=== PATIENT | female | born 1975 | race Caucasian/White ===

== ENCOUNTER 2024-02-25 11:54 | Observation (INO) ==
--- NOTE | 2024-02-25 12:19 | Emergency Department Note ---
Impression & Plan Dysfunctional uterine bleeding, Symptomatic anemia, Dizziness ED Provider Note NAME: ASHOK LINK AGE: 48 SEX: F : 1975 ARRIVES VIA: Ambulance INFORMANT: Patient, ED PROVIDER(S): Antony Fields MD CHIEF COMPLAINT: Vaginal bleeding MEDICAL DECISION MAKING: Patient presents due to concern for vaginal bleeding and shortness of breath. IV was established and blood work was obtained. 2 large-bore IVs ordered along with type and screen and [id number] as the patient did appear very pale. IV fluids ordered. Patient is initial blood work showed a white count of 14. The patient states that it has been elevated in the past. Patient's initial hemoglobin is 12 which is not significantly changed from 2022. Platelet count of 46. The patient has had thrombocytosis in the past. Kidney function is unremarkable BSG 195. Troponin negative. Patient upon reassessment did seem to be improved. Patient's pelvic ultrasound is limited but does show heterogeneous uterus possible fibroid and adenomyosis. The patient was reassessed several times. Patient did have a pelvic exam completed with calender inspector fall on. The patient did have a clot associated pooling within the vaginal vault. Repeat H&H was ordered in addition with IV fluids. I was called by nursing was concerned about additional blood clot expulsion as well as larger volume of blood. I did evaluate the patient and given this concern I did speak with the on-call fringing machine operator Dr. Muhammad who did evaluate the patient. After further discussion he does recommend 1 unit of uncrossed 1 on hold to be ordered. Patient was consented for blood and this was ordered. Patient was subsequently admitted to Dr. Muhammad. Critical Care: I have personally spent 45 minutes of critical care time in direct management of this patient. This includes bedside care, interpretation of diagnostic studies, and testing, discussion with consultants, patient, and family members, and other require inpatient management activities. This 45 minutes is in excess of all separately billable procedures. Discussion w/ other healthcare providers: Dr. Muhammad [employer] Prior /Outside records reviewed: None Differential diagnosis: Etiologies such as dysfunctional uterine bleeding, uterine fibroid, threatened , miscarriage, ectopic , endometrial polyps, coagulopathy, trauma, infection, as well as others were entertained. Diagnostics, as interpreted by me: ECG: Normal sinus rhythm, rate of 100, normal intervals, normal axis no ST elevations. Cardiac monitoring: An order was placed for continuous cardiac monitoring. The monitor shows a rate of 98 with sinus rhythm. Patient was placed on pulse oximetry Medical decision rules: None Imaging studies: I informally interpreted the patient's chest x-ray does not show obvious pneumonia or pneumothorax with formal report to follow. HPI: Patient presents due to concern for dizziness lightheadedness and feeling short of breath in the setting of vaginal bleeding. The patient LMP was 3 months prior but began having vaginal bleeding about a week ago. The patient states it was not very heavy until this morning. The patient did think it seem to be ending last night but worse around 10:30 AM this morning. Patient denies any recent trauma or sexual intercourse. Patient denies any chest pains. The patient does feel little short of breath and lightheaded. No falls or trauma. The patient does not take any blood thinning medications or aspirin or Plavix. Patient denies any significant abdominal pain other than her typical period cramping. The patient did put a pad on but this immediate became saturated so she removed it. PAST MEDICAL HISTORY: See Below PAST SURGICAL HISTORY: See Below SOCIAL HISTORY: See Below HOME MEDICATIONS: See Below ALLERGIES: See Below VITALS: See Below PHYSICAL EXAMINATION: GENERAL: Mildly ill in appearance, pale. EYE EXAM: Normal conjunctiva. PERRL, no anisocoria and EOM's grossly intact w/o pain. OROPHARYNX: Moist mucus membranes, grossly normal dentition. NECK: Trachea midline, no stridor. Supple, no nuchal rigidity, no adenopathy, non-tender. No signs of meningismus. FROM of the neck with good chin to chest and neck extension. LUNGS: Clear to auscultation. Normal chest wall mechanics. HEART: NSR, no MRG. ABDOMEN: Abdomen soft, non-tender, no masses, no rebound or guarding. BACK: No CVA TTP. SKIN: No rashes and no bruising. UPPER EXTREMITIES: Upper extremities are grossly normal. LOWER EXTREMITIES: Grossly normal, no edema. NEURO EXAM: A&O x3, cranial nerves II-XII grossly intact, normal speech, moves all 4 extremities. Past Med/Surg History Medical History Obesity Hypertension Diabetes Hypercholesterolemia Surgical History No pertinent past surgical history Social History Smoking Status: Unknown if ever smoked Tobacco Type: Cigarettes Preferred Language: Korean marital status: Single Feels Safe at Home: Yes Allergies Allergies Allergy/AdvReac Type Severity Reaction Status Date / Time metformin AdvReac Severe INTERFERRED Verified 02/25/24 18:55 WITH KIDNEY FUNCTION levothyroxine sodium AdvReac Unknown BRAND Verified 02/25/24 18:55 [From Synthroid] NAME--INEFFECTIVE, ITCHINESS Home Meds Home Medications Medication Instructions Recorded Confirmed atorvastatin 20 mg tablet 20 mg PO HS 08/11/21 02/25/24 levothyroxine 200 mcg tablet 200 mcg PO DAILYBB 08/11/21 02/25/24 pantoprazole 40 mg tablet,delayed 40 mg PO QAM 08/11/21 02/25/24 release cholecalciferol (vitamin D3) 50 2,000 unit PO DAILY 01/09/23 02/25/24 mcg (2,000 unit) capsule (Vitamin D3) fluticasone furoate 27.5 1 spray intranasal BID PRN 01/09/23 02/25/24 mcg/actuation nasal Congestion spray,suspension (Flonase Sensimist) losartan 100 mg tablet 100 mg PO QAM 01/09/23 01/09/23 topiramate 25 mg tablet 25 mg PO BID 01/09/23 01/09/23 ferrous sulfate 325 mg (65 mg 325 mg PO BID 02/25/24 02/25/24 iron) tablet (FeroSul) Results & Data (ED) Vital Signs Vital Signs - 24 hr 02/25/24 12:04 02/25/24 12:14 02/25/24 12:19 Temperature 36.6 C Temperature Source Oral Pulse Rate 97 H 96 H 98 H Pulse Rate from SpO2 Sensor Respiratory Rate 24 21 Respiratory Effort / Characteristics Non-Labored Spontaneous Respiratory Depth Normal Blood Pressure 131/71 89/58 L Blood Pressure Mean 91 68 Blood Pressure Position Lying Pulse Oximetry 100 99 Oxygen Delivery Method Room Air Sepsis Recent Fever Within 48 Hours No Sepsis New/Unexplained Change in Mental Status No Sepsis Action Taken by Nursing No Action Required 02/25/24 12:23 02/25/24 12:32 02/25/24 13:15 Temperature Temperature Source Pulse Rate 89 94 H 95 H Pulse Rate from SpO2 Sensor Respiratory Rate 20 19 16 Respiratory Effort / Characteristics Respiratory Depth Blood Pressure 122/78 104/67 Blood Pressure Mean 92 79 Blood Pressure Position Pulse Oximetry 97 97 100 Oxygen Delivery Method Room Air Sepsis Recent Fever Within 48 Hours Sepsis New/Unexplained Change in Mental Status Sepsis Action Taken by Nursing 02/25/24 13:30 02/25/24 14:46 02/25/24 15:01 Temperature Temperature Source Pulse Rate 103 H 107 H 104 H Pulse Rate from SpO2 Sensor Respiratory Rate 24 18 26 H Respiratory Effort / Characteristics Respiratory Depth Blood Pressure 133/72 110/84 111/71 Blood Pressure Mean 92 92 84 Blood Pressure Position Pulse Oximetry 99 98 97 Oxygen Delivery Method Sepsis Recent Fever Within 48 Hours Sepsis New/Unexplained Change in Mental Status Sepsis Action Taken by Nursing 02/25/24 15:36 02/25/24 15:40 02/25/24 16:00 Temperature Temperature Source Pulse Rate 106 H 109 H 102 H Pulse Rate from SpO2 Sensor Respiratory Rate 13 15 16 Respiratory Effort / Characteristics Respiratory Depth Blood Pressure 157/84 H 101/71 119/87 Blood Pressure Mean 108 81 97 Blood Pressure Position Pulse Oximetry 98 98 96 Oxygen Delivery Method Sepsis Recent Fever Within 48 Hours Sepsis New/Unexplained Change in Mental Status Sepsis Action Taken by Nursing 02/25/24 16:21 02/25/24 16:31 02/25/24 17:01 Temperature Temperature Source Pulse Rate 119 H 99 H 100 H Pulse Rate from SpO2 Sensor Respiratory Rate 15 16 Respiratory Effort / Characteristics Respiratory Depth Blood Pressure 105/61 99/59 L Blood Pressure Mean 75 72 Blood Pressure Position Pulse Oximetry 97 98 Oxygen Delivery Method Sepsis Recent Fever Within 48 Hours Sepsis New/Unexplained Change in Mental Status Sepsis Action Taken by Nursing 02/25/24 17:22 02/25/24 17:31 02/25/24 17:38 Temperature Temperature Source Pulse Rate 113 H Pulse Rate from SpO2 Sensor 127 H 126 H Respiratory Rate 16 Respiratory Effort / Characteristics Respiratory Depth Blood Pressure 113/52 L 92/76 L 80/56 L Blood Pressure Mean 72 81 64 Blood Pressure Position Pulse Oximetry 98 98 98 Oxygen Delivery Method Sepsis Recent Fever Within 48 Hours Sepsis New/Unexplained Change in Mental Status Sepsis Action Taken by Nursing 02/25/24 17:42 02/25/24 17:50 02/25/24 18:00 Temperature Temperature Source Pulse Rate 119 H 118 H 109 H Pulse Rate from SpO2 Sensor Respiratory Rate 21 21 13 Respiratory Effort / Characteristics Respiratory Depth Blood Pressure 102/66 98/57 L 109/79 Blood Pressure Mean 78 70 89 Blood Pressure Position Pulse Oximetry 98 100 99 Oxygen Delivery Method Sepsis Recent Fever Within 48 Hours Sepsis New/Unexplained Change in Mental Status Sepsis Action Taken by Nursing 02/25/24 18:51 Temperature 36.9 C Temperature Source Oral Pulse Rate 111 H Pulse Rate from SpO2 Sensor Respiratory Rate 20 Respiratory Effort / Characteristics Respiratory Depth Blood Pressure 106/52 L Blood Pressure Mean 70 Blood Pressure Position Pulse Oximetry 98 Oxygen Delivery Method Sepsis Recent Fever Within 48 Hours Sepsis New/Unexplained Change in Mental Status Sepsis Action Taken by Alf Medications Current Medication List: was personally reviewed by me Laboratory Data Attestation: I reviewed the patient's lab results. 02/25/24 16:58 02/25/24 12:10 Lab Results 02/25/24 02/25/24 02/25/24 Range/Units 12:10 12:15 12:20 WBC 14.04 H (4.8-10.8) K/ul RBC 4.67 (4.20-5.40) M/uL Hgb 12.1 (12.0-16.0) g/dl Hct 40.1 (37.0-47.0) % MCV 85.9 (80.0-100.0) fL MCH 25.9 (25.0-34.0) pg MCHC 30.2 L (32.0-36.0) g/dL RDW Std Deviation 72.7 H (36.4-46.3) fL RDW Coeff of Jay 23.3 H (11.5-14.5) % Plt Count 486 H (130-400) K/uL MPV 10.1 (9.4-12.4) fL Immature Gran % (Auto) 0.5 % Neut % (Auto) 76.6 % Lymph % (Auto) 14.2 % [place] % (Auto) 4.8 % Eos % (Auto) 3.2 % Baso % (Auto) 0.7 % Neut # (Auto) 10.74 H (1.40-6.50) K/uL Lymph # (Auto) 2.00 (1.20-3.40) K/uL [place] # (Auto) 0.68 H (0.11-0.59) K/uL Eos # (Auto) 0.45 (0.00-0.50) K/uL Baso # (Auto) 0.10 (0.00-0.20) K/uL Immature Gran # (Auto) 0.07 (0.01-0.20) K/uL Anisocytosis Present PT 10.9 (9.0-12.0) Seconds INR 1.0 (0.9-1.1) APTT 27 (21-31) Seconds PTT Ratio 1.0 Sodium 140 (136-145) mmol/L Potassium 4.0 (3.5-5.1) mmol/L Chloride 107 (98-107) mmol/L Carbon Dioxide 25 (21-32) mmol/L Anion Gap 8 (3-11) BUN 17 (6-23) mg/dl Creatinine 1.01 (0.6-1.2) mg/dl Est Cr Clr Drug Dosing Not Reportable Est GFR ( Amer) 77.3 ml/min Est GFR (Non-Af Amer) 66.7 ml/min BUN/Creatinine Ratio 16.8 (10-20) Glucose 195 H (70-99(Fasting)) mg/dl Calcium 8.6 (8.6-10.3) mg/dl Total Bilirubin 0.3 (0.2-1.0) mg/dl AST 13 (13-39) U/L ALT 12 (7-52) U/L Alkaline Phosphatase 63 (34-104) U/L Troponin I High Sens (0-14) pg/ml Total Protein 6.6 (6.0-8.3) gm/dl Albumin 3.6 (3.4-5.0) gm/dl Globulin 3.0 (2.5-4.0) gm/dl Albumin/Globulin Ratio 1.2 (0.9-2) HCG, Qual Negative (Negative) Blood Type B Positive Blood Type Recheck B Positive Antibody Screen NEGATIVE Crossmatch See Detail 02/25/24 02/25/24 Range/Units 13:37 16:58 WBC (4.8-10.8) K/ul RBC (4.20-5.40) M/uL Hgb 10.3 L (12.0-16.0) g/dl Hct 32.9 L (37.0-47.0) % MCV (80.0-100.0) fL MCH (25.0-34.0) pg MCHC (32.0-36.0) g/dL RDW Std Deviation (36.4-46.3) fL RDW Coeff of Jay (11.5-14.5) % Plt Count (130-400) K/uL MPV (9.4-12.4) fL Immature Gran % (Auto) % Neut % (Auto) % Lymph % (Auto) % [place] % (Auto) % Eos % (Auto) % Baso % (Auto) % Neut # (Auto) (1.40-6.50) K/uL Lymph # (Auto) (1.20-3.40) K/uL [place] # (Auto) (0.11-0.59) K/uL Eos # (Auto) (0.00-0.50) K/uL Baso # (Auto) (0.00-0.20) K/uL Immature Gran # (Auto) (0.01-0.20) K/uL Anisocytosis PT (9.0-12.0) Seconds INR (0.9-1.1) APTT (21-31) Seconds PTT Ratio Sodium (136-145) mmol/L Potassium (3.5-5.1) mmol/L Chloride (98-107) mmol/L Carbon Dioxide (21-32) mmol/L Anion Gap (3-11) BUN (6-23) mg/dl Creatinine (0.6-1.2) mg/dl Est Cr Clr Drug Dosing Est GFR ( Amer) ml/min Est GFR (Non-Af Amer) ml/min BUN/Creatinine Ratio (10-20) Glucose (70-99(Fasting)) mg/dl Calcium (8.6-10.3) mg/dl Total Bilirubin (0.2-1.0) mg/dl AST (13-39) U/L ALT (7-52) U/L Alkaline Phosphatase (34-104) U/L Troponin I High Sens 12.9 (0-14) pg/ml Total Protein (6.0-8.3) gm/dl Albumin (3.4-5.0) gm/dl Globulin (2.5-4.0) gm/dl Albumin/Globulin Ratio (0.9-2) HCG, Qual (Negative) Blood Type Blood Type Recheck Antibody Screen Crossmatch Administered Medications Discontinued Medications Sodium Chloride (Nss) 1,000 mls @ 999 mls/hr IV .Q1H1M JOCE Stop: 02/25/24 13:30 Last Infusion: 02/25/24 14:04 Dose: Infused Documented By: Admin: 02/25/24 12:39 Dose: 999 mls/hr Documented By: CPB Sodium Chloride (Nss) 500 mls @ 999 mls/hr IV .Q31M ONE Stop: 02/25/24 16:07 Last Infusion: 02/25/24 16:57 Dose: Infused Documented By: Admin: 02/25/24 15:56 Dose: 999 mls/hr Documented By: CPB Sodium Chloride (Nss) 500 mls @ 999 mls/hr IV .Q31M ONE Stop: 02/25/24 17:52 Last Infusion: 02/25/24 18:09 Dose: Infused Documented By: Admin: 02/25/24 17:28 Dose: 999 mls/hr Documented By: CPB Ketorolac Tromethamine (Ketorolac Tromethamine 15 Mg/Ml Vial) 10 mg IV NOW ONE Stop: 02/25/24 15:38 Last Admin: 02/25/24 15:56 Dose: 10 mg Documented By: CPB Norethindrone (Norethindrone 5 Mg Tab) 5 mg PO ONE STA Stop: 02/25/24 17:23 Last Admin: 02/25/24 17:34 Dose: 5 mg Documented By: CPB Imaging Data Radiologist's Impression: Transvaginal US 02/25/24 13:05 US pelvic complete, US transvaginal HISTORY: 48 years-old Female increased bleeding acute vaginal bleeding COMPARISON: CT 04/02/2011 TECHNIQUE: Multiple real-time sonographic images of the deep pelvic structures were obtained transabdominally and transvaginally assessing grayscale appearance, color and spectral flow FINDINGS: TRANSABDOMINAL: Limited exam secondary to patient body habitus. Suboptimal position of the uterus which measures 12.5 x 8.9 x 9.1 cm. There is an additional hypoechoic focus along the right fundal aspect of the uterus measuring 3.8 x 3.6 x 3.3 cm. Endometrium measures approximately 1.5 cm in thickness. Ovaries are obscured by bowel gas. TRANSVAGINAL: Nabothian cysts of the cervix. Heterogeneous appearance of the uterus. Ovaries are not visualized. No adnexal mass lesions. IMPRESSION: 1. Limited exam secondary to patient body habitus. 2. Heterogeneous uterus with questioned adenomyosis and possible pedunculated fundal fibroid. 3. Nonvisualization of the ovaries. ACT 112: Negative or not required by law. The above report was generated using voice recognition software. It may contain grammatical, syntax or spelling errors. Electronically signed by: Jerry Singer M.D. 02/25/2024 2:49 PM Pelvis Ultrasound 02/25/24 13:06 US pelvic complete, US transvaginal HISTORY: 48 years-old Female increased bleeding acute vaginal bleeding COMPARISON: CT 04/02/2011 TECHNIQUE: Multiple real-time sonographic images of the deep pelvic structures were obtained transabdominally and transvaginally assessing grayscale appearance, color and spectral flow FINDINGS: TRANSABDOMINAL: Limited exam secondary to patient body habitus. Suboptimal position of the uterus which measures 12.5 x 8.9 x 9.1 cm. There is an additional hypoechoic focus along the right fundal aspect of the uterus measuring 3.8 x 3.6 x 3.3 cm. Endometrium measures approximately 1.5 cm in thickness. Ovaries are obscured by bowel gas. TRANSVAGINAL: Nabothian cysts of the cervix. Heterogeneous appearance of the uterus. Ovaries are not visualized. No adnexal mass lesions. IMPRESSION: 1. Limited exam secondary to patient body habitus. 2. Heterogeneous uterus with questioned adenomyosis and possible pedunculated fundal fibroid. 3. Nonvisualization of the ovaries. ACT 112: Negative or not required by law. The above report was generated using voice recognition software. It may contain grammatical, syntax or spelling errors. Electronically signed by: Jerry Singer M.D. 02/25/2024 2:49 PM Chest X-Ray 02/25/24 13:18 XR chest 1V portable CLINICAL HISTORY: sob TECHNIQUE: Single frontal radiograph of the chest was obtained. Comparison: Comparison is made to chest radiograph 01/22/2023 FINDINGS: No lines and tubes are seen. The cardiomediastinal silhouette is normal. The lungs are clear. No evidence of pleural effusion or pneumothorax. IMPRESSION: No acute chest disease. ACT 112: Negative or not required by law. Electronically signed by: Nelson Haynes M.D. 02/25/2024 1:43 PM Discharge Plan Visit Data Chief Complaint: Vaginal Bleeding Stated Complaint: Vaginal Bleeding ED Provider: Antony Fields Discharge Problem: Dysfunctional uterine bleeding, Symptomatic anemia, Dizziness Forms Stand Alone Forms: [facility] [employer] Prescriptions Prescriptions: No Action atorvastatin 20 mg tablet 20 mg PO HS pantoprazole 40 mg tablet,delayed release (DR/EC) 40 mg PO QAM levothyroxine 200 mcg tablet 200 mcg PO DAILYBB topiramate 25 mg tablet 25 mg PO BID losartan 100 mg tablet 100 mg PO QAM cholecalciferol (vitamin D3) [Vitamin D3] 50 mcg (2,000 unit) capsule 2,000 unit PO DAILY Flonase Sensimist 27.5 mcg/actuation spray,suspension 1 spray intranasal BID PRN (Reason: Congestion) Rx Instructions: into each nostril ferrous sulfate [FeroSul] 325 mg (65 mg iron) tablet 325 mg PO BID Referrals Referrals: Lucía Horner PA-C [Primary Care Provider] -
[2024-02-25] MEDS: SODIUM CHLORIDE 0.9% 1,000 ML IV SCH (12:39)
[2024-02-25 12:42] LABS: Basophils % (auto) 0.7 %; Eosinophils # (auto) 0.45 K/uL (0.00-0.50); Eosinophils % (auto) 3.2 %; Hematocrit (blood only) 40.1 % (37.0-47.0); Hemoglobin 12.1 g/dl (12.0-16.0); Immature Granulocytes # (auto) 0.07 K/uL (0.01-0.20); Immature Granulocytes % (auto) 0.5 %; Lymphocytes % (auto) 14.2 %; Mean Corpuscular Hemoglobin 25.9 pg (25.0-34.0); Mean Corpuscular Hgb Conc 30.2 g/dL (32.0-36.0); Mean Corpuscular Volume 85.9 fL (80.0-100.0); Mean Platelet Volume 10.1 fL (9.4-12.4); Monocytes # (auto) 0.68 K/uL (0.11-0.59); Monocytes % (auto) 4.8 %; Neutrophils # (auto) 10.74 K/uL (1.40-6.50); Neutrophils % (auto) 76.6 %; Platelet Count 486 K/uL (130-400); RDW Coefficient of Variation 23.3 % (11.5-14.5); RDW Standard Deviation 72.7 fL (36.4-46.3); Red Blood Count 4.67 M/uL (4.20-5.40); White Blood Count 14.04 K/ul (4.8-10.8)
[2024-02-25 13:00] LABS: Alanine Aminotransferase 12 U/L (7-52); Albumin Globulin Ratio 1.2 (0.9-2); Albumin Level 3.6 gm/dl (3.4-5.0); Alkaline Phosphatase 63 U/L (34-104); Anion Gap 8 (3-11); Aspartate Aminotransferase 13 U/L (13-39); BUN Creatinine Ratio 16.8 (10-20); Bilirubin,Total 0.3 mg/dl (0.2-1.0); Blood Urea Nitrogen 17 mg/dl (6-23); Calcium 8.6 mg/dl (8.6-10.3); Carbon Dioxide 25 mmol/L (21-32); Chloride 107 mmol/L (98-107); Est GFR (African American) 77.3 ml/min; Est GFR (Non-African American) 66.7 ml/min; Glucose 195 mg/dl (70-99(Fasting)); Sodium 140 mmol/L (136-145); Total Protein 6.6 gm/dl (6.0-8.3)
[2024-02-25 13:10] LABS: Pregnancy Test, Serum Negative (Negative)
[2024-02-25 13:11] LABS: Partial Thromboplastin Time 27 Seconds (21-31); Prothrombin Time 10.9 Seconds (9.0-12.0)
[2024-02-25 13:12] LABS: Anisocytosis Present
--- NOTE | 2024-02-25 13:45 | XRay Report ---
XR chest 1V portable CLINICAL HISTORY: sob TECHNIQUE: Single frontal radiograph of the chest was obtained. Comparison: Comparison is made to chest radiograph 01/22/2023 FINDINGS: No lines and tubes are seen. The cardiomediastinal silhouette is normal. The lungs are clear. No evid ence of pleural effusion or pneumothorax. IMPRESSION: No acute chest disease. ACT 112: Negative or not required by law. Electronically signed by: Nelson Haynes M.D. 02/25/2024 1:43 PM
--- NOTE | 2024-02-25 14:50 | Ultrasound Report ---
US pelvic complete, US transvaginal HISTORY: 48 years-old Female increased bleeding acute vaginal bleeding COMPARISON: CT 04/02/2011 TECHNIQUE: Multiple real-time sonographic images of the deep pelvic structures were obtained transabd ominally and transvaginally assessing grayscale appearance, color and spectral flow FINDINGS: TRANSABDOMINAL: Limited exam secondary to patient body habitus. Suboptimal position of the uterus which measures 12. 5 x 8.9 x 9.1 cm. There is an additional hypoechoic focus along the right fundal aspect of the uterus measuring 3.8 x 3.6 x 3.3 cm. Endometrium measures approximately 1.5 cm in thickness. Ovaries are ob scured by bowel gas. TRANSVAGINAL: Nabothian cysts of the cervix. Heterogeneous appearance of the uterus. Ovaries are not visualized. No adnexal mass lesions. IMPRESSION: 1. Limited exam secondary to patient body habitus. 2. Heterogeneous uterus with questioned adenomyosis and possible pedunculated fundal fibroid. 3. Nonvisualization of the ovaries. ACT 112: Negative or not required by law. The above report was generated using voice recognition software. It may contain grammatical, syntax o r spelling errors. Electronically signed by: Jerry Singer M.D. 02/25/2024 2:49 PM
[2024-02-25] MEDS: KETOROLAC TROMETHAMINE 15 MG/ML VIAL IV ONE (15:56)
[2024-02-25] MEDS: SODIUM CHLORIDE 0.9% 500 ML IV ONE ×2 (15:56→17:28)
[2024-02-25 17:16] LABS: Hematocrit (blood only) 32.9 % (37.0-47.0); Hemoglobin 10.3 g/dl (12.0-16.0)
[2024-02-25] MEDS: NORETHINDRONE 5 MG TAB PO STA (17:34)
[2024-02-25] MEDS ORDERED: SODIUM CHLORIDE 0.9% 250 ML IV PRN (18:35)
[2024-02-25] MEDS ORDERED: Patient's HEIGHT &/or WEIGHT Needed SCH (19:15)
--- NOTE | 2024-02-25 19:23 | History & Physical Report ---
Date of Service February 25, 2024 Assessment & Plan (1) Symptomatic anemia: Plan: Blood transfusion (2) Dysfunctional uterine bleeding: Plan: Aygestin to stop bleeding (3) Dizziness: Plan: IV Fluids History of Present Illness Chief Complaint: vaginal bleeding Primary Care Provider: Lucía Horner PA-C 48 F P0000 LMP Sunday of last week with continuing bleeding through today and got heavier as the day progressed and came to the ER. She has always had irregular menses with heavy bleeding and clots and this period was unusual that it was heavier and did not stop. She was short of breath earlier and did feel dizzy earlier int e day but not light headed. she was pale on admission to ER. She is sexually active and never been on control. She does smoke 1.5- 2.0 PPD. Denies any drug use. She has never had a Pap smear or been to a medical manager. Allergies Allergy/AdvReac Type Severity Reaction Status Date / Time metformin AdvReac Severe INTERFERRED Verified 02/25/24 18:55 WITH KIDNEY FUNCTION levothyroxine sodium AdvReac Unknown BRAND Verified 02/25/24 18:55 [From Synthroid] NAME--INEFFECTIVE, ITCHINESS Home Medications Medication Instructions Recorded Confirmed Type atorvastatin 20 mg tablet 20 mg PO HS 08/11/21 02/25/24 History levothyroxine 200 mcg tablet 200 mcg PO DAILYBB 08/11/21 02/25/24 History pantoprazole 40 mg tablet,delayed 40 mg PO QAM 08/11/21 02/25/24 History release cholecalciferol (vitamin D3) 50 2,000 unit PO DAILY 01/09/23 02/25/24 History mcg (2,000 unit) capsule (Vitamin D3) fluticasone furoate 27.5 1 spray intranasal BID PRN 01/09/23 02/25/24 History mcg/actuation nasal Congestion spray,suspension (Flonase Sensimist) ferrous sulfate 325 mg (65 mg 325 mg PO BID 02/25/24 02/25/24 History iron) tablet (FeroSul) Past Med/Surg History Medical History Obesity Hypertension Diabetes Hypercholesterolemia Surgical History No pertinent past surgical history Social History Smoking Status: Unknown if ever smoked Tobacco Type: Cigarettes Preferred Language: Sammarinese marital status: Single Feels Safe at Home: Yes Review of Systems Review of Systems: All systems reviewed & are unremarkable except as noted in HPI & below Physical Exam Constitutional: WD/WN, vitals as above Eyes: PERRL, conjunctivae normal, anicteric sclerae Respiratory: normal respiratory effort, lungs clear to auscultation Cardiovascular: RRR, no murmur, no edema Gastrointestinal (Abdomen): Inspection/Auscultation: abdomen normal to inspection Percussion/Palpation: abdomen soft morbidly obese. no abdominal pain or guarding on exam. No palpable mass. Musculoskeletal: Extremities: extremities normal to inspection no edema of lower extremities Skin: no rashes, warm and dry Neurologic: patellar DTR's 2+ bilat, sensation intact Psychiatric: A+Ox3, euthymic affect Genitourinary: no vaginal lesions, no adnexal mass Speculum/Bimanual Exam: normal appearance of the cervix large clot evacuated from vagina. Cervix without lesions. No CMT. unable to palpate uterus or adnexa due to body habitus. Results & Data Results & Data Vital Signs (Past 12 Hours) Vital Signs Temp Pulse Resp BP Pulse Ox O2 Del Method 02/25/24 19:00 36.8 C 111 H 20 103/56 L 98 02/25/24 18:51 36.9 C 111 H 20 106/52 L 98 02/25/24 18:00 109 H 13 109/79 99 02/25/24 17:50 118 H 21 98/57 L 100 02/25/24 17:42 119 H 21 102/66 98 02/25/24 17:38 80/56 L 98 02/25/24 17:31 92/76 L 98 02/25/24 17:22 113 H 16 113/52 L 98 02/25/24 17:01 100 H 16 99/59 L 98 02/25/24 16:31 99 H 15 105/61 97 02/25/24 16:21 119 H 02/25/24 16:00 102 H 16 119/87 96 02/25/24 15:40 109 H 15 101/71 98 02/25/24 15:36 106 H 13 157/84 H 98 02/25/24 15:01 104 H 26 H 111/71 97 02/25/24 14:46 107 H 18 110/84 98 02/25/24 13:30 103 H 24 133/72 99 02/25/24 13:15 95 H 16 104/67 100 02/25/24 12:32 94 H 19 122/78 97 02/25/24 12:23 89 20 97 Room Air 02/25/24 12:19 98 H 02/25/24 12:14 96 H 21 89/58 L 99 02/25/24 12:04 36.6 C 97 H 24 131/71 100 Room Air Laboratory Results 02/25/24 02/25/24 02/25/24 12:10 12:15 12:20 WBC 14.04 H RBC 4.67 Hgb 12.1 Hct 40.1 MCV 85.9 MCH 25.9 MCHC 30.2 L RDW Std Deviation 72.7 H RDW Coeff of Jay 23.3 H Plt Count 486 H MPV 10.1 Immature Gran % (Auto) 0.5 Neut % (Auto) 76.6 Lymph % (Auto) 14.2 Woodward % (Auto) 4.8 Eos % (Auto) 3.2 Baso % (Auto) 0.7 Neut # (Auto) 10.74 H Lymph # (Auto) 2.00 Woodward # (Auto) 0.68 H Eos # (Auto) 0.45 Baso # (Auto) 0.10 Immature Gran # (Auto) 0.07 Anisocytosis Present PT 10.9 INR 1.0 APTT 27 PTT Ratio 1.0 Sodium 140 Potassium 4.0 Chloride 107 Carbon Dioxide 25 Anion Gap 8 BUN 17 Creatinine 1.01 Est Cr Clr Drug Dosing Not Reportable Est GFR ( Amer) 77.3 Est GFR (Non-Af Amer) 66.7 BUN/Creatinine Ratio 16.8 Glucose 195 H Calcium 8.6 Total Bilirubin 0.3 AST 13 ALT 12 Alkaline Phosphatase 63 Troponin I High Sens Total Protein 6.6 Albumin 3.6 Globulin 3.0 Albumin/Globulin Ratio 1.2 HCG, Qual Negative Blood Type B Positive Blood Type Recheck B Positive Antibody Screen NEGATIVE Crossmatch See Detail 02/25/24 02/25/24 13:37 16:58 WBC RBC Hgb 10.3 L Hct 32.9 L MCV MCH MCHC RDW Std Deviation RDW Coeff of Jay Plt Count MPV Immature Gran % (Auto) Neut % (Auto) Lymph % (Auto) Woodward % (Auto) Eos % (Auto) Baso % (Auto) Neut # (Auto) Lymph # (Auto) Woodward # (Auto) Eos # (Auto) Baso # (Auto) Immature Gran # (Auto) Anisocytosis PT INR APTT PTT Ratio Sodium Potassium Chloride Carbon Dioxide Anion Gap BUN Creatinine Est Cr Clr Drug Dosing Est GFR ( Amer) Est GFR (Non-Af Amer) BUN/Creatinine Ratio Glucose Calcium Total Bilirubin AST ALT Alkaline Phosphatase Troponin I High Sens 12.9 Total Protein Albumin Globulin Albumin/Globulin Ratio HCG, Qual Blood Type Blood Type Recheck Antibody Screen Crossmatch Diagnostic Findings CXR negative pelvic ultrasound limited due to body habitus Uterus 12.5 x 8.9 x 9.1 cm with possible pedunculated fibroid 3.8 x 3.6 x 3.3 cm. EML 1.5 cm. Non-visualized ovaries. possible adenomyosis/ Code Status & VTE Plan VTE Prophylaxis Plan VTE Prophylaxis will be ordered: No
[2024-02-25] MEDS ORDERED: IBUPROFEN 600 MG TAB PO PRN (19:33)
--- OUTSIDE RECORDS SUMMARY | 2024-02-25 19:55 | External Medical Summary | Summary of Care ---
Author Name Unknown Organization [facility] Address [address] [place] [address] Phone [phone] Care Team Providers Care Computer Applications Developer Name Role Phone Lucía Horner PA-C Primary Care Provider [phone] Reason for Referral * Medication Prior Authorization - Closed Specialty Diagnoses / Procedures Referred By Grupo mohan Referred To Contact Diagnoses Dizziness Romel Fenton, [facility] [address] [facility] [address] Referral ID Status Reason Start Date Expiration Date Visits Re quested Visits Authorized [id number] Closed 999 534 Reason for Visit * Reason Comments eRx-Medication Refill Encounter Details Date Type Department Care Team (Late st Contact Info) Description 02/21/2024 Refill [facility] [address] [place] [id number] Lucía Horner PA-C [address] [place] [address] Dizziness Allergies Active Allergy Reactions Criticality Noted Date Comments Metformin 01/11/2021 Raised creat documented as of this encounter (statuses as of 02/22/2024) Medications Medication Sig Dispensed Refills Start Date End Date Status NEBULIZER COMPRESSOR MISCIndications:Bro nchitis Use as directed 1 Each 1 5 Active Blood Glucose Monitoring Suppl (ONE TOUCH ULTRA SYSTEM KIT) W/DEVICE KITIndications:DM type 2, goal A1c below 7 Once daily or as needed 1 Kit 0 5 Active metronidazole (METROGEL) 0.75 % gelIndications:Impe tigo Apply topically to affected area 2 times a day. Apply to affected area 45 g 1 8 Active Meclizine HCl 25 MG Oral Tablet (Antivert)Indicatio ns:Dizziness Take 1 Tablet by mouth 3 times a day as needed for Dizziness. 30 Tablet 1 3 Active Magnesium Oxide 400 (240 Mg) MG Oral Tablet (Mag-Ox)Indications :Tension-type headache, not intractable, unspecified chronicity pattern TAKE ONE TABLET BY MOUTH NIGHTLY AT BEDTIME 100 Tablet 1 3 Active Mounjaro 2.5 MG/0.5ML Subcutaneous Solution Pen-injector (Tirzepatide)Indica tions:Type 2 diabetes mellitus with hemoglobin A1c goal of less than 7.0% (HCC),Morbid obesity, BMI not known (HCC) Inject 2.5 mg under the skin once a week. 2 mL 11 3 08/02/20 24 Active Atorvastatin Calcium 20 MG Oral Tablet (Lipitor)Indication s:HTN, goal below 140/90,Dyslipidemia , goal LDL below 70 TAKE 1 TABLET BY MOUTH AT BEDTIME 90 Tablet 1 3 Active OneTouch Ultra In Vitro Strip (Glucose Blood) USE TO TEST ONCE A DAY OR NEEDED 100 Strip 3 3 Active OneTouch UltraSoft 2 Lancets USE TO TEST ONCE DAILY OR DIRECTED 100 Each 3 3 Active LORazepam 0.5 MG Oral Tablet (Ativan)Indications :NDPH (new daily persistent headache) One tab 1 hour prior, repeat 15 min prior and start of mri 3 Tablet 0 3 Active Ipratropium Barney 0.02 % Inhalation Solution (Atrovent)Indicatio ns:Tobacco use disorder Inhale 2.5 mL via nebulizer in the morning and 2.5 mL at noon and 2.5 mL in the evening and 2.5 mL before bedtime. 75 mL 12 4 Active busPIRone HCl 15 MG Oral Tablet (Buspar)Indications :ELIZABETH (generalized anxiety disorder),Panic attack TAKE ONE TABLET BY MOUTH IN THE MORNING, ONE TABLET AT NOON, ONE TABLET IN THE EVENING AND ONE TABLET BEFORE BEDTIME 120 Tablet 2 4 Active traZODone HCl 50 MG Oral Tablet (Desyrel)Indication s:NDPH (new daily persistent headache),Insomnia, unspecified type,Current mild episode of major depressive disorder, unspecified whether recurrent (HCC) take 1/2 to 1 tablet by mouth at bedtime 30 Tablet 2 4 Active Azithromycin 250 MG Oral Tablet (Zithromax Z-Landon)Indications:S inobronchitis Take two tablets by mouth on first day, then 1 tablet daily until gone 6 Tablet 0 4 Active predniSONE 10 MG Oral Tablet (Deltasone)Indicati ons:Sinobronchitis Take 5 tabs for 2 days, 4 tabs for 2 days, 3 tabs for 2 days, 2 tabs for 2 days 1 tab for 2 days 30 Tablet 0 4 Active Albuterol Sulfate HFA 108 (90 Base) MCG/ACT Inhalation Aerosol SolutionIndications :Pneumonia of right lower lobe due to infectious organism INHALE TWO PUFFS BY MOUTH FOUR TIMES DAILY 18 g 2 4 Active Emgality 120 MG/ML Subcutaneous Solution Auto-injector (Galcanezumab-gnlm) Inject 1 mL under the skin every month. 1 mL 5 4 Active Albuterol Sulfate (2.5 MG/3ML) 0.083% Inhalation Nebulization Solution (Proventil)Indicati ons:Bronchitis, complicated INHALE 1 VIAL VIA NEBULIZER EVERY FOUR HOURS NEEDED FOR WHEEZING 150 mL 2 4 Active Levothyroxine Sodium 200 MCG Oral Tablet (Levoxyl)Indication s:Acquired hypothyroidism TAKE 1 TABLET BY MOUTH ONCE DAILY sunday through sunday and take 1/2 tablet on sunday and sunday - take at least 30 minutes before breakfast and any other medications 84 Tablet 1 4 Active Ferrous Sulfate 325 (65 Fe) MG Oral Tablet (Feosol)Indications :Abnormal CBC measurement Take 1 Tablet by mouth in the morning and 1 Tablet before bedtime. 60 Tablet 11 4 Active Vitamin C 500 MG Oral Tablet ChewableIndications :Abnormal CBC measurement Take 1 Tablet by mouth in the morning and 1 Tablet before bedtime. Take with iron supplement and drink 4 ounces of water. 60 Tablet 5 4 Active Pantoprazole Sodium 40 MG Oral Tablet Delayed Release (Protonix)Indicatio ns:GERD (gastroesophageal reflux disease),Encounter for long-term (current) use of medications TAKE 1 TABLET BY MOUTH ONCE DAILY 90 Tablet 1 4 Active D3 Super Strength 50 MCG (2000 UT) Oral Capsule (Cholecalciferol)In dications:Low vitamin D level TAKE 1 CAPSULE BY MOUTH EVERY MORNING 90 Capsule 1 4 Active Fluticasone Propionate 50 MCG/ACT Nasal Suspension (Flonase)Indication s:Dizziness administer 1 spray into nostil(s) in the morning 16 g 1 4 Active Fluticasone Propionate 50 MCG/ACT Nasal Suspension (Flonase)Indication s:Dizziness Administer 1 Gamaliel into nostril in the morning. 15.8 mL 3 3 02/22/20 24 Discontinued documented as of this encounter (statuses as of 02/22/2024) Active Problems Problem Noted Date Diagnosed Date Major depressive disorder, single episode, mild 11/27/2023 Type 2 diabetes mellitus wit h diabetic nephropathy, without long-term current use of insulin 11/27/2023 Elevated carcinoembryonic antigen (CEA) 02/15/20 [address] nodules on CT 02/07/2023 Restless legs 09/18/2022 Morbid obesity, BMI not known 06/13/2018 Dyslipidemia, goal LDL below 70 12/04/2017 Encounter for long-term (current) use of medicat ions 12/04/2017 Type 2 diabetes mellitus wit h hemoglobin A1c goal of less than 7.0% 04/01/2015 Overview: ICD-10 update of inactive term GERD (gastroesophageal reflux disease) 5 HTN, goal below 140/90 03/29/2015 Tobacco use disorder 03/29/2015 Hypothyroidism 10/01/2012 Migraine 08/20/2012 documented as of this encounter (statuses as of 02/22/2024) Resolved Problems Problem Noted Date Diagnosed Date Resolved Date Abdominal pain 03/29/2015 08/24/2017 Abnormal LFTs 03/29/2015 08/24/2017 Cough 01/11/2010 03/29/2015 Overweight (BMI 25.0-29.9) 08/13/2009 0 03/29/2015 Esophageal reflux 08/13/2009 03/29/2015 Chest pain 08/13/2009 03/29/2015 Tobacco use disorder 08/13/2009 015 Elevated blood pressure, situational 08/13/2009 03/29/2015 HYPERGLYCEMIA 08/13/2009 03/29/2015 Prediabetes 06/22/2016 Dyslipidemia, goal LDL below 130 12/04/2017 documented as of this encounter (statuses as of 02/22/2024) Immunizations Name Administration Dates Next Due COVID-19 mRNA, LNP-s, No Pre serve, 2-Dose Series ([employer]) 09/13/2021,12/30/2020,12/09/2020 PPD 03/22/2016 Pneumococcal Polysaccharide PPV23 (Pneumovax) 02/19/2014 TDAP (age 10 and older)(Boostrix) 02/19/2014 documented as of this encounter Social History Tobacco Use Types Packs/Day Years Used Date Smoking Tobacco: Every Day Cigarettes 2 31.3 Started: 1992 Smokeless Tobacco: Never Alcohol Use Standard Drinks/Week Comments No 0 (1 standard drink = 0.6 oz pur e alcohol) PHQ-2 Answer Date Recorded PHQ-2 Score 0 09/22/2018 Sex and Gender Information Value Date Recorded Sex Assigned at Female 01/13/2020 2:01 PM EST Gender Identity Female 01/13/2020 2:01 PM EST Sexual Orientation Straight 01/13/2020 2: 01 PM EST Job Start Date Occupation Industry Not on file Not on file Not on file documented as of this encounter Miscellaneous Notes * Telephone Encounter - Romel Fenton, [facility] - 02/22/2024 1:27 PM EDT Signed Prescriptions: Disp Refills Fluticasone Propionate 50 MCG/ACT Nasal Araujo*16 g 1 Sig: administer 1 spray into nostil(s) in the morningAuthorizing Provider: LUCÍA HORNER AOrirving User: ROMEL FENTON documented in this encounter Plan of Treatment Upcoming Encounters Date Type Department Care Team (Late st Contact Info) Description 03/04/2024 9:20 AM EDT Office Visit Neurology Jaime Hickman [place] [address] [place] [address] Karina Hoffman PA-C [address] [place] [address] Scheduled Procedures Name Priority Associated Diagnoses Date/Ti me COLONOSCOPY FLEXIBLE PROXIMA L DIAGNOSTIC Elevated carcinoembryonic antigen (CEA) Health Maintenance Due Date Last Done Comments DISCUSS TOBACCO CESSATION (REFER TO SMARTSET #3606) 1977 Hepatitis C Screening 1995 Hepatitis B (1 of 3 - 19+ 3-dose series) 1996 HPV/Co-Test 2007 Pneumococcal Vaccine: Pediatrics (0 to 5 Years) and At-Risk Patients (6 to 64 Years) (2 of 2 - PCV) 02/19/2015 02/19/2014 Cervical Cancer Screening 05/29/2015 Pap Smear 05/29/2015 05/29/2012 (Done elsewhere) Mammogram 2017 Depression Screening 08/29/2019 08/29/2018 Cologuard 2022 Fecal Occult Blood Test 2022 Sigmoidoscopy 2022 Diabetic Foot Exam 08/12/2022 08/12/2021, 0 06/12/2019, 03/22/2016 COVID-19 Vaccine ( season) 2023 09/13/2021, 12/30/2020, 12/09/2020 B-12 12/15/2023 12/15/2022, 10/0 03/2022, 07/19/2022, Additional history exists DTaP,Tdap,and Td Vaccines (2 - Td or Tdap) 02/20/2024 02/19/2014 HbA1c 07/16/2024 01/16/2024, 06/20, 01/26/2023, Additional history exists Influenza Vaccine (FLU shot) (Season Ended) 2024 Albumin/Creatinine Ratio 01/16/2025 024, 12/15/2022, 07/19/2022, Additional history exists GFR 01/16/2025 01/16/2024, 06/20, 01/18/2023, Additional history exists TSH 01/16/2025 01/16/2024, 06/20, 01/26/2023, Additional history exists Diabetic Eye Exam 01/27/2025 01/28/2024, 01/15/2023 Lipid Panel 01/16/2029 01/16/2024, 06/21, 08/02/2021, Additional history exists Colonoscopy 03/01/2033 03/01/2023, 03/01/2023 Colorectal Cancer Screening 03/01/2033 GARDASIL-HPV IMMUNIZATION SERIES Aged Out No longer eligible based on patient's age to complete this topic MENINGOCOCCAL (MENACTRA/MENVEO) Aged Out No longer eligible based on patient's age to complete this topic documented as of this encounter Medical Devices Implanted Type Area Installation Manager Device Identifier Shelf Expiration Date Model / Serial / Lot Clip Quick 2.8mm 230cm - [id number] Implanted:Qty: 1 on 03/01/2023 by Rasheed Niño MD at [place] [facility] [place] [employer] [id number] 05/18/2025 [id number] / [id number] documented as of this encounter Visit Diagnoses Diagnosis Dizziness Dizziness and giddiness documented in this encounter Care Teams Computer Applications Developer Relationship Specialty Start Date End Date Lucía Horner PA-C [address], [place] [phone] PCP - General Physician High School English Teacher 07/19/22 documented as of this encounter
--- OUTSIDE RECORDS SUMMARY | 2024-02-25 19:55 | External Medical Summary | Summary of Care ---
Author Name Unknown Organization [facility] Address [address] [place] [address] Phone [phone] Care Team Providers Care Manager Registration Name Role Phone Lucía Horner PA-C Primary Care Provider [phone] Reason for Visit * Reason Comments eRx-Medication Refill Encounter Details Date Type Department Care Team (Late st Contact Info) Description 02/20/2024 Refill [facility] [address] [place] [address] Lucía Horner PA-C [address] [place] [address] GERD (gastroesophageal reflux disease); Encounter for long-term (current) use of medications; Low vitamin D level Allergies Active Allergy Reactions Criticality Noted Date Comments Metformin 01/11/2021 Raised creat documented as of this encounter (statuses as of 02/21/2024) Medications Medication Sig Dispensed Refills Start Date [...] for Dizziness. 30 Tablet 1 3 Active Fluticasone Propionate 50 MCG/ACT Nasal Suspension (Flonase)Indication s:Dizziness Administer 1 Bynum into nostril in the morning. 15.8 mL 3 3 Active Magnesium Oxide 400 (240 Mg) [...] mri 3 Tablet 0 3 Active Ipratropium [place] 0.02 % Inhalation Solution (Atrovent)Indicatio ns:Tobacco use [...] Active Emgality 120 MG/ML Subcutaneous Solution Auto-injector (Galcanezumab-[facility]) Inject 1 mL under the skin every [...] EVERY MORNING 90 Capsule 1 4 Active Pantoprazole Sodium 40 MG Oral Tablet Delayed Release (Protonix)Indicatio ns:GERD (gastroesophageal reflux disease),Encounter for long-term (current) use of medications TAKE 1 TABLET BY MOUTH ONCE DAILY 90 Tablet 1 3 02/21/20 24 Discontinued D3 Super Strength 50 MCG (2000 UT) Oral Capsule (Cholecalciferol)In dications:Low vitamin D level TAKE 1 CAPSULE BY MOUTH EVERY MORNING 90 Capsule 1 3 02/21/20 24 Discontinued documented as of this encounter (statuses as of 02/21/2024) Active Problems Problem Noted Date Diagnosed Date [...] as of this encounter (statuses as of 02/21/2024) Resolved Problems Problem Noted Date Diagnosed Date [...] as of this encounter (statuses as of 02/21/2024) Immunizations Name Administration Dates Next Due COVID-19 mRNA, LNP-s, No Pre serve, 2-Dose Series (Pfizer) 09/13/2021,12/30/2020,12/09/2020 PPD 03/22/2016 Pneumococcal Polysaccharide PPV23 (Pneumovax) [...] encounter Miscellaneous Notes * Telephone Encounter - Lucía Horner PA-C - 02/21/2024 12:28 PM EDTSigned Prescriptions: Disp Refills Pantoprazole Sodium 40 MG Oral Tablet Sheila*90 Tab*1 Sig: TAKE 1 TABLET BY MOUTH ONCE DAILY Authorizing Provider: LUCÍA HORNER Ordering User: TABITHA RUBIO D3 Super Strength 50 MCG (2000 UT) Oral Ca*90 Cap*1 Sig: TAKE 1 CAPSULE BY MOUTH EVERY MORNING Authorizing Provider: LUCÍA HORNER Refused Prescriptions: Disp Refills hydroCHLOROthiazide 12.5 MG Oral Tablet 90 Tab*0 Sig: TAKE 1 TABLET BY MOUTH ONCE DAILY Refused By: TABITHA RUBIO Reason for Refusal: Course of treatment complete * Telephone Encounter - Tabitha Rubio RP - 02/21/2024 6:49 AM EDT Pending Prescriptions: Disp Refills D3 Super Strength 50 MCG (1999) Oral Ca*90 Cap*1 Sig: TAKE 1 CAPSULE BY MOUTH EVERY MORNING Signed Prescriptions: Disp Refills Pantoprazole Sodium 40 MG Oral Tablet Sheila*90 Tab*1 Sig: TAKE 1 TABLET BY MOUTH ONCE DAILY Authorizing Provider: LUCÍA HORNER Ordering User: TABITHA RUBIO Refused P rescriptions: Disp Refills hydroCHLOROthiazide 12.5 MG Oral Tablet 90 Tab*0 Sig: TAKE 1 TABLET BY MOUTH ONCE DAILY Refused By: TABITHA RUBIO Reason for Refusal: Course of treatment complete * Telephone Encounter - Tabitha Rubio RPh - 02/21/2024 6:49 AM EDT Refill pharmacists currently not authorized to approve refills for this class of medication per refill protocol. Please approve if appropriate. Thank you, Tabitha Rubio, PharmD. Clinical Pharmacist Pharmacy Refill Call Center 02/21/2024, 6:49 AM documented in this encounter Plan of Treatment Upcoming Encounters Date Type Department Care Team (Late st Contact Info) Description 03/04/2024 9:20 AM EDT Office Visit Neurology [place] [facility] [address] [facility] [place] [address] Karina Hoffman PA-C [address] [facility] [place] [phone] Scheduled Procedures Name Priority Associated Diagnoses Date/Ti me COLONOSCOPY FLEXIBLE PROXIMA L DIAGNOSTIC Elevated carcinoembryonic antigen (CEA) Health Maintenance Due Date Last Done Comments DISCUSS TOBACCO CESSATION (REFER TO SMARTSET #7284) 1977 Hepatitis C Screening 1995 Hepatitis B [...] 07/19/2022, Additional history exists GFR 01/16/2025 01/16/2024, 0811/2022, 01/18/2023, Additional history exists TSH 01/16/2025 01/16/2024, 0811/2022, 01/26/2023, Additional history exists Diabetic Eye Exam 01/27/2025 01/28/2024, 01/15/2023 Lipid Panel 01/16/2029 01/16/2024, 08/3 11/2021, 08/02/2021, Additional history exists Colonoscopy 03/01/2033 03/01/2023, 03/01/2023 Colorectal Cancer Screening 03/01/2033 GARDASIL-HPV IMMUNIZATION SERIES Aged Out No longer eligible based on patient's age to complete this topic MENINGOCOCCAL (MENACTRA/MENVEO) Aged Out No longer eligible based on patient's age to complete this topic documented as of this encounter Medical Devices Implanted Type Area Discharge Coordinator Device Identifier Shelf Expiration Date Model / Serial / Lot Clip Quick 2.8mm 230cm - [id number] Implanted:Qty: 1 on 03/01/2023 by Rasheed Niño MD at [place]COPY [facility] [place] [employer] [id number] 05/18/2025 [id number] / / [id number] documented as of this encounter Visit Diagnoses Diagnosis GERD (gastroesophageal reflux disease) Esophageal reflux Encounter for long-term (current) use of medications Encounter for long-term (current) use of other medications Low vitamin D level documented in this encounter Care Teams Manager Registration Relationship Specialty Start Date End Date Lucía [facility] [address] [facility] [address] PCP - General Physician Friction Paint Machine Tender 07/19/22 documented as of this encounter
--- OUTSIDE RECORDS SUMMARY | 2024-02-25 19:55 | External Medical Summary | Summary of Care ---
Author Name Unknown Organization [facility] Address [address] [place] [address] Phone [phone] Care Team Providers Care Netbackup Engineer Name Role Phone Lucía Horner PA-C Primary Care Provider [phone] Reason for Referral * Medication Prior Authorization - Closed Specialty Diagnoses / Procedures Referred By Grupo mohan Referred To Contact Diagnoses Dizziness Romel Fenton, [facility] [address] [place] [address] Referral ID Status Reason Start Date Expiration Date Visits Re quested Visits Authorized [id number] Closed [phone] Reason for Visit * Reason Comments eRx-Medication Refill Encounter Details Date Type Department Care Team (Late st Contact Info) Description 02/21/2024 Refill [facility] [address] [place] [phone] Lucía Horner PA-C [address] [place] [address] Dizziness Allergies Active Allergy Reactions [...] mri 3 Tablet 0 3 Active Ipratropium Truchas 0.02 % Inhalation Solution (Atrovent)Indicatio ns:Tobacco use [...] MCG/ACT Nasal Suspension (Flonase)Indication s:Dizziness Administer 1 [place] into nostril in the morning. 15.8 mL [...] mRNA, LNP-s, No Pre serve, 2-Dose Series (Portal Profes) 09/13/2021,12/30/2020,12/09/2020 PPD 03/22/2016 Pneumococcal Polysaccharide PPV23 (Pneumovax) [...] Notes * Telephone Encounter - Romel Fenton, [facility] - 02/22/2024 1:27 PM EDT Signed Prescriptions: Disp Refills Fluticasone Propionate 50 MCG/ACT Nasal Araujo*16 g 1 Sig: administer 1 spray into nostil(s) in the morningAuthorizing Provider: LUCÍA HORNER AOrirving User: ROMEL FENTON documented in this encounter Plan of Treatment Upcoming Encounters Date Type Department Care Team (Late st Contact Info) Description 03/04/2024 9:20 AM EDT Office Visit Neurology Jaime Hickman [place] [address] [place] [address] Karina Hoffman PA-C [address] [place] [address] Scheduled Procedures Name Priority Associated Diagnoses Date/Ti me COLONOSCOPY FLEXIBLE PROXIMA L DIAGNOSTIC Elevated carcinoembryonic antigen (CEA) Health Maintenance Due Date Last Done Comments DISCUSS TOBACCO CESSATION (REFER TO SMARTSET #5188) 1975 Hepatitis C Screening 1995 Hepatitis B [...] this encounter Medical Devices Implanted Type Area Legal Advisor Device Identifier Shelf Expiration Date Model / Serial / Lot Clip Quick 2.8mm 230cm - [id number] Implanted:Qty: 1 on 03/01/2023 by Rasheed Niño MD at ENDOSCOPY [facility] [employer] [id number] 05/18/2025 [id number] / / [id number] documented as of this encounter Visit Diagnoses Diagnosis Dizziness Dizziness and giddiness documented in this encounter Care Teams Netbackup Engineer Relationship Specialty Start Date End Date Lucía Horner PA-C [address] [place], [place] [phone] PCP - General Physician Bioprocess Engineer 07/19/22 documented as of this encounter
--- OUTSIDE RECORDS SUMMARY | 2024-02-25 19:56 | External Medical Summary ---
Author Name Unknown Address Unknown Organization K01:LABORATORY [facility] [place] - [address] [facility] [address] Laboratory Report Ordering Provider Test Date Status MISHA BUSTILLOS 01/16/2024 12:53:58 Final Observation Date Value Abnormality Reference (Units ) Status BUN 01/16/2024 12:53:58 17 6-20 (mg/dL) Final Creatinine 01/16/2024 12:53:58 1.1 Above high normal 0.5-1.0 (mg/dL) Final Glomerular filtration rate/1.73 sq M.predicted [Volume Rate/Area] in Serum, Plasma or Blood by Creatinine-based formula (CKD-EPI) 01/16/2024 12:53:58 60 >=60 (mL/min) Final eGFR is calculated based on the CKD-EPI 2020 equation SODIUM 01/16/2024 12:53:58 140 135-146 (m mol/L) Final Potassium 01/16/2024 12:53:58 4.8 3.5-5.1 (m mol/L) Final Cl 01/16/2024 12:53:58 105 98-107 (mm ol/L) Final CO2 01/16/2024 12:53:58 24 22-32 (mmo l/L) Final Anion gap 01/16/2024 12:53:58 11 7-15 (mmol /L) Final Glucose 01/16/2024 12:53:58 118 70-120 (mg /dL) Final Albumin 01/16/2024 12:53:58 3.6 Below low normal 3.8 -5.0 (g/dL) Final AST (Aspartate aminotransferase) 01/16/2024 12:53:58 17 10-35 (U/L) Fin al Alk Phos 01/16/2024 12:53:58 79 35-130 (U/ L) Final Bilirubin, Total 01/16/2024 12:53:58 0.2 <=1 .2 (mg/dL) Final Calcium 01/16/2024 12:53:58 9.0 8.4-10.2 ( mg/dL) Final Protein 01/16/2024 12:53:58 6.1 6.0-8.3 (g /dL) Final ALT (Alanine aminotransferase) 01/16/2024 12:53:58 14 10-35 (U/L) Aly tavera Performing Location [facility]ATORY [facility] [place] - [facility] [address] [facility] [address]
--- OUTSIDE RECORDS SUMMARY | 2024-02-25 19:56 | External Medical Summary | Summary of Care ---
Author Name Unknown Organization [facility] Address [address] [place] [address] Phone [phone] Care Team Providers Care Advertising Designer Name Role Phone Lucía Horner PA-C Primary Care Provider [phone] Encounter Details Date Type Department Care Team ([facility] st Contact Info) Description 01/01/2024 3:00 PM EST Telemedicine Otolaryngology [facility] [address] [place], [place] [phone] Kory Lopez MD [address] [place] [address] No-show for appointment* Allergies Active Allergy Reactions Criticality Noted Date Comments Metformin 01/11/2021 Raised creat documented as of this encounter (statuses as of 01/01/2024) Medications Medication Sig Dispensed Refills Start Date End Date Status NEBULIZER COMPRESSOR MISCIndications:Bron chitis Use as directed 1 Each 1 01/16/2015 Active Blood Glucose Monitoring Suppl (ONE TOUCH ULTRA SYSTEM KIT) W/DEVICE KITIndications:DM type 2, goal A1c below 7 Once daily or as needed 1 Kit 0 04/01/2015 Active metronidazole (METROGEL) 0.75 % gelIndications:Impet igo Apply topically to affected area 2 times a day. Apply to affected area 45 g 1 02/22/2018 Active Meclizine HCl 25 MG Oral Tablet (Antivert)Indication s:Dizziness Take 1 Tablet by mouth 3 times a day as needed for Dizziness. 30 Tablet 1 12/12/2022 Active Fluticasone Propionate 50 MCG/ACT Nasal Suspension (Flonase)Indications :Dizziness Administer 1 [place] into nostril in the morning. 15.8 mL 3 12/12/2022 Active Magnesium Oxide 400 (240 Mg) MG Oral Tablet (Mag-Ox)Indications: Tension-type headache, not intractable, unspecified chronicity pattern TAKE ONE TABLET BY MOUTH NIGHTLY AT BEDTIME 100 Tablet 1 02/13/2023 Active Mounjaro 2.5 MG/0.5ML Subcutaneous Solution Pen-injector (Tirzepatide)Indicat ions:Type 2 diabetes mellitus with hemoglobin A1c goal of less than 7.0% ([facility]),Morbid obesity, BMI not known ([facility]) Inject 2.5 mg under the skin once a week. 2 mL 11 08/03/2023 4 Active Pantoprazole Sodium 40 MG Oral Tablet Delayed Release (Protonix)Indication s:GERD (gastroesophageal reflux disease),Encounter for long-term (current) use of medications TAKE 1 TABLET BY MOUTH ONCE DAILY 90 Tablet 1 08/30/2023 Active D3 Super Strength 50 MCG (2000 UT) Oral Capsule (Cholecalciferol)Ind ications:Low vitamin D level TAKE 1 CAPSULE BY MOUTH EVERY MORNING 90 Capsule 1 08/31/2023 Active Atorvastatin Calcium 20 MG Oral Tablet (Lipitor)Indications :HTN, goal below 140/90,Dyslipidemia, goal LDL below 70 TAKE 1 TABLET BY MOUTH AT BEDTIME 90 Tablet 1 08/30/2023 Active OneTouch Ultra In Vitro Strip (Glucose Blood) USE TO TEST ONCE A DAY OR NEEDED 100 Strip 3 10/05/2023 Active OneTouch UltraSoft 2 Lancets USE TO TEST ONCE DAILY OR DIRECTED 100 Each 3 10/29/2023 Active LORazepam 0.5 MG Oral Tablet (Ativan)Indications: NDPH (new daily persistent headache) One tab 1 hour prior, repeat 15 min prior and start of mri 3 Tablet 0 11/02/2023 Active Ipratropium Kayenta 0.02 % Inhalation Solution (Atrovent)Indication s:Tobacco use disorder Inhale 2.5 mL via nebulizer in the morning and 2.5 mL at noon and 2.5 mL in the evening and 2.5 mL before bedtime. 75 mL 12 11/21/2023 Active busPIRone HCl 15 MG Oral Tablet (Buspar)Indications: ELIZABETH (generalized anxiety disorder),Panic attack TAKE ONE TABLET BY MOUTH IN THE MORNING, ONE TABLET AT NOON, ONE TABLET IN THE EVENING AND ONE TABLET BEFORE BEDTIME 120 Tablet 2 11/28/2023 Active traZODone HCl 50 MG Oral Tablet (Desyrel)Indications :NDPH (new daily persistent headache),Insomnia, unspecified type,Current mild episode of major depressive disorder, unspecified whether recurrent (HCC) take 1/2 to 1 tablet by mouth at bedtime 30 Tablet 2 11/28/2023 Active Azithromycin 250 MG Oral Tablet (Zithromax Z-Landon)Indications:Si nobronchitis Take two tablets by mouth on first day, then 1 tablet daily until gone 6 Tablet 0 11/27/2023 Active predniSONE 10 MG Oral Tablet (Deltasone)Indicatio ns:Sinobronchitis Take 5 tabs for 2 days, 4 tabs for 2 days, 3 tabs for 2 days, 2 tabs for 2 days 1 tab for 2 days 30 Tablet 0 11/27/2023 Active Albuterol Sulfate HFA 108 (90 Base) MCG/ACT Inhalation Aerosol SolutionIndications: Pneumonia of right lower lobe due to infectious organism INHALE TWO PUFFS BY MOUTH FOUR TIMES DAILY 18 g 2 11/27/2023 Active Emgality 120 MG/ML Subcutaneous Solution Auto-injector (Galcanezumab-gn) Inject 1 mL under the skin every month. 1 mL 5 11/29/2023 Active Albuterol Sulfate (2.5 MG/3ML) 0.083% Inhalation Nebulization Solution (Proventil)Indicatio ns:Bronchitis, complicated INHALE 1 VIAL VIA NEBULIZER EVERY FOUR HOURS NEEDED FOR WHEEZING 150 mL 2 12/03/2023 Active Levothyroxine Sodium 200 MCG Oral Tablet (Levoxyl)Indications :Acquired hypothyroidism TAKE 1 TABLET BY MOUTH ONCE DAILY sunday through sunday and take 1/2 tablet on sunday and sunday - take at least 30 minutes before breakfast and any other medications 84 Tablet 1 12/14/2023 Active documented as of this encounter (statuses as of 01/01/2024) Active Problems Problem Noted Date Diagnosed Date [...] as of this encounter (statuses as of 01/01/2024) Resolved Problems Problem Noted Date Diagnosed Date [...] as of this encounter (statuses as of 01/01/2024) Immunizations Name Administration Dates Next Due COVID-19 mRNA, LNP-s, No Pre serve, 2-Dose Series (Pfizer) 09/13/2021,12/30/2020,12/09/2020 PPD 03/22/2016 Pneumococcal Polysaccharide PPV23 (Pneumovax) 02/19/2014 TDAP (age 10 and older)(Boostrix) 02/19/2014 documented as of this encounter Social History Tobacco Use Types Packs/Day Years Used Date Smoking Tobacco: Every Day Cigarettes 2 30 Started: 1992 Smokeless Tobacco: Never Alcohol Use [...] on file documented as of this encounter Progress Notes * Kory Lopez MD - 01/01/2024 3:17 PM EST Encounter created in error. documented in this encounter Plan of Treatment Upcoming Encounters Date Type Department Care Team (Late st Contact Info) Description 02/01/2024 2:40 PM EDT Office Visit [place] [address] [place] [phone] Lucía Horner PA-C [address] [place] [address] 03/04/2024 9:20 AM EDT Office Visit Neurology Jaime Hickman [place] [address] [facility] [place] [address] Karina Hoffman PA-C [address] [facility] [place] [address] Scheduled Procedures Name Priority Associated Diagnoses Date/Ti me COLONOSCOPY FLEXIBLE PROXIMA L DIAGNOSTIC Elevated carcinoembryonic antigen (CEA) Health Maintenance Due Date Last Done Comments DISCUSS TOBACCO CESSATION (REFER TO SMARTSET #2332) 1975 Hepatitis B (1 of 3 - 3-dose series) 1977 Hepatitis C Screening 1995 HPV/Co-Test 2007 Pneumococcal Vaccine: Pediatrics (0 to 5 Years) and At-Risk Patients (6 to 64 Years) (2 - PCV) 02/19/2015 02/19/2014 Cervical Cancer Screening 05/29/2015 Pap Smear 05/29/2015 05/29/2012 (Done elsewhere) Mammogram 2017 Depression Screening 08/29/2019 08/29/2018 Cologuard 2022 Fecal Occult Blood Test 2022 Sigmoidoscopy 2022 Diabetic Foot Exam 08/12/2022 08/12/2021, 0 06/12/2019, 03/22/2016 COVID-19 Vaccine ( season) 2023 09/13/2021, 12/30/2020, 12/09/2020 Influenza Vaccine (FLU shot) (#1) 2023 Albumin/Creatinine Ratio 12/15/2023 023, 07/19/2022, 08/02/2021, Additional history exists B-12 12/15/2023 12/15/2022, 10/0 03/2022, 07/19/2022, Additional history exists HbA1c 01/09/2024 07/09/2023, 01/17, 12/15/2022, Additional history exists Diabetic Eye Exam 01/15/2024 01/15/2023 DTaP,Tdap,and Td Vaccines (2 - Td or Tdap) 02/20/2024 02/19/2014 GFR 07/09/2024 07/09/2023, 03/0 12/2022, 12/15/2022, Additional history exists TSH 07/09/2024 07/09/2023, 01/17, 12/15/2022, Additional history exists Lipid Panel 07/19/2027 07/19/2022, 07/20, 12/31/2020, Additional history exists Colonoscopy 03/01/2033 03/01/2023, 03/01/2023 Colorectal Cancer Screening 03/01/2033 GARDASIL-HPV IMMUNIZATION SERIES Aged Out No longer eligible based on patient's age to complete this topic MENINGOCOCCAL (MENACTRA/MENVEO) Aged Out No longer eligible based on patient's age to complete this topic documented as of this encounter Medical Devices Implanted Type Area Equity Analyst Device Identifier Shelf Expiration Date Model / Serial / Lot Clip Quick 2.8mm 230cm - [id number] Implanted:Qty: 1 on 03/01/2023 by Rasheed Niño MD at ENDOSCOPY [facility] [employer] [facility] [id number] 05/18/2025 [id number]-[id number] / / [id number] documented as of this encounter Visit Diagnoses Diagnosis No-show for appointment- Primary documented in this encounter Care Teams Advertising Designer Relationship Specialty Start Date End Date Lucía Horner PA-C [address] [facility] [place] [phone] PCP - General Physician Facility Designer 07/19/22 documented as of this encounter
--- OUTSIDE RECORDS SUMMARY | 2024-02-25 19:56 | External Medical Summary ---
Author Name Unknown Address Unknown Organization K01:LABORATORY [facility] [place] - [address] [place] [address] Laboratory Report Ordering Provider Test Date Status CHARANJIT BUSTILLOSRAHEEL 01/16/2024 12:53:58 Final Observation Date Value Abnormality Reference (Units ) Status Iron 01/16/2024 12:53:58 23 Below low normal 33-151 (ug/dL) Final Iron-binding capacity 01/16/2024 12:53:58 331 250-425 (ug/dL) Final Transferrin Sat % 01/16/2024 12:53:58 7 Below low normal 15-55 (%) Final Performing Location LABORATORY [facility] - [address] [place] [address]
--- OUTSIDE RECORDS SUMMARY | 2024-02-25 19:56 | External Medical Summary | Summary of Care ---
Author Name Unknown Organization [facility] Address [address] [place] [address] Phone [phone] Care Team Providers Care Paraoptometric Name Role Phone Lucía Horner PA-C Primary Care Provider [phone] Reason for Visit * Reason Onset Date Comments Appointment 11/30/2023 Encounter Details Date Type Department Care Team ([facility] st Contact Info) Description 11/30/2023 Telephone Neurology, [place] [address] [place], [place] [phone] Specified, Zz No Resource [address] [place], [place] [phone] Appointment Allergies Active Allergy Reactions Criticality Noted Date Comments Metformin 01/11/2021 Raised creat documented as of this encounter (statuses as of 01/02/2024) Medications Medication Sig Dispensed Refills Start Date [...] MCG/ACT Nasal Suspension (Flonase)Indication s:Dizziness Administer 1 [place] into nostril in the morning. 15.8 mL 3 3 Active Magnesium Oxide 400 (240 Mg) MG Oral Tablet (Mag-Ox)Indications :Tension-type headache, not intractable, unspecified chronicity pattern TAKE ONE TABLET BY MOUTH NIGHTLY AT BEDTIME 100 Tablet 1 3 Active Mounjaro 2.5 MG/0.5ML Subcutaneous Solution Pen-injector (Tirzepatide)Indica tions:Type 2 diabetes mellitus with hemoglobin A1c goal of less than 7.0% ([facility]),Morbid obesity, BMI not known ([facility]) Inject 2.5 mg under the skin once a week. 2 mL 11 3 08/02/20 24 Active Pantoprazole Sodium 40 MG Oral Tablet Delayed Release (Protonix)Indicatio ns:GERD (gastroesophageal reflux disease),Encounter for long-term (current) use of medications TAKE 1 TABLET BY MOUTH ONCE DAILY 90 Tablet 1 3 Active D3 Super Strength 50 MCG (2000 UT) Oral Capsule (Cholecalciferol)In dications:Low vitamin D level TAKE 1 CAPSULE BY MOUTH EVERY MORNING 90 Capsule 1 3 Active Atorvastatin Calcium 20 MG Oral Tablet [...] mri 3 Tablet 0 3 Active Ipratropium [place] 0.02 % Inhalation Solution (Atrovent)Indicatio ns:Tobacco use [...] Active Emgality 120 MG/ML Subcutaneous Solution Auto-injector (Galcanezumab[facility]) Inject 1 mL under the skin every month. 1 mL 5 4 Active Albuterol Sulfate (2.5 MG/3ML) 0.083% Inhalation Nebulization Solution (Proventil)Indicati ons:Bronchitis, complicated Inhale via nebulizer 1 Vial every 4 hours as needed for Wheezing. 120 mL 1 2 12/03/19 24 Discontinued Levothyroxine Sodium 200 MCG Oral Tablet (Levoxyl)Indication s:Acquired hypothyroidism take 1 tablet by mouth once daily sunday through sunday and take 1/2 tablet on sunday and sunday - take at least 30 minutes before breakfast and other medications 84 Tablet 1 3 12/14/19 24 Discontinued documented as of this encounter (statuses as of 01/02/2024) Active Problems Problem Noted Date Diagnosed Date [...] as of this encounter (statuses as of 01/02/2024) Resolved Problems Problem Noted Date Diagnosed Date [...] as of this encounter (statuses as of 01/02/2024) Immunizations Name Administration Dates Next Due COVID-19 [...] encounter Miscellaneous Notes * Telephone Encounter - Jailyn Coleman OSA - 01/02/2024 8:49 AM EST Lmom to schedule a return appt with Dr Linton, can offer today at 1:00 if time slot still available, if not next available and put on wants sooner. Sending letter to schedule as this is the 3rd attempt. * Telephone Encounter - Jailyn Coleman OSA - 12/27/2023 8:46 AM EST Lmom to offer an appt with Dr Linton for 03/27 and add to wants sooner list, please reach out to Jailyn for time * Telephone Encounter - Jailyn Coleman OSA - 11/30/2023 1:34 PM EST Lmom to schedule an appt with Dr Linton, please reach out to Jailyn for date and time documented in this encounter Plan of Treatment Upcoming Encounters Date Type Department Care Team (Late st Contact Info) Description 02/01/2024 2:40 PM EDT Office Visit [facility] [address] [facility] [place] [phone] Lucía Hor[facility] PA-C [address] [facility] [address] 03/04/2024 9:20 AM EDT Office Visit Neurology [place] [address] [facility] [place] [address] Karina Hoffman PA-C [address] [facility] [place] [address] Scheduled Procedures Name Priority Associated Diagnoses Date/Ti me COLONOSCOPY FLEXIBLE PROXIMA L DIAGNOSTIC Elevated carcinoembryonic antigen (CEA) Health Maintenance Due Date Last Done Comments DISCUSS TOBACCO CESSATION (REFER TO SMARTSET #6289) 1975 Hepatitis B (1 of 3 - [...] Vaccine (FLU shot) (#1) 2023 Albumin/Creatinine Ratio 12/15/202312/15/2 023, 07/19/2022, 08/02/2021, Additional history exists B-12 12/15/2023 12/15/2022, 10/0 03/2022, 07/19/2022, Additional history exists HbA1c 01/09/2024 07/09/2023, 01/17, 12/15/2022, Additional history exists Diabetic Eye Exam 01/15/2024 01/15/2023 DTaP,Tdap,and Td Vaccines (2 - Td or Tdap) 02/20/2024 02/19/2014 GFR 07/09/2024 07/09/2023, 03/12/2022, 12/15/2022, Additional history exists TSH 07/09/2024 07/09/2023, [...] this encounter Medical Devices Implanted Type Area Avionics Systems Repairer Device Identifier Shelf Expiration Date Model / Serial / Lot Clip Quick 2.8mm 230cm - [id number] Implanted:Qty: 1 on 03/01/2023 by Rasheed Niño MD [place] [facility] [email or web address] [id number] 05/18/2025 [id number]-[id number] / / [id number] documented as of this encounter Care Teams Paraoptometric Relationship Specialty Start Date End Date Lucía Horner PA-C [address] [facility] [place] [address] PCP - General Physician Referral Agent 07/19/22 documented as of this encounter
--- OUTSIDE RECORDS SUMMARY | 2024-02-25 19:56 | External Medical Summary ---
Author Name Unknown Address Unknown Organization K01:LABORATORY [facility] [place] - [address] [place] [address] Laboratory Report Ordering Provider Test Date Status APOLLOCIERARODOLFO 01/16/2024 12:53:58 Final Observation Date Value Abnormality Reference (Units ) Status Erythrocyte sedimentation rate by Photometric method 01/16/2024 12:53:58 40 Above high normal <20 (mm/hour) Final Performing Location LABORATORY [facility] - [address] [place] [address]
--- OUTSIDE RECORDS SUMMARY | 2024-02-25 19:56 | External Medical Summary ---
Author Name Unknown Address Unknown Organization K01:LABORATORY [facility] - [address] [place] [address] Laboratory Report Ordering Provider Test Date Status MISHA BUSTILLOS 01/16/2024 12:53:58 Final Observation Date Value Abnormality Reference (Units ) Status TSH 01/16/2024 12:53:58 0.33 0.27-4.20 (uIU/mL) Final Performing Location LABORATORY [facility] - [address] [place] [address]
--- OUTSIDE RECORDS SUMMARY | 2024-02-25 19:56 | External Medical Summary ---
Author Name Unknown Address Unknown Organization K01:LABORATORY [facility] [place] - [address] [place] [address] Laboratory Report Ordering Provider Test Date Status MISHA BUSTILLOS 01/16/2024 12:53:58 Final Observation Date Value Abnormality Reference (Units ) Status CRP, low-sensitivity 01/16/2024 12:53:58 13 Above high normal <=5 (mg/L) Final Performing Location LABORATORY [facility] - [address] [place] [address]
--- OUTSIDE RECORDS SUMMARY | 2024-02-25 19:56 | External Medical Summary ---
Author Name Unknown Address Unknown Organization K01:LABORATORY [facility] - [address] [place] [address] Laboratory Report Ordering Provider Test Date Status APOLLOCIERARODOLFO 01/16/2024 12:53:58 Final Observation Date Value Abnormality Reference (Units ) Status T4, Free 01/16/2024 12:53:58 1.3 0.9-1.7 (n g/dL) Final Performing Location LABORATORY [facility] - [address] [place] [address]
--- OUTSIDE RECORDS SUMMARY | 2024-02-25 19:56 | External Medical Summary | Summary of Care ---
Author Name Unknown Organization [facility] Address [address] [place] [address] Phone [phone] Care Team Providers Care Liaison Planner Name Role Phone Lucía Horner PA-C Primary Care Provider [phone] Reason for Visit * Reason Comments Outpatient Testing Encounter Details Date Type Department Care Team (Latest Contact Info) Description 01/16/2024 1:00 PM EST Laboratory Laboratory, [place] [address] [place] [address] [place] [address] [place] [address] Acquired hypothyroidism; Type 2 diabetes mellitus with hemoglobin A1c goal of less than 7.0% (HCC); HTN, goal below 140/90; NDPH (new daily persistent headache); Thinning hair; Pica; Dyslipidemia, goal LDL below 70; Low vitamin D level; Elevated carcinoembryonic antigen (CEA); Elevated sed rate Allergies Active Allergy Reactions Criticality Noted Date Comments Metformin 01/11/2021 Raised creat documented as of this encounter (statuses as of 01/16/2024) Medications Medication Sig Dispensed Refills Start Date [...] MCG/ACT Nasal Suspension (Flonase)Indications :Dizziness Administer 1 [place] into nostril in the morning. 15.8 mL 3 12/12/2022 Active Magnesium Oxide 400 (240 Mg) MG Oral Tablet (Mag-Ox)Indications: Tension-type headache, not intractable, unspecified chronicity pattern TAKE ONE TABLET BY MOUTH NIGHTLY AT BEDTIME 100 Tablet 1 02/13/2023 Active Mounjaro 2.5 MG/0.5ML Subcutaneous Solution Pen-injector (Tirzepatide)Indicat ions:Type 2 diabetes mellitus with hemoglobin A1c goal of less than 7.0% ([facility]),Morbid obesity, BMI not known (HCC) Inject 2.5 [...] mri 3 Tablet 0 11/02/2023 Active Ipratropium [place] 0.02 % Inhalation Solution (Atrovent)Indication s:Tobacco use [...] Active Emgality 120 MG/ML Subcutaneous Solution Auto-injector (Galcanezumab-[facility]) Inject 1 mL under the skin every [...] as of this encounter (statuses as of 01/16/2024) Active Problems Problem Noted Date Diagnosed Date [...] as of this encounter (statuses as of 01/16/2024) Resolved Problems Problem Noted Date Diagnosed Date [...] as of this encounter (statuses as of 01/16/2024) Immunizations Name Administration Dates Next Due COVID-19 mRNA, LNP-s, No Pre serve, 2-Dose Series (Pfizer) 09/13/2021,12/30/2020,12/09/2020 PPD 03/22/2016 Pneumococcal Polysaccharide PPV23 (Pneumovax) 02/19/2014 TDAP (age 10 and older)(Boostrix) 02/19/2014 documented as of this encounter Social History Tobacco Use Types Packs/Day Years Used Date Smoking Tobacco: Every Day Cigarettes 2 31.2 Started: 1992 Smokeless Tobacco: Never Alcohol Use [...] on file documented as of this encounter Plan of Treatment Upcoming Encounters Date Type Department Care Team (Late st Contact Info) Description 02/01/2024 2:40 PM EDT Office Visit [facility] [address] [place] [id number] Lucía Horner PA-C [address] [place] [address] 03/04/2024 9:20 AM EDT Office Visit Neurology [facility] [address] [facility] [address] [place] [address] Karina Hoffman PA-C [address] [place] [address] Pending Results Name Type Priority Associated Diagnoses Date /Time TSH Lab Routine Acquired hypothyroidism 01/16/2024 12:53 PM EST T4, FREE Lab Routine Acquired hypothyroidism 01/16/2024 12:53 PM EST COMPREHENSIVE METABOLIC PANEL Lab Routine Type 2 diabetes mellitus with hemoglobin A1c goal of less than 7.0% ([facility]) HTN, goal below 140/90 NDPH (new daily persistent headache) 01/16/2024 12:53 PM EST ALBUMIN / CREATININE RATIO, URINE Lab Routine HTN, goal below 140/90 01/16/2024 12:53 PM EST FOLIC ACID Lab Routine Thinning hair 01/16/2024 12:53 PM EST HEMOGLOBIN A1C Lab Routine Type 2 diabetes mellitus with hemoglobin A1c goal of less than 7.0% ([facility]) 01/16/2024 12:53 PM EST CBC WITH WBC DIFFERENTIAL Lab Routine Pica 01/16/2024 12:53 PM EST IRON SCREEN, INCLUDING TIBC Lab Routine Pica 01/16/2024 12:53 PM EST FERRITIN Lab Routine Pica 01/16/2024 12:53 PM EST LIPID PANEL WITH DIRECT LDL IF TG IS HIGH Lab Routine Type 2 diabetes mellitus with hemoglobin A1c goal of less than 7.0% (HCC) HTN, goal below 140/90 Dyslipidemia, goal LDL below 70 01/16/2024 12:53 PM EST 25-HYDROXY VITAMIN D Lab Routine Low vitamin D level 01/16/2024 12:53 PM EST CEA Lab Routine Elevated carcinoembryonic antigen (CEA) 01/16/2024 12:53 PM EST ERYTHROCYTE SEDIMENTATION RATE (ESR) Lab Routine Elevated sed rate 01/16/2024 12:53 PM EST CRP (INFLAMMATORY MARKER) Lab Routine Elevated sed rate 01/16/2024 12:53 PM EST CBC Lab Routine Pica 01/16/2024 12:53 PM EST DIFFERENTIAL, AUTOMATED Lab Routine Pica 01/16/2024 12:53 PM EST Scheduled Procedures Name Priority Associated Diagnoses Date/Ti me COLONOSCOPY FLEXIBLE PROXIMA L DIAGNOSTIC Elevated carcinoembryonic antigen (CEA) Health Maintenance Due Date Last Done Comments DISCUSS TOBACCO CESSATION (REFER TO SMARTSET #[id number]) 1975 Hepatitis C Screening 1995 Hepatitis B [...] or Tdap) 02/20/2024 02/19/2014 GFR 07/09/2024 07/09/2023, 030 12/2022, 12/15/2022, Additional history exists TSH 07/09/2024 [...] this encounter Medical Devices Implanted Type Area Operator Vacuum Device Identifier Shelf Expiration Date Model / Serial / Lot Clip Quick 2.8mm 230cm - [id number] Implanted:Qty: 1 on 03/01/2023 by Rasheed Niño [place] [place] [employer] [id number] 05/18/2025 [id number] / / [id number] documented as of this encounter Visit Diagnoses Diagnosis Acquired hypothyroidism Unspecified hypothyroidism Type 2 diabetes mellitus with hemoglobin A1c goal of less than 7.0% (HCC) HTN, goal below 140/90 Unspecified essential hypertension NDPH (new daily persistent headache) New daily persistent headache Thinning hair Alopecia, unspecified Pica Dyslipidemia, goal LDL below 70 Other and unspecified hyperlipidemia Low vitamin D level Elevated carcinoembryonic antigen (CEA) Elevated carcinoembryonic antigen [CEA] Elevated sed rate Elevated sedimentation rate documented in this encounter Care Teams Liaison Planner Relationship Specialty Start Date End Date Lucía Horner PA-C [address] [place] [address] PCP - General Physician Nut Grader 07/19/22 documented as of this encounter
--- OUTSIDE RECORDS SUMMARY | 2024-02-25 19:56 | External Medical Summary | Summary of Care ---
Author Name Unknown Organization [facility] Address [address] [place] [address] Phone [phone] Care Team Providers Care Conditioning Machine Operator Name Role Phone Lucía Horner PA-C Primary Care Provider [phone] Reason for Referral * Precert (Within 10 days (routine)) - Authorized Specialty Diagnoses / Procedures Referred By Contviet t Referred To Contact Radiology Diagnoses Rhinorrhea Severe frontal headaches Procedures CT SINUS IMAGE GUIDED WO CONTRAST Kory Lopez MD [address] [place] [address] Referral ID Status Reason Start Date Expiration Date V isits Requested Visits Authorized [id number] Authorized Precert 12/13/2023 02/10/2024 999 [id number] Reason for Visit * Reason Comments NEW PATIENT Consultation Encounter Details Date Type Department Care Team ([facility] st Contact Info) Description 12/13/2023 2:00 PM EST Office Visit Otolaryngology Allergy [facility] [address] [place] [address] Kory Lopez MD [address], [place] [id number] Rhinorrhea*; Severe frontal headaches Allergies Active Allergy Reactions Criticality Noted Date Comments Metformin 01/11/2021 Raised creat documented as of this encounter (statuses as of 12/18/2023) Medications Medication Sig Dispensed Refills Start Date End Date Status NEBULIZER COMPRESSOR MISCIndications:Bro nchitis Use as directed 1 Each 5 Active Blood Glucose Monitoring Suppl (ONE [...] day as needed for Dizziness. 30 Tablet 3 Active Fluticasone Propionate 50 MCG/ACT Nasal Suspension (Flonase)Indication s:Dizziness Administer 1 [place] into nostril in the morning. 15.8 mL [...] the skin once a week. 2 mL 3 08/02/20 24 Active Pantoprazole Sodium 40 MG Oral Tablet Delayed Release (Protonix)Indicatio ns:GERD (gastroesophageal reflux disease),Encounter for long-term (current) use of medications TAKE 1 TABLET BY MOUTH ONCE DAILY 90 Tablet 1 3 Active D3 Super Strength 50 MCG (1999 UT) Oral Capsule (Cholecalciferol)In dications:Low vitamin D level TAKE 1 CAPSULE BY MOUTH EVERY MORNING 90 Capsule 3 Active Atorvastatin Calcium 20 MG Oral [...] mri 3 Tablet 0 3 Active Ipratropium Lula 0.02 % Inhalation Solution (Atrovent)Indicatio ns:Tobacco use [...] Active Emgality 120 MG/ML Subcutaneous Solution Auto-injector (Galcanezumab-[facility]) Inject 1 mL under the skin [...] as of this encounter (statuses as of 12/18/2023) Active Problems Problem Noted Date Diagnosed Date [...] as of this encounter (statuses as of 12/18/2023) Resolved Problems Problem Noted Date Diagnosed Date [...] as of this encounter (statuses as of 12/18/2023) Immunizations Name Administration Dates Next Due COVID-19 mRNA, LNP-s, No Pre serve, 2-Dose Series (Pfizer) 09/13/2021,12/30/2020,12/09/2020 PPD 03/22/2016 Pneumococcal Polysaccharide PPV23 (Pneumovax) 02/19/2014 TDAP (age 10 and older)(Boostrix) 02/19/2014 documented as of this encounter Social History Tobacco Use Types Packs/Day Years Used Date Smoking Tobacco: Every Day Cigarettes 2 30 Started: 1992 Smokeless Tobacco: Never Tobacco Cessation:Ready to Q uit: Not Asked; Counseling Given: Not Answered Alcohol Use Standard Drinks/Week Comments No 0 [...] on file documented as of this encounter Patient Instructions * Patient Instructions* Kory Lopez MD - 12/13/2023 2:51 PM EST - history of bilateral right greater than left clear rhinorrhea and history IIH. - will send patient home with nasal fluid collection tubes. She is recommended to collect nasal fluid and in between collections store the sample tubes in the refrigerator. Once she has 1 mL of fluid, she was asked to take the collection tube to her nearest [facility] laboratory for beta 2 transferrin testing. - will arrange for CT sinus imaging for further evaluation of the skull base. - telephone follow-up after completing sinus imaging. documented in this encounter Progress Notes * Kory Lopez MD - 12/13/2023 2:19 PM EST PATIENT: Ameena Hernández : 1975 DATE OF SERVICE: 12/13/2023 History of Present Illness The 48 year old female is seen at the request of Lucía Horner PA-C for evaluation of headaches/rhinorrhea/history of IIH. Patient noted onset of clear nasal drainage primarily on the right approximally 10 months ago. Since that time she is noting bilateral nasal drainage symptoms. No reportedcollection of fluid for testing. She reports headaches every day which she localizes to the bilateral forehead region and base of neck. She reports her sense of smell is "all right". 1 of her biggest symptoms is sensitivity to light and sound. She denies history of nasal allergies. She reports a previous history of recurrent sinus infections. She states these infections occur proximally twice a year in her typically treated with antibiotics. Patient reports her symptoms are severe enough that she is often bed ridden. She is currently off work for medical leave. 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 MRI of the brain from November 02, 2023 was personally reviewed and reports: FINDINGS Brain volume is age appropriate. A couple patchy foci of T2 prolongation in the subcortical and periventricular white matter are nonspecific and similar to prior examination.Partially empty sella is again noted, a nonspecific finding. No acute infarct, acute intracranial hemorrhage, mass effect, midline shift, hydrocephalus, or extra-axial fluid collection. Intraorbital contents are unremarkable. Mild mucosal thickening in the bilateral ethmoid air cells.Scattered foci of fluid in the bilateral mastoid air cells. IMPRESSION 1. No acute intracranial abnormality identified. 2. Redemonstrated partially empty sella, a nonspecific finding. No evidence of bilateral transversesinuses stenoses, intraocular protrusion of optic nerve head, or optic nerve sheath enlargement to suggest idiopathic intracranial hypertension, although it is not entirely excluded in this patient with EPIC reported history of papilledema . 3. No diffuse pachymeningeal enhancement to suggest intracranial hypotension/spinal CSF leak on MRIbrain. 4. A couple patchy foci of white matter changes. Similar findings can be seen as a result of chronic microvascular ischemia, remote infection, inflammation, demyelination, trauma, and chronic migraine headaches. Clinical correlation is recommended. Patient Active Problem List Diagnosis Code Migraine G43.909 Hypothyroidism E03.9 GERD (gastroesophageal reflux disease) K21.9 HTN, goal below 140/90 I10 Tobacco use disorder F17.200 Type 2 diabetes mellitus with hemoglobin A1c goal of less than 7.0% ([facility]) E11.9 Dyslipidemia, goal LDL below 70 E78.5 Encounter for long-term (current) use of medications Z79.899 Morbid obesity, BMI not known ([facility]) E66.01 Restless legs G25.[address] on [address] R91.8 Elevated carcinoembryonic antigen (CEA) R97.0 Major depressive disorder, single episode, mild ([facility]) F32.0 Type 2 diabetes mellitus with diabetic nephropathy, without long-term current use of insulin ([facility]) E11.21 Past Medical History: Diagnosis Date DM type 2 (diabetes mellitus, type 2) ([facility]) 2014 Dyslipidemia, goal LDL below 130 Dyslipidemia, goal LDL below 70 12/04/2017 Esophageal reflux Gastroesophageal Reflux (GERD) Headache(784.0) Headache, NOS HTN, goal below 140/90 03/29/2015 Hypothyroidism Hypothyroidism Morbid obesity, BMI not known ([facility]) 06/13/2018 Multiple lung nodules on CT 02/07/2023 Tobacco use disorder 03/29/2015 Type 2 diabetes mellitus with hemoglobin A1c goal of less than 7.0% ([facility]) 04/01/2015 ICD-10 update of inactive term Past Surgical History: Procedure Laterality Date COLONOSCOPY, DIAGNOSTIC (RECTUM) 03/01/2023 COLONOSCOPY FLEXIBLE PROXIMAL DIAGNOSTIC performed by Rasheed Niño MD at ENDOSCOPY [facility] LAPAROSCOPY; CHOLECYSTECTOMY 05/05/2011 05/05/2011 -- [facility] -- laparoscopic cholecystectomy - [facility] Current Outpatient Medications Medication Sig Dispense Refill NEBULIZER COMPRESSOR [facility] Use as directed 1 Each 1 Blood Glucose Monitoring Suppl (ONE TOUCH ULTRA SYSTEM KIT) W/DEVICE KIT Once daily or as needed 1 Kit 0 metronidazole (METROGEL) 0.75 % gel Apply topically to affected area 2 times a day. Apply to affected area 45 g 1 Meclizine HCl 25 MG Oral Tablet (Antivert) Take 1 Tablet by mouth 3 times a day as needed for Dizziness. 30 Tablet 1 Fluticasone Propionate 50 MCG/ACT Nasal Suspension (Flonase) Administer 1 [place] into nostril in themorning. 15.8 mL 3 Magnesium Oxide 400 (240 Mg) MG Oral Tablet (Mag-Ox) TAKE ONE TABLET BY MOUTH NIGHTLY AT BEDTIME 100 Tablet 1 Mounjaro 2.5 MG/0.5ML Subcutaneous Solution Pen-injector (Tirzepatide) Inject 2.5 mg under the skinonce a week. 2 mL 11 Pantoprazole Sodium 40 MG Oral Tablet Delayed Release (Protonix) TAKE 1 TABLET BY MOUTH ONCE DAILY 90 Tablet 1 D3 Super Strength 50 MCG (2000 UT) Oral Capsule (Cholecalciferol) TAKE 1 CAPSULE BY MOUTH EVERY MORNING 90 Capsule 1 Atorvastatin Calcium 20 MG Oral Tablet (Lipitor) TAKE 1 TABLET BY MOUTH AT BEDTIME 90 Tablet 1 OneTouch Ultra In Vitro Strip (Glucose Blood) USE TO TEST ONCE A DAY OR NEEDED 100 Strip 3 OneTouch UltraSoft 2 Lancets USE TO TEST ONCE DAILY OR DIRECTED 100 Each 3 LORazepam 0.5 MG Oral Tablet (Ativan) One tab 1 hour prior, repeat 15 min prior and start of mri 3 Tablet 0 Ipratropium Lula 0.02 % Inhalation Solution (Atrovent) Inhale 2.5 mL via nebulizer in the morning and 2.5 mL at noon and 2.5 mL in the evening and 2.5 mL before bedtime. 75 mL 12 busPIRone HCl 15 MG Oral Tablet (Buspar) TAKE ONE TABLET BY MOUTH IN THE MORNING, ONE TABLET AT NOON, ONE TABLET IN THE EVENING AND ONE TABLET BEFORE BEDTIME 120 Tablet 2 traZODone HCl 50 MG Oral Tablet (Desyrel) take 1/2 to 1 tablet by mouth at bedtime 30 Tablet 2 Azithromycin 250 MG Oral Tablet (Zithromax Z-Landon) Take two tablets by mouth on first day, then 1 tablet daily until gone 6 Tablet 0 predniSONE 10 MG Oral Tablet (Deltasone) Take 5 tabs for 2 days, 4 tabs for 2 days, 3 tabs for 2 days, 2 tabs for 2 days 1 tab for 2 days 30 Tablet 0 Albuterol Sulfate HFA 108 (90 Base) MCG/ACT Inhalation Aerosol Solution INHALE TWO PUFFS BY MOUTH FOUR TIMES DAILY 18 g 2 Emgality 120 MG/ML Subcutaneous Solution Auto-injector (Galcanezumab-gn) Inject 1 mL under the skin every month. 1 mL 5 Albuterol Sulfate (2.5 MG/3ML) 0.083% Inhalation Nebulization Solution (Proventil) INHALE 1 VIAL VIA NEBULIZER EVERY FOUR HOURS NEEDED FOR WHEEZING 150 mL 2 Levothyroxine Sodium 200 MCG Oral Tablet (Levoxyl) TAKE 1 TABLET BY MOUTH ONCE DAILY sunday throughsunday and take 1/2 tablet on sunday and sunday - take at least 30 minutes before breakfast and any other medications 84 Tablet 1 No current facility-administered medications for this visit. No family history on file. Social History Tobacco Use Smoking status: Every Day Packs/day: 2.00 Years: 30.00 Additional pack years: 0.00 Total pack years: 60.00 Types: Cigarettes Start date: 1992 Smokeless tobacco: Never Substance Use Topics Alcohol use: No Vaping/E-Cigarette Use Vaping/E-Cigarette Use Never User Vaping/E-Cigarette Substances Vaping/E-Cigarette Devices Review of Systems Negative for constitutional, eyes, cardiac, pulmonary, hepatic, renal, digestive, hematologic, epileptic, syncopal, musculo-skeletal, mental health, integumentary, hypertensive, lipid, arthritic, diabetic, thyroid or neurologic disorders (except as listed in the PMH and Problem List). Physical Examination: Vital Signs: There were no vitals filed for this visit. General: This is a healthy appearing female who appears her stated age. The patient is alert and oriented x 3 and is appropriately verbally conversant without hoarseness. Head/Face: The face was inspected and no cutaneous masses or lesions were visualized. There was no erythema or edema noted. Facial movement was symmetric without weakness. No skin lesions were detected. The parotid and submandibular glands were normal to palpation. Eyes: Extra-ocular muscle function was intact. No nystagmus was observed. Pupils were equal. Ears: Examination of the ears revealed that the auricles were normally formed without lesions. The external auditory canals were free of obstructing cerumen. The tympanic membranes were intact and freely mobile to pneumatoscopy. There were no significant retraction pockets. There was no inflammation visualized. No effusions were seen. Cranial Nerves: Cranial nerves II, III, IV, and were noted to be intact via extra-ocular muscle movement testing. Cranial nerve VII was noted to be intact and symmetric by facial movement. Cranialnerves IX and X were noted to be intact by gag reflex and palatal movement. Cranial nerve XII was noted to be intact by active and symmetric tongue movement. Nose: Examination of the nose revealed septum is non-obstructing. The turbinates are normal in appearance. No lesions or masses are appreciated. No mucopurulence or polyps appreciated. Patient unableto produce fluid with head tilt forward. Procedure: In order to better assess the nasal chambers and paranasal sinuses, endoscopy was performed. The nose was decongested with topical oxymetazoline 0.05% spray and anesthetized with topical Lidocaine 4%spray. A rigid 30 degree scope was used to examine each side of the nose. See nasal exam for findings noted. Patient tolerated procedure well. Oral Cavity: Examination of the oral cavity revealed no mass lesions or infection. The palate was noted to be intact without evidence of clefting. The tongue exhibited normal mobility. Mucosa was moist without lesion. The lips were free of lesion. The gingiva was free of inflammation. Dentition: Unremarkable Oropharynx: Mucous membranes moist. No lesions or masses appreciated. Uvula midline. Tonsils unremarkable. Neck: Visualization and palpation of the neck revealed no mass lesions, no thyromegaly or thyroid masses. No skin lesions or inflammatory processes were detected. The cervical musculature was normal to palpation. Lymphatics (cervical): There were no palpable lymph nodes in the posterior triangle, submandibular triangle, jugulodigastric region, or central neck. Impression and Plan: ICD-10-CM 1. Rhinorrhea J34.89 2. Severe frontal headaches R51.9 Patient Instructions - history of bilateral right greater than left clear rhinorrhea and history IIH. - will send patient home with nasal fluid collection tubes. She is recommended to collect nasal fluid and in between collections store the sample tubes in the refrigerator. Once she has 1 mL of fluid, she was asked to take the collection tube to her nearest [facility] laboratory for beta 2 transferrin testing. - will arrange for CT sinus imaging for further evaluation of the skull base. - telephone follow-up after completing sinus imaging. Kory Lopez MD Otolaryngology Allergy [place] [id number] documented in this encounter Nursing Notes * Summer Alva MED ASSIST - 12/18/2023 8:58 AM EST Patient was scoped by provider with scope model number [id number] . documented in this encounter Plan of Treatment Upcoming Encounters Date Type Department Care Team (Late st Contact Info) Description 12/26/2023 11:00 AM EST Imaging Radiology [facility] [address] [facility] [address] [facility] [place] [address] 01/01/2024 4:15 PM EST Telemedicine Otolaryngology Allergy [facility] [address] [place] [address] Kory Lopez MD [address] [place] [address] 02/01/2024 2:40 PM EDT Office Visit [facility] [address] [place] [id number] Lucía Horner PA-C [address] [place] [address] 03/04/2024 9:20 AM EDT Office Visit Neurology [facility] [address] [facility] [place] [address] Karina Hoffman PA-C [address] [facility] [place] [address] Scheduled Orders Name Type Priority Associated Diagnoses Orde r Schedule BETA-2 TRANSFERRIN Lab Routine Rhinorrhea Severe frontal headaches Expected: 12/27/2023, Expires: 12/13/2024 CT SINUS IMAGE GUIDED WO CONTRAST Medical Imaging Routine Rhinorrhea Severe frontal headaches Expected: 12/20/2023, Expires: 01/13/2025 Scheduled Procedures Name Priority Associated Diagnoses Date/Ti me COLONOSCOPY FLEXIBLE PROXIMA L DIAGNOSTIC Elevated carcinoembryonic antigen (CEA) Health Maintenance Due Date Last Done Comments DISCUSS TOBACCO CESSATION (REFER TO SMARTSET #[id number]) 1975 Hepatitis B (1 of 3 - [...] 07/19/2022, Additional history exists HbA1c 01/09/2024 07/09/2023, 031 , 12/15/2022, Additional history exists Diabetic Eye Exam 01/15/2024 01/15/2023 DTaP,Tdap,and Td Vaccines (2 - Td or Tdap) 02/20/2024 02/19/2014 GFR 07/09/2024 07/09/2023, 03/0 12/2022, 12/15/2022, Additional history exists TSH 07/09/2024 07/09/2023, 1 , 12/15/2022, Additional history exists Lipid Panel 07/19/2027 07/19/2022, 07/20, 12/31/2020, Additional history exists Colonoscopy 03/01/2033 03/01/2023, 03/01/2023 Colorectal Cancer Screening 03/01/2033 GARDASIL-HPV IMMUNIZATION SERIES Aged Out No longer eligible based on patient's age to complete this topic MENINGOCOCCAL (MENACTRA/MENVEO) Aged Out No longer eligible based on patient's age to complete this topic documented as of this encounter Medical Devices Implanted Type Area House Painting Instructor Device Identifier Shelf Expiration Date Model / Serial / Lot Clip Quick 2.8mm 230cm - [id number] Implanted:Qty: 1 on 03/01/2023 by Rasheed Niño MD at ENDOSCOPY [facility] [employer] [facility] [id number] 05/18/2025 [id number] / [id number] documented as of this encounter Visit Diagnoses Diagnosis Rhinorrhea- Primary Other diseases of nasal cavity and sinuses Severe frontal headaches Headache documented in this encounter Care Teams Conditioning Machine Operator Relationship Specialty Start Date End Date Lucía Horner PA-C [address] [place] [address] PCP - General Physician Cyber Security Administrator 07/19/22 documented as of this encounter
--- OUTSIDE RECORDS SUMMARY | 2024-02-25 19:56 | External Medical Summary ---
Author Name Unknown Address Unknown Organization [id number]:LABORATORY [facility] - [address] [facility] [place] [address] Laboratory Report Ordering Provider Test Date Status APOLLOCIERARODOLFO 01/16/2024 12:53:58 Final Observation Date Value Abnormality Reference (Units ) Status Ferritin 01/16/2024 12:53:58 12 Below low normal 13- 150 (ng/mL) Final Postmenopausal women have hi gher ferritin levels than pre-menopausal women. The above reference interval is based on pre-menopausal women. Performing Location [facility] [address] [facility] [address]
--- OUTSIDE RECORDS SUMMARY | 2024-02-25 19:56 | External Medical Summary | Summary of Care ---
Author Name Unknown Organization [facility] Address [address] [place] [address] Phone [phone] Care Team Providers Care Manager Training And Development Name Role Phone Lucía Horner PA-C Primary Care Provider [phone] Reason for Visit * Reason Onset Date Comments Advice 01/21/2024 Iron Encounter Details Date Type Department Care Team ([facility] st Contact Info) Description 01/21/[address] [facility] [address] [place] [address] Lucía Horner PA-C [address] [place] [address] Advice (Iron) Allergies Active Allergy Reactions Criticality Noted Date Comments Metformin 01/11/2021 Raised creat documented as of this encounter (statuses as of 01/28/2024) Medications Medication Sig Dispensed Refills Start Date [...] MCG/ACT Nasal Suspension (Flonase)Indications :Dizziness Administer 1 [place] into nostril in the morning. 15.8 mL [...] mri 3 Tablet 0 11/02/2023 Active Ipratropium [place] 0.02 % Inhalation Solution (Atrovent)Indication s:Tobacco use [...] other medications 84 Tablet 1 12/14/2023 Active Ferrous Sulfate 325 (65 Fe) MG Oral Tablet (Feosol)Indications: Abnormal CBC measurement Take 1 Tablet by mouth in the morning and 1 Tablet before bedtime. 60 Tablet 11 01/25/2024 Active Vitamin C 500 MG Oral Tablet ChewableIndications: Abnormal CBC measurement Take 1 Tablet by mouth in the morning and 1 Tablet before bedtime. Take with iron supplement and drink 4 ounces of water. 60 Tablet 5 01/25/2024 Active documented as of this encounter (statuses as of 01/28/2024) Active Problems Problem Noted Date Diagnosed Date [...] as of this encounter (statuses as of 01/28/2024) Resolved Problems Problem Noted Date Diagnosed Date [...] as of this encounter (statuses as of 01/28/2024) Immunizations Name Administration Dates Next Due COVID-19 mRNA, LNP-s, No Pre serve, 2-Dose Series (StayTuned) 09/13/2021,12/30/2020,12/09/2020 PPD 03/22/2016 Pneumococcal Polysaccharide PPV23 (Pneumovax) [...] encounter Miscellaneous Notes * Telephone Encounter - Bruna Gooden LPN - 01/28/2024 1:39 PM EDT Patient aware and verbalized understanding * Telephone Encounter - Lucía Horner PA-C - 01/25/2024 4:53 PM EST I would try 4 weeks of a decent dose of iron taken with vitamin c and remeasure - then see hematology if not coming up Abnormal CBC measurement (Primary) - Ferrous Sulfate 325 (65 Fe) MG Oral Tablet (Feosol); Take 1 Tablet by mouth in the morning and 1 Tablet before bedtime. - Vitamin C 500 MG Oral Tablet Chewable; Take 1 Tablet by mouth in the morning and 1 Tablet before bedtime. Take with iron supplement and drink 4 ounces of water. - CBC WITH WBC DIFFERENTIAL AND ANEMIA REFLEX WORKUP; Future; Expected date: 02/22/2024 - FERRITIN; Future; Expected date: 02/22/2024 Lucía Horner PA-C 01/25/2024 4:54 PM * Telephone Encounter - Shruti Mtz OSA - 01/25/2024 1:21 PM EST Patient has been notified of the message. Patient states if PCP thinks that infusions would be bestshe is willing to do so. Patient states she is unsure if theres another tablet or medication that would be better with absorption than what she had, and if it'll be better than infusion. States family member gets infusions every 6 months to a year for her similar issues. If referral for hematology is needed, please send. Has the patient been seen for this problem? (Y/N)?: yes If No, an appt needs to be scheduled before a referral will be placed (exception: proceed with referral request if referral request is for a yearly routine appointment with speciality) Patient Name: Ameena Hernández Patient Primary care provider: Lucía Horner PA-C Does this need to be an insurance referral (Y/N)?: yes If Yes, does the insurance referral need to be placed into the [facility] system? Name of preferred specialist: n/a Type of specialist: hematology Location of specialist: n/a Specialist's Phone #: n/a Specialist's Fax #: n/a Reason for visit: iron infusion Date of visit: n/a Thank you ANTONIETA Zhang * Telephone Encounter - Lucía Horner PA-C - 01/23/2024 4:45 PM EST If we are looking at iron infusion, it would be time to see hematology I can start that referral now if she likes Lucía Horner PA-C * Telephone Encounter - Andreia Justin LPN - 01/23/2024 2:01 PM EST I called and spoke with the patient and she states for the iron she has not been taking any becausein the past when she has tried she was not absorbing it even when trying it with vitamin C. Patientwants to know if Lucía thinks it could be time to consider an iron infusion. Patient is currently taking Vitamin D every morning. 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 Patient states she has been out of work for now almost 4 months. Patient states she is frustrated because these issues have now been ongoing almost a year. Patient states when she stands up she gets off balance and dizzy. Patient has been taking BP and HRwhen this occurs and states BP is normal but her HR increases almost 30 beats every time. Patient states she is now lying most of the time. Reminded patient she has an appointment 02/01/2024 with Lucía and patient voiced understanding. * Telephone Encounter - Lucía Horner PA-C - 01/23/2024 1:40 PM EST Ldl is fine Vitamin d is low - is she still taking her d? Iron is low - she should be taking it. Does she have some at home or does she need us to fill? Hemoglobin AIC Results: Lab Results Component Value Date/Time HEMOGLOBIN A1C - [facility] 6.4 (H) 01/16/2024 12:53 PM HEMOGLOBIN A1C - [facility] 6.6 (H) 07/09/2023 03:52 PM HEMOGLOBIN A1C - [facility] 6.7 (H) 01/26/2023 03:56 PM HEMOGLOBIN A1C - [facility] 6.1 (H) 09/03/2019 08:39 AM HEMOGLOBIN A1C - [facility] 6.5 (H) 08/29/2018 03:44 PM HEMOGLOBIN A1C - [facility] 10.9 (H) 05/30/2018 07:42 AM Sugar is well controlled Folic acid normal Thyroid is fine Inflammatory mrkers were still p How were things left with boxing instructor? The last I see is a no show Lucía Horner PA-C * Telephone Encounter - Yves Tabares OSA - 01/21/2024 3:01 PM EST Patient states she had labs done and noticed some were low, she wants to know what she wants to do about it. She states she is currently not taking Iron and would like to know what to do about it. documented in this encounter Plan of Treatment Upcoming Encounters Date Type Department Care Team (Late st Contact Info) Description 02/01/2024 2:40 PM EDT Office [facility] [address] [facility] [phone] Lucía Horner PA-C [address], [place] [phone] 03/04/2024 9:20 AM EDT [facility] [address] [facility] [place] [address] Karina Hoffman PA-C [address] [facility] [place] [address] Scheduled Orders Name Type Priority Associated Diagnoses Orde r Schedule CBC WITH WBC DIFFERENTIAL AND ANEMIA REFLEX WORKUP Lab Routine Abnormal CBC measurement Expected: 02/22/2024 (Approximate), Expires: 01/24/2025 FERRITIN Lab Routine Abnormal CBC measurement Expected: 02/22/2024 (Approximate), Expires: 01/24/2025 Scheduled Procedures Name Priority Associated Diagnoses Date/Ti me COLONOSCOPY FLEXIBLE PROXIMA L DIAGNOSTIC Elevated carcinoembryonic antigen (CEA) Health Maintenance Due Date Last Done Comments DISCUSS TOBACCO CESSATION (REFER TO SMARTSET #8534) 1975 Hepatitis C Screening 1995 Hepatitis B [...] 12/09/2020 Influenza Vaccine (FLU shot) (#1) 2023 B-12 12/15/2023 12/15/2022, 10/0 03/2022, 07/19/2022, Additional history exists Diabetic Eye Exam 01/15/2024 01/15/2023 DTaP,Tdap,and Td Vaccines (2 - Td or Tdap) 02/20/2024 02/19/2014 HbA1c 07/16/2024 01/16/2024, 082 11/2022, 01/26/2023, Additional history exists Albumin/Creatinine Ratio 01/16/2025 024, 12/15/2022, 07/19/2022, Additional history exists GFR 01/16/2025 01/16/2024, 08/2 11/2022, 01/18/2023, Additional history exists TSH 01/16/2025 01/16/2024, 082 11/2022, 01/26/2023, Additional history exists Lipid Panel 01/16/2029 01/16/2024, 08/3 11/2021, 08/02/2021, Additional history exists Colonoscopy 03/01/2033 03/01/2023, 03/01/2023 Colorectal Cancer Screening 03/01/2033 GARDASIL-HPV IMMUNIZATION SERIES Aged Out No longer eligible based on patient's age to complete this topic MENINGOCOCCAL (MENACTRA/MENVEO) Aged Out No longer eligible based on patient's age to complete this topic documented as of this encounter Medical Devices Implanted Type Area Gas Station Cashier Device Identifier Shelf Expiration Date Model / Serial / Lot Clip Quick 2.8mm 230cm - [id number] Implanted:Qty: 1 on 03/01/2023 by Rasheed Niño MD at ENDOSCOPY [facility] [employer] [id number] 05/18/2025 [id number]-[id number] / / [id number] documented as of this encounter Visit Diagnoses Diagnosis Abnormal CBC measurement- Primary Other abnormal blood chemistry documented in this encounter Care Teams Manager Training And Development Relationship Specialty Start Date End Date Lucía Horner PA-C [address] [facility] [place] [address] PCP - General Physician Ventilator Specialist 07/19/22 documented as of this encounter
--- OUTSIDE RECORDS SUMMARY | 2024-02-25 19:56 | External Medical Summary ---
Author Name Unknown Address Unknown Organization K01:[facility] - [address] [place] [address] Laboratory Report Ordering Provider Test Date Status MISHA BUSTILLOS 01/16/2024 12:53:58 Final Normal: <30 mg/g creatinine< br/>High: 30-300 mg/g creatinine
Very High: >300 mg/g creatinine
Nephrotic: >2200 mg/g creatinine Observation Date Value Abnormality Reference (Units ) Status Albumin, Urine 01/16/2024 12:53:58 4.64 (mg/dL) Final Creatinine, Urine 01/16/2024 12:53:58 262 (mg/dL) Final Albumin/Creatinine [Mass Ratio] in Urine 01/16/2024 12:53:58 18 <30 (mg/g Creat) Final Performing Location [facility] [address] [place] [address]
--- OUTSIDE RECORDS SUMMARY | 2024-02-25 19:56 | External Medical Summary ---
Author Name Unknown Address Unknown Organization K01:[facility] - [address] [place] [address] Laboratory Report Ordering Provider Test Date Status MISHA BUSTILLOS 01/16/2024 12:53:58 Final Observation Date Value Abnormality Reference (Units ) Status CEA 01/16/2024 12:53:58 6.2 Above high normal <= 5.2 (ng/mL) Final Performing Location [facility] - [address] [place] [address]
--- OUTSIDE RECORDS SUMMARY | 2024-02-25 19:56 | External Medical Summary | Summary of Care ---
Author Name Unknown Organization [facility] Address [address] [place] [address] Phone [phone] Care Team Providers Care Pmo Consultant Name Role Phone Lucía Horner PA-C Primary Care Provider [phone] Reason for Visit * Reason Onset Date Comments Appointment 11/30/2023 Encounter Details Date Type Department Care Team ([facility] st Contact Info) Description 11/30/2023 Telephone Neurology, [place] [address] [place], [place] [phone] Specified, [facility] No Resource [address] [place], [place] [phone] Appointment Allergies Active Allergy Reactions Criticality Noted Date Comments Metformin 01/11/2021 Raised creat documented as of this encounter (statuses as of 12/27/2023) Medications Medication Sig Dispensed Refills Start Date [...] MCG/ACT Nasal Suspension (Flonase)Indication s:Dizziness Administer 1 [place] into nostril in the morning. 15.8 mL 3 3 Active Magnesium Oxide 400 (240 Mg) MG Oral Tablet (Mag-Ox)Indications :Tension-type headache, not intractable, unspecified chronicity pattern TAKE ONE TABLET BY MOUTH NIGHTLY AT BEDTIME 100 Tablet 1 3 Active Mounjaro 2.5 MG/0.5ML Subcutaneous Solution Pen-injector (Tirzepatide)Indica tions:Type 2 diabetes mellitus with hemoglobin A1c goal of less than 7.0% ([facility]),Morbid obesity, BMI not known ([facility]) Inject 2.5 mg under the skin once [...] mri 3 Tablet 0 3 Active Ipratropium [place] 0.02 % Inhalation Solution (Atrovent)Indicatio ns:Tobacco use [...] Active Emgality 120 MG/ML Subcutaneous Solution Auto-injector (Galcanezumab-[facility]) Inject 1 mL under the [...] as of this encounter (statuses as of 12/27/2023) Active Problems Problem Noted Date Diagnosed Date [...] as of this encounter (statuses as of 12/27/2023) Resolved Problems Problem Noted Date Diagnosed Date [...] as of this encounter (statuses as of 12/27/2023) Immunizations Name Administration Dates Next Due COVID-19 [...] Care Team (Late st Contact Info) Description 01/01/2024 4:15 PM EST Telemedicine Otolaryngology Allergy [address] [address] Kory Lopez MD [address] [place] [address] 02/01/2024 2:40 PM EDT Office Visit [facility] [address] [place] [phone] Lucía Horner PA-C [address] [place] [address] 03/04/2024 9:20 AM EDT Office Visit Neurology [facility] [place] [address] [facility] [place] [address] Karina Hoffman PA-C [address] [facility] [place] [address] Scheduled Procedures Name Priority Associated Diagnoses Date/Ti me COLONOSCOPY FLEXIBLE PROXIMA L DIAGNOSTIC Elevated carcinoembryonic antigen (CEA) Health Maintenance Due Date Last Done Comments DISCUSS TOBACCO CESSATION (REFER TO SMARTSET #5669) 1975 Hepatitis B (1 of 3 - [...] 07/19/2022, Additional history exists HbA1c 01/09/2024 07/09/2023, 03/1 , 12/15/2022, Additional history exists Diabetic Eye [...] this encounter Medical Devices Implanted Type Area Fixture Builder Device Identifier Shelf Expiration Date Model / Serial / Lot Clip Quick 2.8mm 230cm - [id number] Implanted:Qty: 1 on 03/01/2023 by Rasheed Niño MD at [place] [facility] [employer] [id number] 05/18/2025 [id number]-[id number] / / [id number] documented as of this encounter Care Teams Pmo Consultant Relationship Specialty Start Date End Date Lucía Hor[facility] [address] [facility] [place] [address] PCP - General Physician Copy Editor 07/19/22 documented as of this encounter
--- OUTSIDE RECORDS SUMMARY | 2024-02-25 19:56 | External Medical Summary | Summary of Care ---
Author Name Unknown Organization [facility] Address [address] [place] [address] Phone [phone] Care Team Providers Care Sustainability Officer Name Role Phone Lucía Horner PA-C Primary Care Provider [phone] Reason for Referral * Precert (Within 10 days (routine)) - Pending Review Specialty Diagnoses / Procedures Referred By Grupo mohan Referred To Contact Radiology Diagnoses Tobacco use disorder Multiple lung nodules on CT Procedures CT CHEST WO CONTRAST Kenna Graves CRNP [address] [place] [address] Referral ID Status Reason Start Date Expiration Date V isits Requested Visits Authorized [id number] Pending Review 02/06/2024 999 999 Reason for Visit * Reason Onset Date Comments STAIR 02/07/2023 Encounter Details Date Type Department Care Team ([facility] Contact Info) Description 02/07/2023 Telephone STAIR LUNG NODULE [address] [place] [address] Kenna Graves CRNP [address], [place] [id number] STAIR Allergies Active Allergy Reactions Criticality Noted Date Comments Metformin 01/11/2021 Raised creat documented as of this encounter (statuses as of 02/11/2024) Medications Medication Sig Dispensed Refills Start Date End Date Status NEBULIZER COMPRESSOR MISCIndications:Br onchitis Use as directed 1 Each 1 5 Active Blood Glucose Monitoring Suppl (ONE Cardeeo ULTRA SYSTEM KIT) W/DEVICE KITIndications:DM type 2, goal A1c below 7 Once daily or as needed 1 Kit 0 5 Active metronidazole (METROGEL) 0.75 % gelIndications:Imp etigo Apply topically to affected area 2 times a day. Apply to affected area 45 g 1 8 Active Meclizine HCl 25 MG Oral Tablet (Antivert)Indicati ons:Dizziness Take 1 Tablet by mouth 3 times a day as needed for Dizziness. 30 Tablet 1 3 Active Fluticasone Propionate 50 MCG/ACT Nasal Suspension (Flonase)Indicatio ns:Dizziness Administer 1 [place] into nostril in the morning. 15.8 mL 3 3 Active Continuous Blood Gluc Lagging Machine Operator (FairlaySTYLE TU READER) DEVIIndications:Ty pe 2 diabetes mellitus with hemoglobin A1c goal of less than 7.0% ([facility]) Use as directed to check blood sugar 1 Device 1 8 023 Discontinued Albuterol Sulfate (ALBUTEROL HFA) 108 (90 BASE) MCG/ACT inhalerIndications :Pneumonia of right lower lobe due to infectious organism Inhale 2 Puffs by mouth 4 times a day. 18 g 5 0 024 Discontinued Ipratropium [place] 0.02 % Inhalation Solution (Atrovent)Indicati ons:Tobacco use disorder Inhale via nebulizer 2.5 mL in the morning AND 2.5 mL at noon AND 2.5 mL in the evening AND 2.5 mL before bedtime. 75 mL 12 2 024 Discontinued(Re fill) guaiFENesin-Codein e 100-10 MG/5ML Oral SolutionIndication s:Bronchitis, complicated Take by mouth 5 mL as needed before bedtime for Cough or Congestion. 60 mL 0 2 023 Discontinued Losartan Potassium 100 MG Oral Tablet (Cozaar)Indication s:HTN, goal below 140/90 TAKE 1 TABLET BY MOUTH ONCE DAILY 90 Tablet 1 2 023 Discontinued buPROPion HCl ER (XL) 150 MG Oral Tablet Extended Release 24 Hour (Wellbutrin XL)Indications:Tob acco use disorder Take by mouth 1 Tablet in the morning. 90 Tablet 0 2 023 Discontinued OneTouch UltraSoft Lancets USE TO TEST ONCE DAILY OR DIRECTED 100 Each 3 2 023 Discontinued OneTouch Ultra In Vitro Strip (Glucose Blood) using once a day or as needed 100 Strip 3 2 023 Discontinued Nicotine 21 MG/24HR Transdermal Patch 24 Hour (Nicotine Step 1) Place topically on the skin 1 Patch daily . 28 Patch 0 2 023 Discontinued Albuterol Sulfate (2.5 MG/3ML) 0.083% Inhalation Nebulization Solution (Proventil)Indicat ions:Bronchitis, complicated Inhale via nebulizer 1 Vial every 4 hours as needed for Wheezing. 120 mL 1 2 024 Discontinued Magnesium 400 MG Oral TabletIndications: Tension-type headache, not intractable, unspecified chronicity pattern Take by mouth 1 Tablet at bedtime . 100 Tablet 1 2 023 Discontinued hydroCHLOROthiazid e 12.5 MG Oral Tablet (Hydrodiuril) TAKE 1 TABLET BY MOUTH ONCE DAILY 90 Tablet 1 2 023 Discontinued Pantoprazole Sodium 40 MG Oral Tablet Delayed Release (Protonix)Indicati ons:GERD (gastroesophageal reflux disease),Encounter for long-term (current) use of medications TAKE 1 TABLET BY MOUTH ONCE DAILY 90 Tablet 1 2 023 Discontinued Levothyroxine Sodium 200 MCG Oral Tablet (Levoxyl)Indicatio ns:Acquired hypothyroidism take one tablet by mouth daily Sun-Sun at least 30 minutes before breakfast and other medications - sunday and sunday take 1/2 tablet 84 Tablet 0 2 023 Discontinued Atorvastatin Calcium 20 MG Oral Tablet (Lipitor)Indicatio ns:HTN, goal below 140/90,Dyslipidemi a, goal LDL below 70 TAKE 1 TABLET BY MOUTH AT BEDTIME 90 Tablet 0 3 023 Discontinued Iron-Vitamin C 65-125 MG Oral Tablet (Vitron C)Indications:Low ferritin level,Restless legs syndrome Take 1 Tablet by mouth in the morning. 100 Tablet 1 3 023 Discontinued Vitamin D3 50 MCG (1999 UT) Oral CapsuleIndications :Low vitamin D level Take 1 Capsule by mouth in the morning. 90 Capsule 1 3 023 Discontinued SITagliptin Phosphate 100 MG Oral Tablet (Januvia)Indicatio ns:Type 2 diabetes mellitus with hemoglobin A1c goal of less than 7.0% ([facility]) Take 1 Tablet by mouth in the morning. 30 Tablet 5 3 023 Discontinued Topiramate 25 MG Oral Tablet (Topamax)Indicatio ns:NDPH (new daily persistent headache) increase to 2 tabs at bedtime and 1 tab am for a week then 2 tabs twice a day therafeter 360 Tablet 1 3 023 Discontinued predniSONE 10 MG Oral Tablet (Deltasone) 6 tabs x 3 days 4 tab x 3 days, 3 tab x 3days, 2 tab x 3 days, 1 tab x 3 days then stop 48 Tablet 2 3 023 Discontinued(Me dication List Clean Up) LORazepam 0.5 MG Oral Tablet (Ativan)Indication s:Claustrophobia One tab 1 hour before mri, repeat 15 min prior and at start for total of 3 tabs 3 Tablet 0 3 023 Discontinued(Me dication List Clean Up) acetaZOLAMIDE 250 MG Oral Tablet (Diamox) 1 tab twice daily x 7 days then increase to 1 tab three times daily 90 Tablet 2 3 023 Discontinued(Re fill) busPIRone HCl 15 MG Oral Tablet (Buspar)Indication s:ELIZABETH (generalized anxiety disorder),Panic attack TAKE 1 TABLET BY MOUTH FOUR TIMES DAILY every morning, at noon, every evening, and before bedtime 120 Tablet 0 3 023 Discontinued Galcanezumab-gnlm 120 MG/ML Subcutaneous Solution Auto-injector (Emgality) Inject 1 mL under the skin Every Month. 1 mL 3 3 023 Discontinued(Re fill) Galcanezumab-gnlm 120 MG/ML Subcutaneous Solution Auto-injector (Emgality) Inject 2 mL (2 pens) under the skin for first month, then 1 mL (1 pen) every month thereafter. 2 mL 0 3 023 Discontinued(Wy dication List Clean Up) documented as of this encounter (statuses as of 02/11/2024) Active Problems Problem Noted Date Diagnosed Date [...] as of this encounter (statuses as of 02/11/2024) Resolved Problems Problem Noted Date Diagnosed Date [...] as of this encounter (statuses as of 02/11/2024) Immunizations Name Administration Dates Next Due COVID-19 [...] encounter Miscellaneous Notes * Telephone Encounter - Charlene Higginbotham LPN - 02/11/2024 10:42 AM EDT Patient disenrolled from [facility] Program for Pulmonary Nodule - banner removed * Telephone Encounter - Charlene Higginbotham LPN - 02/08/2023 7:44 AM EDT [facility] Incidental Findings Summary for PCP to Review ROSANGELA Rodriguez is managing your patient's pulmonary nodule (setting and tracking the care plans). However, your patient also has an incidental finding on their recent scan that STAIR does NOT manage. Please review the CT - Chest dated 02/05/23 and follow through with evaluation of the other incidental finding(s) as listed on radiology report as clinically indicated. Charlene Higginbotham LPN STAIR (System to Track Abnormalities of Importance Reliably) [phone] CT CHEST WO CONTRAST 02/05/2023 Narrative PROCEDURE INFORMATION: Exam: CT Chest Without Contrast; Diagnostic Exam date and time: 02/05/2023 5:25 PM Age: 47 years old Clinical indication: Nicotine dependence, unspecified, uncomplicated; Other nonspecific abnormal finding of lung field; Additional info: Nodules in apices noted on outside head/neck CT TECHNIQUE: Imaging protocol: Diagnostic computed tomography of the chest without contrast. Radiation optimization: All CT scans at this facility use at least one of these dose optimization techniques: automated exposure control; mA and/or kV adjustment per patient size (includes targeted exams where dose is matched to clinical indication); or iterative reconstruction. REPORTING DATA: Count of CT and Cardiac NM exams in prior 12 months: This patient has received 3 known CTs and 0 known cardiac nuclear medicine studies in the 12 months prior to the current study. COMPARISON: US PELVIS TRANS-ABDOMINAL 01/18/2023 2:09 PM FINDINGS: Trachea: The central airway appears unremarkable. Lungs: Normal lung volumes. No regions of consolidation or interstitial lung disease. 0.2 cm biapical upper lobe nodules are seen (series 4, images 24 to 33)-at least 9. 0.2 cm more caudal right upper lobe posterior lung nodule (series 4, image 44). Follow-up may be performed per Fleischner society recommendations. No regions of ground-glass opacity.No interlobular septal thickening or honeycombing seen to suggest interstitial lung disease on CT. Pleural spaces: No pneumothorax. No pleural effusion. Heart: The heart size appears normal on non-contrast imaging. No pericardial effusion. No coronary arterial atherosclerotic vascular calcifications. Lymph nodes: No enlarged lymph nodes visualized on non-contrast imaging. Vasculature: No aortic aneurysm. Bones/joints: No acute osseous abnormalities seen. Small degenerative osteophytes are seen in the mid to lower thoracic spine. Medium-sized degenerative osteophytes are seen in the visualized upper lumbar region. Soft tissues: Unremarkable. Other findings: Status post prior cholecystectomy. No biliary ductal dilatation. Impression IMPRESSION: 0.2 cm multiple bilateral upper lobe nodule (greater than 10), as noted above. Recommend follow-up per Fleischner society recommendations. References: For patients at low risk (minimal or absent history of smoking and of other known risk factors), no routine follow-up is indicated. For patients at high risk (history of smoking or of other known risk factors), consider optional CT Chest at 12 months. (Reference: Pérez) THIS DOCUMENT HAS BEEN ELECTRONICALLY SIGNED BY LORENA ESCOBAR MD * Telephone Encounter - Charlene Higginbotham LPN - 02/08/2023 7:43 AM EDT Lucía Horner PA-C - for your review. An important pulmonary nodule finding was noted. The follow-up Care Plan is 12 month follow-up CT Chest scan. The [facility] Team will manage this lung nodule and take care of any ordering/scheduling. Lung Nodule Referral Triaging - Communication to Patient Patient letter sent through [facility] or mail. Time spent: 10 minutes Charlene Higginbotham LPN Coordinator STAIR (System to Track Abnormalities of Importance Reliably) [phone] * Telephone Encounter - Kenna Graves CRNP - 02/07/2023 6:17 PM EDT Lung Nodule Provider Review - Follow-up Clinical Summary: current smoker Reviewed below Imaging Interpretation: CT - Chest dated 02/05/23 Lung nodules: multiple Location: b/l Characteristics: Nodules are all 2 mm Co-morbidity : no findings of emphysema or ILD 1. Pulmonary Nodule Care Plan: Follow-up Imaging ordered - details below Details: This is follow chest scan to follow up on findings on neck CT. Per Fleischner Guidelines, since patient smokes, she can have CT in 12 months which I recommend. 2. Non-Pulmonary Nodule Incidental Finding: other incidental finding(s) as listed on radiology report 3. Patient contacted to review recommendations and next steps: CT in 12 months. LM on phone and sent [employer] message. 4. Message forwarded to STAIR Pool. Time spent: 30 minutes DAKOTAH Ge (System to Track Abnormalities of Importance Reliably) documented in this encounter Plan of Treatment Upcoming Encounters Date Type Department Care Team (Late st Contact Info) Description 03/04/2024 9:20 AM EDT Office Visit [facility] [address] [place] [address] Karina Hoffman PA-C [address] [place] [address] Scheduled Orders Name Type Priority Associated Diagnoses Orde r Schedule CT CHEST WO CONTRAST Medical Imaging Routine Tobacco use disorder Multiple lung nodules on CT Expected: 02/06/2024, Expires: 03/10/2024 Scheduled Procedures Name Priority Associated Diagnoses Date/Ti me COLONOSCOPY FLEXIBLE PROXIMA L DIAGNOSTIC Elevated carcinoembryonic antigen (CEA) Health Maintenance Due Date Last Done Comments DISCUSS TOBACCO CESSATION (REFER TO SMARTSET #3922) 1977 Hepatitis C Screening 1995 Hepatitis B [...] 07/16/2024 01/16/2024, 06/20, 01/26/2023, Additional history exists Albumin/Creatinine Ratio 01/16/2025 [...] this encounter Medical Devices Implanted Type Area Backup Administrator Device Identifier Shelf Expiration Date Model / Serial / Lot Clip Quick 2.8mm 230cm - [id number] Implanted:Qty: 1 on 03/01/2023 by Rasheed Niño MD at [facility] [place] [employer] [id number] 05/18/2025 [id number]-[id number] / / [id number] documented as of this encounter Visit Diagnoses Diagnosis Multiple lung nodules on CT- Primary Tobacco use disorder documented in this encounter Care Teams Sustainability Officer Relationship Specialty Start Date End Date Lucía Horner PA-C [address] [facility] [place] [phone] PCP - General Physician Auto Vinyl Top Installer 07/19/22 documented as of this encounter
--- OUTSIDE RECORDS SUMMARY | 2024-02-25 19:56 | External Medical Summary ---
Author Name Unknown Address Unknown Organization [id number][place] [facility] [place] [address] [place] [address] Laboratory Report Ordering Provider Test Date Status MISHA BUSTILLOS 01/16/2024 12:53:58 Final Observation Date Value Abnormality Reference (Units ) Status Triglyceride 01/16/2024 12:53:58 194 Above high normal <=174 (mg/dL) Final Triglyceride Reference Range s (mg/dL):
<150 Acceptable
150-174 Borderline high
175-499 High
>=500 Very high Cholesterol 01/16/2024 12:53:58 143 <200 (mg /dL) Final Total Cholesterol Reference Ranges (mg/dL):
<200 Desirable
200-239 Borderline high
>=240 High HDL 01/16/2024 12:53:58 42 Below low normal >49 (mg/dL) Final HDL Cholesterol Reference Ra nges (mg/dL):
>=60 High (Desirable)
<50 Low (Undesirable) For Females
<40 Low (Undesirable) For Males NON-HDL CHOLESTEROL 01/16/2024 12:53:58 101 <=159 (mg/dL) Final Non-HDL Cholesterol Referenc e Range (mg/dL):
<100 Target level for high risk ASCVD patient
<130 Optimal for general population
130-159 Near optimal for general population
160-189 Borderline High
190-219 High
>=220 Very High Performing Location [facility] - [address] [place] [address]
--- OUTSIDE RECORDS SUMMARY | 2024-02-25 19:56 | External Medical Summary ---
Author Name Unknown Address Unknown Organization [id number][place] [facility] [place] [address] [facility] [address] Laboratory Report Ordering Provider Test Date Status MISHA BUSTILLOS 01/16/2024 12:53:58 Final Observation Date Value Abnormality Reference (Units ) Status SYNC LEUKOCYTES IN BLOOD BY AUTOMATED COUNT 01/16/2024 12:53:58 12.06 Above high normal 4.00-10.80 (K/uL) Final Segs 01/16/2024 12:53:58 68.9 40.0-75.0 (%) Final Lymphs % 01/16/2024 12:53:58 19.7 18.0-42.0 (%) Final Monos 01/16/2024 12:53:58 5.8 1.0-11.0 (%) Final Eosinophils 01/16/2024 12:53:58 4.6 0.0-6.0 (%) Final Basos 01/16/2024 12:53:58 0.7 0.0-2.0 (%) Final Immature Granulocyte, Percent 01/16/2024 12:53:58 0.3 0.0-2.0 (%) Final Absolute Segs 01/16/2024 12:53:58 8.29 Above high normal 1.80-7.70 (K/uL) Final Lymphs, absolute 01/16/2024 12:53:58 2.38 1.00-4.80 (K/ul) Final Monos, Abs 01/16/2024 12:53:58 0.70 0.00-1.10 (K/uL) Final Eos, Abs 01/16/2024 12:53:58 0.56 0.00-0.70 (K/uL) Final Basos, Abs 01/16/2024 12:53:58 0.09 0.00-0.20 (K/uL) Final Immature Granulocytes, Number 01/16/2024 12:53:58 0.04 0.00-0.20 (K/uL) Final Performing Location [place] [facility] [place] [address] [facility] [address]
--- OUTSIDE RECORDS SUMMARY | 2024-02-25 19:56 | External Medical Summary ---
Author Name Unknown Address Unknown Organization [id number]:LABORATORY [facility] [place] - [address] [facility] [address] Laboratory Report Ordering Provider Test Date Status MISHA BUSTILLOS 01/16/2024 12:53:58 Final Observation Date Value Abnormality Reference (Units ) Status HbA1C 01/16/2024 12:53:58 6.4 Above high normal 4. 0-5.6 (%) Final The use of HbA1c to monitor glycemic status is based on normal hemoglobin and HbA composition. This test should not be used in patients with abnormal hemoglobin that affects the half life of the red blood cell or the in vivo glycation rates. Glucose, estimated average 01/16/2024 12:53:58 137 Above high normal <126 (mg/dL) Aly tavera Performing Location LABORATORY [facility] [place] [place] - [address] [facility] [address]
--- OUTSIDE RECORDS SUMMARY | 2024-02-25 19:56 | External Medical Summary | Summary of Care ---
Author Name Unknown Organization [facility] Address [address] [address] Phone [phone] Care Team Providers Care Maternity Floor Supervisor Name Role Phone Lucía Horner PA-C Primary Care Provider [phone] Encounter Details Date Type Department Care Team ([facility] st Contact Info) Description 01/28/2024 Orders Only PATIENT PORTAL DO NOT DELETE THIS DEPT USED BY [place] [id number] Allergies Active Allergy Reactions Criticality Noted Date [...] MCG/ACT Nasal Suspension (Flonase)Indications :Dizziness Administer 1 Hawkeye into nostril in the morning. 15.8 mL 3 12/12/2022 Active Magnesium Oxide 400 (240 Mg) MG Oral Tablet (Mag-Ox)Indications: Tension-type headache, not intractable, unspecified chronicity pattern TAKE ONE TABLET BY MOUTH NIGHTLY AT BEDTIME 100 Tablet 1 02/13/2023 Active Mounjaro 2.5 MG/0.5ML Subcutaneous Solution Pen-injector (Tirzepatide)Indicat ions:Type 2 diabetes mellitus with hemoglobin A1c goal of less than 7.0% ([facility]),Morbid obesity, BMI not known ([facility]) Inject 2.5 mg under the skin once [...] mri 3 Tablet 0 11/02/2023 Active Ipratropium [place] 0.02 % Inhalation Solution (Atrovent)Indication s:Tobacco use [...] Active Emgality 120 MG/ML Subcutaneous Solution Auto-injector (Galcanezumab-[facility]) Inject 1 mL under the skin [...] Description 02/01/2024 2:40 PM EDT Office Visit [facility] [address] [place] [facility] [place] [id number] Lucía Horner PA-C [address] [place] [address] 03/04/2024 9:20 AM EDT Office Visit Neurology [facility] [place] [address] [place] [address] Karina Hoffman PA-C [address] [place] [address] Scheduled Procedures Name Priority Associated Diagnoses Date/Ti me COLONOSCOPY FLEXIBLE PROXIMA L DIAGNOSTIC Elevated carcinoembryonic antigen (CEA) Health Maintenance Due Date Last Done Comments DISCUSS TOBACCO CESSATION (REFER TO SMARTSET #3866) 1975 Hepatitis C Screening 1995 Hepatitis B [...] or Tdap) 02/20/2024 02/19/2014 HbA1c 07/16/2024 01/16/2024, 0811/2022, 01/26/2023, Additional history exists Albumin/Creatinine Ratio 01/16/2025 024, 12/15/2022, 07/19/2022, Additional history exists GFR 01/16/2025 01/16/2024, 082 11/2022, 01/18/2023, Additional history exists TSH 01/16/2025 01/16/2024, 06/20, 01/26/2023, Additional history exists Lipid Panel 01/16/2029 01/16/2024, 08/3 11/2021, 08/02/2021, Additional history exists Colonoscopy 03/01/2033 03/01/2023, 03/01/2023 Colorectal Cancer Screening 03/01/2033 GARDASIL-HPV IMMUNIZATION SERIES Aged Out No longer eligible based on patient's age to complete this topic MENINGOCOCCAL (MENACTRA/MENVEO) Aged Out No longer eligible based on patient's age to complete this topic documented as of this encounter Medical Devices Implanted Type Area Appeals Nurse Device Identifier Shelf Expiration Date Model / Serial / Lot Clip Quick 2.8mm 230cm - [id number] Implanted:Qty: 1 on 03/01/2023 by Rasheed Niño MD [place] [facility] [place] [employer] [id number] 05/18/2025 [id number]-202UR.A / / [id number] documented as of this encounter Care Teams Maternity Floor Supervisor Relationship Specialty Start Date End Date Lucía Horner PA-C [address] [id number] PCP - General Physician Flame Hardening Machine Setter 07/19/22 documented as of this encounter
--- OUTSIDE RECORDS SUMMARY | 2024-02-25 19:56 | External Medical Summary ---
Author Name Unknown Address Unknown Organization K01:LABORATORY [facility] [place] [place] [address] [place] [address] Laboratory Report Ordering Provider Test Date Status APOLLOCIERARODOLFO 01/16/2024 12:53:58 Final Observation Date Value Abnormality Reference (Units ) Status LDL, (direct) 01/16/2024 12:53:58 78 <=129 (mg/dL) Final LDL Cholesterol Reference Ra nges (mg/dL):
<70 Target level for high risk ASCVD patient
<100 Optimal for general population
100-129 Near optimal for general population
130-159 Borderline high
160-189 High
>=190 Very high Performing Location [facility] - [address] [place] [address]
--- OUTSIDE RECORDS SUMMARY | 2024-02-25 19:56 | External Medical Summary ---
Author Name Unknown Address Unknown Organization K01:LABORATORY [facility] [place] - [address] [facility] [address] Laboratory Report Ordering Provider Test Date Status MISHA BUSTILLOS 01/16/2024 12:53:58 Final Observation Date Value Abnormality Reference (Units ) Status WBC, Total 01/16/2024 12:53:58 12.06 Above high normal 4.00-10.80 (K/uL) Final RBC 01/16/2024 12:53:58 4.97 3.85-5.15 (M/uL) Final Hemoglobin 01/16/2024 12:53:58 11.5 Below low normal 12.0-15.3 (g/dL) Final HCT 01/16/2024 12:53:58 39.3 36.0-45.2 (%) Final MCV 01/16/2024 12:53:58 79.1 81.5-97.5 (fL) Final MCH 01/16/2024 12:53:58 23.1 27.0-34.0 (pg) Final MCHC 01/16/2024 12:53:58 29.3 32.0-36.0 (g/dL) Final RDW 01/16/2024 12:53:58 21.1 11.5-15.5 (%) Final Platelets 01/16/2024 12:53:58 398 140-400 (K/uL) Final MPV 01/16/2024 12:53:58 11.0 6.6-11.1 (fL) Final Nucleated erythrocytes/100 leukocytes [Ratio] in Blood by Automated count 01/16/2024 12:53:58 0 <=0 (/100 WBCs) Final Performing Location LABORATORY C - [address] [place] [address]
--- OUTSIDE RECORDS SUMMARY | 2024-02-25 19:56 | External Medical Summary ---
Author Name Unknown Address Unknown Organization K01:LAB[facility]ATORY [facility] [place] [address] [place] [address] Laboratory Report Ordering Provider Test Date Status MISHA BUSTILLOS 01/16/2024 12:53:58 Final Deficient: <20 ng/mL
Ins ufficient: 20-29 ng/mL
Recommended/Optimum:30-50 ng/mL

Vitamin D intoxication is rare. If suspicious of Vitamin D toxicity, evaluation of serum Calcium and PTH is recommended. Observation Date Value Abnormality Reference (Units ) Status 25-OH Vitamin D total 01/16/2024 12:53:58 32 >19 (ng/mL) Final Performing Location LABORATORY C - [address] [place] [address]
--- OUTSIDE RECORDS SUMMARY | 2024-02-25 19:56 | External Medical Summary ---
Author Name Unknown Address Unknown Organization K01:LABORATORY [facility] - [address] [place] [address] Laboratory Report Ordering Provider Test Date Status MISHA BUSTILLOS 01/16/2024 12:53:58 Final Observation Date Value Abnormality Reference (Units ) Status Folic Acid 01/16/2024 12:53:58 5.2 >4.5 (ng/ mL) Final Performing Location [facility] - [address] [place] [address]
--- OUTSIDE RECORDS SUMMARY | 2024-02-25 19:56 | External Medical Summary | Summary of Care ---
Author Name Unknown Organization [facility] Address [address] [place] [address] Phone [phone] Care Team Providers Care Insurance Instructor Name Role Phone Lucía Horner PA-C Primary Care Provider [phone] [phone] Encounter Details Date Type Department Care Team ([facility] st Contact Info) Description 11/20/2023 Telephone [facility] [address] [place] [address] Lucía Horner PA-C [address] [place] [address] Allergies Active Allergy Reactions Criticality Noted Date Comments Metformin 01/11/2021 Raised creat documented as of this encounter (statuses as of 02/19/2024) Medications Medication Sig Dispensed Refills Start Date [...] MCG/ACT Nasal Suspension (Flonase)Indicatio ns:Dizziness Administer 1 [place] into nostril in the morning. 15.8 mL 3 3 Active Magnesium Oxide 400 (240 Mg) MG Oral Tablet (Mag-Ox)Indication s:Tension-type headache, not intractable, unspecified chronicity pattern TAKE ONE TABLET BY MOUTH NIGHTLY AT BEDTIME 100 Tablet 1 3 Active Mounjaro 2.5 MG/0.5ML Subcutaneous Solution Pen-injector (Tirzepatide)Indic ations:Type 2 diabetes mellitus with hemoglobin A1c goal of less than 7.0% ([facility]),Morbid obesity, BMI not known (HCC) Inject 2.5 mg under the skin once a week. 2 mL 11 3 024 Active Pantoprazole Sodium 40 MG Oral Tablet Delayed Release (Protonix)Indicati ons:GERD (gastroesophageal reflux disease),Encounter for long-term (current) use of medications TAKE 1 TABLET BY MOUTH ONCE DAILY 90 Tablet 1 3 Active D3 Super Strength 50 MCG (2000 UT) Oral Capsule (Cholecalciferol)I ndications:Low vitamin D level TAKE 1 CAPSULE BY MOUTH EVERY MORNING 90 Capsule 1 3 Active Atorvastatin Calcium 20 MG Oral Tablet (Lipitor)Indicatio [...] 3 Active LORazepam 0.5 MG Oral Tablet (Ativan)Indication s:NDPH (new daily persistent headache) One tab 1 hour prior, repeat 15 min prior and start of mri 3 Tablet 0 3 Active Albuterol Sulfate (ALBUTEROL HFA) 108 (90 BASE) MCG/ACT inhalerIndications :Pneumonia of right lower lobe due to infectious organism Inhale 2 Puffs by mouth 4 times a day. 18 g 5 0 024 Discontinued Albuterol Sulfate (2.5 MG/3ML) 0.083% Inhalation Nebulization Solution (Proventil)Indicat ions:Bronchitis, complicated Inhale via nebulizer 1 Vial every 4 hours as needed for Wheezing. 120 mL 1 2 024 Discontinued busPIRone HCl 15 MG Oral Tablet (Buspar)Indication s:ELIZABETH (generalized anxiety disorder),Panic attack TAKE ONE TABLET BY MOUTH IN THE MORNING, ONE AT NOON, ONE IN THE EVENING, AND ONE BEFORE BEDTIME 120 Tablet 3 3 024 Discontinued Levothyroxine Sodium 200 MCG Oral Tablet (Levoxyl)Indicatio ns:Acquired hypothyroidism take 1 tablet by mouth once daily sunday through sunday and take 1/2 tablet on sunday and sunday - take at least 30 minutes before breakfast and other medications 84 Tablet 1 3 024 Discontinued Emgality 120 MG/ML Subcutaneous Solution Auto-injector (Galcanezumab-gnlm ) Inject 1 mL under the skin Every Month. 1 mL 5 3 024 Discontinued(Re fill) traZODone HCl 50 MG Oral Tablet (Desyrel)Indicatio ns:NDPH (new daily persistent headache),Insomnia , unspecified type,Current mild episode of major depressive disorder, unspecified whether recurrent (HCC) One half to one whole tab by mouth at bedtime 30 Tablet 0 3 024 Discontinued documented as of this encounter (statuses as of 02/19/2024) Active Problems Problem Noted Date Diagnosed Date [...] as of this encounter (statuses as of 02/19/2024) Resolved Problems Problem Noted Date Diagnosed Date [...] as of this encounter (statuses as of 02/19/2024) Immunizations Name Administration Dates Next Due COVID-19 mRNA, LNP-s, No Pre serve, 2-Dose Series (Open[employer]) 09/13/2021,12/30/2020,12/09/2020 PPD 03/22/2016 Pneumococcal Polysaccharide PPV23 (Pneumovax) [...] Office Visit Neurology [facility] [address] [place] [address] Karina Hoffman PA-C [address] [place] [address] Scheduled Procedures Name Priority Associated Diagnoses Date/Ti me COLONOSCOPY FLEXIBLE PROXIMA L DIAGNOSTIC Elevated carcinoembryonic antigen (CEA) Health Maintenance Due Date Last Done Comments DISCUSS TOBACCO CESSATION (REFER TO SMARTSET #3683) 1975 Hepatitis C Screening 1995 Hepatitis B [...] 01/18/2023, Additional history exists TSH 01/16/2025 01/16/2024, 08/2 11/2022, 01/26/2023, Additional history exists Diabetic Eye Exam [...] this encounter Medical Devices Implanted Type Area Customer Service Analyst Device Identifier Shelf Expiration Date Model / Serial / Lot Clip Quick 2.8mm 230cm - [id number] Implanted:Qty: 1 on 03/01/2023 by Rasheed Niño MD at [facility]OSCOPY [facility] [employer] [id number] 05/18/2025 [id number] / / [id number] documented as of this encounter Care Teams Insurance Instructor Relationship Specialty Start Date End Date Lucía Horner PA-C [address] [facility] [place] [address] PCP - General Physician Toll Operator 07/19/22 documented as of this encounter
--- OUTSIDE RECORDS SUMMARY | 2024-02-25 19:56 | External Medical Summary | Summary of Care ---
Author Name Unknown Organization [facility] Address [address] [place] [address] Phone [phone] Care Team Providers Care Oil Well Services Superintendent Name Role Phone Lucía Horner PA-C Primary Care Provider [phone] Reason for Visit * Reason Onset Date Comments Advice 10/30/2023 Encounter Details Date Type Department Care Team ([facility] st Contact Info) Description 10/30/2023 Telephone Neurology, [place] [address] [place] [address] Aroldo Linton, [address] [place], [place] [id number] Advice Allergies Active Allergy Reactions Criticality Noted Date Comments Metformin 01/11/2021 Raised creat documented as of this encounter (statuses as of 01/29/2024) Medications Medication Sig Dispensed Refills Start Date End Date Status NEBULIZER COMPRESSOR MISCIndications:Bro nchitis Use as directed 1 Each 1 01/16/2015 Active Blood Glucose Monitoring Suppl (ONE TOUCH ULTRA SYSTEM KIT) W/DEVICE KITIndications:DM type 2, goal A1c below 7 Once daily or as needed 1 Kit 0 04/01/2015 Active metronidazole (METROGEL) 0.75 % gelIndications:Impe tigo Apply topically to affected area 2 times a day. Apply to affected area 45 g 1 02/22/2018 Active Meclizine HCl 25 MG Oral Tablet (Antivert)Indicatio ns:Dizziness Take 1 Tablet by mouth 3 times a day as needed for Dizziness. 30 Tablet 1 12/12/2022 Active Fluticasone Propionate 50 MCG/ACT Nasal Suspension (Flonase)Indication s:Dizziness Administer 1 [place] into nostril in the morning. 15.8 mL 3 12/12/2022 Active Magnesium Oxide 400 (240 Mg) MG Oral Tablet (Mag-Ox)Indications :Tension-type headache, not intractable, unspecified chronicity pattern TAKE ONE TABLET BY MOUTH NIGHTLY AT BEDTIME 100 Tablet 1 02/13/2023 Active Mounjaro 2.5 MG/0.5ML Subcutaneous Solution Pen-injector (Tirzepatide)Indica tions:Type 2 diabetes mellitus with hemoglobin A1c goal of less than 7.0% ([facility]),Morbid obesity, BMI not known ([facility]) Inject 2.5 mg under the skin once a week. 2 mL 11 08/03/2023 08/02/2024 Active Pantoprazole Sodium 40 MG Oral Tablet [...] OR DIRECTED 100 Each 3 10/29/2023 Active documented as of this encounter (statuses as of 01/29/2024) Active Problems Problem Noted Date Diagnosed Date [...] as of this encounter (statuses as of 01/29/2024) Resolved Problems Problem Noted Date Diagnosed Date [...] as of this encounter (statuses as of 01/29/2024) Immunizations Name Administration Dates Next Due COVID-19 [...] encounter Miscellaneous Notes * Telephone Encounter - Jaja Panchal OSA - 10/30/2023 9:41 AM EST Please advise pt wants appointment and a LP to be done please advise. documented in this encounter Plan of Treatment Upcoming Encounters Date Type Department Care Team (Late st Contact Info) Description 02/01/2024 2:40 PM EDT Office Visit [facility] [address] [place] [id number] Lucía Horner PA-C [address] [place] [address] 03/04/2024 9:20 AM EDT Office Visit Neurology [facility] [address] [facility] [place] [address] Karina Hoffman PA-C [address] [facility] [place] [address] Scheduled Procedures Name Priority Associated Diagnoses Date/Ti me COLONOSCOPY FLEXIBLE PROXIMA L DIAGNOSTIC Elevated carcinoembryonic antigen (CEA) Health Maintenance Due Date Last Done Comments DISCUSS TOBACCO CESSATION (REFER TO SMARTSET #5353) 1977 Hepatitis C Screening 1995 Hepatitis B [...] this encounter Medical Devices Implanted Type Area Telecommunications Line Installer Device Identifier Shelf Expiration Date Model / Serial / Lot Clip Quick 2.8mm 230cm - [id number] Implanted:Qty: 1 on 03/01/2023 by Rasheed Niño MD at [facility]COPY [facility] [employer] [id number] 05/18/2025 [id number]-[email or web address] / / [id number] documented as of this encounter Care Teams Oil Well Services Superintendent Relationship Specialty Start Date End Date Lucía Horner PA-C [address] [facility] [place] [id number] PCP - General Physician Coach Operator 07/19/22 documented as of this encounter
[2024-02-25] MEDS: LACTATED RINGER'S 1,000 ML IV ONE (19:57)
--- OUTSIDE RECORDS SUMMARY | 2024-02-25 19:57 | External Medical Summary | Summary of Care ---
Author Name Unknown Organization [facility] Address [address] [place] [address] Phone [phone] Care Team Providers Care Merchandise Planner Name Role Phone Lucía Horner PA-C Primary Care Provider [phone] [phone] Encounter Details Date Type Department Care Team ([facility] st Contact Info) Description 11/15/2023 Documentation Radiology, [place] [address] [place], [place] [id number] Rex Lindsey MD [address] [place], [place] [phone] Allergies Active Allergy Reactions Criticality Noted Date Comments Metformin 01/11/2021 Raised creat documented as of this encounter (statuses as of 11/15/2023) Medications Medication Sig Dispensed Refills Start Date [...] affected area 45 g 1 02/22/2018 Active Albuterol Sulfate (ALBUTEROL HFA) 108 (90 BASE) MCG/ACT inhalerIndications: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 18 g 5 01/13/2020 Active Ipratropium [place] 0.02 % Inhalation Solution (Atrovent)Indication s:Tobacco use disorder Inhale via nebulizer 2.5 mL in the morning AND 2.5 mL at noon AND 2.5 mL in the evening AND 2.5 mL before bedtime. 75 mL 12 04/20/2022 Active Albuterol Sulfate (2.5 MG/3ML) 0.083% Inhalation Nebulization Solution (Proventil)Indicatio ns:Bronchitis, complicated Inhale via nebulizer 1 Vial every 4 hours as needed for Wheezing. 120 mL 1 09/18/2022 Active Meclizine HCl 25 MG Oral Tablet (Antivert)Indication s:Dizziness Take 1 Tablet by mouth 3 times a day as needed for Dizziness. 30 Tablet 1 12/12/2022 Active Fluticasone Propionate 50 MCG/ACT Nasal Suspension (Flonase)Indications :Dizziness Administer 1 [place] into nostril in the morning. 15.8 mL 3 12/12/2022 Active Magnesium Oxide 400 (240 Mg) MG Oral Tablet (Mag-Ox)Indications: Tension-type headache, not intractable, unspecified chronicity pattern TAKE ONE TABLET BY MOUTH NIGHTLY AT BEDTIME 100 Tablet 1 02/13/2023 Active busPIRone HCl 15 MG Oral Tablet (Buspar)Indications: ELIZABETH (generalized anxiety disorder),Panic attack TAKE ONE TABLET BY MOUTH IN THE MORNING, ONE AT NOON, ONE IN THE EVENING, AND ONE BEFORE BEDTIME 120 Tablet 3 03/08/2023 Active Levothyroxine Sodium 200 MCG Oral Tablet (Levoxyl)Indications :Acquired hypothyroidism take 1 tablet by mouth once daily sunday through sunday and take 1/2 tablet on sunday and sunday - take at least 30 minutes before breakfast and other medications 84 Tablet 1 06/07/2023 Active Mounjaro 2.5 MG/0.5ML Subcutaneous Solution Pen-injector (Tirzepatide)Indicat ions:Type 2 diabetes mellitus with hemoglobin A1c goal of less than 7.0% ([facility]),Morbid obesity, BMI not known ([facility]) Inject 2.5 mg under the skin once a week. 2 mL 11 08/03/2023 Active Pantoprazole Sodium 40 MG Oral Tablet Delayed Release (Protonix)Indication s:GERD (gastroesophageal reflux disease),Encounter for long-term (current) use of medications TAKE 1 TABLET BY MOUTH ONCE DAILY 90 Tablet 1 08/30/2023 Active D3 Super Strength 50 MCG (1999 UT) Oral Capsule (Cholecalciferol)Ind ications:Low vitamin D level TAKE 1 CAPSULE BY MOUTH EVERY MORNING 90 Capsule 1 08/31/2023 Active Atorvastatin Calcium 20 MG Oral Tablet (Lipitor)Indications :HTN, goal below 140/90,Dyslipidemia, goal LDL below 70 TAKE 1 TABLET BY MOUTH AT BEDTIME 90 Tablet 1 08/30/2023 Active Emgality 120 MG/ML Subcutaneous Solution Auto-injector (Galcanezumab-gnlm) Inject 1 mL under the skin Every Month. 1 mL 5 09/27/2023 Active [email or web address] Ultra In Vitro Strip (Glucose Blood) USE TO TEST ONCE A DAY OR NEEDED 100 Strip 3 10/05/2023 Active PlaySightTouch UltraSoft 2 Lancets USE TO TEST ONCE DAILY OR DIRECTED 100 Each 3 10/29/2023 Active traZODone HCl 50 MG Oral Tablet (Desyrel)Indications :NDPH (new daily persistent headache),Insomnia, unspecified type,Current mild episode of major depressive disorder, unspecified whether recurrent (HCC) One half to one whole tab by mouth at bedtime 30 Tablet 0 11/02/2023 Active LORazepam 0.5 MG Oral Tablet (Ativan)Indications: NDPH (new daily persistent headache) One tab 1 hour prior, repeat 15 min prior and start of mri 3 Tablet 0 11/02/2023 Active documented as of this encounter (statuses as of 11/15/2023) Active Problems Problem Noted Date Diagnosed Date Elevated carcinoembryonic antigen (CEA) 02/15/20 23 Multiple [...] as of this encounter (statuses as of 11/15/2023) Resolved Problems Problem Noted Date Diagnosed Date [...] as of this encounter (statuses as of 11/15/2023) Immunizations Name Administration Dates Next Due COVID-19 mRNA, LNP-s, No Pre serve, 2-Dose Series ([employer]) 09/13/2021,12/30/2020,12/09/2020 PPD 03/22/2016 Pneumococcal Polysaccharide PPV23 (Pneumovax) [...] as of this encounter Progress Notes * Rex Lindsey MD - 11/15/2023 4:47 PM EST LP Screening Note The patient's medical record was reviewed for purposes of LP triage with the following points: Reason for LP: Pt body habitus requires fluoroscopy guidance. Previous Imaging: MRI Brain reviewed. No imaging of the lumbar spine to review. Allergies: None contraindicating LP. Meds: Reviewed. Labs: Reviewed. Serum Beta HCG: N/A Triage reviewed with attending radiologist Dr. Doe This information was given to the Fluoroscopy Dept for scheduling. documented in this encounter Plan of Treatment Upcoming Encounters Date Type Department Care Team (Late st Contact Info) Description 12/13/2023 2:00 PM EST Office Visit Otolaryngology Allergy [facility] [address] [place] [address] Kory Lopez MD [address] [place] [address] 02/01/2024 2:40 PM EDT Office Visit [place] [address] [place] [address] Lucía Horner PA-C [address] [place] [address] 03/04/2024 9:20 AM EDT Office Visit Neurology [facility] [address] [facility] [place] [address] Karina Hoffman PA-C [address] [facility] [place] [address] Scheduled Procedures Name Priority Associated Diagnoses Date/Ti me COLONOSCOPY FLEXIBLE PROXIMA L DIAGNOSTIC Elevated carcinoembryonic antigen (CEA) Health Maintenance Due Date Last Done Comments DISCUSS TOBACCO CESSATION (REFER TO SMARTSET #5374) 1975 Hepatitis B (1 of 3 - [...] 08/02/2021, Additional history exists B-12 12/15/2023 12/15/2022, 1003/2022, 07/19/2022, Additional history exists HbA1c 01/09/2024 07/09/2023, [...] this encounter Medical Devices Implanted Type Area Casket Liner Device Identifier Shelf Expiration Date Model / Serial / Lot Clip Quick 2.8mm 230cm - [id number] Implanted:Qty: 1 on 03/01/2023 by Rasheed Niño MD at [place] [facility] [employer] [id number] 05/18/2025 [id number]-[email or web address] / / [id number] documented as of this encounter Care Teams Merchandise Planner Relationship Specialty Start Date End Date Lucía Horner PA-C [address] [facility] [place] [address] PCP - General Physician Tire Rebuilder 07/19/22 documented as of this encounter
--- OUTSIDE RECORDS SUMMARY | 2024-02-25 19:57 | External Medical Summary | Summary of Care ---
Author Name Unknown Organization [facility] Address [address] [place] [address] Phone [phone] Care Team Providers Care Wafer Polishing Worker Name Role Phone Lucía Horner PA-C Primary Care Provider [phone] [phone] Reason for Visit * Reason Onset Date Comments Other 11/07/2023 Encounter Details Date Type Department Care Team ([facility] st Contact Info) Description 11/07/2023 Telephone Neurology, [place] [address] [place] [address] Aroldo Linton, [address] [place], [place] [phone] Other Allergies Active Allergy Reactions Criticality Noted Date Comments Metformin 01/11/2021 Raised creat documented as of this encounter (statuses as of 11/23/2023) Medications Medication Sig Dispensed Refills Start Date [...] affected area 45 g 1 8 Active Albuterol Sulfate (2.5 MG/3ML) 0.083% Inhalation Nebulization Solution (Proventil)Indicat ions:Bronchitis, complicated Inhale via nebulizer 1 Vial every 4 hours as needed for Wheezing. 120 mL 1 2 Active Meclizine HCl 25 MG Oral Tablet (Antivert)Indicati ons:Dizziness Take 1 Tablet by mouth 3 times a day as needed for Dizziness. 30 Tablet 1 3 Active Fluticasone Propionate 50 MCG/ACT Nasal Suspension (Flonase)Indicatio ns:Dizziness Administer 1 [place] into nostril in the morning. 15.8 mL 3 3 Active Magnesium Oxide 400 (240 Mg) MG Oral Tablet (Mag-Ox)Indication s:Tension-type headache, not intractable, unspecified chronicity pattern TAKE ONE TABLET BY MOUTH NIGHTLY AT BEDTIME 100 Tablet 1 3 Active busPIRone HCl 15 MG Oral Tablet (Buspar)Indication s:ELIZABETH (generalized anxiety disorder),Panic attack TAKE ONE TABLET BY MOUTH IN THE MORNING, ONE AT NOON, ONE IN THE EVENING, AND ONE BEFORE BEDTIME 120 Tablet 3 3 Active Levothyroxine Sodium 200 MCG Oral Tablet (Levoxyl)Indicatio ns:Acquired hypothyroidism take 1 tablet by mouth once daily sunday through sunday and take 1/2 tablet on sunday and sunday - take at least 30 minutes before breakfast and other medications 84 Tablet 1 3 Active Mounjaro 2.5 MG/0.5ML Subcutaneous Solution Pen-injector (Tirzepatide)Indic ations:Type 2 diabetes mellitus with hemoglobin A1c goal of less than 7.0% ([facility]),Morbid obesity, BMI not known (HCC) Inject 2.5 mg under the skin once a week. 2 mL 11 3 024 Active Pantoprazole Sodium 40 MG Oral Tablet Delayed Release (Protonix)Indicati ons:GERD (gastroesophageal reflux disease),Encounter for long-term (current) use of medications TAKE 1 TABLET BY MOUTH ONCE DAILY 90 Tablet 1 3 Active D3 Super Strength 50 MCG (1999 UT) Oral Capsule (Cholecalciferol)I ndications:Low vitamin D level TAKE 1 CAPSULE BY MOUTH EVERY MORNING 90 Capsule 1 3 Active Atorvastatin Calcium 20 MG Oral Tablet (Lipitor)Indicatio ns:HTN, goal below 140/90,Dyslipidemi a, goal LDL below 70 TAKE 1 TABLET BY MOUTH AT BEDTIME 90 Tablet 1 3 Active Emgality 120 MG/ML Subcutaneous Solution Auto-injector (Galcanezumab-gnlm ) Inject 1 mL under the skin Every Month. 1 mL 5 3 Active OneTouch Ultra In Vitro Strip (Glucose Blood) USE TO TEST ONCE A DAY OR NEEDED 100 Strip 3 3 Active OneTouch UltraSoft 2 Lancets USE TO TEST ONCE DAILY OR DIRECTED 100 Each 3 3 Active traZODone HCl 50 MG Oral Tablet (Desyrel)Indicatio ns:NDPH (new daily persistent headache),Insomnia , unspecified type,Current mild episode of major depressive disorder, unspecified whether recurrent (HCC) One half to one whole tab by mouth at bedtime 30 Tablet 0 3 Active LORazepam 0.5 MG Oral Tablet [...] 18 g 5 0 024 Discontinued Ipratropium [place] 0.02 % Inhalation Solution (Atrovent)Indicati ons:Tobacco use disorder Inhale via nebulizer 2.5 mL in the morning AND 2.5 mL at noon AND 2.5 mL in the evening AND 2.5 mL before bedtime. 75 mL 12 2 024 Discontinued(Re fill) documented as of this encounter (statuses as of 11/23/2023) Active Problems Problem Noted Date Diagnosed Date [...] as of this encounter (statuses as of 11/23/2023) Resolved Problems Problem Noted Date Diagnosed Date [...] as of this encounter (statuses as of 11/23/2023) Immunizations Name Administration Dates Next Due COVID-19 mRNA, LNP-s, No Pre serve, 2-Dose Series ([facility]) 09/13/2021,12/30/2020,12/09/2020 PPD 03/22/2016 Pneumococcal Polysaccharide PPV23 (Pneumovax) [...] encounter Miscellaneous Notes * Telephone Encounter - Indira Duran LPN - 11/08/2023 8:49 AM EST Order for Fluoro guide lumbar puncture ordered yesterday [phone] Call to patient and made her aware. * Telephone Encounter - Patsy Sharp OSA - 11/07/2023 1:28 PM EST Pt called, she needs the order for her lumbar puncture faxed to [facility] as she is goingto try to get it closer to home. She tried talking to Neurology (where she was seen) and they gave her to us. Could not find order in chart. She has been passed around a lot. [facility] [phone]. documented in this encounter Plan of Treatment Upcoming Encounters Date Type Department Care Team (Late st Contact Info) Description 12/13/2023 2:00 PM EST Office Visit Otolaryngology Allergy [address] [address] Kory Lopez MD [address] [place] [address] 02/01/2024 2:40 PM EDT Office Visit [facility] [address] [place] [phone] Lucía Horner PA-C [address] [place] [address] 03/04/2024 9:20 AM EDT Office Visit [facility]rology [place] [address] [place] [address] [address] Karina Hoffman PA-C [address] [facility] [place] [address] Scheduled Procedures Name Priority Associated Diagnoses Date/Ti me COLONOSCOPY FLEXIBLE PROXIMA L DIAGNOSTIC Elevated carcinoembryonic antigen (CEA) Health Maintenance Due Date Last Done Comments DISCUSS TOBACCO CESSATION (REFER TO SMARTSET #1837) 1975 Hepatitis B (1 of 3 - [...] 12/15/2022, Additional history exists TSH 07/09/2024 07/09/2023, 031 , 12/15/2022, Additional history exists Lipid Panel 07/19/2027 07/19/2022, 07/20, 12/31/2020, Additional history exists Colonoscopy 03/01/2033 03/01/2023, 03/01/2023 Colorectal Cancer Screening 03/01/2033 GARDASIL-HPV IMMUNIZATION SERIES Aged Out No longer eligible based on patient's age to complete this topic MENINGOCOCCAL (MENACTRA/MENVEO) Aged Out No longer eligible based on patient's age to complete this topic documented as of this encounter Medical Devices Implanted Type Area Loop Machine Operator Device Identifier Shelf Expiration Date Model / Serial / Lot Clip Quick 2.8mm 230cm - [id number] Implanted:Qty: 1 on 03/01/2023 by Rasheed Niño MD at [place]COPY [facility] [employer] [id number] 05/18/2025 [id number]-[email or web address] / / [id number] documented as of this encounter Care Teams Wafer Polishing Worker Relationship Specialty Start Date End Date Lucía Horner PA-C [address] [facility] [place] [address] PCP - General Physician Vegetable Picker 07/19/22 documented as of this encounter
--- OUTSIDE RECORDS SUMMARY | 2024-02-25 19:57 | External Medical Summary | Summary of Care ---
Author Name Unknown Organization [facility] Address [address] [place] [address] Phone [phone] Care Team Providers Care Face And Fill Packer Name Role Phone Lucía Horner PA-C Primary Care Provider [phone] [phone] Reason for Visit * Reason Comments eRx-Medication Refill Encounter Details Date Type Department Care Team (Late st Contact Info) Description 12/02/2023 Refill [facility] [address] [place] [address] Lucía Horner PA-C [address] [place] [address] Bronchitis, complicated Allergies Active Allergy Reactions Criticality Noted Date Comments Metformin 01/11/2021 Raised creat documented as of this encounter (statuses as of 12/03/2023) Medications Medication Sig Dispensed Refills Start Date [...] MCG/ACT Nasal Suspension (Flonase)Indication s:Dizziness Administer 1 [place] into nostril in the morning. 15.8 mL 3 3 Active Magnesium Oxide 400 (240 Mg) MG Oral Tablet (Mag-Ox)Indications :Tension-type headache, not intractable, unspecified chronicity pattern TAKE ONE TABLET BY MOUTH NIGHTLY AT BEDTIME 100 Tablet 1 3 Active Levothyroxine Sodium 200 MCG Oral [...] hemoglobin A1c goal of less than 7.0% ([facility]),Morbid obesity, BMI not known ([facility]) Inject 2.5 mg under the [...] mri 3 Tablet 0 3 Active Ipratropium [place] 0.02 % Inhalation Solution (Atrovent)Indicatio ns:Tobacco use [...] FOR WHEEZING 150 mL 2 4 Active Albuterol Sulfate (2.5 MG/3ML) 0.083% Inhalation Nebulization Solution (Proventil)Indicati ons:Bronchitis, complicated Inhale via nebulizer 1 Vial every 4 hours as needed for Wheezing. 120 mL 1 2 12/03/19 24 Discontinued documented as of this encounter (statuses as of 12/03/2023) Active Problems Problem Noted Date Diagnosed Date [...] as of this encounter (statuses as of 12/03/2023) Resolved Problems Problem Noted Date Diagnosed Date [...] as of this encounter (statuses as of 12/03/2023) Immunizations Name Administration Dates Next Due COVID-19 mRNA, LNP-s, No Pre serve, 2-Dose Series ([employer]) 09/13/2021,12/30/2020,12/09/2020 PPD 03/22/2016 Pneumococcal Polysaccharide PPV23 (Pneumovax) [...] encounter Miscellaneous Notes * Telephone Encounter - Car Cervantes [facility] - 12/03/2023 3:41 PM EST Signed Prescriptions: Disp Refills Albuterol Sulfate (2.5 MG/3ML) 0.083% Inha*150 mL 2 Sig: INHALE 1 VIAL VIA NEBULIZER EVERY FOUR HOURS NEEDED FOR WHEEZINGAuthorizing Provider: LUCÍA HORNER AOrjaroding User: CAR CERVANTES --- documented in this encounter Plan of Treatment Upcoming Encounters Date Type Department Care Team (Late st Contact Info) Description 12/13/2023 2:00 PM EST Office Visit Otolaryngology Allergy [address] [address] Kory Lopez MD [address] [place] [facility] [place] [address] 02/01/2024 2:40 PM EDT Office Visit [address] [address] Lucía Horner PA-C [address] [place] [address] 03/04/2024 9:20 AM EDT [facility] [place] [address] [place] [address] Karina Hoffman PA-C [address] [facility] [place] [address] Scheduled Procedures Name Priority Associated Diagnoses Date/Ti me COLONOSCOPY FLEXIBLE PROXIMA L DIAGNOSTIC Elevated carcinoembryonic antigen (CEA) Health Maintenance Due Date Last Done Comments DISCUSS TOBACCO CESSATION (REFER TO SMARTSET #7260) 1975 Hepatitis B (1 of 3 - [...] Vaccine (FLU shot) (#1) 2023 Albumin/Creatinine Ratio 12/15/202312/15/ 023, 07/19/2022, 08/02/2021, Additional history exists B-12 [...] this encounter Medical Devices Implanted Type Area Chlorinator Device Identifier Shelf Expiration Date Model / Serial / Lot Clip Quick 2.8mm 230cm - [id number] Implanted:Qty: 1 on 03/01/2023 by Rasheed Niño MD at ENDOSCOPY [facility] [employer] [id number] 05/18/2025 HX-202UR.A K documented as of this encounter Visit Diagnoses Diagnosis Bronchitis, complicated Bronchitis, not specified as acute or chronic documented in this encounter Care Teams Face And Fill Packer Relationship Specialty Start Date End Date Lucía Horner PA-C [address] [facility] [place] [address] PCP - General Physician Geospatial Developer 07/19/22 documented as of this encounter
--- OUTSIDE RECORDS SUMMARY | 2024-02-25 19:57 | External Medical Summary | Summary of Care ---
Author Name Unknown Organization [facility] Address [address] [place] [address] Phone [phone] Care Team Providers Care Crane Helper Name Role Phone Lucía Horner PA-C Primary Care Provider [phone] Encounter Details Date Type Department Care Team ([facility] st Contact Info) Description 12/07/2023 Specialty Pharmacy [facility], [address] [address] Medication, Mtm Specialty Refill, [address] [address] Allergies Active Allergy Reactions Criticality Noted Date Comments Metformin 01/11/2021 Raised creat documented as of this encounter (statuses as of 12/07/2023) Medications Medication Sig Dispensed Refills Start Date End Date Status NEBULIZER COMPRESSOR MISCIndications:Alex galeana Use as directed 1 Each 1 01/16/2015 [...] MCG/ACT Nasal Suspension (Flonase)Indications :Dizziness Administer 1 [place] into nostril in the morning. 15.8 mL 3 12/12/2022 Active Magnesium Oxide 400 (240 Mg) MG Oral Tablet (Mag-Ox)Indications: Tension-type headache, not intractable, unspecified chronicity pattern TAKE ONE TABLET BY MOUTH NIGHTLY AT BEDTIME 100 Tablet 1 02/13/2023 Active Levothyroxine Sodium 200 MCG Oral Tablet [...] than 7.0% (HCC),Morbid obesity, BMI not known ([facility]) Inject 2.5 mg under the skin once [...] mri 3 Tablet 0 11/02/2023 Active Ipratropium [place] 0.02 % Inhalation Solution (Atrovent)Indication s:Tobacco use [...] FOR WHEEZING 150 mL 2 12/03/2023 Active documented as of this encounter (statuses as of 12/07/2023) Active Problems Problem Noted Date Diagnosed Date [...] as of this encounter (statuses as of 12/07/2023) Resolved Problems Problem Noted Date Diagnosed Date [...] as of this encounter (statuses as of 12/07/2023) Immunizations Name Administration Dates Next Due COVID-19 mRNA, LNP-s, No Pre serve, 2-Dose Series ([employer]) 09/13/2021,12/30/2020,12/09/2020 PPD 03/22/2016 Pneumococcal Polysaccharide PPV23 (Pneumovax) [...] as of this encounter Progress Notes * Vianey Sahu CPhT - 12/07/2023 11:00 AM EST Attempt 3 Emgality refill - Unable to reach patient after 3 attempts, sending unreachable letter atthis time Vianey Sahu CPhT [facility] 12/07/2023,11:00 AM documented in this encounter Plan of Treatment Upcoming Encounters Date Type Department Care Team (Late st Contact Info) Description 12/13/2023 2:00 PM EST Office Visit Otolaryngology Allergy [address] [address] Kory Lopez MD [address] [place] [address] 02/01/2024 2:40 PM EDT Office Visit [facility] [address] [place] [phone] Lucía Horner PA-C [address] [place] [address] 03/04/2024 9:20 AM EDT Office Visit Neurology Jaime H[facility] [place] [address] [place] [address] Karina Hoffman PA-C [address] [place] [address] Scheduled Procedures Name Priority Associated Diagnoses Date/Ti me COLONOSCOPY FLEXIBLE PROXIMA L DIAGNOSTIC Elevated carcinoembryonic antigen (CEA) Health Maintenance Due Date Last Done Comments DISCUSS TOBACCO CESSATION (REFER TO SMARTSET #3937) 1975 Hepatitis B (1 of 3 - [...] 07/19/2022, Additional history exists HbA1c 01/09/2024 07/09/2023, 1 , 12/15/2022, Additional history exists Diabetic Eye [...] this encounter Medical Devices Implanted Type Area Senior Case Manager Device Identifier Shelf Expiration Date Model / Serial / Lot Clip Quick 2.8mm 230cm - [id number] Implanted:Qty: 1 on 03/01/2023 by Rasheed Niño MD at ENDOSCOPY [facility] [employer] [facility] [id number] 05/18/2025 [id number]-202UR.A / / 27K documented as of this encounter Care Teams Crane Helper Relationship Specialty Start Date End Date Lucía Horner PA-C [address] [facility] [place] [address] PCP - General Physician Butadiene Converter Operator 07/19/22 documented as of this encounter
--- OUTSIDE RECORDS SUMMARY | 2024-02-25 19:57 | External Medical Summary | Summary of Care ---
Author Name Unknown Organization [facility] Address [address] [place] [address] Phone [phone] Care Team Providers Care Odd Ticket Clerk Name Role Phone Lucía Horner PA-C Primary Care Provider [phone] Reason for Visit * Reason Comments eRx-Medication Refill Encounter Details Date Type Department Care Team (Late st Contact Info) Description 11/21/2023 Refill [facility] [address] [place] [address] Lucía Horner PA-C [address] [place] [address] Pneumonia of right lower lobe due to infectious organism Allergies Active Allergy Reactions Criticality Noted Date Comments Metformin 01/11/2021 Raised creat documented as of this encounter (statuses as of 11/22/2023) Medications Medication Sig Dispensed Refills Start Date [...] MCG/ACT Nasal Suspension (Flonase)Indication s:Dizziness Administer 1 [place] into nostril in the morning. 15.8 mL [...] of less than 7.0% ([facility]),Morbid obesity, BMI not known ([facility]) Inject 2.5 mg under the skin once [...] mri 3 Tablet 0 3 Active Ipratropium [place] 0.02 % Inhalation Solution (Atrovent)Indicatio ns:Tobacco use disorder Inhale 2.5 mL via nebulizer in the morning and 2.5 mL at noon and 2.5 mL in the evening and 2.5 mL before bedtime. 75 mL 12 4 Active predniSONE 20 MG Oral Tablet (Deltasone) Take 2 Tablets by mouth in the morning for 5 days. 10 Tablet 0 4 11/26/19 24 Active Albuterol Sulfate HFA 108 (90 Base) MCG/ACT Inhalation Aerosol SolutionIndications :Pneumonia of right lower lobe due to infectious organism INHALE TWO PUFFS BY MOUTH FOUR TIMES DAILY 8.5 g 0 4 Active Albuterol Sulfate (ALBUTEROL HFA) 108 (90 BASE) MCG/ACT inhalerIndications: Pneumonia of right lower lobe due to infectious organism Inhale 2 Puffs by mouth 4 times a day. 18 g 5 0 11/22/19 24 Discontinued documented as of this encounter (statuses as of 11/22/2023) Active Problems Problem Noted Date Diagnosed Date [...] as of this encounter (statuses as of 11/22/2023) Resolved Problems Problem Noted Date Diagnosed Date [...] as of this encounter (statuses as of 11/22/2023) Immunizations Name Administration Dates Next Due COVID-19 mRNA, LNP-s, No Pre serve, 2-Dose Series ([employer]) 09/13/2021,12/30/2020,12/09/2020 PPD 03/22/2016 Pneumococcal Polysaccharide PPV23 (Pneumovax) [...] Telephone Encounter - Lucía Horner PA-C - 11/22/2023 12:07 PM ESTSigned Prescriptions: Disp Refills Albuterol Sulfate HFA 108 (90 Base) MCG/AC*8.5 g 0 Sig: INHALE TWO PUFFS BY MOUTH FOUR TIMES DAILYAuthorizing Provider: LUCÍA HORNER documented in this encounter Plan of Treatment Upcoming Encounters Date Type Department Care Team (Late st Contact Info) Description 12/13/2023 2:00 PM EST Office Visit Otolaryngology Allergy [facility] [address] [place] [address] Kory Lopez MD [address] [place] [address] 02/01/2024 2:40 PM EDT Office Visit [facility] [address] [place] [phone] Lucía Horner PA-C [address] [place] [address] 03/04/2024 9:20 AM EDT Office Visit Neurology Jaime H[facility] [place] [address] [place] [address] Karina Hoffman PA-C [address] [place] [address] Scheduled Procedures Name Priority Associated Diagnoses Date/Ti me COLONOSCOPY FLEXIBLE PROXIMA L DIAGNOSTIC Elevated carcinoembryonic antigen (CEA) Health Maintenance Due Date Last Done Comments DISCUSS TOBACCO CESSATION (REFER TO SMARTSET #7361) 1975 Hepatitis B (1 of 3 - [...] 12/15/2022, Additional history exists TSH 07/09/2024 07/09/2023, 03/1 , 12/15/2022, Additional history exists Lipid Panel 07/19/2027 07/19/2022, 07/20, 12/31/2020, Additional history exists Colonoscopy 03/01/2033 03/01/2023, 03/01/2023 Colorectal Cancer Screening 03/01/2033 GARDASIL-HPV IMMUNIZATION SERIES Aged Out No longer eligible based on patient's age to complete this topic MENINGOCOCCAL (MENACTRA/MENVEO) Aged Out No longer eligible based on patient's age to complete this topic documented as of this encounter Medical Devices Implanted Type Area Analyst Device Identifier Shelf Expiration Date Model / Serial / Lot Clip Quick 2.8mm 230cm - [id number] Implanted:Qty: 1 on 03/01/2023 by Rasheed Niño MD at [facility] [employer] [id number] 05/18/2025 HX-202UR.A / / 27K documented as of this encounter Visit Diagnoses Diagnosis Pneumonia of right lower lobe due to infectious organism documented in this encounter Care Teams Odd Ticket Clerk Relationship Specialty Start Date End Date Lucía Horner PA-C [address] [facility] [place] [address] PCP - General Physician Dicer Machine Operator 07/19/22 documented as of this encounter
--- OUTSIDE RECORDS SUMMARY | 2024-02-25 19:57 | External Medical Summary | Summary of Care ---
Author Name Unknown Organization [facility] Address [address] [place] [address] Phone [phone] Care Team Providers Care Trauma Coordinator Name Role Phone Lucía Horner PA-C Primary Care Provider [phone] Reason for Visit * Reason Onset Date Comments Appointment 11/30/2023 Encounter Details Date Type Department Care Team ([facility] st Contact Info) Description 11/30/2023 Telephone Neurology, [place] [address] [place], [place] [phone] Specified, [facility] No [facility] [address] [place], [place] [phone] Appointment Allergies Active Allergy Reactions Criticality Noted Date Comments Metformin 01/11/2021 Raised creat documented as of this encounter (statuses as of 11/30/2023) Medications Medication Sig Dispensed Refills Start Date [...] 45 g 1 02/22/2018 Active Albuterol Sulfate (2.5 MG/3ML) 0.083% Inhalation [...] MCG/ACT Nasal Suspension (Flonase)Indications :Dizziness Administer 1 [place] into nostril in the morning. 15.8 mL [...] mri 3 Tablet 0 11/02/2023 Active Ipratropium [place] 0.02 % Inhalation Solution (Atrovent)Indication s:Tobacco use [...] Active Emgality 120 MG/ML Subcutaneous Solution Auto-injector (Galcanezumab-[facility]) Inject 1 mL under the skin every month. 1 mL 5 11/29/2023 Active documented as of this encounter (statuses as of 11/30/2023) Active Problems Problem Noted Date Diagnosed Date [...] as of this encounter (statuses as of 11/30/2023) Resolved Problems Problem Noted Date Diagnosed Date [...] as of this encounter (statuses as of 11/30/2023) Immunizations Name Administration Dates Next Due COVID-19 [...] 2:00 PM EST Office Visit Otolaryngology Allergy [facility] [address] [place] [address] Kory Lopez MD [address] [place] [address] 02/01/2024 2:40 PM EDT Office Visit [address] [phone] Lucía Horner PA-C [address] [place] [address] 03/04/2024 9:20 AM EDT Office Visit [place]rology [place] [address] [place] [address] Karina Hoffman PA-C [address] [facility] [place] [address] Scheduled Procedures Name Priority Associated Diagnoses Date/Ti me COLONOSCOPY FLEXIBLE PROXIMA L DIAGNOSTIC Elevated carcinoembryonic antigen (CEA) Health Maintenance Due Date Last Done Comments DISCUSS TOBACCO CESSATION (REFER TO SMARTSET #3291) 1975 Hepatitis B (1 of 3 - [...] this encounter Medical Devices Implanted Type Area Cane Weigher Device Identifier Shelf Expiration Date Model / Serial / Lot Clip Quick 2.8mm 230cm - [id number] Implanted:Qty: 1 on 03/01/2023 by Rasheed Niño MD at ENDOSCOPY [facility] [employer] [facility] [id number] 05/18/2025 HX-202UR.A / / 27K documented as of this encounter Care Teams Trauma Coordinator Relationship Specialty Start Date End Date Lucía Horner PA-C [address] [facility] [place] [phone] PCP - General Physician Emergency Services Professional 07/19/22 documented as of this encounter
--- OUTSIDE RECORDS SUMMARY | 2024-02-25 19:57 | External Medical Summary | Summary of Care ---
Author Name Unknown Organization [facility] Address [address] [place] [address] Phone [phone] Care Team Providers Care Case Checker Name Role Phone Lucía Horner PA-C Primary Care Provider +1 [phone] Reason for Visit * Reason Comments eRx-Medication Refill Encounter Details Date Type Department Care Team (Late st Contact Info) Description 11/27/2023 Refill [facility] [address] [place] [address] Lucía Horner PA-C [address] [place] [address] ELIZABETH (generalized anxiety disorder); Panic attack; NDPH (new daily persistent headache); Insomnia, unspecified type; Current mild episode of major depressive disorder, unspecified whether recurrent (HCC) Allergies Active Allergy Reactions Criticality Noted Date Comments Metformin 01/11/2021 Raised creat documented as of this encounter (statuses as of 11/28/2023) Medications Medication Sig Dispensed Refills Start Date [...] MCG/ACT Nasal Suspension (Flonase)Indication s:Dizziness Administer 1 [place] into nostril in the morning. 15.8 mL [...] hemoglobin A1c goal of less than 7.0% ([facility]),Morbid obesity, BMI not known ([facility]) Inject 2.5 mg under the skin [...] mri 3 Tablet 0 3 Active Ipratropium [place] 0.02 % Inhalation Solution (Atrovent)Indicatio ns:Tobacco use [...] at bedtime 30 Tablet 2 4 Active busPIRone HCl 15 MG Oral Tablet (Buspar)Indications :ELIZABETH (generalized anxiety disorder),Panic attack TAKE ONE TABLET BY MOUTH IN THE MORNING, ONE AT NOON, ONE IN THE EVENING, AND ONE BEFORE BEDTIME 120 Tablet 3 3 11/28/19 24 Discontinued traZODone HCl 50 MG Oral Tablet (Desyrel)Indication s:NDPH (new daily persistent headache),Insomnia, unspecified type,Current mild episode of major depressive disorder, unspecified whether recurrent (HCC) One half to one whole tab by mouth at bedtime 30 Tablet 0 3 11/28/19 24 Discontinued documented as of this encounter (statuses as of 11/28/2023) Active Problems Problem Noted Date Diagnosed Date [...] as of this encounter (statuses as of 11/28/2023) Resolved Problems Problem Noted Date Diagnosed Date [...] as of this encounter (statuses as of 11/28/2023) Immunizations Name Administration Dates Next Due COVID-19 [...] encounter Miscellaneous Notes * Telephone Encounter - uLcía Horner PA-C - 11/28/2023 10:56 AM ESTSigned Prescriptions: Disp Refills busPIRone HCl 15 MG Oral Tablet (Buspar) 120 Ta*2 Sig: TAKE ONE TABLET BY MOUTH IN THE MORNING, ONE TABLET AT NOON, ONE TABLET IN THE EVENING AND ONE TABLET BEFORE BEDTIME Authorizing Provider: LUCÍA HORNER traZODone HCl 50 MG Oral Tablet (Desyrel) 30 Tab*2 Sig: take 1/2 to 1 tablet by mouth at bedtime Authorizlesa ulloa Provider: LUCÍA HORNER Ordering User: KRISHNA HOLMAN * Telephone Encounter - Krishna Holman [facility] - 11/28/2023 9:28 AM ESTPending Prescriptions: Disp Refills busPIRone HCl 15 MG Oral Tablet (Buspar) 120 Ta*2 Sig: TAKE ONE TABLET BY MOUTH IN THE MORNING, ONE TABLET AT NOON, ONE TABLET IN THE EVENING AND ONE TABLET BEFORE BEDTIME Signed Prescriptions: Disp Refills traZODone HCl 50 MG Oral Tablet (Desyrel) 30 Tab*2 Sig: take 1/2 to 1 tablet by mouth at bedtime Authorizing Provider: LUCÍA HORNER Ordering User: KRISHNA HOLMAN * Telephone Encounter - Krishna Holman [facility] - 11/28/2023 9:23 AM EST [facility] is currently not authorized to approve refills for the pended medication(s) per refill protocol. Please approve if appropriate. Did you pend patient's preferred pharmacy and medication before forwarding?yes Pharmacy: [id number] [facility] Pending Prescriptions: Disp Refills busPIRone HCl 15 MG Oral Tablet (Buspar) *120 Ta*2 Sig: TAKE ONE TABLET BY MOUTH IN THE MORNING, ONE TABLET AT NOON, ONE TABLET IN THE EVENING AND ONE TABLET BEFORE BEDTIME Last Visit: 12/21/2022 (in office), 11/02/2023 (telemedicine) Next Visit: 02/01/2024 If no future appointments scheduled, and last appointment is greater than a year ago, please schedule patient for a follow-up appointment Last date the medication was ordered: 03/08/23 Is this request for a controlled substance?No Urine Drug Screen:No results found for this or any previous visit. Patient Phone Numbers Labs: Lab Results Component Value Date/Time CREAT 1.1 (H) 07/09/2023 03:52 PM CREAT 0.8 09/03/2019 08:39 AM POTASSIUM 3.6 07/09/2023 03:52 PM POTASSIUM 4.5 09/03/2019 08:39 AM TSH 1.01 07/09/2023 03:52 PM TSH 1.43 09/03/2019 08:39 AM LDLCALC 83 12/31/2020 04:36 PM LDLCALC 125 09/03/2019 08:39 AM LDLDIRECT 54 07/19/2022 08:14 AM LDLDIRECT 81 05/30/2018 07:42 AM ALT 14 07/09/2023 03:52 PM ALT 30 09/03/2019 08:39 AM HGBA1C 6.6 (H) 07/09/2023 03:52 PM HGBA1C 6.1 (H) 09/03/2019 08:39 AM documented in this encounter Plan of Treatment Upcoming Encounters Date Type Department Care Team (Late st Contact Info) Description 12/13/2023 2:00 PM EST Office Visit Otolaryngology Allergy [facility] [address] [place] [address] Kory Lopez MD [address] [place] [address] 02/01/2024 2:40 PM EDT Office Visit [facility] [address] [place] [phone] Lucía Horner PA-C [address] [place] [address] 03/04/2024 9:20 AM EDT Office Visit Neurology [facility] [address] [facility] [place] [address] Karina Hoffman PA-C [address] [facility] [place] [address] Scheduled Procedures Name Priority Associated Diagnoses Date/Ti me COLONOSCOPY FLEXIBLE PROXIMA L DIAGNOSTIC Elevated carcinoembryonic antigen (CEA) Health Maintenance Due Date Last Done Comments DISCUSS TOBACCO CESSATION (REFER TO SMARTSET #0809) 1975 Hepatitis B (1 of 3 - [...] 08/02/2021, Additional history exists B-12 12/15/2023 12/15/2022, 10/03/2022, 07/19/2022, Additional history exists HbA1c 01/09/2024 07/09/2023, /1 , 12/15/2022, Additional history exists Diabetic Eye [...] this encounter Medical Devices Implanted Type Area Stock Order Lister Device Identifier Shelf Expiration Date Model / Serial / Lot Clip Quick 2.8mm 230cm - [id number] Implanted:Qty: 1 on 03/01/2023 by Rasheed Niño MD at ENDOSCOPY [facility] [employer] [id number] 05/18/2025 HX-[email or web address].A / / 27K documented as of this encounter Visit Diagnoses Diagnosis ELIZABETH (generalized anxiety disorder) Generalized anxiety disorder Panic attack Panic disorder without agoraphobia NDPH (new daily persistent headache) New daily persistent headache Insomnia, unspecified type Current mild episode of major depressive disorder, unspecified whether recurrent (HCC) documented in this encounter Care Teams Case Checker Relationship Specialty Start Date End Date Lucía Horner PA-C [address] [place] [address] PCP - General Physician Electrical High Tension Tester 07/19/22 documented as of this encounter
--- OUTSIDE RECORDS SUMMARY | 2024-02-25 19:57 | External Medical Summary | Summary of Care ---
Author Name Unknown Organization [facility] Address [address] [place] [address] Phone [phone] Care Team Providers Care Rn Night Name Role Phone Lucía Horner PA-C Primary Care Provider [phone] [phone] Reason for Visit * Reason Comments Short of Breath Encounter Details Date Type Department Care Team ([facility] st Contact Info) Description 11/21/2023 9:30 AM EST Telemedicine General Internal Medicine, [facility] [address], [place] [id number] Florence Griffiths, [address] [place], [place] [id number] Bronchitis, chronic with acute exacerbation (HCC)*; Tobacco use disorder; Viral URI with cough Allergies Active Allergy Reactions Criticality Noted Date Comments Metformin 01/11/2021 Raised creat documented as of this encounter (statuses as of 11/21/2023) Medications Medication Sig Dispensed Refills Start Date [...] a day. 18 g 5 01/13/2020 Active Albuterol Sulfate (2.5 MG/3ML) 0.083% Inhalation [...] MCG/ACT Nasal Suspension (Flonase)Indication s:Dizziness Administer 1 Clever into nostril in the morning. 15.8 mL [...] A1c goal of less than 7.0% ([facility]),Morbid obesity, BMI not known ([facility]) Inject 2.5 mg under the skin once [...] Every Month. 1 mL 5 09/27/2023 Active OneTouch Ultra In Vitro Strip (Glucose [...] 11/02/2023 Active LORazepam 0.5 MG Oral Tablet (Ativan)Indications :NDPH (new daily persistent headache) One tab 1 hour prior, repeat 15 min prior and start of mri 3 Tablet 0 11/02/2023 Active Ipratropium [place] 0.02 % Inhalation Solution (Atrovent)Indicatio ns:Tobacco use disorder Inhale 2.5 mL via nebulizer in the morning and 2.5 mL at noon and 2.5 mL in the evening and 2.5 mL before bedtime. 75 mL 12 11/21/2023 Active predniSONE 20 MG Oral Tablet (Deltasone) Take 2 Tablets by mouth in the morning for 5 days. 10 Tablet 0 11/21/2023 4 Active Ipratropium [place] 0.02 % Inhalation Solution (Atrovent)Indicatio ns:Tobacco use disorder Inhale via nebulizer 2.5 mL in the morning AND 2.5 mL at noon AND 2.5 mL in the evening AND 2.5 mL before bedtime. 75 mL 12 04/20/2022 4 Discontinu ed(Refill) documented as of this encounter (statuses as of 11/21/2023) Active Problems Problem Noted Date Diagnosed Date [...] as of this encounter (statuses as of 11/21/2023) Resolved Problems Problem Noted Date Diagnosed Date [...] as of this encounter (statuses as of 11/21/2023) Immunizations Name Administration Dates Next Due COVID-19 [...] as of this encounter Progress Notes * Debi Carroll MD - 11/21/2023 9:41 AM EST I have discussed the patient's management with the medical trainee and agree with the note. Please refer to the documented findings and plan of care. This patient's visit today consisted of a telemedicine visit using real time audio/video technology. I did not personally interact with this patient. URI symptoms with recent flu exposure and flare of bronchitis with history of intermittent wheezing. - prior steroids helped her for similar symptoms, will treat with prednisone advised to seek medical attention of symptoms worsens or persistent. Debi Carroll MD * Florence Griffiths DO - 11/21/2023 9:27 AM EST Subjective: Ameena Hernández is a 48 year old female. Chief Complaint Patient presents with Short of Breath HPI: Ameena Hernández is a 48 year old female w PMHx s/f chronic bronchitis, tobacco use, presenting for shortness of breath, chest tightness, wheezing, myalgias, headache, nasal congestion, and cough without sputum production. She typically gets an exacerbation twice a year, once around donald and once in the summer. She has been using albuterol neb treatment at home as well as cough syrup and ibuprofen. She has been out of ipratropium which she believes could be contributing to the exacerbation. She previously has had a zpac and prednisone in the past. Review of Systems: denies sputum production, chest pain, n/v/diarrhea/constipation, abd pain or anyother sxs at this time. Patient Active Problem List Diagnosis Code Migraine G43.909 Hypothyroidism E03.9 GERD (gastroesophageal reflux disease) K21.9 HTN, goal below 140/90 I10 Tobacco use disorder F17.200 Type 2 diabetes mellitus with hemoglobin A1c goal of less than 7.0% ([facility]) E11.9 Dyslipidemia, goal LDL below 70 E78.5 Encounter for long-term (current) use of medications Z79.899 Morbid obesity, BMI not known ([facility]) E66.01 Restless legs G25.[address] R91.8 Elevated carcinoembryonic antigen (CEA) R97.0 OBJECTIVE: Exam over telemed, able to speak in complete sentences, no accessory muscle use, coughing on exam, in no acute distress. Lab Review: reviewed Assessment: Ameena Hernández is a 48 year old female w PMHx s/f chronic bronchitis presenting with sob, cough, without apparent hypoxia or increased sputum production concerning for viral URI with bronchitis exacerbation. Bronchitis, chronic with acute exacerbation ([facility]) (Primary) Viral URI with cough Tobacco use disorder Given likely viral illness and chest tightness, wheezing susp viral uri with possible chronic bronchitis exacerbation. As patient does not have worsening sputum or oxygen requirement, will not prescribe abx at this time and will give steroid course. Patient instructed to follow up in clinic if she has worsening symptoms. - Ipratropium [place] 0.02 % Inhalation Solution (Atrovent); Inhale 2.5 mL via nebulizer in the morning and 2.5 mL at noon and 2.5 mL in the evening and 2.5 mL before bedtime. - predniSONE 20 MG Oral Tablet (Deltasone); Take 2 Tablets by mouth in the morning for 5 days. - Pt instructed to follow up in clinic or seek emergency care if she develops hypoxia, worsening shortness of breath or has worsening symptoms Current Outpatient Medications Medication Sig Dispense Refill Ipratropium [place] 0.02 % Inhalation Solution (Atrovent) Inhale 2.5 mL via nebulizer in the morning and 2.5 mL at noon and 2.5 mL in the evening and 2.5 mL before bedtime. 75 mL 12 predniSONE 20 MG Oral Tablet (Deltasone) Take 2 Tablets by mouth in the morning for 5 days. 10 Tablet 0 NEBULIZER COMPRESSOR MISC Use as directed 1 Each 1 Blood Glucose Monitoring Suppl (ONE TOUCH ULTRA SYSTEM KIT) W/DEVICE KIT Once daily or as needed 1 Kit 0 metronidazole (METROGEL) 0.75 % gel Apply topically to affected area 2 times a day. Apply to affected area 45 g 1 Albuterol Sulfate (ALBUTEROL HFA) 108 (90 BASE) MCG/ACT inhaler Inhale 2 Puffs by mouth 4 times a day. 18 g 5 Albuterol Sulfate (2.5 MG/3ML) 0.083% Inhalation Nebulization Solution (Proventil) Inhale via nebulizer 1 Vial every 4 hours as needed for Wheezing. 120 mL 1 Meclizine HCl 25 MG Oral Tablet (Antivert) Take 1 Tablet by mouth 3 times a day as needed for Dizziness. 30 Tablet 1 Fluticasone Propionate 50 MCG/ACT Nasal Suspension (Flonase) Administer 1 Clever into nostril in themorning. 15.8 mL 3 Magnesium Oxide 400 (240 Mg) MG Oral Tablet (Mag-Ox) TAKE ONE TABLET BY MOUTH NIGHTLY AT BEDTIME 100 Tablet 1 busPIRone HCl 15 MG Oral Tablet (Buspar) TAKE ONE TABLET BY MOUTH IN THE MORNING, ONE AT NOON, ONE IN THE EVENING, AND ONE BEFORE BEDTIME 120 Tablet 3 Levothyroxine Sodium 200 MCG Oral Tablet (Levoxyl) take 1 tablet by mouth once daily sunday throughsunday and take 1/2 tablet on sunday and sunday - take at least 30 minutes before breakfast and other medications 84 Tablet 1 Mounjaro 2.5 MG/0.5ML Subcutaneous Solution [...] BY MOUTH AT BEDTIME 90 Tablet 1 Emgality 120 MG/ML Subcutaneous Solution Auto-injector (Galcanezumab-gnlm) Inject 1 mL under the skin Every Month. 1 mL 5 OneTouch Ultra In Vitro Strip (Glucose Blood) USE TO TEST ONCE A DAY OR NEEDED 100 Strip 3 OneTouch UltraSoft 2 Lancets USE TO TEST ONCE DAILY OR DIRECTED 100 Each 3 traZODone HCl 50 MG Oral Tablet (Desyrel) One half to one whole tab by mouth at bedtime 30 Tablet 0 LORazepam 0.5 MG Oral Tablet (Ativan) One tab 1 hour prior, repeat 15 min prior and start of mri 3 Tablet 0 No current facility-administered medications for this visit. Patient was discussed with Dr Carroll, attending physician. as needed Florence Griffiths DO Resident, Internal Medicine documented in this encounter Plan of Treatment Upcoming Encounters Date Type Department Care Team (Late st Contact Info) Description 11/22/2023 11:00 AM EST Hospital Encounter Radiology, [place] [address] [place] [address] 12/13/2023 2:00 PM EST Office Visit Otolaryngology Allergy [facility] [address] [place] [address] Kory Lopez MD [address] [place] [address] 02/01/2024 2:40 PM EDT Office Visit [facility] [address] [place] [phone] Lucía Horner PA-C [address], [place] [phone] 03/04/2024 9:20 AM EDT Office Visit Neurology [facility] [address] [facility] [place] [address] Karina Hoffman PA-C [address] [facility] [place] [address] Scheduled Procedures Name Priority Associated Diagnoses Date/Ti me COLONOSCOPY FLEXIBLE PROXIMA L DIAGNOSTIC Elevated carcinoembryonic antigen (CEA) Health Maintenance Due Date Last Done Comments DISCUSS TOBACCO CESSATION (REFER TO SMARTSET #2876) 1975 Hepatitis B (1 of 3 - [...] this encounter Medical Devices Implanted Type Area Box Maker Device Identifier Shelf Expiration Date Model / Serial / Lot Clip Quick 2.8mm 230cm - [id number] Implanted:Qty: 1 on 03/01/2023 by Rasheed Niño MD at [facility]OSCOPY [facility] [employer] [id number] 05/18/2025 [id number]-[id number] / / 27K documented as of this encounter Visit Diagnoses Diagnosis Bronchitis, chronic with acute exacerbation (HCC)- Primary Unspecified chronic bronchitis Tobacco use disorder Viral URI with cough Acute upper respiratory infections of unspecified site documented in this encounter Care Teams Rn Night Relationship Specialty Start Date End Date Lucía Horner PA-C [address] [place] [address] PCP - General Physician Domain Architect 07/19/22 documented as of this encounter
--- OUTSIDE RECORDS SUMMARY | 2024-02-25 19:57 | External Medical Summary | Summary of Care ---
Author Name Unknown Organization [facility] Address [address] [place] [address] Phone [phone] Care Team Providers Care Debit Agent Name Role Phone Lucía Horner PA-C Primary Care Provider [phone] [phone] Encounter Details Date Type Department Care Team (Late st Contact Info) Description 11/27/2023 1:20 PM EST [facility] [address] [place] [address] Lucía Horner PA-C [address] [place] [address] Sinobronchitis*; Current mild episode of major depressive disorder, unspecified whether recurrent (HCC); Type 2 diabetes mellitus with diabetic nephropathy, without long-term current use of insulin (HCC); Morbid obesity, BMI not known ([facility]); Pneumonia of right lower lobe due to infectious organism Allergies Active Allergy Reactions Criticality Noted Date Comments Metformin 01/11/2021 Raised creat documented as of this encounter (statuses as of 11/27/2023) Medications Medication Sig Dispensed Refills Start Date [...] MCG/ACT Nasal Suspension (Flonase)Indication s:Dizziness Administer 1 [place] into nostril in the morning. 15.8 mL [...] hemoglobin A1c goal of less than 7.0% ([facility]),Morbid obesity, BMI not known ([facility]) Inject 2.5 mg under the skin once [...] Every Month. 1 mL 5 09/27/2023 Active ReachableTouch Ultra In Vitro Strip (Glucose Blood) USE TO TEST ONCE A DAY OR NEEDED 100 Strip 3 10/05/2023 Active ReachableTouch UltraSoft 2 Lancets USE TO TEST ONCE [...] mri 3 Tablet 0 11/02/2023 Active Ipratropium [place] 0.02 % Inhalation Solution (Atrovent)Indicatio ns:Tobacco use disorder Inhale 2.5 mL via nebulizer in the morning and 2.5 mL at noon and 2.5 mL in the evening and 2.5 mL before bedtime. 75 mL 12 11/21/2023 Active Azithromycin 250 MG Oral Tablet (Zithromax Z-Landon)Indications:S inobronchitis Take two tablets by mouth on first day, then 1 tablet daily until gone 6 Tablet 0 11/27/2023 Active predniSONE 10 MG Oral Tablet (Deltasone)Indicati [...] TIMES DAILY 18 g 2 11/27/2023 Active Albuterol Sulfate HFA 108 (90 Base) MCG/ACT Inhalation Aerosol SolutionIndications :Pneumonia of right lower lobe due to infectious organism INHALE TWO PUFFS BY MOUTH FOUR TIMES DAILY 8.5 g 0 11/22/2023 4 Discontinu ed(Refill) documented as of this encounter (statuses as of 11/27/2023) Active Problems Problem Noted Date Diagnosed Date [...] as of this encounter (statuses as of 11/27/2023) Resolved Problems Problem Noted Date Diagnosed Date [...] as of this encounter (statuses as of 11/27/2023) Immunizations Name Administration Dates Next Due COVID-19 [...] as of this encounter Progress Notes * Lucía Horner PA-C - 11/27/2023 1:17 PM EST Images from the original note were not included. History of Present Illness Ameena Hernández is a 48 year old female that presents for No chief complaint on file. Due to COVID 19 pandemic, this visit was done via video. Patient is established with the practice. Last face to face visit was 12/21/2022. Call start time: 1319 Patient location: HOME. I was in a hospital or clinic location. After connecting through televideo,patient was verified with two unique identifiers. Patient (or authorized legal outside energy sales representatives) was then informed that this was a Telemedicine visit and being conducted confidentially over secure lines. Methods to assure confidentiality were taken. Patient acknowledged consent and understanding of pr ivacy and security of the Telemedicine visit. The patient agreed to participate. A week after [place] had the flu. Boyfriend did too Did telemed appt early in November Did 5 days of pred This did not seem to help Around day 4 she started to feel better and then the pred ended and right away it got tight again in her chest Coughing Sinus pressure Some mucus Initially was too tight to blow The pred did help that No fever but does have the chills No energy Appetite is diminished - hot tea and honey No n//d Sore from coughing If she was not coughing, she would still feel sick Doing her neb. Physical Exam There were no vitals filed for this visit. BP Readings from Last 3 Encounters: 09/18/23 118/72 03/01/23 121/74 01/17/23 126/66 Wt Readings from Last 3 Encounters: 03/01/23 (!) 148.6 kg (327 lb 8 oz) 03/22/16 (!) 167.8 kg (370 lb) 01/16/15 (!) 168.7 kg (372 lb) BMI Readings from Last 3 Encounters: 03/01/23 58.95 kg/m 12/21/22 66.60 kg/m 08/12/21 66.60 kg/m Ht Readings from Last 3 Encounters: 12/21/22 1.588 m (5' 2.5") 08/12/21 (!) 1.588 m (5' 2.5") 01/13/20 (!) 1.626 m (5' 4") Assessment and Plan Sinobronchitis (Primary) - Azithromycin 250 MG Oral Tablet (Zithromax Z-Landon); Take two tablets by mouth on first day, then 1tablet daily until gone - predniSONE 10 MG Oral Tablet (Deltasone); Take 5 tabs for 2 days, 4 tabs for 2 days, 3 tabs for 2days, 2 tabs for 2 days 1 tab for 2 days Current mild episode of major depressive disorder, unspecified whether recurrent (HCC) - stable on meds Type 2 diabetes mellitus with diabetic nephropathy, without long-term current use of insulin (HCC) Hemoglobin AIC Results: Lab Results Component Value Date/Time HEMOGLOBIN A1C - [facility] 6.6 (H) 07/09/2023 03:52 PM HEMOGLOBIN A1C - [facility] 6.7 (H) 01/26/2023 03:56 PM HEMOGLOBIN A1C - [facility] 7.1 (H) 12/15/2022 04:07 PM HEMOGLOBIN A1C - [facility] 6.1 (H) 09/03/2019 08:39 AM HEMOGLOBIN A1C - [facility] 6.5 (H) 08/29/2018 03:44 PM HEMOGLOBIN A1C - [facility] 10.9 (H) 05/30/2018 07:42 AM Morbid obesity, BMI not known (HCC) The patient is asked to make an attempt to improve diet and exercise patterns to aid in medical management of this problem. It is recommended that patients exercise for a minimum of 20 minutes duration most days of the week. Intensity should be such that the heart rate is increased and the patient is making a physical effort above their normal level of activity. Rev telemed / Wrap-Up Time: I spent a total of 10-19 minutes (exact time 10 mins) on the date of service in preparation, delivery, and documentation of the care provided to Ameena Hernández excluding any time spent in the performance of separately billed services. Lucía Horner PA-C 11/27/2023 1:28 PM documented in this encounter Plan of Treatment Upcoming Encounters Date Type Department Care Team (Late st Contact Info) Description 12/13/2023 2:00 PM EST Office Visit Otolaryngology Allergy [address] [address] Kory Lopez MD [address] [place] [address] 02/01/2024 2:40 PM EDT Office Visit [facility] [address] [place] [phone] Lucía Horner PA-C [address] [place] [address] 03/04/2024 9:20 AM EDT Office Visit Neurology [employer] [facility] [address] [place] [address] Karina Hoffman PA-C [address] [place] [address] [address] Scheduled Orders Name Type Priority Associated Diagnoses Orde r Schedule XR CHEST 2 VIEWS Medical Imaging STAT Sinobronchitis Expected: 11/27/2023, Expires: 12/28/2024 Scheduled Procedures Name Priority Associated Diagnoses Date/Ti me COLONOSCOPY FLEXIBLE PROXIMA L DIAGNOSTIC Elevated carcinoembryonic antigen (CEA) Health Maintenance Due Date Last Done Comments DISCUSS TOBACCO CESSATION (REFER TO SMARTSET #1531) 1975 Hepatitis B (1 of 3 - [...] this encounter Medical Devices Implanted Type Area Spray Gun Repairer Device Identifier Shelf Expiration Date Model / Serial / Lot Clip Quick 2.8mm 230cm - [id number] Implanted:Qty: 1 on 03/01/2023 by Rasheed Niño MD at ENDOSCOPY [facility] [employer] [facility] [id number] 05/18/2025 [id number]-[id number].A / / [id number] documented as of this encounter Visit Diagnoses Diagnosis Sinobronchitis- Primary Unspecified sinusitis (chronic) Current mild episode of major depressive disorder, unspecified whether recurrent (HCC) Type 2 diabetes mellitus with diabetic nephropathy, without long-term current use of insulin (HCC) Morbid obesity, BMI not known (HCC) Morbid obesity Pneumonia of right lower lobe due to infectious organism documented in this encounter Care Teams Debit Agent Relationship Specialty Start Date End Date Lucía Horner PA-C [address] [facility] [place] [address] PCP - General Physician Inspectors And Regulatory Officers 07/19/22 documented as of this encounter
--- OUTSIDE RECORDS SUMMARY | 2024-02-25 19:57 | External Medical Summary | Summary of Care ---
Author Name Unknown Organization [facility] Address [address] [place] [address] Phone [phone] Care Team Providers Care Ware Dresser Name Role Phone Lucía Horner PA-C Primary Care Provider [phone] Reason for Visit * Reason Comments eRx-Medication Refill Encounter Details Date Type Department Care Team (Late st Contact Info) Description 12/14/2023 Refill [facility] [address] [place] [address] Lucía Horner PA-C [address] [place] [address] Acquired hypothyroidism Allergies Active Allergy Reactions Criticality Noted Date Comments Metformin 01/11/2021 Raised creat documented as of this encounter (statuses as of 12/14/2023) Medications Medication Sig Dispensed Refills Start Date [...] MCG/ACT Nasal Suspension (Flonase)Indication s:Dizziness Administer 1 [place] into nostril in the morning. 15.8 mL 3 3 Active Magnesium Oxide 400 (240 Mg) MG Oral Tablet (Mag-Ox)Indications :Tension-type headache, not intractable, unspecified chronicity pattern TAKE ONE TABLET BY MOUTH NIGHTLY AT BEDTIME 100 Tablet 1 3 Active Mounjaro 2.5 MG/0.5ML Subcutaneous Solution Pen-injector (Tirzepatide)Indica tions:Type 2 diabetes mellitus with hemoglobin A1c goal of less than 7.0% ([facility]),Morbid obesity, BMI not known ([facility]) Inject 2.5 mg under the [...] mri 3 Tablet 0 3 Active Ipratropium [place] 0.02 % Inhalation Solution (Atrovent)Indicatio ns:Tobacco use [...] other medications 84 Tablet 1 4 Active Levothyroxine Sodium 200 MCG Oral Tablet (Levoxyl)Indication s:Acquired hypothyroidism take 1 tablet by mouth once daily sunday through sunday and take 1/2 tablet on sunday and sunday - take at least 30 minutes before breakfast and other medications 84 Tablet 1 3 12/14/19 24 Discontinued documented as of this encounter (statuses as of 12/14/2023) Active Problems Problem Noted Date Diagnosed Date [...] as of this encounter (statuses as of 12/14/2023) Resolved Problems Problem Noted Date Diagnosed Date [...] as of this encounter (statuses as of 12/14/2023) Immunizations Name Administration Dates Next Due COVID-19 mRNA, LNP-s, No Pre serve, 2-Dose Series ([facility]) 09/13/2021,12/30/2020,12/09/2020 PPD 03/22/2016 Pneumococcal Polysaccharide PPV23 (Pneumovax) [...] encounter Miscellaneous Notes * Telephone Encounter - Brittney Merino [facility] - 12/14/2023 8:33 AM ESTSigned Prescriptions: Disp Refills Levothyroxine Sodium 200 MCG Oral Tablet (*84 Tab*1 Sig: TAKE 1 TABLET BY MOUTH ONCE DAILY sunday through sunday and take 1/2 tablet on sunday and sunday - take at least 30 minutes before breakfast and any other medicationsAuthorizing Provider: LUCÍA HORNER User: BRITTNEY MERINO documented in this encounter Plan of Treatment Upcoming Encounters Date Type Department Care Team (Late st Contact Info) Description 12/26/2023 11:00 AM EST Imaging Radiology [address] [facility] [place] [address] 01/01/2024 4:15 PM EST Telemedicine Otolaryngology Allergy [place], [place] [place] [phone] Kory Lopez MD [address] [facility] [place] [address] 02/01/2024 2:40 PM EDT Office Visit [facility] [address] [place] [phone] Lucía Horner PA-C [address] [place] [address] 03/04/2024 9:20 AM EDT Office Visit Neurology [facility] [address] [place] [address] Karina Hoffman PA-C [address] [facility] [place] [phone] Scheduled Procedures Name Priority Associated Diagnoses Date/Ti me COLONOSCOPY FLEXIBLE PROXIMA L DIAGNOSTIC Elevated carcinoembryonic antigen (CEA) Health Maintenance Due Date Last Done Comments DISCUSS TOBACCO CESSATION (REFER TO SMARTSET #4605) 1975 Hepatitis B (1 of 3 - [...] this encounter Medical Devices Implanted Type Area Operations Architect Device Identifier Shelf Expiration Date Model / Serial / Lot Clip Quick 2.8mm 230cm - [id number] Implanted:Qty: 1 on 03/01/2023 by Rasheed Niño MD at ENDOSCOPY [facility] [employer] [facility] [id number] 05/18/2025 [id number]-[id number] / / [id number] documented as of this encounter Visit Diagnoses Diagnosis Acquired hypothyroidism Unspecified hypothyroidism documented in this encounter Care Teams Ware Dresser Relationship Specialty Start Date End Date Lucía Horner PA-C [address] [facility] [place] [address] PCP - General Physician Raw Mill Operator 07/19/22 documented as of this encounter
--- OUTSIDE RECORDS SUMMARY | 2024-02-25 19:57 | External Medical Summary | Summary of Care ---
Author Name Unknown Organization [facility] Address [address] [place] [address] Phone [phone] Care Team Providers Care Sterilizer Machine Operator Name Role Phone Lucía Horner PA-C Primary Care Provider [phone] Reason for Referral * Precert (Within 10 days (routine)) - Pending Review Specialty Diagnoses / Procedures Referred By Grupo mohan Referred To Contact Radiology Diagnoses Rhinorrhea Severe frontal headaches Procedures CT SINUS IMAGE GUIDED WO CONTRAST Kory Lopez MD [address] [place] [address] Referral ID Status Reason Start Date Expiration Date Visits Requested Visits Authorized [id number] Pending Review Precert 12/13/2023 999 999 Reason for Visit * Reason Comments NEW PATIENT Consultation Encounter Details Date Type Department Care Team ([facility] Contact Info) Description 12/13/2023 2:00 PM EST Office Visit Otolaryngology Allergy [facility] [address] [place] [address] Kory Lopez MD [address] [place] [address] Rhinorrhea*; Severe frontal headaches Allergies Active Allergy [...] MCG/ACT Nasal Suspension (Flonase)Indication s:Dizziness Administer 1 [place] into nostril in the morning. 15.8 mL [...] AT BEDTIME 90 Tablet 1 3 Active [email or web address] Ultra In Vitro Strip (Glucose Blood) USE [...] mri 3 Tablet 0 3 Active Ipratropium [place] 0.02 % Inhalation Solution (Atrovent)Indicatio ns:Tobacco use [...] Active Emgality 120 MG/ML Subcutaneous Solution Auto-injector (Galcanezumab-[facility]) Inject 1 mL under the skin [...] take the collection tube to her nearest [facility] laboratory for beta 2 transferrin testing. - [...] for medical leave. 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 MRI of the brain from November 02, [...] a nonspecific finding. No evidence of bilateral transverse sinuses stenoses, intraocular protrusion of optic nerve head, or optic nerve sheath enlargement tosuggest idiopathic intracranial hypertension, although it is not [...] A1c goal of less than 7.0% (HCC) E11.9 Dyslipidemia, goal LDL below 70 E78.5 Encounter for long-term (current) use of medications Z79.899 Morbid obesity, BMI not known ([facility]) E66.01 Restless legs G25.[address] R91.8 Elevated carcinoembryonic antigen (CEA) R97.0 Major depressive disorder, single episode, mild ([facility]) F32.0 Type 2 diabetes mellitus with diabetic nephropathy, without long-term current use of insulin ([facility]) E11.21 Past Medical History: Diagnosis Date DM type 2 (diabetes mellitus, type 2) ([facility]) 2014 Dyslipidemia, goal LDL below 130 Dyslipidemia, goal LDL below 70 12/04/2017 Esophageal reflux Gastroesophageal Reflux (GERD) Headache(784.0) Headache, NOS HTN, goal below 140/90 03/29/2015 Hypothyroidism Hypothyroidism Morbid obesity, BMI not known ([facility]) 06/13/[address] lung nodules on CT 02/07/2023 Tobacco use disorder 03/29/2015 Type 2 diabetes mellitus with hemoglobin A1c goal of less than 7.0% ([facility]) 04/01/2015 ICD-10 update of inactive term Past Surgical History: Procedure Laterality Date COLONOSCOPY, DIAGNOSTIC (RECTUM) 03/01/2023 COLONOSCOPY FLEXIBLE PROXIMAL DIAGNOSTIC performed by Rasheed Niño MD at ENDOSCOPY [facility] LAPAROSCOPY; CHOLECYSTECTOMY 05/05/2011 05/05/2011 -- [facility] -- laparoscopic cholecystectomy - [facility] Current Outpatient Medications Medication Sig Dispense Refill NEBULIZER COMPRESSOR [facility] Use as directed 1 Each 1 Blood [...] 50 MCG/ACT Nasal Suspension (Flonase) Administer 1 [place] into nostril in themorning. 15.8 mL 3 [...] start of mri 3 Tablet 0 Ipratropium [place] 0.02 % Inhalation Solution (Atrovent) Inhale 2.5 [...] 2 Emgality 120 MG/ML Subcutaneous Solution Auto-injector (Galcanezumab-[facility]) Inject 1 mL under the skin [...] take the collection tube to her nearest [facility] laboratory for beta 2 transferrin testing. - will arrange for CT sinus imaging for further evaluation of the skull base. - telephone follow-up after completing sinus imaging. Kory Lopez MD Otolaryngology Allergy [address] [address] documented in this encounter Plan of Treatment Upcoming Encounters Date Type Department Care Team (Late st Contact Info) Description 12/26/2023 11:00 AM [place] [address] 01/01/2024 4:15 PM EST Telemedicine Otolaryngology Allergy [address] [address] Kory Lopez MD [address] [place] [address] 02/01/2024 2:40 PM EDT Office Visit [facility] [address] [place] [phone] Lucía Horner PA-C [address] [place] [address] 03/04/2024 9:20 AM EDT Office Visit [facility] [address] [facility] [place] [place] [address] Karina Hoffman PA-C [address] [place] [address] Scheduled Orders Name Type Priority Associated Diagnoses [...] Comments DISCUSS TOBACCO CESSATION (REFER TO SMARTSET #9537) 1975 Hepatitis B (1 of 3 - [...] this encounter Medical Devices Implanted Type Area Registered Mail Clerk Device Identifier Shelf Expiration Date Model / Serial / Lot Clip Quick 2.8mm 230cm - [id number] Implanted:Qty: 1 on 03/01/2023 by aRsheed Niño MD at ENDOSCOPY [facility] [employer] [id number] 05/18/2025 [id number]-202UR.[id number] / / [id number] documented as of this encounter Visit Diagnoses Diagnosis Rhinorrhea- Primary Other diseases of nasal cavity and sinuses Severe frontal headaches Headache documented in this encounter Care Teams Sterilizer Machine Operator Relationship Specialty Start Date End Date Lucía Horner PA-C [address] [facility] [place] [address] PCP - General Physician Buhr Dresser 07/19/22 documented as of this encounter
--- OUTSIDE RECORDS SUMMARY | 2024-02-25 19:57 | External Medical Summary | Summary of Care ---
Author Name Unknown Organization [facility] Address [address] [place] [address] Phone [phone] Care Team Providers Care Yard Coupler Name Role Phone Lucía Horner PA-C Primary Care Provider [phone] Encounter Details Date Type Department Care Team ([facility] st Contact Info) Description [facility] [address] [place] [address] Specified, [place] No Resource [address] [place] [address] Allergies Active Allergy Reactions Criticality Noted Date Comments Metformin 01/11/2021 Raised creat documented as of this encounter (statuses as of 11/06/2023) Medications Medication Sig Dispensed Refills Start Date [...] 45 g 1 8 Active Albuterol Sulfate (ALBUTEROL HFA) 108 (90 BASE) MCG/ACT inhalerIndications :Pneumonia of right lower lobe due to infectious organism Inhale 2 Puffs by mouth 4 times a day. 18 g 5 0 Active Ipratropium [place] 0.02 % Inhalation Solution (Atrovent)Indicati ons:Tobacco use disorder Inhale via nebulizer 2.5 mL in the morning AND 2.5 mL at noon AND 2.5 mL in the evening AND 2.5 mL before bedtime. 75 mL 12 2 Active Albuterol Sulfate (2.5 MG/3ML) 0.083% Inhalation [...] MCG/ACT Nasal Suspension (Flonase)Indicatio ns:Dizziness Administer 1 [place] into nostril in the morning. 15.8 mL [...] OR NEEDED 100 Strip 3 3 Active Continuous Blood Gluc Ware Dresser ([employer] TU READER) DEVIIndications:Ty pe 2 diabetes mellitus with hemoglobin A1c goal of less than 7.0% (HCC) Use as directed to check blood sugar 1 Device 1 8 023 Discontinued buPROPion HCl ER (XL) 150 MG Oral Tablet Extended Release 24 Hour (Wellbutrin XL)Indications:Tob acco use disorder Take by mouth 1 Tablet in the morning. 90 Tablet 0 2 023 Discontinued OneTouch UltraSoft Lancets USE TO TEST ONCE DAILY OR DIRECTED 100 Each 3 2 023 Discontinued Nicotine 21 MG/24HR Transdermal Patch 24 Hour (Nicotine Step 1) Place topically on the skin 1 Patch daily . 28 Patch 0 2 023 Discontinued Losartan Potassium 100 MG Oral Tablet (Cozaar)Indication s:HTN, goal below 140/90 TAKE 1 TABLET BY MOUTH ONCE DAILY 90 Tablet 1 3 023 Discontinued Vitron-C 65-125 MG Oral Tablet (Iron-Vitamin C 65-125 mg per tab)Indications:Lo w ferritin level,Restless legs syndrome TAKE ONE TABLET BY MOUTH EVERY MORNING 100 Tablet 1 3 023 Discontinued(Saul perez preference/disc ontinuation) Amitriptyline HCl 10 MG Oral Tablet (Elavil)Indication s:Tension-type headache, not intractable, unspecified chronicity pattern Take 2 Tablets by mouth at bedtime. 60 Tablet 5 3 023 Discontinued hydroCHLOROthiazid e 12.5 MG Oral Tablet (Hydrodiuril) TAKE 1 TABLET BY MOUTH ONCE DAILY 90 Tablet 1 3 023 Discontinued Zonisamide 100 MG Oral Capsule (Zonegran)Indicati ons:Chronic migraine without aura without status migrainosus, not intractable,Asymme try of optic nerve, unspecified laterality Take 1 Capsule by mouth in the morning. 30 Capsule 1 3 023 Discontinued documented as of this encounter (statuses as of 11/06/2023) Active Problems Problem Noted Date Diagnosed Date [...] as of this encounter (statuses as of 11/06/2023) Resolved Problems Problem Noted Date Diagnosed Date [...] as of this encounter (statuses as of 11/06/2023) Immunizations Name Administration Dates Next Due COVID-19 [...] as of this encounter Miscellaneous Notes * Addendum Note - Tiffany Linton DO - 11/06/2023 10:12 AM EST Addended by: TIFFANY LINTON on: 11/06/2023 10:12 AM Modules accepted: Orders * Telephone Encounter - Indira Duran LPN - 11/05/2023 12:16 PM EST PlanHQ message to * Telephone Encounter - Aysha Nevarez OSA - 11/05/2023 11:36 AM EST Patient verified identity by spelling of last name and date. Patient called in wanting to schedule he LP. I advised that there is no order and we are waiting for Dr. Linton to put one in. Patient got upset because she has been trying to get this done for a month now. I apologized and informed her I would send a message again. She stated that she will ask her PCP tosend in an order. Please please LP order if appropriate. * Addendum Note - Kaylee Lackey LPN - 10/24/2023 10:10 AM ESTAddended by: KAYLEE LACKEY on: 10/24/2023 10:10 AM Modules accepted: Orders * Telephone Encounter - Chantelle Hurst OSA - 10/18/2023 12:17 PM EST Patient verified identity by spelling of last name and date. Patient calling about Lumbar Puncture. Mentioned in office note but order not placed. documented in this encounter Plan of Treatment Upcoming Encounters Date Type Department Care Team (Late st Contact Info) Description 12/13/2023 2:00 PM EST Office Visit Otolaryngology Allergy [facility] [address] [place] [address] Kory Lopez MD [address] [place] [address] 02/01/2024 2:40 PM EDT [facility] Visit [facility] [address] [place] [address] Lucía Horner PA-C [address] [place] [address] 03/04/2024 9:20 AM EDT Office Visit Neurology [facility] [place] [address] [facility] [place] [address] Karina Hoffman PA-C [address] [facility] [place] [address] Scheduled Orders Name Type Priority Associated Diagnoses Orde r Schedule SPINAL FLUID TAP,DIAGNOSTIC Procedures Routine Papilledema associated with increased intracranial pressure Ordered: 11/06/2023 Scheduled Procedures Name Priority Associated Diagnoses Date/Ti me COLONOSCOPY FLEXIBLE PROXIMA L DIAGNOSTIC Elevated carcinoembryonic antigen (CEA) Health Maintenance Due Date Last Done Comments DISCUSS TOBACCO CESSATION (REFER TO SMARTSET #2865) 1975 Hepatitis B (1 of 3 - [...] this encounter Medical Devices Implanted Type Area Billposting Supervisor Device Identifier Shelf Expiration Date Model / Serial / Lot Clip Quick 2.8mm 230cm - [id number] Implanted:Qty: 1 on 03/01/2023 by Rasheed Niño MD at [place] [facility] [employer] [id number] 05/18/2025 [id number]-202UR.A / / [id number] documented as of this encounter Visit Diagnoses Diagnosis Papilledema associated with increased intracranial pressure- Primary documented in this encounter Care Teams Yard Coupler Relationship Specialty Start Date End Date Lucía Horner PA-C [address] [facility] [place] [address] PCP - General Physician Engine Lathe Operator 07/19/22 documented as of this encounter
--- OUTSIDE RECORDS SUMMARY | 2024-02-25 19:57 | External Medical Summary | Summary of Care ---
Author Name Unknown Organization [facility] Address [address] [place] [address] Phone [phone] Care Team Providers Care Hand Crown Pouncer Name Role Phone Lucía Horner PA-C Primary Care Provider [phone] Reason for Visit * Reason Onset Date Comments Appointment 11/06/2023 Encounter Details Date Type Department Care Team ([facility] Contact Info) Description 11/06/2023 Telephone Neurology, [facility] [address] [place] [address] Services, Scheduling [address] [place] [address] Appointment Allergies Active Allergy Reactions Criticality Noted Date Comments Metformin 01/11/2021 Raised creat documented as of this encounter (statuses as of 11/07/2023) Medications Medication Sig Dispensed Refills Start Date [...] day. 18 g 5 01/13/2020 Active Ipratropium [place] 0.02 % Inhalation Solution (Atrovent)Indication s:Tobacco use [...] MCG/ACT Nasal Suspension (Flonase)Indications :Dizziness Administer 1 [place] into nostril in the morning. 15.8 mL [...] than 7.0% ([facility]),Morbid obesity, BMI not known ([facility]) Inject 2.5 mg under the skin once [...] Every Month. 1 mL 5 09/27/2023 Active Scratch Music Groupuch Ultra In Vitro Strip (Glucose Blood) USE TO TEST ONCE A DAY OR NEEDED 100 Strip 3 10/05/2023 Active [employer] USATouch UltraSoft 2 Lancets USE TO TEST ONCE [...] as of this encounter (statuses as of 11/07/2023) Active Problems Problem Noted Date Diagnosed Date [...] as of this encounter (statuses as of 11/07/2023) Resolved Problems Problem Noted Date Diagnosed Date [...] as of this encounter (statuses as of 11/07/2023) Immunizations Name Administration Dates Next Due COVID-19 mRNA, LNP-s, No Pre serve, 2-Dose Series ([employer]) 09/13/2021,12/30/2020,12/09/2020 PPD 03/22/2016 Pneumococcal Polysaccharide PPV23 (Pneumovax) [...] encounter Miscellaneous Notes * Telephone Encounter - Kaylee Schwarz LPN - 11/07/2023 10:32 AM EST Patient verified identity by spelling of last name and date. Outgoing call to Ameena to make aware that the orders are in for the LP to be done under fluoroscopyand she can contact them to schedule or wait for a phone call. Patient stated understanding and hadno further questions. Call satisfied. * Telephone Encounter - Kaylee Schwarz LPN - 11/06/2023 4:19 PM EST Patient verified identity by spelling of last name and date. Spoke with patient about scheduling LP. Upon discussion patient stated that when she spoke with about this it was mentioned that it would be done under fluoroscopy. Advised patient that it message would be sent to Dr. Linton for him to review and advise if new order for fluoroscopy lp can be placed. * Telephone Encounter - Love Wesley LPN - 11/06/2023 3:[address] Mccallum ordered this. Please assist patient. Thank you. * Telephone Encounter - Chiqui Pratt OSA - 11/06/2023 3:02 PM EST Pt calling looking to speak with Kaylee about scheduling an LP Plz contact pt and schedule [phone] Thank you documented in this encounter Plan of Treatment Upcoming Encounters Date Type Department Care Team (Late st Contact Info) Description 12/13/2023 2:00 PM EST Office Visit Otolaryngology Allergy [facility] [address] [address] Kory Lopez MD [address] [place] [address] 02/01/2024 2:40 PM EDT Office Visit [facility] [address] [place] [phone] Lucía Horner PA-C [address] [place], [place] [phone] 03/04/2024 9:20 AM EDT [facility] [place] [address] [facility] [place] [address] Karina Hoffman PA-C [address] [facility] [place], [place] [address] Scheduled Orders Name Type Priority Associated Diagnoses Orde r Schedule FLUORO GUIDE LUMBAR PUNCTURE Medical Imaging Routine Papilledema associated with increased intracranial pressure Ordered: 11/07/2023 Scheduled Procedures Name Priority Associated Diagnoses Date/Ti me COLONOSCOPY FLEXIBLE PROXIMA L DIAGNOSTIC Elevated carcinoembryonic antigen (CEA) Health Maintenance Due Date Last Done Comments DISCUSS TOBACCO CESSATION (REFER TO SMARTSET #7704) 1975 Hepatitis B (1 of 3 - [...] Vaccine (FLU shot) (#1) 2023 Albumin/Creatinine Ratio 12/15/20232 023, 07/19/2022, 08/02/2021, Additional history exists B-12 [...] this encounter Medical Devices Implanted Type Area Chassis Driver Device Identifier Shelf Expiration Date Model / Serial / Lot Clip Quick 2.8mm 230cm - [id number] Implanted:Qty: 1 on 03/01/2023 by Rasheed Niño MD at ENDOSCOPY [facility] [employer] [id number] 05/18/2025 [id number]-202UR.A / / [id number] documented as of this encounter Visit Diagnoses Diagnosis Papilledema associated with increased intracranial pressure- Primary documented in this encounter Care Teams Hand Crown Pouncer Relationship Specialty Start Date End Date Lucía Horner PA-C [address] [facility] [place] [id number] PCP - General Physician Monitoring And Evaluation Advisor 07/19/22 documented as of this encounter
--- OUTSIDE RECORDS SUMMARY | 2024-02-25 19:57 | External Medical Summary | Summary of Care ---
Author Name Unknown Organization [facility] Address [address] [place] [address] Phone [phone] Care Team Providers Care Retail Loan Originator Assistant Name Role Phone Lucía Hroner PA-C Primary Care Provider +1 [phone] Reason for Visit * Reason Comments Dosage Adjustment Via Phone (anticoag Cl inic) Encounter Details Date Type Department Care Team ([facility] Contact Info) Description 09/27/2023 10:30 AM EST Telemedicine Neurology, [place] [address] [place] [address] [place], Pharmacist Neurology [address] [place] [address] Chronic migraine without aura with status migrainosus, not intractable* Allergies Active Allergy Reactions Criticality Noted Date Comments Metformin 01/11/2021 Raised creat documented as of this encounter (statuses as of 11/29/2023) Medications Medication Sig Dispensed Refills Start Date [...] Apply to affected area 45 g 1 04/06/201 8 Active Albuterol Sulfate (2.5 MG/3ML) 0.083% [...] MCG/ACT Nasal Suspension (Flonase)Indicatio ns:Dizziness Administer 1 [place] into nostril in the morning. 15.8 mL [...] the skin Every Month. 1 mL 5 4 Active Continuous Blood Gluc Nuclear Logging Engineer (BRAINDIGIT TU READER) DEVIIndications:Ty pe 2 diabetes mellitus with hemoglobin A1c goal of less than 7.0% (HCC) Use as directed to check blood sugar 1 Device 1 8 023 Discontinued Albuterol Sulfate (ALBUTEROL HFA) 108 (90 BASE) MCG/ACT inhalerIndications :Pneumonia of right lower lobe due to infectious organism Inhale 2 Puffs by mouth 4 times a day. 18 g 5 0 024 Discontinued Ipratropium [place] 0.02 % Inhalation Solution (Atrovent)Indicati ons:Tobacco use disorder Inhale via nebulizer 2.5 mL in the morning AND 2.5 mL at noon AND 2.5 mL in the evening AND 2.5 mL before bedtime. 75 mL 12 2 024 Discontinued(Re fill) buPROPion HCl ER (XL) 150 MG Oral [...] DAILY 90 Tablet 1 3 023 Discontinued busPIRone HCl 15 MG Oral Tablet (Buspar)Indication s:ELIZABETH (generalized anxiety disorder),Panic attack TAKE ONE TABLET BY MOUTH IN THE MORNING, ONE AT NOON, ONE IN THE EVENING, AND ONE BEFORE BEDTIME 120 Tablet 3 3 024 Discontinued Vitron-C 65-125 MG Oral Tablet (Iron-Vitamin C 65-125 mg per tab)Indications:Lo w ferritin level,Restless legs syndrome TAKE ONE TABLET BY MOUTH EVERY MORNING 100 Tablet 1 3 023 Discontinued(Saul perez preference/disc ontinuation) Emgality 120 MG/ML Subcutaneous Solution Auto-injector (Galcanezumab-gnlm ) Inject 1 mL under the skin every month. 1 mL 3 3 023 Discontinued(Re fill) Amitriptyline HCl 10 MG Oral Tablet (Elavil)Indication [...] morning. 30 Capsule 1 3 023 Discontinued Emgality 120 MG/ML Subcutaneous Solution Auto-injector (Galcanezumab-gnlm ) Inject 1 mL under the skin Every Month. 1 mL 5 3 024 Discontinued(Re fill) documented as of this encounter (statuses as of 11/29/2023) Active Problems Problem Noted Date Diagnosed Date [...] as of this encounter (statuses as of 11/29/2023) Resolved Problems Problem Noted Date Diagnosed Date [...] as of this encounter (statuses as of 11/29/2023) Immunizations Name Administration Dates Next Due COVID-19 [...] as of this encounter Progress Notes * Mehnaz Pérez, PHARM Student - 09/27/2023 11:34 AM EST Clinical Pharmacy Service (Neurology): Medication Management Name: Ameena Hernández Diagnosis: Migraine CURRENT MEDICATION REGIMEN (as documented in last office visit on 09/18/[address] Berrios) Emgality Any new medication/OTC/herbals since last visit?: yes; medlist updated in EHR. CGRP mAb MEDICATION USE ASSESSMENT Adherence to all above active medications used for migraine: Were any of your last three doses administered outside of the due date? no Any issues obtaining your prescription for your cGRP mAb: no Allergic / Local Reactions Reported: none How long do these last: n/a What makes better: n/a Side Effects Reported: none Patient is not at this time. DISEASE ACTIVITY and IMPACT ASSESSMENT Migraine Disability Assessment Test Number of Days On how many days in the last 3 months did you miss work or school because of your headaches? 0 How many days in the last 3 months was your productivity at work or school reduced by half or more because of your headaches? (Do not include days you counted in question 1 where you missed work or school.) 0 On how many days in the last 3 months did you not do household work (such as housework, home repairs and maintenance, shopping, caring for children and relatives) because of your headaches? 5 How many days in the last 3 months was your productivity in household work reduced by half of more because of your headaches? (Do not include days you counted in question 3 where you did not do household work.) 5 On how many days in the last 3 months did you miss family, social or leisure activities because of your headaches? 5 Total Score: 15 MIDAS Grade Definition MIDAS Score I - Little or No Disability: 0-5 II - Mild Disability: 6-10 III - Moderate Disability: 11-20 IV - Severe Disability: 21+ ASSESSMENT / PLAN The patient was educated on when to contact neurology office/provider to include change in headachesymptoms or characteristics, worsened interference with quality of life, adverse drug effects, using excess pain relievers, or coughing/sneezing that causes headache. The patient was advised to seek urgent medical care if experiencing headache with accompanying alarming symptoms including but not limited to confusion, dizziness, slurred speech, vision loss, numbness, SOB, fever, and/or persistentvomiting/diarrhea. Continue headache plan outlined by provider. Patient reports that a refill will be needed for next injection. Issued prescription to preferred pharmacy as confirmed with patient.. Next Neurology Provider Office Visit/Appt: 03/04/2024 Mehnaz Pérez, PHARM Student [facility] Clinical Pharmacist Neurology Department 09/27/2023,11:34 AM documented in this encounter Miscellaneous Notes * Addendum Note - Joana Savage [facility] - 11/29/2023 8:59 AM ESTAddended by: JOANA SAVAGE on: 11/29/2023 08:59 AM Modules accepted: Orders documented in this encounter Plan of Treatment Upcoming Encounters Date Type Department Care Team (Late st Contact Info) Description 12/13/2023 2:00 PM EST Office Visit Otolaryngology [facility] [address] [place] [address] Kory Lopez MD [address] [place] [address] 02/01/2024 2:40 PM EDT Office Visit [address] [phone] Lucía Horner PA-C [address] [place] [address] 03/04/2024 9:20 AM EDT Office Visit Neurology Jaime Hickman [place] [address] [place] [address] Karina Hoffman PA-C [address] [place] [address] Scheduled Procedures Name Priority Associated Diagnoses Date/Ti [...] this encounter Medical Devices Implanted Type Area Field Technical Support Consultant Device Identifier Shelf Expiration Date Model / Serial / Lot Clip Quick 2.8mm 230cm - [id number] Implanted:Qty: 1 on 03/01/2023 by Rasheed Niño MD at ENDOSCOPY [facility] [employer] [facility] [id number] 05/18/2025 [id number]-[id number] / / [id number] documented as of this encounter Visit Diagnoses Diagnosis Chronic migraine without aura with status migrainosus, not intractable- Primary Chronic migraine without aura, without mention of intractable migraine with status migrainosus documented in this encounter Care Teams Retail Loan Originator Assistant Relationship Specialty Start Date End Date Lucía Horner PA-C [address] [place] [address] PCP - General Physician Home Care Music Therapist 07/19/22 documented as of this encounter
--- OUTSIDE RECORDS SUMMARY | 2024-02-25 19:57 | External Medical Summary | Summary of Care ---
Author Name Unknown Organization [facility] Address [address] [place] [address] Phone [phone] Care Team Providers Care Scullion Chief Name Role Phone Lucía Horner PA-C Primary Care Provider [phone] [phone] Reason for Visit * Reason Onset Date Comments Order Request 11/09/2023 Encounter Details Date Type Department Care Team ([facility] st Contact Info) Description 11/09/2023 Telephone [facility] [address] [place] [address] Lucía Horner PA-C [address] [place] [address] Order Request Allergies Active Allergy Reactions Criticality Noted Date Comments Metformin 01/11/2021 Raised creat documented as of this encounter (statuses as of 11/09/2023) Medications Medication Sig Dispensed Refills Start Date [...] day. 18 g 5 01/13/2020 Active Ipratropium [place] 0.02 % Inhalation Solution (Atrovent)Indication s:Tobacco use [...] MCG/ACT Nasal Suspension (Flonase)Indications :Dizziness Administer 1 [place] into nostril in the morning. 15.8 mL [...] than 7.0% (HCC),Morbid obesity, BMI not known ([facility]) Inject 2.5 mg under the skin once [...] as of this encounter (statuses as of 11/09/2023) Active Problems Problem Noted Date Diagnosed Date [...] as of this encounter (statuses as of 11/09/2023) Resolved Problems Problem Noted Date Diagnosed Date [...] as of this encounter (statuses as of 11/09/2023) Immunizations Name Administration Dates Next Due COVID-19 [...] Miscellaneous Notes * Telephone Encounter - Bruna Gooden, DANNY - 11/09/2023 4:13 PM EST See pt message encounter from 10/30/23. Order was placed by neurology. * Telephone Encounter - Jayna Lundy OSA - 11/09/2023 11:12 AM EST An order was requested for this patient. Name of Requesting Provider: Patient Order Requested: LP procedure under Fluoroscopy Diagnosis/Reason for Request: Chronic migraine; POSS CSF Leak Call Back Number: [phone] Patient requesting to be notified once order is placed If the caller is not a current patient, please advise the patient to call their current PCP to havethe order's prior to being seen in our office. The patient was informed that our providers would not order anything (medication, labs, etc.) prior to being seen. documented in this encounter Plan of Treatment Upcoming Encounters Date Type Department Care Team (Late st Contact Info) Description 12/13/2023 2:00 PM EST Office Visit Otolaryngology Allergy [facility] [address] [place] [address] Kory Lopez MD [address] [place] [address] 02/01/2024 2:40 PM EDT Office Visit [facility] [address] [place] [phone] Lucía Horner PA-C [address] [place] [address] 03/04/2024 9:20 AM EDT Office Visit Neurology [place] [address] [place] [address] Karina Hoffman PA-C [address] [facility] [place] [address] Scheduled Procedures Name Priority Associated Diagnoses Date/Ti me COLONOSCOPY FLEXIBLE PROXIMA L DIAGNOSTIC Elevated carcinoembryonic antigen (CEA) Health Maintenance Due Date Last Done Comments DISCUSS TOBACCO CESSATION (REFER TO SMARTSET #0817) 1975 Hepatitis B (1 of 3 - [...] this encounter Medical Devices Implanted Type Area Grease Press Helper Device Identifier Shelf Expiration Date Model / Serial / Lot Clip Quick 2.8mm 230cm - [id number] Implanted:Qty: 1 on 03/01/2023 by Rasheed Niño MD at ENDOSCOPY [facility] [employer] [id number] 05/18/2025 [id number]-[id number] / / [id number] documented as of this encounter Care Teams Scullion Chief Relationship Specialty Start Date End Date Lucía Horner PA-C [address], [place] [phone] PCP - General Physician Biomedical Equipment Technician 07/19/22 documented as of this encounter
--- OUTSIDE RECORDS SUMMARY | 2024-02-25 19:58 | External Medical Summary | Summary of Care ---
Author Name Unknown Organization [facility] Address [address] [place] [address] Phone [phone] Care Team Providers Care Store Product Demonstrator Name Role Phone Lucía Horner PA-C Primary Care Provider [phone] [phone] Encounter Details Date Type Department Care Team ([facility] st Contact Info) Description 10/25/[address] [phone] Aroldo Linton, DO [address] [place], [place] [phone] Allergies Active Allergy Reactions Criticality Noted Date Comments Metformin 01/11/2021 Raised creat documented as of this encounter (statuses as of 10/25/2023) Medications Medication Sig Dispensed Refills Start Date [...] affected area 45 g 1 02/22/2018 Active Continuous Blood Gluc Note Specialist (FREESTYLE TU READER) DEVIIndications:Type 2 diabetes mellitus with hemoglobin A1c goal of less than 7.0% ([facility]) Use as directed to check blood sugar 1 Device 1 06/13/2018 Active Additional Information Patient not taking.Reported on 09/18/2023 Albuterol Sulfate (ALBUTEROL HFA) 108 (90 BASE) MCG/ACT inhalerIndications: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 18 g 5 01/13/2020 Active Ipratropium [place] 0.02 % Inhalation Solution (Atrovent)Indication s:Tobacco use disorder Inhale via nebulizer 2.5 mL in the morning AND 2.5 mL at noon AND 2.5 mL in the evening AND 2.5 mL before bedtime. 75 mL 12 04/20/2022 Active buPROPion HCl ER (XL) 150 MG Oral Tablet Extended Release 24 Hour (Wellbutrin XL)Indications:Tobac co use disorder Take by mouth 1 Tablet in the morning. 90 Tablet 0 07/04/2022 Active Additional Information Patient not taking.Reported on 09/18/2023 OneTouch UltraSoft Lancets USE TO TEST ONCE DAILY OR DIRECTED 100 Each 3 09/04/2022 Active Nicotine 21 MG/24HR Transdermal Patch 24 Hour (Nicotine Step 1) Place topically on the skin 1 Patch daily . 28 Patch 0 09/08/2022 Active Additional Information Patient not taking.Reported on 03/01/2023 Albuterol Sulfate (2.5 MG/3ML) 0.083% Inhalation Nebulization [...] MCG/ACT Nasal Suspension (Flonase)Indications :Dizziness Administer 1 [place] into nostril in the morning. 15.8 mL 3 12/12/2022 Active Losartan Potassium 100 MG Oral Tablet (Cozaar)Indications: HTN, goal below 140/90 TAKE 1 TABLET BY MOUTH ONCE DAILY 90 Tablet 1 02/10/2023 Active Additional Information Patient not taking.Reported on 09/18/2023 Magnesium Oxide 400 (240 Mg) MG Oral [...] other medications 84 Tablet 1 06/07/2023 Active Vitron-C 65-125 MG Oral Tablet (Iron-Vitamin C 65-125 mg per tab)Indications:Low ferritin level,Restless legs syndrome TAKE ONE TABLET BY MOUTH EVERY MORNING 100 Tablet 1 07/09/2023 Active Additional Information Patient not taking.Reported on 09/18/2023 Elsa 2.5 MG/0.5ML Subcutaneous Solution Pen-injector (Tirzepatide)Indicat ions:Type 2 diabetes mellitus with hemoglobin A1c goal of less than 7.0% (HCC),Morbid obesity, BMI not known (HCC) Inject 2.5 mg under the skin once a week. 2 mL 11 08/03/2023 4 Active Amitriptyline HCl 10 MG Oral Tablet (Elavil)Indications: Tension-type headache, not intractable, unspecified chronicity pattern Take 2 Tablets by mouth at bedtime. 60 Tablet 5 08/16/2023 Active Pantoprazole Sodium 40 MG Oral Tablet [...] AT BEDTIME 90 Tablet 1 08/30/2023 Active hydroCHLOROthiazide 12.5 MG Oral Tablet (Hydrodiuril) TAKE 1 TABLET BY MOUTH ONCE DAILY 90 Tablet 1 09/03/2023 Active Additional Information Patient not taking.Reported on 09/18/2023 Zonisamide 100 MG Oral Capsule (Zonegran)Indication s:Chronic migraine without aura without status migrainosus, not intractable,Asymmetr y of optic nerve, unspecified laterality Take 1 Capsule by mouth in the morning. 30 Capsule 1 09/18/2023 Active Emgality 120 MG/ML Subcutaneous Solution Auto-injector (Galcanezumab-gnlm) Inject 1 mL under the skin Every Month. 1 mL 5 09/27/2023 Active OneTouch Ultra In Vitro Strip (Glucose Blood) USE TO TEST ONCE A DAY OR NEEDED 100 Strip 3 10/05/2023 Active documented as of this encounter (statuses as of 10/25/2023) Active Problems Problem Noted Date Diagnosed Date [...] as of this encounter (statuses as of 10/25/2023) Resolved Problems Problem Noted Date Diagnosed Date [...] as of this encounter (statuses as of 10/25/2023) Immunizations Name Administration Dates Next Due COVID-19 [...] Care Team (Late st Contact Info) Description 11/02/2023 10:00 AM EST Telemedicine [place] [address] [place] [phone] Lucía Horner PA-C [address] [place] [address] 03/04/2024 9:20 AM EDT Office Visit Neurology [place] [address] [place] [address] Karina Hoffman PA-C [address] [place] [address] Scheduled Procedures Name Priority Associated Diagnoses Date/Ti [...] this encounter Medical Devices Implanted Type Area Mva Reactor Operator Head Device Identifier Shelf Expiration Date Model / Serial / Lot Clip Quick 2.8mm 230cm - [id number] Implanted:Qty: 1 on 03/01/2023 by Rasheed Niño MD at [place] [facility] [employer] [facility] [id number] 05/18/2025 [id number]-202UR.A / / [id number] documented as of this encounter Care Teams Store Product Demonstrator Relationship Specialty Start Date End Date Lucía Horner PA-C [address] [facility] [place] [id number] PCP - General Physician Sign Painter Apprentice 07/19/22 documented as of this encounter
--- OUTSIDE RECORDS SUMMARY | 2024-02-25 19:58 | External Medical Summary | Summary of Care ---
Author Name Unknown Organization [facility] Address [address] [place] [address] Phone [phone] Care Team Providers Care Hand Heel Seat Fitter Name Role Phone Lucía Horner PA-C Primary Care Provider [phone] [phone] Encounter Details Date Type Department Care Team ([facility] st Contact Info) Description [facility] [address] [place] [address] Specified, Lamar No Resource [address] [place] [address] Allergies Active Allergy Reactions Criticality Noted Date Comments Metformin 01/11/2021 Raised creat documented as of this encounter (statuses as of 11/05/2023) Medications Medication Sig Dispensed Refills Start Date [...] day. 18 g 5 0 Active Ipratropium [place] 0.02 % Inhalation Solution (Atrovent)Indicati ons:Tobacco use [...] MCG/ACT Nasal Suspension (Flonase)Indicatio ns:Dizziness Administer 1 [place] into nostril in the morning. 15.8 mL [...] Strip 3 3 Active Continuous Blood Gluc Floor Polisher (ImperatorSTYLE TU READER) DEVIIndications:Ty pe 2 diabetes mellitus [...] as of this encounter (statuses as of 11/05/2023) Active Problems Problem Noted Date Diagnosed Date [...] as of this encounter (statuses as of 11/05/2023) Resolved Problems Problem Noted Date Diagnosed Date [...] as of this encounter (statuses as of 11/05/2023) Immunizations Name Administration Dates Next Due COVID-19 [...] Duran LPN - 11/05/2023 12:16 PM EST Honey connect message to * Telephone Encounter - Aysha [...] 2:00 PM EST Office Visit Otolaryngology Allergy [address] [address] Kory Lopez MD [address] [place] [address] 02/01/2024 2:40 PM EDT Office Visit [address] [phone] Lucía Horner PA-C [address] [place] [address] 03/04/2024 9:20 AM EDT Office Visit Neurology [facility] [place] [address] [place], [place] [address] Karina Hoffman PA-C [address] [place] [address] Scheduled Procedures Name Priority Associated Diagnoses Date/Ti me COLONOSCOPY FLEXIBLE PROXIMA L DIAGNOSTIC Elevated carcinoembryonic antigen (CEA) Health Maintenance Due Date Last Done Comments DISCUSS TOBACCO CESSATION (REFER TO SMARTSET #8025) 1975 Hepatitis B (1 of 3 - [...] this encounter Medical Devices Implanted Type Area Contact Center Associate Device Identifier Shelf Expiration Date Model / Serial / Lot Clip Quick 2.8mm 230cm - [id number] Implanted:Qty: 1 on 03/01/2023 by Rasheed Niño MD at ENDOSCOPY [facility] [employer] [facility] [id number] 05/18/2025 HX-202UR.A / / [id number] documented as of this encounter Care Teams Hand Heel Seat Fitter Relationship Specialty Start Date End Date Lucía Horner PA-C [address] [facility] [place] [address] PCP - General Physician Negative Retoucher 07/19/22 documented as of this encounter
--- OUTSIDE RECORDS SUMMARY | 2024-02-25 19:58 | External Medical Summary | Summary of Care ---
Author Name Unknown Organization [facility] Address [address] [place] [address] Phone [phone] Care Team Providers Care Security Auditor Name Role Phone Lucía Horner PA-C Primary Care Provider [phone] [phone] Encounter Details Date Type Department Care Team ([facility] st Contact Info) Description 10/18/2023 Telephone Neurology, [place] [address] [place] [address] Specified, Martín No Resource [address] [place] [address] Allergies Active Allergy Reactions Criticality Noted Date Comments Metformin 01/11/2021 Raised creat documented as of this encounter (statuses as of 10/24/2023) Medications Medication Sig Dispensed Refills Start Date End Date Status NEBULIZER COMPRESSOR MISCIndications:Bron lissett Use as directed 1 Each 1 01/16/2015 Active Blood Glucose Monitoring Suppl (ONE TOUCH ULTRA SYSTEM KIT) W/DEVICE KITIndications:DM type 2, goal A1c below 7 Once daily or as needed 1 Kit 0 04/01/2015 Active metronidazole (METROGEL) 0.75 % gelIndications:Impet igo Apply topically to affected area 2 times a day. 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 18 g 5 01/13/2020 Active Ipratropium [place] 0.02 % Inhalation Solution (Atrovent)Indication s:Tobacco use [...] MCG/ACT Nasal Suspension (Flonase)Indications :Dizziness Administer 1 [place] into nostril in the morning. 15.8 mL [...] Additional Information Patient not taking.Reported on 09/18/2023 Mounjaro 2.5 MG/0.5ML Subcutaneous Solution Pen-injector (Tirzepatide)Indicat [...] Every Month. 1 mL 5 09/27/2023 Active [employer] Ultra In Vitro Strip (Glucose Blood) USE TO TEST ONCE A DAY OR NEEDED 100 Strip 3 10/05/2023 Active documented as of this encounter (statuses as of 10/24/2023) Active Problems Problem Noted Date Diagnosed Date [...] as of this encounter (statuses as of 10/24/2023) Resolved Problems Problem Noted Date Diagnosed Date [...] as of this encounter (statuses as of 10/24/2023) Immunizations Name Administration Dates Next Due COVID-19 [...] encounter Miscellaneous Notes * Addendum Note - Kaylee Lackey LPN [...] Info) Description 11/02/2023 10:00 AM EST Telemedicine [address] [place] [address] Lucía Horner PA-C [address] [place] [address] 03/04/2024 9:20 AM EDT Office Visit Neurology Jaime Hickman [place] [address] [facility] [place] [address] Karina Hoffman PA-C [address] [facility] [place] [address] Scheduled Procedures Name Priority Associated Diagnoses Date/Ti me COLONOSCOPY FLEXIBLE PROXIMA L DIAGNOSTIC Elevated carcinoembryonic antigen (CEA) Health Maintenance Due Date Last Done Comments DISCUSS TOBACCO CESSATION (REFER TO SMARTSET #2796) 1975 Hepatitis B (1 of 3 - [...] this encounter Medical Devices Implanted Type Area Pen Maker Device Identifier Shelf Expiration Date Model / Serial / Lot Clip Quick 2.8mm 230cm - [id number] Implanted:Qty: 1 on 03/01/2023 by Rasheed Niño [place] [facility] [employer] [id number] 05/18/2025 HX-202UR.A / / [id number] documented as of this encounter Care Teams Security Auditor Relationship Specialty Start Date End Date Lucía Horner PA-C [address] [place], [place] [phone] PCP - General Physician Network Engineer 07/19/22 documented as of this encounter
--- OUTSIDE RECORDS SUMMARY | 2024-02-25 19:58 | External Medical Summary | Summary of Care ---
Author Name Unknown Organization [facility] Address [address] [place] [address] Phone [phone] Care Team Providers Care Manufacturing Technology Analyst Name Role Phone Lucía Horner PA-C Primary Care Provider [phone] Reason for Visit * Reason Onset Date Comments Precert Approved 08/06/2023 EMGALITY Encounter Details Date Type Department Care Team (Late st Contact Info) Description 08/06/2023 Telephone Neurology [facility] [address] [place] [address] Doug Berrios, DO [address] [place] [address] Precert Approved (EMGALITY) Allergies Active Allergy Reactions Criticality Noted Date [...] day. 18 g 5 0 Active Ipratropium [place] 0.02 % Inhalation Solution (Atrovent)Indicati ons:Tobacco use [...] MCG/ACT Nasal Suspension (Flonase)Indicatio ns:Dizziness Administer 1 [place] into nostril in the morning. 15.8 mL [...] hemoglobin A1c goal of less than 7.0% ([facility]),Morbid obesity, BMI not known ([facility]) Inject 2.5 mg under the skin once a week. 2 mL 11 3 024 Active Continuous Blood Gluc Territory Supervisor (FREESTYLE TU READER) DEVIIndications:Ty pe 2 diabetes mellitus with hemoglobin A1c goal of less than 7.0% ([facility]) Use as directed to check blood sugar 1 Device 1 8 023 Discontinued buPROPion HCl ER (XL) 150 MG Oral Tablet Extended Release 24 Hour (Wellbutrin XL)Indications:Tob acco use disorder Take by mouth 1 Tablet in the morning. 90 Tablet 0 2 023 Discontinued UbiTouch UltraSoft Lancets USE TO TEST ONCE DAILY OR DIRECTED 100 Each 3 2 023 Discontinued HQ plusuch Ultra In Vitro Strip (Glucose Blood) using once a day or as needed 100 Strip 3 2 023 Discontinued Nicotine 21 MG/24HR Transdermal Patch 24 Hour (Nicotine Step 1) Place topically on the skin 1 Patch daily . 28 Patch 0 2 023 Discontinued LORazepam 0.5 MG Oral Tablet (Ativan)Indication s:Claustrophobia One tab 1 hour before mri, repeat 15 min prior and at start for total of 3 tabs 3 Tablet 0 3 023 Discontinued(Me dication List Clean Up) Galcanezumab-gnlm 120 MG/ML Subcutaneous Solution Auto-injector (Emgality) Inject 2 mL (2 pens) under the skin for first month, then 1 mL (1 pen) every month thereafter. 2 mL 0 3 023 Discontinued(Me dication List Clean Up) Losartan Potassium 100 MG Oral Tablet (Cozaar)Indication s:HTN, goal below 140/90 TAKE 1 TABLET BY MOUTH ONCE DAILY 90 Tablet 1 3 023 Discontinued Pantoprazole Sodium 40 MG Oral Tablet Delayed Release (Protonix)Indicati ons:GERD (gastroesophageal reflux disease),Encounter for long-term (current) use of medications TAKE 1 TABLET BY MOUTH ONCE DAILY 90 Tablet 1 3 023 Discontinued hydroCHLOROthiazid e 12.5 MG Oral Tablet (Hydrodiuril) TAKE 1 TABLET BY MOUTH ONCE DAILY 90 Tablet 1 3 023 Discontinued Atorvastatin Calcium 20 MG Oral Tablet (Lipitor)Indicatio ns:HTN, goal below 140/90,Dyslipidemi a, goal LDL below 70 TAKE 1 TABLET BY MOUTH AT BEDTIME 90 Tablet 1 3 023 Discontinued D3 Super Strength 50 MCG (2000 UT) Oral Capsule (Cholecalciferol)I ndications:Low vitamin D level TAKE ONE CAPSULE BY MOUTH EVERY MORNING 90 Capsule 0 3 023 Discontinued acetaZOLAMIDE 250 MG Oral Tablet (Diamox) TAKE 2 TABLETS BY MOUTH THREE TIMES DAILY 180 Tablet 0 3 023 Discontinued Vitron-C 65-125 MG Oral Tablet (Iron-Vitamin C 65-125 mg per tab)Indications:Lo w ferritin level,Restless legs syndrome TAKE ONE TABLET BY MOUTH EVERY MORNING 100 Tablet 1 3 023 Discontinued(Pa ana preference/disc ontinuation) Topiramate 25 MG Oral Tablet (topAMAX)Indicatio ns:NDPH (new daily persistent headache) TAKE 1 TABLET BY MOUTH IN THE MORNING AND 2 TABLETS AT BEDTIME FOR A WEEK. THEN INCREASE TO 2 TABLETS BY MOUTH TWICE A DAY THEREAFTER. 360 Tablet 0 3 023 Discontinued Amitriptyline HCl 10 MG Oral Tablet (Elavil)Indication s:Tension-type headache, not intractable, unspecified chronicity pattern Take 1 Tablet by mouth at bedtime. 30 Tablet 5 3 023 Discontinued(Re fill) Emgality 120 MG/ML Subcutaneous Solution Auto-injector (Galcanezumab-gnlm ) Inject 1 mL under the skin every month. 1 mL 3 3 023 Discontinued(Re fill) documented as of this encounter [...] mRNA, LNP-s, No Pre serve, 2-Dose Series ([employer]) 09/13/2021,12/30/2020,12/09/2020 PPD 03/22/2016 Pneumococcal Polysaccharide PPV23 (Pneumovax) [...] encounter Miscellaneous Notes * Telephone Encounter - Ngozi Mueller, MED ASSIST - 08/15/2023 1:43 PM EDT Please see pt;s MyG response yes it is helping the migraines slightly... * Telephone Encounter - Salina Reyes OSA - 08/08/2023 7:35 AM EDT Follow up to message 08/06/2023. Need documentation to submit prior auth for Emgality showing patient has had improvement in headache or decrease in headache days. Thank you. ANTONIETA Robertson Medication Managing Manager,[facility] [phone] Fax 08/08/2023,7:36 AM * Telephone Encounter - Salina Reyes OSA - 08/06/2023 1:36 PM EDT Patients insurance is requiring notes showing patient has had an improvement in headaches or decrease in headache days. Please provide documentation and I will be happy to submit prior auth request to patients insurance. Thank you, ANTONIETA Robertson Medication Managing Manager,[facility] [phone] Fax 08/06/2023,1:37 PM * Telephone Encounter - Nora Robles CPhT - 08/06/2023 1:00 PM EDT [facility] Ameena Hernández needs a prior authorization for their Emgality through their [employer] insurance. ID: [id number] BIN:[id number] PCN:[id number] Phone: Target ship date is 08/06/23. Thank you very much, Nora Robles CPhT [facility] 08/06/2023,1:01 PM documented in this encounter Plan of Treatment Upcoming Encounters Date Type Department Care Team (Late st Contact Info) Description 12/13/2023 2:00 PM EST Office Visit Otolaryngology [facility] [address] [place] [address] Kory Lopez MD [address] [place] [address] 02/01/2024 2:40 PM EDT Office Visit [facility] [address] [place] [address] Lucía Horner PA-C [address] [place] [address] 03/04/2024 9:20 AM EDT Office Visit [facility] [address] [facility] [place] [address] Karina Hoffman PA-C [address] [facility] [place] [address] Scheduled Procedures Name Priority Associated Diagnoses Date/Ti me COLONOSCOPY FLEXIBLE PROXIMA L DIAGNOSTIC Elevated carcinoembryonic antigen (CEA) Health Maintenance Due Date Last Done Comments DISCUSS TOBACCO CESSATION (REFER TO SMARTSET #0989) 1975 Hepatitis B (1 of 3 - [...] this encounter Medical Devices Implanted Type Area Gifted Teacher Device Identifier Shelf Expiration Date Model / Serial / Lot Clip Quick 2.8mm 230cm - [id number] Implanted:Qty: 1 on 03/01/2023 by Rasheed Niño MD at [place] [facility] [place] [employer] [id number] 05/18/2025 [id number]-[id number] / / [id number] documented as of this encounter Care Teams Manufacturing Technology Analyst Relationship Specialty Start Date End Date Lucía Horner PA-C [address] [place] [address] PCP - General Physician Catering Sous Chef 07/19/22 documented as of this encounter
--- OUTSIDE RECORDS SUMMARY | 2024-02-25 19:58 | External Medical Summary | Summary of Care ---
Author Name Unknown Organization [facility] Address [address] [place] [address] Phone [phone] Care Team Providers Care Annealing Torch Operator Name Role Phone Lucía Horner PA-C Primary Care Provider [phone] Reason for Visit * Reason Onset Date Comments Other 11/05/2023 Encounter Details Date Type Department Care Team ([facility] st Contact Info) Description 11/05/2023 Telephone [facility] [address] [place] [address] Lucía Horner PA-C [address] [place] [address] Other (/) Allergies Active Allergy Reactions Criticality Noted Date [...] day. 18 g 5 01/13/2020 Active Ipratropium [place] 0.02 % Inhalation Solution (Atrovent)Indication s:Tobacco use [...] MCG/ACT Nasal Suspension (Flonase)Indications :Dizziness Administer 1 [place] into nostril in the morning. 15.8 mL [...] (HCC),Morbid obesity, BMI not known ([facility]) Inject 2.5 mg under the [...] encounter Miscellaneous Notes * Telephone Encounter - Jose Elias Mendoza, cloth booker - 11/05/2023 11:39 AM EST Transferred to scheduling Jose Elias Marc [facility] (formerly Tele[facility]acy). 11/05/2023,11:40 AM documented in this encounter Plan of Treatment Upcoming Encounters Date Type Department Care Team (Late st Contact Info) Description 12/13/2023 2:00 PM EST Office Visit Otolaryngology Allergy [facility] [address] [place] [address] Kory Lopez MD [address] [place] [address] 02/01/2024 2:40 PM EDT Office Visit [facility] [address] [place] [id number] Lucía Horner PA-C [address] [place] [address] 03/04/2024 9:20 AM EDT Office Visit Neurology [facility] [address] [facility] [place] [address] Karina Hoffman PA-C [address] [facility] [place] [address] Scheduled Procedures Name Priority Associated Diagnoses Date/Ti me COLONOSCOPY FLEXIBLE PROXIMA L DIAGNOSTIC Elevated carcinoembryonic antigen (CEA) Health Maintenance Due Date Last Done Comments DISCUSS TOBACCO CESSATION (REFER TO SMARTSET #1081) 1975 Hepatitis B (1 of 3 - [...] this encounter Medical Devices Implanted Type Area Identity Management Consultant Device Identifier Shelf Expiration Date Model / Serial / Lot Clip Quick 2.8mm 230cm - [id number] Implanted:Qty: 1 on 03/01/2023 by Rasheed Niño MD at [place] [facility] [place] [employer] [id number] 05/18/2025 [id number]-[id number] / / [id number] documented as of this encounter Care Teams Annealing Torch Operator Relationship Specialty Start Date End Date Lucía Horner PA-C [address] [place] [address] PCP - General Physician [employer]cher [employer] 07/19/22 documented as of this encounter
--- OUTSIDE RECORDS SUMMARY | 2024-02-25 19:58 | External Medical Summary | Summary of Care ---
Author Name Unknown Organization [facility] Address [address] [place] [address] Phone [phone] Care Team Providers Care Tool Grinder Name Role Phone Lucía Horner PA-C Primary Care Provider [phone] Reason for Visit * Reason Comments NEW PATIENT Encounter Details Date Type Department Care Team ([facility] st Contact Info) Description 10/10/2023 10:00 AM EST Office Visit Neurology, [place] [address] [place], [place] [id number] Aroldo Linton, [address] [place], [place] [id number] Papilledema associated with increased intracranial pressure*; IIH (idiopathic intracranial hypertension); Abnormal brain MRI Allergies Active Allergy Reactions Criticality Noted Date Comments Metformin 01/11/2021 Raised creat documented as of this encounter (statuses as of 10/10/2023) Medications Medication Sig Dispensed Refills Start Date [...] g 1 02/22/2018 Active Continuous Blood Gluc Agile Coach (FREESTYLE TU READER) DEVIIndications:Type 2 diabetes mellitus with hemoglobin A1c goal of less than 7.0% ([facility]) Use as directed to check blood sugar 1 Device 1 06/13/2018 Active Additional Information Patient not taking.Reported on 09/18/2023 Albuterol Sulfate (ALBUTEROL HFA) 108 (90 BASE) MCG/ACT inhalerIndications: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 18 g 5 01/13/2020 Active Ipratropium [place] 0.02 % Inhalation Solution (Atrovent)Indication s:Tobacco use [...] MCG/ACT Nasal Suspension (Flonase)Indications :Dizziness Administer 1 [place] into nostril in the morning. 15.8 mL [...] A1c goal of less than 7.0% ([facility]),Morbid obesity, BMI not known ([facility]) Inject 2.5 mg under the skin [...] Every Month. 1 mL 5 09/27/2023 Active EnterCloud SolutionsTouch Ultra In Vitro Strip (Glucose Blood) USE TO TEST ONCE A DAY OR NEEDED 100 Strip 3 10/05/2023 Active documented as of this encounter (statuses as of 10/10/2023) Active Problems Problem Noted Date Diagnosed Date [...] as of this encounter (statuses as of 10/10/2023) Resolved Problems Problem Noted Date Diagnosed Date [...] as of this encounter (statuses as of 10/10/2023) Immunizations Name Administration Dates Next Due COVID-19 [...] as of this encounter Progress Notes * Aroldo Linton, - 10/10/2023 10:28 AM EST NEURO-OPHTHALMOLOGY- [facility] Name: Ameena Hernández Ref: LUCÍA HORNER[[id number]] [address] [place] [address] (office) [phone] (fax) PCP: LUCÍA HORNER [address] [place] [address] [phone] History provided by: Patient and Significant other Chief Complaint: Chief Complaint Patient presents with NEW PATIENT HPI: 48 year old female seen today by Neuro-Ophthalmology for evaluation of the neuro-visual systemin the setting of Increased intracranial pressure . MORALES january of last year MRI empty sella and brain sagging Treating her for IIH Diamox- zonisamide Topamax Light bothers her No LP felt risk bigger than benefit Said nerve edema was present by regular eye doctor If upright for more than 1/2 hour feel dizzy Light bother Gait is off Unbalanced and equilibrium Shaky Csf leak Whooshing and ears Referred by Lucía Horner PA-C PAST MEDICAL HISTORY: Past Medical History: Diagnosis Date DM type 2 (diabetes mellitus, type 2) ([facility]) 2014 Dyslipidemia, goal LDL below 130 Dyslipidemia, goal LDL below 70 12/04/2017 Esophageal reflux Gastroesophageal Reflux (GERD) Headache(784.0) Headache, NOS HTN, goal below 140/90 03/29/2015 Hypothyroidism Hypothyroidism Morbid obesity, BMI not known ([facility]) 06/13/[address] Multiple lung nodules on CT 02/07/2023 Tobacco use disorder 03/29/2015 Type 2 diabetes mellitus with hemoglobin A1c goal of less than 7.0% ([facility]) 04/01/2015 ICD-10 update of inactive term Current Outpatient Medications: Current Outpatient Medications Medication Sig Dispense Refill NEBULIZER COMPRESSOR MISC Use as directed 1 Each 1 Blood Glucose Monitoring Suppl (ONE TOUCH ULTRA SYSTEM KIT) W/DEVICE KIT Once daily or as needed 1 Kit 0 metronidazole (METROGEL) 0.75 % gel Apply topically to affected area 2 times a day. Apply to affected area 45 g 1 Continuous Blood Gluc Agile Coach (FREESTYLE TU READER) TAZ Use as directed to check blood sugar (Patient not taking: Reported on 09/18/2023) 1 Device 1 Albuterol Sulfate (ALBUTEROL HFA) 108 (90 BASE) MCG/ACT inhaler Inhale 2 Puffs by mouth 4 times a day. 18 g 5 Ipratropium [place] 0.02 % Inhalation Solution (Atrovent) Inhale via nebulizer 2.5 mL in the morning AND 2.5 mL at noon AND 2.5 mL in the evening AND 2.5 mL before bedtime. 75 mL 12 buPROPion HCl ER (XL) 150 MG Oral Tablet Extended Release 24 Hour (Wellbutrin XL) Take by mouth 1 Tablet in the morning. (Patient not taking: Reported on 09/18/2023) 90 Tablet 0 OneTouch UltraSoft Lancets USE TO TEST ONCE DAILY OR DIRECTED 100 Each 3 Nicotine 21 MG/24HR Transdermal Patch 24 Hour (Nicotine Step 1) Place topically on the skin 1 Patchdaily . (Patient not taking: Reported on 03/01/2023) 28 Patch 0 Albuterol Sulfate (2.5 MG/3ML) 0.083% Inhalation Nebulization Solution (Proventil) Inhale via nebulizer 1 Vial every 4 hours as needed for Wheezing. 120 mL 1 Meclizine HCl 25 MG Oral Tablet (Antivert) Take 1 Tablet by mouth 3 times a day as needed for Dizziness. 30 Tablet 1 Fluticasone Propionate 50 MCG/ACT Nasal Suspension (Flonase) Administer 1 [place] into nostril in themorning. 15.8 mL 3 Losartan Potassium 100 MG Oral Tablet (Cozaar) TAKE 1 TABLET BY MOUTH ONCE DAILY (Patient not taking: Reported on 09/18/2023) 90 Tablet 1 Magnesium Oxide 400 (240 Mg) MG Oral [...] breakfast and other medications 84 Tablet 1 Vitron-C 65-125 MG Oral Tablet (Iron-Vitamin C 65-125 mg per tab) TAKE ONE TABLET BY MOUTH EVERY MORNING (Patient not taking: Reported on 09/18/2023) 100 Tablet 1 Mounjaro 2.5 MG/0.5ML Subcutaneous Solution Pen-injector (Tirzepatide) Inject 2.5 mg under the skinonce a week. 2 mL 11 Amitriptyline HCl 10 MG Oral Tablet (Elavil) Take 2 Tablets by mouth at bedtime. 60 Tablet 5 Pantoprazole Sodium 40 MG Oral Tablet Delayed Release (Protonix) TAKE 1 TABLET BY MOUTH ONCE DAILY 90 Tablet 1 D3 Super Strength 50 MCG (2000 UT) Oral Capsule (Cholecalciferol) TAKE 1 CAPSULE BY MOUTH EVERY MORNING 90 Capsule 1 Atorvastatin Calcium 20 MG Oral Tablet (Lipitor) TAKE 1 TABLET BY MOUTH AT BEDTIME 90 Tablet 1 hydroCHLOROthiazide 12.5 MG Oral Tablet (Hydrodiuril) TAKE 1 TABLET BY MOUTH ONCE DAILY (Patient not taking: Reported on 09/18/2023) 90 Tablet 1 Zonisamide 100 MG Oral Capsule (Zonegran) Take 1 Capsule by mouth in the morning. 30 Capsule 1 Emgality 120 MG/ML Subcutaneous Solution Auto-injector (Galcanezumab-gnlm) Inject 1 mL under the skin Every Month. 1 mL 5 OneTouch Ultra In Vitro Strip (Glucose Blood) USE TO TEST ONCE A DAY OR NEEDED 100 Strip 3 No current facility-administered medications for this visit. PAST SURGICAL HISTORY: Past Surgical History: Procedure Laterality Date COLONOSCOPY, DIAGNOSTIC (RECTUM) 03/01/2023 COLONOSCOPY FLEXIBLE PROXIMAL DIAGNOSTIC performed by Rasheed Niño MD at [place] [facility] [place]COPY; CHOLECYSTECTOMY 05/05/2011 05/05/2011 -- [facility] -- laparoscopic cholecystectomy - [facility] FAMILY HISTORY: No family history on file. SOCIAL HISTORY: Social History Tobacco Use Smoking status: Every Day Packs/day: 2.00 Years: 30.00 Additional pack years: 0.00 Total pack years: 60.00 Types: Cigarettes Start date: 1992 Smokeless tobacco: Never Vaping Use Vaping Use: Never used Substance Use Topics Alcohol use: No Drug use: No ALLERGIES: Metformin ROS: 14 systems were reviewed are otherwise negative unless noted in HPI. PHYSICAL EXAMINATION: Most Recent Vital Signs: There were no vitals filed for this visit. General -pleasant , NAD, well appearing. HEENT - normocephalic, atraumatic, no JVD Eyes - see below CV - RRR PULM - No increased work of breathing Abd- obese Ext - no edema bilaterally, no cyanosis Skin- no rashes nor ecchymosis Neuro - see below Psych - normal, not depressed Neuro-Ophthalmology exam Base Eye Exam Visual Acuity (Snellen - Linear) Right Left Dist cc 20/20 -1 20/20 -2 Correction: Glasses Additional Tests Color Right Left Ishihara 06/26 06/26 LABORATORY: Labs reviewed and pertinent findings are indicated below: No new Review of prior Radiology Studies: See below in the assessment OCT Interpretation Optic Nerve - Nerve Fiber Layer Right: Normal Left: Normal Macula: Normal Line scans/Multi Color/Etc: Normal No prior for comparison ICD-10-CM 1. Papilledema associated with increased intracranial pressure H47.11 2. IIH (idiopathic intracranial hypertension) G93.2 3. Abnormal brain MRI R90.89 IMPRESSION / RECOMMENDATIONS: Ameena Hernández is seen today for evaluation of the neuro-visual system in the setting of abnormal imaging findings .. Patient has multiple symptoms that consist of difficulty sitting up without feeling abnormal and isbetter lying down. She also has headaches and feels like she is a CSF leak. At this time I would like her to obtain the lumbar puncture under fluoroscopy I have placed this order. We need an opening pressure. I am okay with her being off the zonisamide as she has stopped 4 days previous. She should take the Emgality and monjaro. There are no signs of increased intracranialpressure on examination today. The optic nerves have a slight elevation but they are definitely notconsistent with papilledema. MRI imaging that shows empty sella and other findings consistent with IIH seeing quite frequently in recent studies out of the [facility] and out of [facility] indicate that imaging findings such as these are not specific or necessarily sensitive for IIH. In this case I recommend that she try caffeine to see if that alleviates some of her symptoms that she feels he has a CSF leak. She could consider catching some of the liquid that comes from her nosefor testing beta transferrin. But I would start with a lumbar puncture and the caffeine and we will go from there. I would like to see her back for repeat testing the optic nerves Of note there is no MRI findings compatible with CSF leak at this time Imaging was reviewed with Dr. Saldaña who noted some DWI changes. The noted new MRI findings were then reviewed with Dr. Daniel from stroke Neurology who felt that these were most likely either small-vessel disease related to her comorbidities or perhaps relatedto migraines that she has a migraine history. He did not feel that further workup needed to be done. I can consider repeat imaging verses echocardiogram in the future. She had a CTA that was done previously that did not show any significant abnormalities. Return in about 2 months (around 12/10/2023). Aroldo Linton, Neuro-Ophthalmology, Neurology 10/10/2023 10:29 AM I have provided a significant and separately identifiable visit with today's procedure because (edema dx) here were multiple complex differential diagnoses for this patient, including optic nerve elevation from idiopathic intracranial hypertension, optic nerve drusen, pseudo papilledema, anomalous optic nerves, hypertension, diabetes, etc. documented in this encounter Plan of Treatment Upcoming Encounters Date Type Department Care Team (Late st Contact Info) Description 11/02/2023 10:00 AM EST Telemedicine [facility] [address] [place] [facility] [place] [id number] Lucía Horner PA-C [address] [place] [facility] [place] [address] 03/04/2024 9:20 AM EDT Office Visit Neurology [facility] [place] [address] [facility] [place] [address] Karina Hoffman PA-C [address] [facility] [place] [address] Scheduled Procedures Name Priority Associated Diagnoses Date/Ti me COLONOSCOPY FLEXIBLE PROXIMA L DIAGNOSTIC Elevated carcinoembryonic antigen (CEA) Health Maintenance Due Date Last Done Comments DISCUSS TOBACCO CESSATION (REFER TO SMARTSET #4768) 1975 Hepatitis B (1 of 3 - [...] this encounter Medical Devices Implanted Type Area Marble Cutter Device Identifier Shelf Expiration Date Model / Serial / Lot Clip Quick 2.8mm 230cm - [id number] Implanted:Qty: 1 on 03/01/2023 by Rasheed Niño MD at [place] [facility] [place] [employer] [id number] 05/18/2025 [id number]-[id number] / / [id number] documented as of this encounter Visit Diagnoses Diagnosis Papilledema associated with increased intracranial pressure- Primary IIH (idiopathic intracranial hypertension) Benign intracranial hypertension Abnormal brain MRI Nonspecific (abnormal) findings on radiological and other examination of skull and head documented in this encounter Care Teams Tool Grinder Relationship Specialty Start Date End Date Lucía Horner PA-C [address] [place] [address] PCP - General Physician Load Dropper 07/19/22 documented as of this encounter
--- OUTSIDE RECORDS SUMMARY | 2024-02-25 19:58 | External Medical Summary | Summary of Care ---
Author Name Unknown Organization [facility] Address [address] [place] [address] Phone [phone] Care Team Providers Care Mold Closer Helper Name Role Phone Lucía Horner PA-C Primary Care Provider +1 [phone] Reason for Visit * Reason Comments eRx-Medication Refill Encounter Details Date Type Department Care Team (Late st Contact Info) Description 10/29/2023 Refill [facility] [address] [place] [address] Lucía Horner PA-C [address] [place] [address] NDPH (new daily persistent headache) Allergies Active Allergy Reactions Criticality Noted Date Comments Metformin 01/11/2021 Raised creat documented as of this encounter (statuses as of 10/29/2023) Medications Medication Sig Dispensed Refills Start Date [...] affected area 45 g 1 8 Active Continuous Blood Gluc Drawbench Operator (Machina TU READER) DEVIIndications:Typ e 2 diabetes mellitus with hemoglobin A1c goal of less than 7.0% ([facility]) Use as directed to check blood sugar 1 Device 1 8 Active Additional Information Patient not taking.Reported on 09/18/2023 Albuterol Sulfate (ALBUTEROL HFA) 108 (90 BASE) MCG/ACT inhalerIndications: Pneumonia of right lower lobe due to infectious organism Inhale 2 Puffs by mouth 4 times a day. 18 g 5 0 Active Ipratropium [place] 0.02 % Inhalation Solution (Atrovent)Indicatio ns:Tobacco use disorder Inhale via nebulizer 2.5 mL in the morning AND 2.5 mL at noon AND 2.5 mL in the evening AND 2.5 mL before bedtime. 75 mL 12 2 Active buPROPion HCl ER (XL) 150 MG Oral Tablet Extended Release 24 Hour (Wellbutrin XL)Indications:Toba national account director use disorder Take by mouth 1 Tablet in the morning. 90 Tablet 0 2 Active Additional Information Patient not taking.Reported on 09/18/2023 Nicotine 21 MG/24HR Transdermal Patch 24 Hour (Nicotine Step 1) Place topically on the skin 1 Patch daily . 28 Patch 0 2 Active Additional Information Patient not taking.Reported on [...] MCG/ACT Nasal Suspension (Flonase)Indication s:Dizziness Administer 1 [place] into nostril in the morning. 15.8 mL 3 3 Active Losartan Potassium 100 MG Oral Tablet (Cozaar)Indications :HTN, goal below 140/90 TAKE 1 TABLET BY MOUTH ONCE DAILY 90 Tablet 1 3 Active Additional Information Patient not taking.Reported on [...] other medications 84 Tablet 1 3 Active Vitron-C 65-125 MG Oral Tablet (Iron-Vitamin C 65-125 mg per tab)Indications:Low ferritin level,Restless legs syndrome TAKE ONE TABLET BY MOUTH EVERY MORNING 100 Tablet 1 3 Active Additional Information Patient not taking.Reported on 09/18/2023 Elsa 2.5 MG/0.5ML Subcutaneous Solution Pen-injector (Tirzepatide)Indica tions:Type 2 diabetes mellitus with hemoglobin A1c goal of less than 7.0% (HCC),Morbid obesity, BMI not known (HCC) Inject 2.5 mg under the skin once a week. 2 mL 11 3 08/02/20 24 Active Amitriptyline HCl 10 MG Oral Tablet (Elavil)Indications :Tension-type headache, not intractable, unspecified chronicity pattern Take 2 Tablets by mouth at bedtime. 60 Tablet 5 3 Active Pantoprazole Sodium 40 MG Oral Tablet [...] AT BEDTIME 90 Tablet 1 3 Active hydroCHLOROthiazide 12.5 MG Oral Tablet (Hydrodiuril) TAKE 1 TABLET BY MOUTH ONCE DAILY 90 Tablet 1 3 Active Additional Information Patient not taking.Reported on 09/18/2023 Zonisamide 100 MG Oral Capsule (Zonegran)Indicatio ns:Chronic migraine without aura without status migrainosus, not intractable,Asymmet ry of optic nerve, unspecified laterality Take 1 Capsule by mouth in the morning. 30 Capsule 1 3 Active Emgality 120 MG/ML Subcutaneous Solution Auto-injector (Galcanezumab-[facility]) Inject 1 mL under the skin Every Month. 1 mL 5 3 Active OneTouch Ultra In Vitro Strip (Glucose Blood) USE TO TEST ONCE A DAY OR NEEDED 100 Strip 3 3 Active OneTouch UltraSoft 2 Lancets USE TO TEST ONCE DAILY OR DIRECTED 100 Each 3 3 Active OneTouch UltraSoft Lancets USE TO TEST ONCE DAILY OR DIRECTED 100 Each 3 2 10/29/20 23 Discontinued documented as of this encounter (statuses as of 10/29/2023) Active Problems Problem Noted Date Diagnosed Date [...] as of this encounter (statuses as of 10/29/2023) Resolved Problems Problem Noted Date Diagnosed Date [...] as of this encounter (statuses as of 10/29/2023) Immunizations Name Administration Dates Next Due COVID-19 [...] Notes * Telephone Encounter - Car Cervantes [facility] - 10/29/2023 3:49 PM EST Signed Prescriptions: Disp Refills OneTouch UltraSoft 2 Lancets 100 Ea*3 Sig: USE TO TEST ONCE DAILY OR DIRECTEDAuthorizing Provider: LUCÍA HORNER AOrirving User: CAR CERVANTESRefused Prescriptions: Disp Refills Topiramate 25 MG Oral Tablet (topAMAX) 360 Ta*0 Sig: TAKE 1 TABLET BY MOUTH EVERY MORNING and take 2 tablets at bedtime for 1week then increase to 2 tablets twice dailyRefused By: CAR CERVANTESason for Refusal: Cou rse of treatment complete documented in this encounter Plan of Treatment Upcoming Encounters Date Type Department Care Team (Late st Contact Info) Description 11/02/2023 10:00 AM EST Telemedicine [facility] [address] [place] [facility] [place] [phone] Lucía Horner PA-C [address] [place] [address] 03/04/2024 9:20 AM EDT Office [facility] [address] [place] [address] Karina Hoffman PA-C [address] [place] [address] Scheduled Procedures Name Priority Associated Diagnoses Date/Ti me COLONOSCOPY FLEXIBLE PROXIMA L DIAGNOSTIC Elevated carcinoembryonic antigen (CEA) Health Maintenance Due Date Last Done Comments DISCUSS TOBACCO CESSATION (REFER TO SMARTSET #1263) 1975 Hepatitis B (1 of 3 - [...] this encounter Medical Devices Implanted Type Area Mortuary Technician Device Identifier Shelf Expiration Date Model / Serial / Lot Clip Quick 2.8mm 230cm - [id number] Implanted:Qty: 1 on 03/01/2023 by Rasheed Niño MD at ENDOSCOPY [facility] [employer] [id number] 05/18/2025 HX-202UR.A / / [id number] documented as of this encounter Visit Diagnoses Diagnosis NDPH (new daily persistent headache) New daily persistent headache documented in this encounter Care Teams Mold Closer Helper Relationship Specialty Start Date End Date Lucía Horner PA-C [address] [place] [address] PCP - General Physician Supervisor Facepiece Line 07/19/22 documented as of this encounter
--- OUTSIDE RECORDS SUMMARY | 2024-02-25 19:58 | External Medical Summary | Summary of Care ---
Author Name Unknown Organization [facility] Address [address] [place] [address] Phone [phone] Care Team Providers Care Mental Health Director Name Role Phone Lucía Horner PA-C Primary Care Provider [phone] [phone] Reason for Visit * Reason Comments eRx-Medication Refill Encounter Details Date Type Department Care Team (Late st Contact Info) Description 10/05/2023 Refill [facility] [address] [place] [address] Lucía Horner PA-C [address] [place] [address] Allergies Active Allergy Reactions Criticality Noted Date Comments Metformin 01/11/2021 Raised creat documented as of this encounter (statuses as of 10/05/2023) Medications Medication Sig Dispensed Refills Start Date [...] g 1 8 Active Continuous Blood Gluc Radiology Receptionist (FREESTYLE TU READER) DEVIIndications:Typ e 2 diabetes mellitus with hemoglobin A1c goal of less than 7.0% ([facility]) Use as directed to check blood sugar 1 Device 1 8 Active Additional Information Patient not taking.Reported on 09/18/2023 Albuterol Sulfate (ALBUTEROL HFA) 108 (90 BASE) MCG/ACT inhalerIndications: Pneumonia of right lower lobe due to infectious organism Inhale 2 Puffs by mouth 4 times a day. 18 g 5 0 Active Ipratropium [place] 0.02 % Inhalation Solution (Atrovent)Indicatio ns:Tobacco use disorder Inhale via nebulizer 2.5 mL in the morning AND 2.5 mL at noon AND 2.5 mL in the evening AND 2.5 mL before bedtime. 75 mL 12 2 Active buPROPion HCl ER (XL) 150 MG Oral Tablet Extended Release 24 Hour (Wellbutrin XL)Indications:Toba account support rep use disorder Take by mouth 1 Tablet in the morning. 90 Tablet 0 2 Active Additional Information Patient not taking.Reported on 09/18/2023 OneTouch UltraSoft Lancets USE TO TEST ONCE DAILY OR DIRECTED 100 Each 3 2 Active Nicotine 21 MG/24HR Transdermal Patch 24 [...] MCG/ACT Nasal Suspension (Flonase)Indication s:Dizziness Administer 1 [place] into nostril in the morning. 15.8 mL [...] 09/18/2023 Mounjaro 2.5 MG/0.5ML Subcutaneous Solution Pen-injector (Tirzepatide)Indica tions:Type 2 diabetes mellitus with hemoglobin A1c goal of less than 7.0% ([facility]),Morbid obesity, BMI not known ([facility]) Inject 2.5 mg under the [...] (Galcanezumab-gn) Inject 1 mL under the skin Every Month. 1 mL 5 3 Active OneTouch Ultra In Vitro Strip (Glucose Blood) USE TO TEST ONCE A DAY OR NEEDED 100 Strip 3 3 Active OneTouch Ultra In Vitro Strip (Glucose Blood) using once a day or as needed 100 Strip 3 2 10/05/20 23 Discontinued documented as of this encounter (statuses as of 10/05/2023) Active Problems Problem Noted Date Diagnosed Date [...] as of this encounter (statuses as of 10/05/2023) Resolved Problems Problem Noted Date Diagnosed Date [...] as of this encounter (statuses as of 10/05/2023) Immunizations Name Administration Dates Next Due COVID-19 [...] encounter Miscellaneous Notes * Telephone Encounter - Krishna Holman RPh - 10/05/2023 12:34 PM ESTSigned Prescriptions: Disp Refills OneTouch Ultra In Vitro Strip (Glucose Blo*100 St*3 Sig: USE TOTEST ONCE A DAY OR NEEDEDAuthorizing Provider: LUCÍA HORNER User: KRISHNA HOLMAN documented in this encounter Plan of Treatment Upcoming Encounters Date Type Department Care Team (Late st Contact Info) Description 10/10/2023 10:00 AM EST Office Visit Neurology, [place] [address] [place] [address] Aroldo Linton DO [address] [place] [address] 11/02/2023 10:00 AM EST Telemedicine [facility] [address] [place] [phone] Lucía Horner PA-C [address], [place] [phone] 03/04/2024 9:20 AM EDT Office Visit [facility] [address] [facility] [place] [address] Karina Hoffman PA-C [address] [facility] [place] [address] Scheduled Procedures Name Priority Associated Diagnoses Date/Ti me COLONOSCOPY FLEXIBLE PROXIMA L DIAGNOSTIC Elevated carcinoembryonic antigen (CEA) Health Maintenance Due Date Last Done Comments DISCUSS TOBACCO CESSATION (REFER TO SMARTSET #9606) 1975 Hepatitis B (1 of 3 - [...] this encounter Medical Devices Implanted Type Area Multi Care Technician Device Identifier Shelf Expiration Date Model / Serial / Lot Clip Quick 2.8mm 230cm - [id number] Implanted:Qty: 1 on 03/01/2023 by Rasheed Niño MD [place] [facility] [employer] [id number] 05/18/2025 [id number]-[id number].A / / [id number] documented as of this encounter Care Teams Mental Health Director Relationship Specialty Start Date End Date Lucía Horner PA-C [address] [place] [address] PCP - General Physician Content Administrator 07/19/22 documented as of this encounter
--- OUTSIDE RECORDS SUMMARY | 2024-02-25 19:58 | External Medical Summary | Summary of Care ---
Author Name Unknown Organization [facility] Address [address] [place] [address] Phone [phone] Care Team Providers Care Laundry Machine Operator Name Role Phone Lucía Horner PA-C Primary Care Provider [phone] [phone] Encounter Details Date Type Department Care Team ([facility] st Contact Info) Description [facility] [address] [place] [address] Specified, [place] No Resource [address] [place] [address] Allergies Active Allergy Reactions Criticality [...] day. 18 g 5 0 Active Ipratropium [place] 0.02 % Inhalation Solution (Atrovent)Indicati ons:Tobacco use [...] MCG/ACT Nasal Suspension (Flonase)Indicatio ns:Dizziness Administer 1 [place] into nostril in the morning. 15.8 mL [...] Strip 3 3 Active Continuous Blood Gluc [place] Former (ArkSTYLE TU READER) DEVIIndications:Ty pe 2 diabetes mellitus [...] encounter Miscellaneous Notes * Telephone Encounter - Aysha Nevarez OSA [...] 2:00 PM EST Office Visit Otolaryngology [facility]ergy [facility] [address] [place] [address] Kory Lopez MD [address] [place] [address] 02/01/2024 2:40 PM EDT Office Visit [facility] [address] [place] [phone] Lucía Horner PA-C [address] [place] [address] 03/04/2024 9:20 AM EDT Office Visit Neurology [facility] [place] [address] [place] [address] Karina Hoffman PA-C [address] [place] [address] Scheduled Procedures Name Priority Associated Diagnoses Date/Ti me COLONOSCOPY FLEXIBLE PROXIMA L DIAGNOSTIC Elevated carcinoembryonic antigen (CEA) Health Maintenance Due Date Last Done Comments DISCUSS TOBACCO CESSATION (REFER TO SMARTSET #1195) 1975 Hepatitis B (1 of 3 - [...] this encounter Medical Devices Implanted Type Area Mill Hand Device Identifier Shelf Expiration Date Model / Serial / Lot Clip Quick 2.8mm 230cm - [id number] Implanted:Qty: 1 on 03/01/2023 by Rasheed Niño MD at ENDOSCOPY [facility] [employer] [id number] 05/18/2025 HX-202UR.A / / 27K documented as of this encounter Care Teams Laundry Machine Operator Relationship Specialty Start Date End Date Lucía Horner PA-C [address] [place] [address] PCP - General Physician Internet Application Developer 07/19/22 documented as of this encounter
--- OUTSIDE RECORDS SUMMARY | 2024-02-25 19:58 | External Medical Summary | Summary of Care ---
Author Name Unknown Organization [facility] Address [address] [place] [address] Phone [phone] Care Team Providers Care Audit Specialist Name Role Phone Lucía Horner PA-C Primary Care Provider [phone] Encounter Details Date Type Department Care Team ([facility] st Contact Info) Description 10/18/2023 Telephone Neurology, [place] [address] [place] [address] Specified, Martín No Resource [address] [place] [address] Allergies Active Allergy Reactions Criticality Noted Date Comments Metformin 01/11/2021 Raised creat documented as of this encounter (statuses as of 10/18/2023) Medications Medication Sig Dispensed Refills Start Date [...] g 1 02/22/2018 Active Continuous Blood Gluc Fire Control Officer (FREESTYLE TU READER) DEVIIndications:Type 2 diabetes mellitus with hemoglobin A1c goal of less than 7.0% ([facility]) Use as directed to check blood sugar 1 Device 1 06/13/2018 Active Additional Information Patient not taking.Reported on 09/18/2023 Albuterol Sulfate (ALBUTEROL HFA) 108 (90 BASE) MCG/ACT inhalerIndications: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 18 g 5 01/13/2020 Active Ipratropium [place] 0.02 % Inhalation Solution (Atrovent)Indication s:Tobacco use [...] MCG/ACT Nasal Suspension (Flonase)Indications :Dizziness Administer 1 [place] into nostril in the morning. 15.8 mL [...] Every Month. 1 mL 5 09/27/2023 Active Finale Desserts Ultra In Vitro Strip (Glucose Blood) USE TO TEST ONCE A DAY OR NEEDED 100 Strip 3 10/05/2023 Active documented as of this encounter (statuses as of 10/18/2023) Active Problems Problem Noted Date Diagnosed Date [...] as of this encounter (statuses as of 10/18/2023) Resolved Problems Problem Noted Date Diagnosed Date [...] as of this encounter (statuses as of 10/18/2023) Immunizations Name Administration Dates Next Due COVID-19 [...] encounter Miscellaneous Notes * Telephone Encounter - Chantelle Hurst OSA - 10/18/2023 12:17 PM EST Patient verified identity by spelling of last name and date. Patient calling about Lumbar Puncture. Mentioned in office note but order not placed. documented in this encounter Plan of Treatment Upcoming Encounters Date Type Department Care Team (Late st Contact Info) Description 11/02/2023 10:00 AM EST Telemedicine [facility] [address] [place] [facility] [phone] Lucía Horner PA-C [address] [facility] [address] 03/04/2024 9:20 AM EDT Office Visit [facility]rology [facility] [place] [address] [facility] [address] Karina Hoffman PA-C [address] [facility] [place], [place] [address] Scheduled Procedures Name Priority Associated Diagnoses Date/Ti me COLONOSCOPY FLEXIBLE PROXIMA L DIAGNOSTIC Elevated carcinoembryonic antigen (CEA) Health Maintenance Due Date Last Done Comments DISCUSS TOBACCO CESSATION (REFER TO SMARTSET #8956) 1975 Hepatitis B (1 of 3 - [...] this encounter Medical Devices Implanted Type Area Public Policy Analyst Device Identifier Shelf Expiration Date Model / Serial / Lot Clip Quick 2.8mm 230cm - [id number] Implanted:Qty: 1 on 03/01/2023 by Rasheed Niño MD at [place] [facility] [employer] [id number] 05/18/2025 HX-202UR.A / / [id number] documented as of this encounter Care Teams Audit Specialist Relationship Specialty Start Date End Date Lucía Horner PA-C [address] [facility] [place] [address] PCP - General Physician Steel Sampler 07/19/22 documented as of this encounter
--- OUTSIDE RECORDS SUMMARY | 2024-02-25 19:58 | External Medical Summary | Summary of Care ---
Author Name Unknown Organization [facility] Address [address] [place] [address] Phone [phone] Care Team Providers Care Quality Tech Name Role Phone Lucía Horner PA-C Primary Care Provider [phone] Reason for Visit * Reason Onset Date Comments Order Request 11/05/2023 Encounter Details Date Type Department Care Team ([facility] st Contact Info) Description 11/05/2023 Telephone [facility] [address] [place] [address] Lucía Horner PA-C [address] [place] [address] Order Request Allergies Active Allergy [...] day. 18 g 5 01/13/2020 Active Ipratropium [place] 0.02 % Inhalation Solution (Atrovent)Indication s:Tobacco use [...] MCG/ACT Nasal Suspension (Flonase)Indications :Dizziness Administer 1 [place] into nostril in the morning. 15.8 mL [...] than 7.0% (HCC),Morbid obesity, BMI not known ([facility]) Inject 2.5 mg under the [...] encounter Miscellaneous Notes * Telephone Encounter - Melissa Roque OSA - 11/05/2023 2:33 PM EST Sent message to Neurology (added to patient message 10/30/2023) stating patient wants to schedule and this was to be ordered by Neurology. 11/05/2023 * Telephone Encounter - Lucía Horner PA-C - 11/05/2023 2:15 PM EST See neuro appt from 10/10/2023 - Dr Linton was to order this Lucía Horner PA-C * Telephone Encounter - Suellen Moy OSA - 11/05/2023 11:42 AM EST Patient states that she was to contact lucía to have an order placed for lumbar puncture so she can get this scheduled. Please assist. documented in this encounter Plan of Treatment Upcoming Encounters Date Type Department Care Team (Late st Contact Info) Description 12/13/2023 2:00 PM EST Office Visit [facility]ol[facility]ology [facility] [address] [place] [address] Kory Lopez MD [address] [place] [address] 02/01/2024 2:40 PM EDT Office Visit [facility] [address] [place] [phone] Lucía Horner PA-C [address] [place] [address] 03/04/2024 9:20 AM EDT Office Visit Neurology Jaime Hickman [place] [address] [facility] [place] [address] Karina Hoffman PA-C [address] [facility] [place] [phone] Scheduled Procedures Name Priority Associated Diagnoses Date/Ti me COLONOSCOPY FLEXIBLE PROXIMA L DIAGNOSTIC Elevated carcinoembryonic antigen (CEA) Health Maintenance Due Date Last Done Comments DISCUSS TOBACCO CESSATION (REFER TO SMARTSET #5310) 1975 Hepatitis B (1 of 3 - [...] this encounter Medical Devices Implanted Type Area Transmission Repairer Device Identifier Shelf Expiration Date Model / Serial / Lot Clip Quick 2.8mm 230cm - [id number] Implanted:Qty: 1 on 03/01/2023 by Rasheed Niño MD at ENDOSCOPY [facility] [employer] [id number] 05/18/2025 HX-[email or web address].A / / [id number] documented as of this encounter Care Teams Quality Tech Relationship Specialty Start Date End Date Lucía Horner PA-C [address] [facility] [place] [address] PCP - General Physician Discharge Rn 07/19/22 documented as of this encounter
--- OUTSIDE RECORDS SUMMARY | 2024-02-25 19:58 | External Medical Summary | Summary of Care ---
Author Name Unknown Organization [facility] Address [address] [place] [address] Phone [phone] Care Team Providers Care Robotics Technician Name Role Phone Lucía Horner PA-C Primary Care Provider [phone] [phone] Reason for Referral * Precert (Within 24 hrs (call dept; emergent)) - Pending Review Specialty Diagnoses / Procedures Referred By Grupo mohan Referred To Contact Radiology Diagnoses NDPH (new daily persistent headache) Chronic nasal discharge Procedures MRI BRAIN W WO CONTRAST Lucía Horner PA-C [address] [place] [address] Referral ID Status Reason Start Date Expiration Date V isits Requested Visits Authorized [id number] Pending Review 11/02/[phone] Encounter Details Date Type Department Care Team (Latest Contact Info) Description 11/02/2023 10:00 AM EST Telemedicine [facility] [address] [place] [address] Lucía Horner PA-C [address], [place] [id number] Screening mammogram for breast cancer*; Acquired hypothyroidism; Type 2 diabetes mellitus with hemoglobin A1c goal of less than 7.0% (HCC); HTN, goal below 140/90; NDPH (new daily persistent headache); Thinning hair; Pica; Chronic nasal discharge; Insomnia, unspecified type; Current mild episode of major depressive disorder, unspecified whether recurrent (HCC); Dyslipidemia, goal LDL below 70; Low vitamin D level; Elevated carcinoembryonic antigen (CEA); Elevated sed rate Allergies Active Allergy Reactions Criticality Noted Date Comments Metformin 01/11/2021 Raised creat documented as of this encounter (statuses as of 11/02/2023) Medications Medication Sig Dispensed Refills Start Date End Date Status NEBULIZER COMPRESSOR MISCIndications:Br onchitis Use as directed 1 Each 1 5 Active Blood Glucose Monitoring Suppl (ONE Contorion ULTRA SYSTEM KIT) W/DEVICE KITIndications:DM type 2, [...] day. 18 g 5 0 Active Ipratropium [place] 0.02 % Inhalation Solution (Atrovent)Indicati ons:Tobacco use [...] MCG/ACT Nasal Suspension (Flonase)Indicatio ns:Dizziness Administer 1 [place] into nostril in the morning. 15.8 mL [...] of mri 3 Tablet 0 3 Active Continuous Blood Gluc Coil Tester (PubCoderSTYLE TU READER) DEVIIndications:Ty pe 2 diabetes mellitus with hemoglobin A1c goal of less than 7.0% (HCC) Use as directed to check blood sugar 1 Device 1 8 023 Discontinued buPROPion HCl ER (XL) 150 MG Oral Tablet Extended Release 24 Hour (Wellbutrin XL)Indications:Tob acco use disorder Take by mouth 1 Tablet in the morning. 90 Tablet 0 2 023 Discontinued Nicotine 21 MG/24HR Transdermal [...] as of this encounter (statuses as of 11/02/2023) Active Problems Problem Noted Date Diagnosed Date [...] as of this encounter (statuses as of 11/02/2023) Resolved Problems Problem Noted Date Diagnosed Date [...] as of this encounter (statuses as of 11/02/2023) Immunizations Name Administration Dates Next Due COVID-19 mRNA, LNP-s, No Pre serve, 2-Dose Series (Wunderdata) 09/13/2021,12/30/2020,12/09/2020 PPD 03/22/2016 Pneumococcal Polysaccharide PPV23 (Pneumovax) [...] Progress Notes * Lucía Horner PA-C - 11/02/2023 10:03 AM EST Images from the original note were not included. History of Present Illness Ameena Hernández is a 48 year old female that presents for No chief complaint on file. Due to COVID 19 pandemic, this visit was done via video. Patient is established with the practice. Call start time: 1003 am Patient location: HOME. I was in a hospital or clinic location. After connecting through televideo,patient was verified with two unique identifiers. Patient (or authorized legal small business sales representative) was then informed that this was a Telemedicine visit and being conducted confidentially over secure lines. Methods to assure confidentiality were taken. Patient acknowledged consent and understanding of pr ivacy and security of the Telemedicine visit. The patient agreed to participate. Has noted some hair thinning. Due for lab work. She is no further along than she was She is off work again She has a rare condition (IIH) that none of hte meds have helped with. The diamox has not helped her. She is current with neurology. Slight improvement with the Mounjaro and Emgality She is non functional Spends most of her days in bed Worse when upright - gets dizzy and leaks out of her nose. They questioned csf leak. They started to work that up. She has been trying to schedule the LP since the middle of August. She is terrified about doing the LP. Not on anything for headaches other than emgality and topamax Depressed about all of this as well. No si or hi. Just that this is going on so long - a year now, and she is in pain. Insomnia as well. Struggles to fall asleep., Only happens when she is exhausted. Then sleeps 2 hours and wakes up When she fully sleeps, it is because she has not slept for a day and a half. Elavil did not help. Not on bp meds any more. Physical Exam There were no vitals filed [...] 1.626 m (5' 4") Assessment and Plan Screening mammogram for breast cancer (Primary) - MAMMOGRAM SCREENING SNEHA BILATERAL; Future; Expected date: 11/02/2023 Acquired hypothyroidism - TSH; Future; Expected date: 11/02/2023 - T4, FREE; Future; Expected date: 11/02/2023 Type 2 diabetes mellitus with hemoglobin A1c goal of less than 7.0% ([facility]) - COMPREHENSIVE METABOLIC PANEL; Future; Expected date: 11/02/2023 - HEMOGLOBIN A1C; Future; Expected date: 11/02/2023 - LIPID PANEL WITH DIRECT LDL IF TG IS HIGH; Future; Expected date: 11/02/2023 HTN, goal below 140/90 - COMPREHENSIVE METABOLIC PANEL; Future; Expected date: 11/02/2023 - ALBUMIN / CREATININE RATIO, URINE; Future; Expected date: 11/02/2023 - LIPID PANEL WITH DIRECT LDL IF TG IS HIGH; Future; Expected date: 11/02/2023 NDPH (new daily persistent headache) - COMPREHENSIVE METABOLIC PANEL; Future; Expected date: 11/02/2023 - MRI BRAIN W WO CONTRAST; Future; Expected date: 11/02/2023 - GADOLINIUM-BASED MR CONTRAST INJ, NOS; Future; Expected date: 11/02/2023 - traZODone HCl 50 MG Oral Tablet (Desyrel); One half to one whole tab by mouth at bedtime Thinning hair - FOLIC ACID; Future; Expected date: 11/02/2023 Pica - CBC WITH WBC DIFFERENTIAL; Future; Expected date: 11/02/2023 - IRON SCREEN, INCLUDING TIBC; Future; Expected date: 11/02/2023 - FERRITIN; Future; Expected date: 11/02/2023 Chronic nasal discharge - MRI BRAIN W WO CONTRAST; Future; Expected date: 11/02/2023 - GADOLINIUM-BASED MR CONTRAST INJ, NOS; Future; Expected date: 11/02/2023 Insomnia, unspecified type - traZODone HCl 50 MG Oral Tablet (Desyrel); One half to one whole tab by mouth at bedtime Current mild episode of major depressive disorder, unspecified whether recurrent (HCC) - traZODone HCl 50 MG Oral Tablet (Desyrel); One half to one whole tab by mouth at bedtime Dyslipidemia, goal LDL below 70 - LIPID PANEL WITH DIRECT LDL IF TG IS HIGH; Future; Expected date: 11/02/2023 Low vitamin D level - 25-HYDROXY VITAMIN D; Future; Expected date: 11/02/2023 Elevated carcinoembryonic antigen (CEA) - CEA; Future; Expected date: 11/02/2023 Elevated sed rate - ERYTHROCYTE SEDIMENTATION RATE (ESR); Future; Expected date: 11/02/2023 - CRP (INFLAMMATORY MARKER); Future; Expected date: 11/02/2023 Check-out note: Needs spinal tap schedule d- has been trying to set up since August. Wants done under fluoro due to body habitus Mri brain with gandolinium contrast - rule out csf leak Labs due Mri to look for csf leak - she has had chronic thin clear rhinitis and daily headache She has seen neurology and they cannot get IIH controlled with meds that usually work Need to rule out secondary cause of headaches They have been going on now for close to a year Wrap-Up Rev notes from neurology Time: I spent a total of 40-54 minutes (exact time 45 mins) on the date of service in preparation, delivery, and documentation of the care provided to Ameena Hernández excluding any time spent in the performance of separately billed services. Lucía Horner PA-C 11/02/2023 10:33 AM documented in this encounter Plan of Treatment Upcoming Encounters Date Type Department Care Team (Late st Contact Info) Description 12/13/2023 2:00 PM EST Office Visit Otolaryngology Allergy [address] [address] Kory Lopez MD [address] [place] [address] 03/04/2024 9:20 AM EDT Office Visit Neurology [facility] [address] [facility] [place] [address] Karina Hoffman PA-C [address] [place] [address] Scheduled Orders Name Type Priority Associated Diagnoses Orde r Schedule TSH Lab Routine Acquired hypothyroidism Expected: 11/02/2023 (Approximate), Expires: 11/01/2024 T4, FREE Lab Routine Acquired hypothyroidism Expected: 11/02/2023 (Approximate), Expires: 11/01/2024 COMPREHENSIVE METABOLIC PANEL Lab Routine Type 2 diabetes mellitus with hemoglobin A1c goal of less than 7.0% (HCC) HTN, goal below 140/90 NDPH (new daily persistent headache) Expected: 11/02/2023 (Approximate), Expires: 11/01/2024 MAMMOGRAM SCREENING SNEHA BILATERAL Medical Imaging Routine Screening mammogram for breast cancer Expected: 11/02/2023, Expires: 12/03/2024 ALBUMIN / CREATININE RATIO, URINE Lab Routine HTN, goal below 140/90 Expected: 11/02/2023 (Approximate), Expires: 11/01/2024 FOLIC ACID Lab Routine Thinning hair Expected: 11/02/2023 (Approximate), Expires: 11/01/2024 HEMOGLOBIN A1C Lab Routine Type 2 diabetes mellitus with hemoglobin A1c goal of less than 7.0% (HCC) Expected: 11/02/2023 (Approximate), Expires: 11/01/2024 CBC WITH WBC DIFFERENTIAL Lab Routine Pica Expected: 11/02/2023 (Approximate), Expires: 11/02/2024 MRI BRAIN W WO CONTRAST Medical Imaging STAT NDPH (new daily persistent headache) Chronic nasal discharge Expected: 11/02/2023, Expires: 12/03/2024 IRON SCREEN, INCLUDING TIBC Lab Routine Pica Expected: 11/02/2023 (Approximate), Expires: 11/01/2024 FERRITIN Lab Routine Pica Expected: 11/02/2023 (Approximate), Expires: 11/01/2024 LIPID PANEL WITH DIRECT LDL IF TG IS HIGH Lab Routine Type 2 diabetes mellitus with hemoglobin A1c goal of less than 7.0% (HCC) HTN, goal below 140/90 Dyslipidemia, goal LDL below 70 Expected: 11/02/2023, Expires: 11/02/2024 25-HYDROXY VITAMIN D Lab Routine Low vitamin D level Expected: 11/02/2023 (Approximate), Expires: 11/01/2024 CEA Lab Routine Elevated carcinoembryonic antigen (CEA) Expected: 11/02/2023 (Approximate), Expires: 11/01/2024 ERYTHROCYTE SEDIMENTATION RATE (ESR) Lab Routine Elevated sed rate Expected: 11/02/2023 (Approximate), Expires: 11/01/2024 CRP (INFLAMMATORY MARKER) Lab Routine Elevated sed rate Expected: 11/02/2023 (Approximate), Expires: 11/01/2024 Scheduled Procedures Name Priority Associated Diagnoses Date/Ti me COLONOSCOPY FLEXIBLE PROXIMA L DIAGNOSTIC Elevated carcinoembryonic antigen (CEA) Health Maintenance Due Date Last Done Comments DISCUSS TOBACCO CESSATION (REFER TO SMARTSET #3002) 1975 Hepatitis B (1 of 3 - [...] this encounter Medical Devices Implanted Type Area Linux System Admin Device Identifier Shelf Expiration Date Model / Serial / Lot Clip Quick 2.8mm 230cm - [id number] Implanted:Qty: 1 on 03/01/2023 by Rasheed Niño MD at [facility] [employer] [id number] 05/18/2025 [id number]-202UR.A / / [id number] documented as of this encounter Visit Diagnoses Diagnosis Screening mammogram for breast cancer- Primary Acquired hypothyroidism Unspecified hypothyroidism Type 2 diabetes mellitus with hemoglobin A1c goal of less than 7.0% (HCC) HTN, goal below 140/90 Unspecified essential hypertension NDPH (new daily persistent headache) New daily persistent headache Thinning hair Alopecia, unspecified Pica Chronic nasal discharge Insomnia, unspecified type Current mild episode of major depressive disorder, unspecified whether recurrent (HCC) Dyslipidemia, goal LDL below 70 Other and unspecified hyperlipidemia Low vitamin D level Elevated carcinoembryonic antigen (CEA) Elevated carcinoembryonic antigen [CEA] Elevated sed rate Elevated sedimentation rate documented in this encounter Care Teams Robotics Technician Relationship Specialty Start Date End Date Lucía Horner PA-C [address] [facility] [place] [address] PCP - General Physician Processor Grain 07/19/22 documented as of this encounter
--- OUTSIDE RECORDS SUMMARY | 2024-02-25 19:58 | External Medical Summary | Summary of Care ---
Author Name Unknown Organization [facility] Address [address] [place] [address] Phone [phone] Care Team Providers Care Diesel Technician Mechanic Name Role Phone Lucía Horner PA-C Primary Care Provider [phone] Reason for Visit * Reason Comments Dosage Adjustment Via Phone (anticoag Cl inic) Encounter Details Date Type Department Care Team ([facility] Contact Info) Description 09/27/2023 10:30 AM EST Telemedicine Neurology, [place] [address] [place] [address] [place], Pharmacist Neurology [address] [place] [address] Chronic migraine without aura with status migrainosus, not intractable* Allergies Active Allergy Reactions Criticality Noted Date Comments Metformin 01/11/2021 Raised creat documented as of this encounter (statuses as of 09/27/2023) Medications Medication Sig Dispensed Refills Start Date [...] g 1 02/22/2018 Active Continuous Blood Gluc Salesforce Administrator (FREESTYLE TU READER) DEVIIndications:Typ e 2 diabetes mellitus with hemoglobin A1c goal of less than 7.0% ([facility]) Use as directed to check blood sugar 1 Device 1 06/13/2018 Active Additional Information Patient not taking.Reported on 09/18/2023 Albuterol Sulfate (ALBUTEROL HFA) 108 (90 BASE) MCG/ACT inhalerIndications: Pneumonia of right lower lobe due to infectious organism Inhale 2 Puffs by mouth 4 times a day. 18 g 5 01/13/2020 Active Ipratropium [place] 0.02 % Inhalation Solution (Atrovent)Indicatio ns:Tobacco use disorder Inhale via nebulizer 2.5 mL in the morning AND 2.5 mL at noon AND 2.5 mL in the evening AND 2.5 mL before bedtime. 75 mL 12 04/20/2022 Active buPROPion HCl ER (XL) 150 MG Oral Tablet Extended Release 24 Hour (Wellbutrin XL)Indications:Toba public relations account executive use disorder Take by mouth 1 Tablet in the morning. 90 Tablet 0 07/04/2022 Active Additional Information Patient not taking.Reported on 09/18/2023 OneTouch UltraSoft Lancets USE TO TEST ONCE DAILY OR DIRECTED 100 Each 3 09/04/2022 Active OneTouch Ultra In Vitro Strip (Glucose Blood) using once a day or as needed 100 Strip 3 09/04/2022 Active Nicotine 21 MG/24HR Transdermal [...] MCG/ACT Nasal Suspension (Flonase)Indication s:Dizziness Administer 1 [place] into nostril in the morning. 15.8 mL [...] Additional Information Patient not taking.Reported on 09/18/2023 [place]rake 2.5 MG/0.5ML Subcutaneous Solution Pen-injector (Tirzepatide)Indica tions:Type [...] Every Month. 1 mL 5 09/27/2023 Active Emgality 120 MG/ML Subcutaneous Solution Auto-injector (Galcanezumab-gnlm) Inject 1 mL under the skin every month. 1 mL 3 08/06/2023 3 Discontinu ed(Refill) documented as of this encounter (statuses as of 09/27/2023) Active Problems Problem Noted Date Diagnosed Date [...] as of this encounter (statuses as of 09/27/2023) Resolved Problems Problem Noted Date Diagnosed Date [...] as of this encounter (statuses as of 09/27/2023) Immunizations Name Administration Dates Next Due COVID-19 [...] Office Visit/Appt: 03/04/2024 Mehnaz Pérez, PHARM Student [facility] Clinical Pharmacist Neurology Department 09/27/2023,11:34 AM documented in this encounter Plan of Treatment Upcoming Encounters Date Type Department Care Team (Late st Contact Info) Description 11/02/2023 10:00 AM EST Telemedicine [facility] [place] [address] [facility], [place] [phone] Lucía Horner PA-C [address] [facility] [place] [address] 03/04/2024 9:20 AM EDT Office Visit Neurology Jaime Hickman [place] [address] [facility] [place] [address] Karina Hoffman PA-C [address] [facility] [place] [address] Scheduled Procedures Name Priority Associated Diagnoses Date/Ti me COLONOSCOPY FLEXIBLE PROXIMA L DIAGNOSTIC Elevated carcinoembryonic antigen (CEA) Health Maintenance Due Date Last Done Comments DISCUSS TOBACCO CESSATION (REFER TO SMARTSET #4317) 1975 Hepatitis B (1 of 3 - [...] this encounter Medical Devices Implanted Type Area Leather Fitter Device Identifier Shelf Expiration Date Model / Serial / Lot Clip Quick 2.8mm 230cm - [id number] Implanted:Qty: 1 on 03/01/2023 by Rasheed Niño [place] [facility] [employer] [id number] 05/18/2025 [id number]-202UR.A / / [id number] documented as of this encounter Visit Diagnoses Diagnosis Chronic migraine without aura with status migrainosus, not intractable- Primary Chronic migraine without aura, without mention of intractable migraine with status migrainosus documented in this encounter Care Teams Diesel Technician Mechanic Relationship Specialty Start Date End Date Lucía Horner PA-C [address] [facility] [place] [address] PCP - General Physician Shovel Mechanic 07/19/22 documented as of this encounter
--- OUTSIDE RECORDS SUMMARY | 2024-02-25 19:58 | External Medical Summary | Summary of Care ---
Author Name Unknown Organization [facility] Address [address] [place] [address] Phone [phone] Care Team Providers Care Visitor Service Assistant Name Role Phone Lucía Horner PA-C Primary Care Provider [phone] Reason for Visit * Reason Comments Dosage Adjustment Via Phone (anticoag Cl inic) Encounter Details Date Type Department Care Team ([facility] Contact Info) Description 09/25/2023 7:30 AM EST Pharmacy Neurology, [place] [address] [place] [address] [place], Pharmacist Neurology [address] [place] [phone] Encounter for long-term (current) use of medications* Allergies Active Allergy Reactions Criticality Noted Date Comments Metformin 01/11/2021 Raised creat documented as of this encounter (statuses as of 09/25/2023) Medications Medication Sig Dispensed Refills Start Date [...] g 1 02/22/2018 Active Continuous Blood Gluc [place].S. Representative (FREESTYLE TU READER) DEVIIndications:Type 2 diabetes mellitus with hemoglobin A1c goal of less than 7.0% ([facility]) Use as directed to check blood sugar 1 Device 1 06/13/2018 Active Additional Information Patient not taking.Reported on 09/18/2023 Albuterol Sulfate (ALBUTEROL HFA) 108 (90 BASE) MCG/ACT inhalerIndications: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 18 g 5 01/13/2020 Active Ipratropium [place] 0.02 % Inhalation Solution (Atrovent)Indication s:Tobacco use [...] MCG/ACT Nasal Suspension (Flonase)Indications :Dizziness Administer 1 [place] into nostril in the morning. 15.8 mL [...] week. 2 mL 11 08/03/2023 4 Active Emgality 120 MG/ML Subcutaneous Solution Auto-injector (Galcanezumab-gnlm) Inject 1 mL under the skin every month. 1 mL 3 08/06/2023 Active Amitriptyline HCl 10 MG Oral Tablet [...] the morning. 30 Capsule 1 09/18/2023 Active documented as of this encounter (statuses as of 09/25/2023) Active Problems Problem Noted Date Diagnosed Date [...] as of this encounter (statuses as of 09/25/2023) Resolved Problems Problem Noted Date Diagnosed Date [...] as of this encounter (statuses as of 09/25/2023) Immunizations Name Administration Dates Next Due COVID-19 [...] of this encounter Progress Notes * Vianey Savage [facility] - 09/25/2023 4:10 PM EST Attempt 1 documented in this encounter Plan of Treatment Upcoming Encounters Date Type Department Care Team (Late st Contact Info) Description 09/27/2023 7:30 AM EST Pharmacy Neurology, [place] [address] [facility] [place] [phone] [place], Pharmacist Neurology [address] [facility] [place] [address] 11/02/2023 10:00 AM EST Telemedicine [place] [address] [place] [facility] [place] [address] Lucía [facility]ner [facility]C [address] [facility] [address] 03/04/2024 9:20 AM EDT Office Visit Neurology Jaime Hickman [place] [address] [facility] [place] [address] Karina Hoffman PA-C [address] [facility] [place] [address] Scheduled Procedures Name Priority Associated Diagnoses Date/Ti me COLONOSCOPY FLEXIBLE PROXIMA L DIAGNOSTIC Elevated carcinoembryonic antigen (CEA) Health Maintenance Due Date Last Done Comments DISCUSS TOBACCO CESSATION (REFER TO SMARTSET #4294) 1975 Hepatitis B (1 of 3 - [...] or Tdap) 02/20/2024 02/19/2014 GFR 07/09/2024 07/09/2023, /12/2022, 12/15/2022, Additional history exists TSH 07/09/2024 07/09/2023, [...] this encounter Medical Devices Implanted Type Area Caddie Supervisor Device Identifier Shelf Expiration Date Model / Serial / Lot Clip Quick 2.8mm 230cm - [id number] Implanted:Qty: 1 on 03/01/2023 by Rasheed Niño MD at [place] [facility] [place] [employer] [id number] 05/18/2025 [id number]-[id number].A / / [id number] documented as of this encounter Visit Diagnoses Diagnosis Encounter for long-term (current) use of medications- Primary Encounter for long-term (current) use of other medications documented in this encounter Care Teams Visitor Service Assistant Relationship Specialty Start Date End Date Lucía Horner PA-C [address] [facility] [place] [address] PCP - General Physician Assembler Musical Instruments 07/19/22 documented as of this encounter
--- OUTSIDE RECORDS SUMMARY | 2024-02-25 19:59 | External Medical Summary | Summary of Care ---
Author Name Unknown Organization [facility] Address [address] [place] [address] Phone [phone] Care Team Providers Care Staff Electrical Engineer Name Role Phone Lucía Horner PA-C Primary Care Provider [phone] Reason for Visit * Reason Onset Date Comments Medication Pre-auth 08/31/2023 Mounjaro 2.5 MG/0.5ML Subcutaneous Solution Pen-injector (Tirzepatide) Encounter Details Date Type Department Care Team Description 08/31/2023 Telephone [facility] [address] [place] [address] Lucía Horner PA-C [address] [place] [address] Medication Pre-auth (Mounjaro 2.5 MG/0.5ML... Allergies Active Allergy Reactions Severity Noted Date Comments Metformin 01/11/2021 Raised creat documented as of this encounter (statuses as of 09/05/2023) Medications Medication Sig Dispensed Refills Start Date [...] g 1 8 Active Continuous Blood Gluc Nnp ([employer] TU READER) DEVIIndications:Typ e 2 diabetes mellitus with hemoglobin A1c goal of less than 7.0% ([facility]) Use as directed to check blood sugar 1 Device 1 8 Active Albuterol Sulfate (ALBUTEROL HFA) 108 (90 BASE) MCG/ACT inhalerIndications: Pneumonia of right lower lobe due to infectious organism Inhale 2 Puffs by mouth 4 times a day. 18 g 5 0 Active Ipratropium [place] 0.02 % Inhalation Solution (Atrovent)Indicatio ns:Tobacco use disorder Inhale via nebulizer 2.5 mL in the morning AND 2.5 mL at noon AND 2.5 mL in the evening AND 2.5 mL before bedtime. 75 mL 12 2 Active buPROPion HCl ER (XL) 150 MG Oral Tablet Extended Release 24 Hour (Wellbutrin XL)Indications:Toba strategic account executive use disorder Take by mouth 1 Tablet in the morning. 90 Tablet 0 2 Active OneTouch UltraSoft Lancets USE TO TEST ONCE DAILY OR DIRECTED 100 Each 3 2 Active OneTouch Ultra In Vitro Strip (Glucose Blood) using once a day or as needed 100 Strip 3 2 Active Nicotine 21 MG/24HR Transdermal [...] MCG/ACT Nasal Suspension (Flonase)Indication s:Dizziness Administer 1 Mora into nostril in the morning. 15.8 mL 3 3 Active LORazepam 0.5 MG Oral Tablet (Ativan)Indications :Claustrophobia One tab 1 hour before mri, repeat 15 min prior and at start for total of 3 tabs 3 Tablet 0 3 Active Additional Information Patient not taking.Reported on 03/01/2023 Galcanezumab-gnlm 120 MG/ML Subcutaneous Solution Auto-injector (Emgality) Inject 2 mL (2 pens) under the skin for first month, then 1 mL (1 pen) every month thereafter. 2 mL 0 3 Active Losartan Potassium 100 MG Oral Tablet (Cozaar)Indications :HTN, goal below 140/90 TAKE 1 TABLET BY MOUTH ONCE DAILY 90 Tablet 1 3 Active Magnesium Oxide 400 [...] EVERY MORNING 100 Tablet 1 3 Active Topiramate 25 MG Oral Tablet (topAMAX)Indication s:NDPH (new daily persistent headache) TAKE 1 TABLET BY MOUTH IN THE MORNING AND 2 TABLETS AT BEDTIME FOR A WEEK. THEN INCREASE TO 2 TABLETS BY MOUTH TWICE A DAY THEREAFTER. 360 Tablet 0 3 Active Mounjaro 2.5 MG/0.5ML Subcutaneous Solution Pen-injector (Tirzepatide)Indica tions:Type 2 diabetes mellitus with hemoglobin A1c goal of less than 7.0% (HCC),Morbid obesity, BMI not known (HCC) Inject 2.5 mg under the skin once a week. 2 mL 3 08/02/20 24 Active Emgality 120 MG/ML Subcutaneous Solution Auto-injector (Galcanezumab-gnlm) Inject 1 mL under the skin every month. 1 mL 3 3 Active Amitriptyline HCl 10 MG Oral Tablet (Elavil)Indications :Tension-type headache, not intractable, unspecified chronicity pattern Take 2 Tablets by mouth at bedtime. 60 Tablet 5 3 Active Pantoprazole Sodium 40 MG Oral Tablet Delayed Release (Protonix)Indicatio ns:GERD (gastroesophageal reflux disease),Encounter for long-term (current) use of medications TAKE 1 TABLET BY MOUTH ONCE DAILY 90 Tablet 1 3 Active acetaZOLAMIDE 250 MG Oral Tablet (Diamox) TAKE 2 TABLETS BY MOUTH THREE TIMES DAILY 180 Tablet 0 3 Active D3 Super Strength 50 MCG (2000 UT) Oral Capsule (Cholecalciferol)In dications:Low vitamin D level TAKE 1 CAPSULE BY MOUTH EVERY MORNING 90 Capsule 1 3 Active Atorvastatin Calcium 20 MG Oral Tablet (Lipitor)Indication s:HTN, goal below 140/90,Dyslipidemia , goal LDL below 70 TAKE 1 TABLET BY MOUTH AT BEDTIME 90 Tablet 1 3 Active acetaZOLAMIDE ER 500 MG Oral Capsule Extended Release 12 Hour (Diamox Sequels) 500 mg in a 500 mg pm x 7 days then 1000 mg am 500 mg pm 90 Capsule 2 3 Active hydroCHLOROthiazide 12.5 MG Oral Tablet (Hydrodiuril) TAKE 1 TABLET BY MOUTH ONCE DAILY 90 Tablet 1 3 09/03/20 23 Discontinued Januvia 100 MG Oral Tablet (SITagliptin)Indica tions:Type 2 diabetes mellitus with hemoglobin A1c goal of less than 7.0% ([facility]) TAKE 1 TABLET BY MOUTH EVERY MORNING 30 Tablet 5 3 08/31/20 23 Discontinued documented as of this encounter (statuses as of 09/05/2023) Active Problems Problem Noted Date Elevated carcinoembryonic antigen (CEA) 02/14/[address] 02/07/2023 Restless legs 09/18/2022 Morbid obesity, BMI not known 06/13/2018 Dyslipidemia, goal LDL below 70 12/04/19 18 Encounter for long-term (current) use of medications 12/04/2017 Type 2 diabetes mellitus with hemoglobin A1c goal of less than 7.0% 04/01/2015 Overview: ICD-10 update of inactive term GERD (gastroesophageal reflux disease) 0 03/29/2015 HTN, goal below 140/90 03/29/2015 Tobacco use disorder 03/29/2015 Hypothyroidism 10/01/2012 Migraine 08/20/2012 documented as of this encounter (statuses as of 09/05/2023) Resolved Problems Problem Noted Date Resolved Date Abdominal pain 03/29/2015 08/24/2017 Abnormal LFTs 03/29/2015 08/24/2017 Cough 01/11/2010 03/29/2015 Overweight (BMI 25.0-29.9) 08/13/200903/29 Esophageal reflux 08/13/2009 03/29/2015 Chest pain 08/13/2009 03/29/2015 Tobacco use disorder 08/13/2009 03/29/2015 Elevated blood pressure, situational 08/13/2009 03/29/2015 HYPERGLYCEMIA 08/13/2009 03/29/2015 Prediabetes 06/22/2016 Dyslipidemia, goal LDL below 130 12/04/2017 documented as of this encounter (statuses as of 09/05/2023) Immunizations Name Administration Dates Next Due COVID-19 [...] drink = 0.6 oz pur e alcohol) Sex Assigned at Date Recorded Female 01/13/2020 2:[address] Job Start Date Occupation Industry Not on file Not on file Not on file documented as of this encounter Miscellaneous Notes * Telephone Encounter - Elvin Wasserman CPhT - 09/05/2023 2:15 PM EDT Called [facility] and was advised PA approved 09/03/23 and is valid until 09/03/24 Called pharmacy and they received paid claim Pt made aware Thank you, Jose L Wasserman ([facility]) [facility] ([facility]) (formerly Telepharmacy) 09/05/2023, 2:15 PM * Telephone Encounter - Daisha Gates CPhT - 09/05/2023 2:14 PM EDT PA approved Thank you, Daisha Gates [facility] Optician Apprentice Service Greeter [facility] ([facility]) (Formerly Telepharmacy) 09/05/2023,2:16 PM * Telephone Encounter - Ameena Cordero patient accounting representative - 09/03/2023 4:08 PM EDT [facility] .. Submitted information in previous note via [employer] (EOC: [id number]).. Awaiting payer response. We will follow-up with insurance starting 09/05. Per [facility] request, if no decision is received from insurance by 09/06, we will route back to the [facility] after clarifying with the pharmacy that the claim is still not processing. Thanks, Ameena Cordero [facility] ([facility]) 09/03/2023,4:08 PM * Telephone Encounter - Nhi Mathis [facility] - 08/31/2023 1:48 PM EDT Pt aware to stop Januvia before starting Mounjaro. Advised we will contact her with results of PA. Thank you, Nhi Mathis, PharmD, ANGELI Clinical Pharmacist [facility] ([facility]) (formerly Telepharmacy) 08/31/23 1:48 PM [phone] * Telephone Encounter - Lucía Horner PA-C - 08/31/2023 1:24 PM EDT Done Lucía Horner PA-C 08/31/2023 1:24 PM * Telephone Encounter - Nhi Mathis [facility] - 08/31/2023 12:48 PM EDT PCP: I recommend discontinuation of Januvia due to lack of additive glycemic benefit when used withGLP-1 RA - therapy duplication. Please advise if agreeable and I will inform pt. Thank you, Nhi Mathis PharmD, ANGELI Clinical Pharmacist [facility] ([facility]) (formerly Telepharmacy) 08/31/23 12:53 PM [phone] * Telephone Encounter - Nhi Mathis [facility] - 08/31/2023 12:39 PM EDT Please submit PA. Include the following documentation: A1C 07/09/23 Telemed 08/03/23 Please copy and paste the following information into PA form: What other drugs is there medical record documentation of therapeutic failure on, intolerance to, or contraindication to for this condition? Trulicity- stomach issues Farxiga- failed Metformin- elevated creat Victoza Ozempic- nausea Nader as urgent: No Diagnosis/ICD-10 Code(s): E11.9; E66.01 If instantaneous decision is not received after submitting prior auth, please continue to follow upon this and route back to the [facility] pool if no decision is made by the insurance by 09/06, after clarifying with the pharmacy that the claim is still not processing. If PA is denied, please also route back to [facility] pool. Thank you, Nhi Mathis PharmD, ANGELI Clinical Pharmacist [facility] ([facility]) (formerly Telepharmacy) 08/31/23 12:39 PM [phone] * Telephone Encounter - CASSANDRA Hinds - 08/31/2023 12:25 PM EDT Images from the original note were not included. Mounjaro 2.5 MG/0.5ML Subcutaneous Solution Pen-injector (Tirzepatide) This is a new PA request. Upon review of this prior authorization request, I verified this request is appropriate. This is prescribed by a department for which [facility] is authorized to review prior authorizations This is not a duplicate encounter regarding the same prior authorization The patient is planning to use insurance The insurance information listed in previous note is correct and the plan that is requiring prior authorization The insurance does not cover either brand or generic forms of this script as written without prior authorization The insurance does not cover any NDCs of this script without prior authorization RX Estimate tool confirms this script needs prior authorization Of note, there is nothing currently pending in [facility] for this request. Please advise how to proceed. Thank you, Cristin Yang director of content and programming Customer Account Executive Service Greeter [facility] ([facility])(formerly Telepharmacy) 08/31/2023,12:25 PM * Telephone Encounter - CASSANDRA Black - 08/31/2023 10:16 AM EDT Pharmacy calling to inform doctor that the patient's insurance will not pay for this medication without a completed prior authorization. Did confirm this information with the pharmacy. Pt's current insurance information is as follows: Patient name: Ameena Hernández ID number: [id number] BIN number: [id number] PCN number: [id number] Group number: [id number] Subscriber name: Ameena Hernández Primary or Secondary Insurance:Primary Medication: Mounjaro 2.5 MG/0.5ML Subcutaneous Solution Pen-injector (Tirzepatide) Reason for Request: Needs a prior auth Pharmacy and phone number: [id number] [address] [phone] Rx plan and phone number: Sylvester Carrillo [phone] Is this a new medication for the patient? Yes What alternative medications does the pharmacy have in stock?: Thank you, Mavis Torres Optician Apprentice [employer] [facility] 08/31/2023, 10:16 AM documented in this encounter Plan of Treatment Upcoming Encounters Date Type Specialty Care Team Description 11/02/2023 Telemedicine Family Medicine Lucía Horner PA-C [address] [place] [address] 03/04/2024 Office Visit Neurology Karina Hoffman PA-C [address] [place] [address] Scheduled Procedures Name Priority Associated Diagnoses Date/Ti me COLONOSCOPY FLEXIBLE PROXIMA L DIAGNOSTIC Elevated carcinoembryonic antigen (CEA) Health Maintenance Due Date Last Done Comments DISCUSS TOBACCO CESSATION (REFER TO SMARTSET #2091) 1975 Hepatitis B (1 of 3 - [...] 07/09/2023, 03/1 , 12/15/2022, Additional history exists DIABETES-EYE EXAM 01/15/2024 01/15/2023 DTaP,Tdap,and Td Vaccines (2 - [...] this encounter Medical Devices Implanted Type Area Rubber Gasket Inspector Trimmer Device Identifier Shelf Expiration Date Model / Serial / Lot Clip Quick 2.8mm 230cm - [id number] Implanted:Qty: 1 on 03/01/2023 by Rasheed Niño MD at [place] [facility] [employer] [id number] 05/18/2025 [id number]-202UR.[id number] / / K documented as of this encounter Visit Diagnoses Diagnosis Morbid obesity, BMI not known (HCC) Morbid obesity Type 2 diabetes mellitus with hemoglobin A1c goal of less than 7.0% (HCC) documented in this encounter Care Teams Staff Electrical Engineer Relationship Specialty Start Date End Date Lucía Horner PA-C [address] [facility] [place] [address] PCP - General Physician Mobile Application Tester 07/19/22 documented as of this encounter
--- OUTSIDE RECORDS SUMMARY | 2024-02-25 19:59 | External Medical Summary | Summary of Care ---
Author Name Unknown Organization [facility] Address [address] [place] [address] Phone [phone] Care Team Providers Care Woodworking Machine Offbearer Name Role Phone Lucía Horner PA-C Primary Care Provider [phone] Reason for Visit * Reason Comments eRx-Medication Refill Encounter Details Date Type Department Care Team Description 09/03/2023 Refill [facility] [address] [place] [address] Lucía Horner PA-C [address] [place] [address] Allergies Active Allergy Reactions Severity Noted Date Comments Metformin 01/11/2021 Raised creat documented as of this encounter (statuses as of 09/03/2023) Medications Medication Sig Dispensed Refills Start Date [...] g 1 8 Active Continuous Blood Gluc High Tension Tester ([employer] TU READER) DEVIIndications:Typ e 2 diabetes mellitus with hemoglobin A1c goal of less than 7.0% ([facility]) Use as directed to check blood sugar 1 Device 1 8 Active Albuterol Sulfate (ALBUTEROL HFA) 108 (90 BASE) MCG/ACT inhalerIndications: Pneumonia of right lower lobe due to infectious organism Inhale 2 Puffs by mouth 4 times a day. 18 g 5 0 Active Ipratropium [place] 0.02 % Inhalation Solution (Atrovent)Indicatio ns:Tobacco use disorder Inhale via nebulizer 2.5 mL in the morning AND 2.5 mL at noon AND 2.5 mL in the evening AND 2.5 mL before bedtime. 75 mL 12 2 Active buPROPion HCl ER (XL) 150 MG Oral Tablet Extended Release 24 Hour (Wellbutrin XL)Indications:Toba key account director use disorder Take by mouth 1 Tablet in the morning. 90 Tablet 0 2 Active [employer] UltraSoft Lancets USE TO TEST ONCE DAILY [...] MCG/ACT Nasal Suspension (Flonase)Indication s:Dizziness Administer 1 [place] into nostril in the morning. 15.8 mL [...] 2 mL 11 3 08/02/20 24 Active Emgality 120 MG/ML [...] ONCE DAILY 90 Tablet 1 3 Active hydroCHLOROthiazide 12.5 MG Oral Tablet (Hydrodiuril) TAKE 1 TABLET BY MOUTH ONCE DAILY 90 Tablet 1 3 09/03/20 23 Discontinued documented as of this encounter (statuses as of 09/03/2023) Active Problems Problem Noted Date Elevated carcinoembryonic [...] as of this encounter (statuses as of 09/03/2023) Resolved Problems Problem Noted Date Resolved Date Abdominal pain 03/29/2015 08/24/2017 Abnormal LFTs 03/29/2015 08/24/2017 Cough 01/11/2010 03/29/2015 Overweight (BMI 25.0-29.9) 08/13/200903/29 Esophageal reflux 08/13/2009 03/29/2015 Chest pain 08/13/2009 03/29/2015 Tobacco use disorder 08/13/2009 03/29/2015 Elevated blood pressure, situational 08/13/2009 03/29/2015 HYPERGLYCEMIA 08/13/2009 03/29/2015 Prediabetes 06/22/2016 Dyslipidemia, goal LDL below 130 12/04/2017 documented as of this encounter (statuses as of 09/03/2023) Immunizations Name Administration Dates Next Due COVID-19 [...] Miscellaneous Notes * Telephone Encounter - Romel Fenton [facility] - 09/03/2023 9:05 PM EDT Signed Prescriptions: Disp Refills hydroCHLOROthiazide 12.5 MG Oral Tablet (H*90 Tab*1 Sig: TAKE 1 TABLET BY MOUTH ONCE DAILYAuthorizing Provider: LUCÍA HORNER AOrdering User: ROMEL FENTON documented in this encounter Plan of Treatment Upcoming Encounters Date Type Specialty Care Team Description 11/02/2023 Telemedicine Family Medicine Lucía Horner PA-C [address] [place] [address] 03/04/2024 Office Visit Neurology Karina Hoffman PA-C [address] [place] [address] Scheduled Procedures Name Priority Associated Diagnoses Date/Ti me COLONOSCOPY FLEXIBLE PROXIMA L DIAGNOSTIC Elevated carcinoembryonic antigen (CEA) Health Maintenance Due Date Last Done Comments DISCUSS TOBACCO CESSATION (REFER TO SMARTSET #1554) 1975 Hepatitis B (1 of 3 - [...] 07/09/2023, 1 , 12/15/2022, Additional history exists DIABETES-EYE EXAM [...] this encounter Medical Devices Implanted Type Area Land Management Supervisor Device Identifier Shelf Expiration Date Model / Serial / Lot Clip Quick 2.8mm 230cm - [id number] Implanted:Qty: 1 on 03/01/2023 by Rasheed Niño MD at [place]COPY [facility] [place] [employer] [id number] 05/18/2025 [id number]-202UR.[id number] / / [id number] documented as of this encounter Care Teams Woodworking Machine Offbearer Relationship Specialty Start Date End Date Lucía Horner PA-C [address], [place] [id number] PCP - General Physician Dining Room Host 07/19/22 documented as of this encounter
--- OUTSIDE RECORDS SUMMARY | 2024-02-25 19:59 | External Medical Summary | Summary of Care ---
Author Name Unknown Organization [facility] Address [address] [place] [address] Phone [phone] Care Team Providers Care Applications Engineering Manager Name Role Phone Lucía Horner PA-C Primary Care Provider [phone] Reason for Visit * Reason Onset Date Comments Appointment 09/12/2023 Encounter Details Date Type Department Care Team ([facility] Contact Info) Description 09/12/2023 Telephone Neurology [facility] [place] [address] [place] [address] Karina Hoffman PA-C [address] [place] [address] Appointment Allergies Active Allergy Reactions Criticality Noted Date Comments Metformin 01/11/2021 Raised creat documented as of this encounter (statuses as of 09/14/2023) Medications Medication Sig Dispensed Refills Start Date [...] g 1 02/22/2018 Active Continuous Blood Gluc Operations Inspector (FREESTYLE TU READER) DEVIIndications:Type 2 diabetes mellitus with hemoglobin A1c goal of less than 7.0% ([facility]) Use as directed to check blood sugar 1 Device 1 06/13/2018 Active Albuterol Sulfate (ALBUTEROL HFA) 108 (90 BASE) MCG/ACT inhalerIndications: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 18 g 5 01/13/2020 Active Ipratropium [place] 0.02 % Inhalation Solution (Atrovent)Indication s:Tobacco use [...] the morning. 90 Tablet 0 07/04/2022 Active OneTouch UltraSoft Lancets USE TO TEST [...] MCG/ACT Nasal Suspension (Flonase)Indications :Dizziness Administer 1 [place] into nostril in the morning. 15.8 mL 3 12/12/2022 Active LORazepam 0.5 MG Oral Tablet (Ativan)Indications: Claustrophobia One tab 1 hour before mri, repeat 15 min prior and at start for total of 3 tabs 3 Tablet 0 01/17/2023 Active Additional Information Patient not taking.Reported on 03/01/2023 Galcanezumab-gnlm 120 MG/ML Subcutaneous Solution Auto-injector (Emgality) Inject 2 mL (2 pens) under the skin for first month, then 1 mL (1 pen) every month thereafter. 2 mL 0 02/07/2023 Active Losartan Potassium 100 MG Oral Tablet (Cozaar)Indications: HTN, goal below 140/90 TAKE 1 TABLET BY MOUTH ONCE DAILY 90 Tablet 1 02/10/2023 Active Magnesium Oxide 400 (240 Mg) MG [...] EVERY MORNING 100 Tablet 1 07/09/2023 Active Topiramate 25 MG Oral Tablet (topAMAX)Indications :NDPH (new daily persistent headache) TAKE 1 TABLET BY MOUTH IN THE MORNING AND 2 TABLETS AT BEDTIME FOR A WEEK. THEN INCREASE TO 2 TABLETS BY MOUTH TWICE A DAY THEREAFTER. 360 Tablet 0 08/01/2023 Active Mounjaro 2.5 MG/0.5ML Subcutaneous Solution Pen-injector (Tirzepatide)Indicat ions:Type 2 diabetes mellitus with hemoglobin A1c goal of less than 7.0% (HCC),Morbid obesity, BMI not known (HCC) Inject 2.5 mg under the skin once a week. 2 mL 11 08/03/2023 Active Emgality 120 MG/ML Subcutaneous Solution Auto-injector [...] ONCE DAILY 90 Tablet 1 08/30/2023 Active acetaZOLAMIDE 250 MG Oral Tablet (Diamox) TAKE 2 TABLETS BY MOUTH THREE TIMES DAILY 180 Tablet 0 08/30/2023 Active D3 Super Strength 50 MCG (1999 UT) Oral Capsule (Cholecalciferol)Ind ications:Low vitamin D level TAKE 1 CAPSULE BY MOUTH EVERY MORNING 90 Capsule 1 08/31/2023 Active Atorvastatin Calcium 20 MG Oral Tablet (Lipitor)Indications :HTN, goal below 140/90,Dyslipidemia, goal LDL below 70 TAKE 1 TABLET BY MOUTH AT BEDTIME 90 Tablet 1 08/30/2023 Active acetaZOLAMIDE ER 500 MG Oral Capsule Extended Release 12 Hour (Diamox Sequels) 500 mg in a 500 mg pm x 7 days then 1000 mg am 500 mg pm 90 Capsule 2 08/30/2023 Active hydroCHLOROthiazide 12.5 MG Oral Tablet (Hydrodiuril) TAKE 1 TABLET BY MOUTH ONCE DAILY 90 Tablet 1 09/03/2023 Active documented as of this encounter (statuses as of 09/14/2023) Active Problems Problem Noted Date Diagnosed Date [...] as of this encounter (statuses as of 09/14/2023) Resolved Problems Problem Noted Date Diagnosed Date [...] as of this encounter (statuses as of 09/14/2023) Immunizations Name Administration Dates Next Due COVID-19 [...] encounter Miscellaneous Notes * Telephone Encounter - Lisa Perze OSA - 09/14/2023 4:09 PM EDT Pt scheduled * Telephone Encounter - Ngozi Mueller, MED ASSIST - 09/12/2023 3:53 PM EDT Andrés, can you schedule soonest available? ----- Message from Karina Hoffman PA-C sent at 09/12/2023 3:42 PM EDT ----- Regarding: appointment She needs a sooner appointment with whomever is available. Karina Hoffman PA-C 09/12/2023 3:43 PM documented in this encounter Plan of Treatment Upcoming Encounters Date Type Department Care Team (Late st Contact Info) Description 09/18/2023 1:40 PM EDT Office Visit Neurology [facility] [address] [facility] [facility] [address] [place] [address] Doug Berrios, [address] [facility] [place] [address] 11/02/2023 10:[address] [facility] [address] [place] [address] Lucía Horner PA-C [address] [place] [address] 03/04/2024 9:20 AM EDT Office Visit Neurology [facility] [address] [facility] [place] [address] Karina Hoffman PA-C [address] [facility] [place] [address] Scheduled Procedures Name Priority Associated Diagnoses Date/Ti me COLONOSCOPY FLEXIBLE PROXIMA L DIAGNOSTIC Elevated carcinoembryonic antigen (CEA) Health Maintenance Due Date Last Done Comments DISCUSS TOBACCO CESSATION (REFER TO SMARTSET #0506) 1975 Hepatitis B (1 of 3 - [...] 01/09/2024 07/09/2023, 01/17, 12/15/2022, Additional history exists DIABETES-EYE EXAM 01/15/2024 [...] this encounter Medical Devices Implanted Type Area Environmental Test Technician Device Identifier Shelf Expiration Date Model / Serial / Lot Clip Quick 2.8mm 230cm - [id number] Implanted:Qty: 1 on 03/01/2023 by Rasheed Niño MD at ENDOSCOPY [facility] [place] [employer] [id number] 05/18/2025 [id number]-[id number] / / [id number] documented as of this encounter Care Teams Applications Engineering Manager Relationship Specialty Start Date End Date Lucía Horner PA-C [address] [facility] [place] [address] PCP - General Physician Supervisor Insulation 07/19/22 documented as of this encounter
--- OUTSIDE RECORDS SUMMARY | 2024-02-25 19:59 | External Medical Summary | Summary of Care ---
Author Name Unknown Organization [facility] Address [address] [place] [address] Phone [phone] Care Team Providers Care Biological Photographer Name Role Phone Lucía Horner PA-C Primary Care Provider [phone] Reason for Visit * Reason Comments eRx-Medication Refill Encounter Details Date Type Department Care Team ([facility] st Contact Info) Description 09/25/2023 Refill Neurology Nick Marylou [place] [address] [place] [address] Karina Hoffman PA-C [address] [place] [address] Allergies Active Allergy Reactions Criticality Noted Date [...] g 1 02/22/2018 Active Continuous Blood Gluc Sales Floor Associate (FREESTYLE TU READER) DEVIIndications:Type 2 diabetes mellitus with hemoglobin A1c goal of less than 7.0% ([facility]) Use as directed to check blood sugar 1 Device 1 06/13/2018 Active Additional Information Patient not taking.Reported on 09/18/2023 Albuterol Sulfate (ALBUTEROL HFA) 108 (90 BASE) MCG/ACT inhalerIndications: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 18 g 5 01/13/2020 Active Ipratropium [place] 0.02 % Inhalation Solution (Atrovent)Indication s:Tobacco use [...] MCG/ACT Nasal Suspension (Flonase)Indications :Dizziness Administer 1 [place] into nostril in the morning. 15.8 mL [...] goal of less than 7.0% ([facility]),Morbid obesity, BMI not known ([facility]) Inject 2.5 mg under the skin [...] 08/30/2023 Active D3 Super Strength 50 MCG (1999) Oral Capsule (Cholecalciferol)Ind ications:Low vitamin D level [...] encounter Miscellaneous Notes * Telephone Encounter - Mayra Hernández RPh - 09/25/2023 1:09 PM ESTRefused Prescriptions: Disp Refills acetaZOLAMIDE 250 MG Oral Tablet (Diamox) 180 Ta*0 Sig: TAKE 2 TABLETS BY MOUTH THREE TIMES DAILYRefused By: NICK HERNÁNDEZNReason for Refusal: Course of treatment complete documented in this encounter Plan of Treatment Upcoming Encounters Date Type Department Care Team (Late st Contact Info) Description 11/02/2023 10:00 AM EST Telemedicine [address] [place] [address] Lucía Horner PA-C [address], [place] [id number] 03/04/2024 9:20 AM EDT Office Visit Neurology Jaime Hickman [place] [address] [facility] [address] Karina Hoffman PA-C [address] [facility] [place] [address] Scheduled Procedures Name Priority Associated Diagnoses Date/Ti me COLONOSCOPY FLEXIBLE PROXIMA L DIAGNOSTIC Elevated carcinoembryonic antigen (CEA) Health Maintenance Due Date Last Done Comments DISCUSS TOBACCO CESSATION (REFER TO SMARTSET #1434) 1975 Hepatitis B (1 of 3 - [...] 07/19/2022, Additional history exists HbA1c 01/09/2024 07/09/2023, 03, 12/15/2022, Additional history exists Diabetic Eye Exam [...] this encounter Medical Devices Implanted Type Area Block Breaker Device Identifier Shelf Expiration Date Model / Serial / Lot Clip Quick 2.8mm 230cm - [id number] Implanted:Qty: 1 on 03/01/2023 by Rasheed Niño MD at [place]OS[place] [facility] [place] [employer] [id number] 05/18/2025 [id number] / [id number] documented as of this encounter Care Teams Biological Photographer Relationship Specialty Start Date End Date Lucía Horner PA-C [address] [place] [address] PCP - General Physician Migrant Leader 07/19/22 documented as of this encounter
--- OUTSIDE RECORDS SUMMARY | 2024-02-25 19:59 | External Medical Summary | Summary of Care ---
Author Name Unknown Organization [facility] Address [address] [place] [address] Phone [phone] Care Team Providers Care Telesales Team Leader Name Role Phone Lucía Horner PA-C Primary Care Provider [phone] Reason for Referral * Evaluate & Treat - Unlimited Visits (Within 30 days (routine)) - Pending Review Specialty Diagnoses / Procedures Referred By Grupo mohan Referred To Contact Neurology Diagnoses Chronic migraine without aura without status migrainosus, not intractable Asymmetry of optic nerve, unspecified laterality Doug Berrios DO [address] [place] [id number] Referral ID Status Reason Start Date Expiration Date Visits Requested Visits Authorized [id number] Pending Review Specialty Services Required 3 [phone] Question Answer Referral Priority Within 30 days (routine) [facility] NEUROLOGY REFERRAL QUESTIONS Neurophthalmology Does the patient's condition allow them to wait to be seen by a specialist or should they be seen by first available provider? Or is this a follow up with established provider? Specialist Where should this appointment be scheduled? [facility] Reason for Visit * Reason Comments Return Neuro Encounter Details Date Type Department Care Team ([facility] Contact Info) Description 09/18/2023 1:40 PM EDT Office Visit Neurology [place] Fernando Yip [address] [place] [address] Doug Berrios DO [address] [place] [phone] Chronic migraine without aura without status migrainosus, not intractable*; Asymmetry of optic nerve, unspecified laterality; IIH (idiopathic intracranial hypertension) Allergies Active Allergy Reactions Criticality Noted Date Comments Metformin 01/11/2021 Raised creat documented as of this encounter (statuses as of 09/18/2023) Medications Medication Sig Dispensed Refills Start Date End Date Status NEBULIZER COMPRESSOR MISCIndications:Br onchitis Use as directed 1 Each 1 5 Active Blood Glucose Monitoring Suppl (ONE Blogic ULTRA SYSTEM KIT) W/DEVICE KITIndications:DM type 2, goal A1c below 7 Once daily or as needed 1 Kit 0 5 Active metronidazole (METROGEL) 0.75 % gelIndications:Imp etigo Apply topically to affected area 2 times a day. Apply to affected area 45 g 1 8 Active Continuous Blood Gluc Juice Tester (Guía LocalSTYLE TU READER) DEVIIndications:Ty pe 2 diabetes mellitus with hemoglobin A1c goal of less than 7.0% ([facility]) Use as directed to check blood sugar 1 Device 1 8 Active Additional Information Patient not taking.Reported on 09/18/2023 Albuterol Sulfate (ALBUTEROL HFA) 108 (90 BASE) MCG/ACT inhalerIndications :Pneumonia of right lower lobe due to infectious organism Inhale 2 Puffs by mouth 4 times a day. 18 g 5 0 Active Ipratropium [place] 0.02 % Inhalation Solution (Atrovent)Indicati ons:Tobacco use [...] MCG/ACT Nasal Suspension (Flonase)Indicatio ns:Dizziness Administer 1 [place] into nostril in the morning. 15.8 mL 3 3 Active Losartan Potassium 100 MG Oral Tablet (Cozaar)Indication [...] 09/18/2023 Mounjaro 2.5 MG/0.5ML Subcutaneous Solution Pen-injector (Tirzepatide)Indic ations:Type 2 diabetes mellitus with hemoglobin A1c goal of less than 7.0% ([facility]),Morbid obesity, BMI not known ([facility]) Inject 2.5 mg under the skin once a week. 2 mL 11 3 024 Active Emgality 120 MG/ML Subcutaneous Solution Auto-injector (Galcanezumab-gnlm ) Inject 1 mL under the skin every month. 1 mL 3 3 Active Amitriptyline HCl 10 MG Oral Tablet (Elavil)Indication [...] AT BEDTIME 90 Tablet 1 3 Active hydroCHLOROthiazid e 12.5 MG Oral Tablet (Hydrodiuril) TAKE 1 TABLET BY MOUTH ONCE DAILY 90 Tablet 1 3 Active Additional Information Patient not taking.Reported on 09/18/2023 Zonisamide 100 MG Oral Capsule (Zonegran)Indicati ons:Chronic migraine without aura without status migrainosus, not intractable,Asymme try of optic nerve, unspecified laterality Take 1 Capsule by mouth in the morning. 30 Capsule 1 3 Active LORazepam 0.5 MG Oral Tablet (Ativan)Indication s:Claustrophobia One tab 1 hour before mri, repeat 15 min prior and at start for total of 3 tabs 3 Tablet 0 3 10/31/2 023 Discontinued(Me dication List Clean Up) Galcanezumab-gnlm 120 MG/ML Subcutaneous Solution Auto-injector (Emgality) Inject 2 mL (2 pens) under the skin for first month, then 1 mL (1 pen) every month thereafter. 2 mL 0 3 023 Discontinued(Me dication List Clean Up) Topiramate 25 MG Oral Tablet (topAMAX)Indicatio ns:NDPH (new daily persistent headache) TAKE 1 TABLET BY MOUTH IN THE MORNING AND 2 TABLETS AT BEDTIME FOR A WEEK. THEN INCREASE TO 2 TABLETS BY MOUTH TWICE A DAY THEREAFTER. 360 Tablet 0 3 023 Discontinued acetaZOLAMIDE 250 MG Oral Tablet (Diamox) TAKE 2 TABLETS BY MOUTH THREE TIMES DAILY 180 Tablet 0 3 023 Discontinued acetaZOLAMIDE ER 500 MG Oral Capsule Extended Release 12 Hour (Diamox Sequels) 500 mg in a 500 mg pm x 7 days then 1000 mg am 500 mg pm 90 Capsule 2 3 023 Discontinued documented as of this encounter (statuses as of 09/18/2023) Active Problems Problem Noted Date Diagnosed Date [...] as of this encounter (statuses as of 09/18/2023) Resolved Problems Problem Noted Date Diagnosed Date [...] as of this encounter (statuses as of 09/18/2023) Immunizations Name Administration Dates Next Due COVID-19 [...] on file documented as of this encounter Last Filed Vital Signs Vital Sign Reading Time Taken Comments Blood Pressure 118/72 09/18/2023 1:49 PM EDT Pulse 83 09/18/2023 1:49 PM EDT Temperature 36.8 C (98.3 F) 09/18/2023 1:49 PM ED T Respiratory Rate 18 09/18/2023 1:49 PM EDT Oxygen Saturation 98% 09/18/2023 1:49 PM EDT Inhaled Oxygen Concentration - - Weight - - Height - - Body Mass Index - - documented in this encounter Patient Instructions * Patient Instructions* Doug Berrios, DO - 09/18/2023 2:11 PM EDT Reduced Diamox to 500 mg daily (250 mg twice daily) for 3-days then take 1 tablet (250 mg) daily for 3-days then STOP Start Zonisamide 100 mg nightly. documented in this encounter Progress Notes * Doug Berrios DO - 09/18/2023 1:49 PM EDT Progress [place] [address] NAME: Ameena Hernández Date of : 1975 Date of Visit: 09/18/23 Chief Complaint: Chief Complaint Patient presents with Return Neuro Subjective: A 48-year-old female with chronic daily headaches associated with vertigo/dizziness/gait difficulty presumed secondary to possible IIH versus chronic migraine presenting clinic for follow-up. She presents with her significant other. She is on Diamox 1000 mg daily for presumed IH. Was seen by Dr. Sagastume and Karina Hoffman. Underwent MRI of the brain which showed an empty sella. She did not complete an LP due to morbid obesity. She is currently having a daily headache which timescan be debilitating associated with light sensitivity as well as feeling of dizziness and vertigo as well as affecting her balance/walking. Headaches have been ongoing for over a year. She is been on Diamox since February. She continues to feel lousy. She did not tolerate extended- release Diamox. She was on Topamax for number of years although stopped due to cognitive difficulties. In review of her chart she was diagnosed with migraine headaches in [address] Murphy. She was prescribed Zoloft and amitriptyline at that time. She was also on Topamax. HOME MEDICATIONS : Current Outpatient Medications Medication Sig Dispense Refill Blood Glucose Monitoring Suppl (ONE TOUCH ULTRA SYSTEM KIT) W/DEVICE KIT Once daily or as needed 1 Kit 0 metronidazole (METROGEL) 0.75 % gel Apply topically to affected area 2 times a day. Apply to affected area 45 g 1 Albuterol Sulfate (ALBUTEROL HFA) 108 (90 BASE) MCG/ACT inhaler Inhale 2 Puffs by mouth 4 times a day. 18 g 5 Ipratropium [place] 0.02 % Inhalation Solution (Atrovent) Inhale via nebulizer 2.5 mL in the morning AND 2.5 mL at noon AND 2.5 mL in the evening AND 2.5 mL before bedtime. 75 mL 12 OneTouch UltraSoft Lancets USE TO TEST ONCE DAILY OR DIRECTED 100 Each 3 OneTouch Ultra In Vitro Strip (Glucose Blood) using once a day or as needed 100 Strip 3 Albuterol Sulfate (2.5 MG/3ML) 0.083% Inhalation Nebulization Solution (Proventil) Inhale via nebulizer 1 Vial every 4 hours as needed for Wheezing. 120 mL 1 Meclizine HCl 25 MG Oral Tablet (Antivert) Take 1 Tablet by mouth 3 times a day as needed for Dizziness. 30 Tablet 1 Fluticasone Propionate 50 MCG/ACT Nasal Suspension (Flonase) Administer 1 [place] into nostril in themorning. 15.8 mL 3 Magnesium Oxide 400 (240 Mg) MG Oral Tablet (Mag-Ox) TAKE ONE TABLET BY MOUTH NIGHTLY AT BEDTIME 100 Tablet 1 Levothyroxine Sodium 200 MCG Oral Tablet (Levoxyl) take 1 tablet by mouth once daily sunday throughsunday and take 1/2 tablet on sunday and sunday - take at least 30 minutes before breakfast and other medications 84 Tablet 1 Mounjaro 2.5 MG/0.5ML Subcutaneous Solution Pen-injector (Tirzepatide) Inject 2.5 mg under the skinonce a week. 2 mL 11 Emgality 120 MG/ML Subcutaneous Solution Auto-injector (Galcanezumab-gnlm) Inject 1 mL under the skin every month. 1 mL 3 Amitriptyline HCl 10 MG Oral Tablet (Elavil) Take 2 Tablets by mouth at bedtime. 60 Tablet 5 Pantoprazole Sodium 40 MG Oral Tablet Delayed Release (Protonix) TAKE 1 TABLET BY MOUTH ONCE DAILY 90 Tablet 1 acetaZOLAMIDE 250 MG Oral Tablet (Diamox) TAKE 2 TABLETS BY MOUTH THREE TIMES DAILY 180 Tablet 0 D3 Super Strength 50 MCG (2000 UT) Oral Capsule (Cholecalciferol) TAKE 1 CAPSULE BY MOUTH EVERY MORNING 90 Capsule 1 Atorvastatin Calcium 20 MG Oral Tablet (Lipitor) TAKE 1 TABLET BY MOUTH AT BEDTIME 90 Tablet 1 NEBULIZER COMPRESSOR MISC Use as directed 1 Each 1 Continuous Blood Gluc Juice Tester (Alchimer TU READER) TAZ Use as directed to check blood sugar (Patient not taking: Reported on 09/18/2023) 1 Device 1 buPROPion HCl ER (XL) 150 MG Oral Tablet Extended Release 24 Hour (Wellbutrin XL) Take by mouth 1 Tablet in the morning. (Patient not taking: Reported on 09/18/2023) 90 Tablet 0 Nicotine 21 MG/24HR Transdermal Patch 24 Hour (Nicotine Step 1) Place topically on the skin 1 Patchdaily . (Patient not taking: Reported on 03/01/2023) 28 Patch 0 Losartan Potassium 100 MG Oral Tablet (Cozaar) TAKE 1 TABLET BY MOUTH ONCE DAILY (Patient not taking: Reported on 09/18/2023) 90 Tablet 1 busPIRone HCl 15 MG Oral Tablet (Buspar) TAKE ONE TABLET BY MOUTH IN THE MORNING, ONE AT NOON, ONE IN THE EVENING, AND ONE BEFORE BEDTIME 120 Tablet 3 Vitron-C 65-125 MG Oral Tablet (Iron-Vitamin C 65-125 mg per tab) TAKE ONE TABLET BY MOUTH EVERY MORNING (Patient not taking: Reported on 09/18/2023) 100 Tablet 1 Topiramate 25 MG Oral Tablet (topAMAX) TAKE 1 TABLET BY MOUTH IN THE MORNING AND 2 TABLETS AT BEDTIME FOR A WEEK. THEN INCREASE TO 2 TABLETS BY MOUTH TWICE A DAY THEREAFTER. (Patient not taking: Reported on 09/18/2023) 360 Tablet 0 acetaZOLAMIDE ER 500 MG Oral Capsule Extended Release 12 Hour (Diamox Sequels) 500 mg in a 500 mg pm x 7 days then 1000 mg am 500 mg pm (Patient not taking: Reported on 09/18/2023) 90 Capsule 2 hydroCHLOROthiazide 12.5 MG Oral Tablet (Hydrodiuril) TAKE 1 TABLET BY MOUTH ONCE DAILY (Patient not taking: Reported on 09/18/2023) 90 Tablet 1 No current facility-administered medications for this visit. Review of patient's allergies indicates: Allergen Reactions Metformin Raised creat PHYSICAL EXAMINATION: Vital Signs: BP 118/72 | Pulse 83 | Temp 36.8 C (98.3 F) (Tympanic) | Resp 18 | SpO2 98% EXAM: Constitutional: appearance normally developed, well nourished and obeseHead and Face: normocephalicand atraumatic Eyes: normal lids, normal conjunctiva Neck: supple Respiratory: normal effort Cardiovascular: regular rhythm and normal pulses Abdomen: non distended Skin: no rashes, lesions, or ulcers noted Psychiatric: normal judgement and insight, normal mood and normal affect NEUROLOGIC EXAMINATION: Appearance: no acute distress Orientation: awake, alert and oriented x 3 Mental Status: alert Attention: normal Knowledge: appropriate Language: no aphasia Speech: no dysarthria Cranial Nerves: CN 2 - no visual defect on confrontation and pupils round, equal, reactive to light CN 3, 4, 6 - extra-ocular movements intact and no nystagmus CN 5 - facial sensation intact CN 7 - no facial asymmetry CN 8 - intact hearing CN 9, 10 - palate symmetric CN 11 - good shoulder shrug CN 12 - tongue midline Gait: wide based gait Coordination: no tremor LABORATORY: Labs reviewed and pertinent findings are indicated below: Component Latest Ref Rn 07/09/2023 BUN 6 - 20 mg/dL 21 (H) Creatinine 0.5 - 1.0 mg/dL 1.1 (H) Estimated Glomerular Filtration Rate >=60 mL/min 62 Sodium 135 - 146 mmol/L 139 Potassium 3.5 - 5.1 mmol/L 3.6 Chloride 98 - 107 mmol/L 110 (H) CO2 22 - 32 mmol/L 18 (L) Anion Gap 7 - 15 mmol/L 11 Glucose 70 - 120 mg/dL 149 (H) Albumin 3.8 - 5.0 g/dL 4.1 AST 10 - 35 U/L 16 Alkaline Phosphatase 35 - 130 U/L 74 Bilirubin, Total <=1.2 mg/dL 0.2 Calcium 8.4 - 10.2 mg/dL 8.6 Protein 6.0 - 8.3 g/dL 6.7 ALT 10 - 35 U/L 14 WBC 4.00 - 10.80 K/uL 12.48 (H) Neutrophils % 40.0 - 75.0 % 76.6 (H) Lymphocytes % 18.0 - 42.0 % 13.3 (L) Monocytes % 1.0 - 11.0 % 6.5 Eosinophils % 0.0 - 6.0 % 2.6 Basophils % 0.0 - 2.0 % 0.6 Immature Granulocytes % 0.0 - 2.0 % 0.4 Absolute Neutrophils 1.80 - 7.70 K/uL 9.57 (H) Absolute Lymphocytes 1.00 - 4.80 K/ul 1.66 Absolute Monocytes 0.00 - 1.10 K/uL 0.81 Absolute Eosinophils 0.00 - 0.70 K/uL 0.32 Absolute Basophils 0.00 - 0.20 K/uL 0.07 Absolute Immature Granulocytes 0.00 - 0.20 K/uL 0.05 WBC 4.00 - 10.80 K/uL 13.00 (H) RBC 3.85 - 5.15 M/uL 4.73 HGB 12.0 - 15.3 g/dL 9.8 (L) HCT 36.0 - 45.2 % 35.8 (L) MCV 81.5 - 97.5 fL 75.7 MCH 27.0 - 34.0 pg 20.7 MCHC 32.0 - 36.0 g/dL 27.4 RDW 11.5 - 15.5 % 21.0 PLT 140 - 400 K/uL 238 MPV 6.6 - 11.1 fL 10.6 nRBCs <=0 /100 WBCs 0 Hemoglobin A1C 4.0 - 5.6 % 6.6 (H) Estimated Average Glucose <126 mg/dL 143 (H) TSH 0.27 - 4.20 uIU/mL 1.01 CA 125 <=38.1 U/mL 26.8 CA 19-9 <35.0 U/mL 14.7 External Lab Report RESULT SCAN Legend: (H) High (L) Low Review of prior Diagnostic Tests: Review of prior Radiology Studies: An empty sella is present. There is borderline downward sagging of the brainstem. There is no increased perioptic CSF or tortuosity of the optic nerves nor flattening of the posterior globes. Pronounced nuchal thickening secondary to prominent nuchal subcutaneous adipose. No acute infarction, hemorrhage or intra-axial mass is detected in the cerebrum or posterior fossa. There are few punctate foci of T2 hyperintensity in the subcortical cerebral white matter, most commonly reflecting chronic small vessel ischemic change. No pathologic enhancement is appreciated. No solid extra-axial mass is identified. No abnormal extra-axial fluid is detected. The basilar cisterns are clear. The brain volume is within normal limits for age, and the ventricles are of normal size and contour. The major central cerebral arterial and dural venous sinus flow voids are maintained. Midline structures appear normally developed and positioned. The craniocervical junction appears normal. No acute paranasal sinus disease is appreciated. The middle ear cavities are grossly clear. The visualized portions of the orbits and facial soft tissues are unremarkable. No acute osseous lesion is detected. IMPRESSION IMPRESSION 1. No acute intracranial abnormality detected by MRI. 2. An empty sella is present, and there is nuchal thickening and borderline downward sagging of thebrainstem, findings raising likelihood of idiopathic intracranial hypertension (pseudotumor), especially given the confirmatory history of papilledema. IMPRESSION / PLAN: Ameena was seen today for return neuro. Diagnoses and all orders for this visit: Chronic migraine without aura without status migrainosus, not intractable - Zonisamide 100 MG Oral Capsule (Zonegran); Take 1 Capsule by mouth in the morning. - NEUROLOGY REFERRAL OP Asymmetry of optic nerve, unspecified laterality - Zonisamide 100 MG Oral Capsule (Zonegran); Take 1 Capsule by mouth in the morning. - NEUROLOGY REFERRAL OP IIH (idiopathic intracranial hypertension) Ameena Hernández is a 48-year-old female with history of morbid obesity and presumed chronic migraine versus idiopathic intracranial hypertension. Risk factors do include obesity. She is had MRI brain imaging in the past which showed an empty sella. She is also been seen by Ophthalmology with question of possible papilledema versus nerve fiber thickening. She continues to suffer from a daily headache which at times can be debilitating associated with light sensitivity as well as feeling of dizziness/vertigo as well as gait difficulty. She is been tried on several medications in the past including more recently amitriptyline, Topamax, and Diamox. She is had side effects from Diamox with no significant improvement in symptoms. She is currently having a daily headache with feeling of vertigo or dizziness that can be debilitating. She did not undergo lumbar puncture due to body habitus. Recommend we obtain formal neuro ophthalmology evaluation for papilledema evaluation. This will be beneficial as the patient has not been able to undergo lumbar puncture. At that time presumed diagnosis is chronic migraine in addition to possible idiopathic intracranial hypertension. Patient would benefit from weight loss. In regards to symptom management will stop Diamox due to side effects. Will wean off of this over the next week. She had cognitive side effects from Topamax in the past. Will start zonisamide 100 mg nightly. If necessary will increase zonisamide to 200 mg daily. No improvement will consider adding Lasix. Will defer on any additional diagnostic imaging at this time. She willfollow with me on an as-needed basis for now. Doug Berrios, DO This was a 40 minute visit, with greater than 50% face to face counseling. Discussion was carried out with patient regarding testing, diagnostic possibilities and findings, treatment options, risk, and benefits. documented in this encounter Nursing Notes * Belkys Phillip LPN - 09/18/2023 1:47 PM EDT Chief Complaint Patient presents with Return Neuro Patient stated has been having continuous headaches. Nothing seems to give relief from the pain. Has been on the emgality for a few months, hasn't been taking it faithfully d/t being on too many injections. Stated she is going to start to take it again to see if it helps. Stated she was prescribed the emgality and the diamox at the same time and didn't want to start them both at the same time. documented in this encounter Plan of Treatment Upcoming Encounters Date Type Department Care Team (Late st Contact Info) Description 11/02/2023 10:00 AM EST Telemedicine [facility] [address] [place] [address] Lucía Horner PA-C [address] [place] [address] 03/04/2024 9:20 AM EDT Office Visit [facility] [address] [facility] [place] [address] Karina Hoffman PA-C [address] [facility] [place], [place] [address] Scheduled Procedures Name Priority Associated Diagnoses Date/Ti me COLONOSCOPY FLEXIBLE PROXIMA L DIAGNOSTIC Elevated carcinoembryonic antigen (CEA) Scheduled Referrals Name Type Priority Associated Diagnoses Orde r Schedule NEUROLOGY REFERRAL OP Referral Within 30 days (routine) Chronic migraine without aura without status migrainosus, not intractable Asymmetry of optic nerve, unspecified laterality Ordered: 09/18/2023 Health Maintenance Due Date Last Done Comments DISCUSS TOBACCO CESSATION (REFER TO SMARTSET #1026) 1975 Hepatitis B (1 of 3 - [...] this encounter Medical Devices Implanted Type Area Team Psychologist Device Identifier Shelf Expiration Date Model / Serial / Lot Clip Quick 2.8mm 230cm - [id number] Implanted:Qty: 1 on 03/01/2023 by Rasheed Niño MD [place] [facility] [place] [employer] [facility] [id number] 05/18/2025 [id number] / [id number] documented as of this encounter Visit Diagnoses Diagnosis Chronic migraine without aura without status migrainosus, not intractable- Primary Chronic migraine without aura, without mention of intractable migraine without mention of status migrainosus Asymmetry of optic nerve, unspecified laterality IIH (idiopathic intracranial hypertension) Benign intracranial hypertension documented in this encounter Care Teams Telesales Team Leader Relationship Specialty Start Date End Date Lucía Horner PA-C [address] [facility] [place] [address] PCP - General Physician Gluing Machine Feeder 07/19/22 documented as of this encounter"
--- OUTSIDE RECORDS SUMMARY | 2024-02-25 19:59 | External Medical Summary | Summary of Care ---
Author Name Unknown Organization [facility] Address [address] [place] [address] Phone [phone] Care Team Providers Care Clinical Laboratory Manager Name Role Phone Lucía Horner PA-C Primary Care Provider [phone] Reason for Visit * Reason Onset Date Comments Appointment 09/21/2023 Encounter Details Date Type Department Care Team ([facility] st Contact Info) Description 09/21/2023 Telephone Neurology, [place] [address], [place] [id number] Services, Formerly [facility] [address] [place] [address] Appointment Allergies Active Allergy Reactions Criticality Noted [...] g 1 02/22/2018 Active Continuous Blood Gluc Sap Portal Consultant (FREESTYLE TU READER) DEVIIndications:Type 2 diabetes mellitus [...] day. 18 g 5 01/13/2020 Active Ipratropium [place] 0.02 % Inhalation Solution (Atrovent)Indication s:Tobacco use [...] MCG/ACT Nasal Suspension (Flonase)Indications :Dizziness Administer 1 [place] into nostril in the morning. 15.8 mL [...] encounter Miscellaneous Notes * Telephone Encounter - Chiqui Pratt OSA - 09/21/2023 2:08 PM EDT Pt calling in to let the office know that she is okay with the appointment date 10/10/23 and time 10am to see Dr. Shaila Ruiz schedule pt in locked slot [phone] Thank you documented in this encounter Plan of Treatment Upcoming Encounters Date Type Department Care Team (Late st Contact Info) Description 11/02/2023 10:00 AM EST Telemedicine [facility] [address] [facility] [place] [phone] Lucía Horner PA-C [address] [facility] [place] [address] 03/04/2024 9:20 AM EDT Office Visit Neurology [facility] [address] [place] [address] Karina Hoffman PA-C [address] [place] [address] Scheduled Procedures Name Priority Associated Diagnoses Date/Ti me COLONOSCOPY FLEXIBLE PROXIMA L DIAGNOSTIC Elevated carcinoembryonic antigen (CEA) Health Maintenance Due Date Last Done Comments DISCUSS TOBACCO CESSATION (REFER TO SMARTSET #5246) 1975 Hepatitis B (1 of 3 - [...] this encounter Medical Devices Implanted Type Area Merchandising Specialist Device Identifier Shelf Expiration Date Model / Serial / Lot Clip Quick 2.8mm 230cm - [id number] Implanted:Qty: 1 on 03/01/2023 by Rasheed Niño MD at ENDOSCOPY [facility] [employer] [id number] 05/18/2025 [id number]-[id number] / / [id number] documented as of this encounter Care Teams Clinical Laboratory Manager Relationship Specialty Start Date End Date Lucía Horner PA-C [address] [place] [address] PCP - General Physician Geoscience Specialist 07/19/22 documented as of this encounter
--- OUTSIDE RECORDS SUMMARY | 2024-02-25 19:59 | External Medical Summary | Summary of Care ---
Author Name Unknown Organization [facility] Address [address] [place] [address] Phone [phone] Care Team Providers Care Teacher Vocal Name Role Phone Lucía Horner PA-C Primary Care Provider [phone] Reason for Visit * Reason Onset Date Comments Appointment 09/12/2023 Encounter Details Date Type Department Care Team ([facility] Contact Info) Description 09/12/2023 Telephone Neurology Nick Marylou [place] [address] [place] [address] Karina Hoffman PA-C [address] [place] [address] Appointment Allergies Active Allergy Reactions Criticality Noted Date Comments Metformin 01/11/2021 Raised creat documented as of this encounter (statuses as of 09/12/2023) Medications Medication Sig Dispensed Refills Start Date [...] g 1 02/22/2018 Active Continuous Blood Gluc Reconciliation Coordinator (FREESTYLE TU READER) DEVIIndications:Type 2 diabetes mellitus with hemoglobin A1c goal of less than 7.0% ([facility]) Use as directed to check blood sugar 1 Device 1 06/13/2018 Active Albuterol Sulfate (ALBUTEROL HFA) 108 (90 BASE) MCG/ACT inhalerIndications: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 18 g 5 01/13/2020 Active Ipratropium [place] 0.02 % Inhalation Solution (Atrovent)Indication s:Tobacco use [...] MCG/ACT Nasal Suspension (Flonase)Indications :Dizziness Administer 1 [place] into nostril in the morning. 15.8 mL [...] as of this encounter (statuses as of 09/12/2023) Active Problems Problem Noted Date Diagnosed Date [...] as of this encounter (statuses as of 09/12/2023) Resolved Problems Problem Noted Date Diagnosed Date [...] as of this encounter (statuses as of 09/12/2023) Immunizations Name Administration Dates Next Due COVID-19 [...] = 0.6 oz pur e alcohol) Sex and Gender Information Value Date Recorded [...] Info) Description 11/02/2023 10:00 AM EST Telemedicine [facility] [address] [facility] [phone] Luc[facility] Hor[facility] PA-C [address] [facility] [address] 03/04/2024 9:20 AM EDT Office Visit Neurology Jaime Hickman [place] [address] [place] [address] Karina Hoffman PA-C [address] [place] [address] Scheduled Procedures Name Priority Associated Diagnoses Date/Ti me COLONOSCOPY FLEXIBLE PROXIMA L DIAGNOSTIC Elevated carcinoembryonic antigen (CEA) Health Maintenance Due Date Last Done Comments DISCUSS TOBACCO CESSATION (REFER TO SMARTSET #6288) 1975 Hepatitis B (1 of 3 - [...] this encounter Medical Devices Implanted Type Area Vacuum Conditioner Operator Device Identifier Shelf Expiration Date Model / Serial / Lot Clip Quick 2.8mm 230cm - [id number] Implanted:Qty: 1 on 03/01/2023 by Rasheed Niño MD at ENDOSCOPY [facility] [employer] [id number] 05/18/2025 [id number]-[id number] / / [id number] documented as of this encounter Care Teams Teacher Vocal Relationship Specialty Start Date End Date Lucía Horner PA-C [address] [facility] [place] [address] PCP - General Physician Information Receptionist 07/19/22 documented as of this encounter
--- OUTSIDE RECORDS SUMMARY | 2024-02-25 20:00 | External Medical Summary | Summary of Care ---
Author Name Unknown Organization [facility] Address [address] [place] [address] Phone [phone] Care Team Providers Care Electrical Engineering Designer Name Role Phone Lucía Horner PA-C Primary Care Provider [phone] Reason for Visit * Reason Comments Headache Pseudo tumor Encounter Details Date Type Department Care Team Description 08/30/2023 Telemedicine Neurology [facility] [place] [address] [place] [address] Karina Hoffman PA-C [address] [facility] [place] [address] Asymmetry of optic nerve, unspecified laterality*; Vertigo; Chronic migraine without aura with status migrainosus, not intractable Allergies Active Allergy Reactions Severity Noted Date Comments Metformin 01/11/2021 Raised creat documented as of this encounter (statuses as of 08/30/2023) Medications Medication Sig Dispensed Refills Start Date [...] g 1 02/22/2018 Active Continuous Blood Gluc Oil Burner Installer (FREESTYLE TU READER) DEVIIndications:Type 2 diabetes mellitus with hemoglobin A1c goal of less than 7.0% ([facility]) Use as directed to check blood sugar 1 Device 1 06/13/2018 Active Albuterol Sulfate (ALBUTEROL HFA) 108 (90 BASE) MCG/ACT inhalerIndications: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 18 g 5 01/13/2020 Active Ipratropium [place] 0.02 % Inhalation Solution (Atrovent)Indication s:Tobacco use [...] MCG/ACT Nasal Suspension (Flonase)Indications :Dizziness Administer 1 [place] into nostril in the morning. 15.8 mL [...] AT BEDTIME 100 Tablet 1 02/13/2023 Active hydroCHLOROthiazide 12.5 MG Oral Tablet (Hydrodiuril) TAKE 1 TABLET BY MOUTH ONCE DAILY 90 Tablet 1 02/10/2023 Active busPIRone HCl 15 MG Oral Tablet [...] other medications 84 Tablet 1 06/07/2023 Active D3 Super Strength 50 MCG (2000 UT) Oral Capsule (Cholecalciferol)Ind ications:Low vitamin D level TAKE ONE CAPSULE BY MOUTH EVERY MORNING 90 Capsule 0 06/12/2023 Active Vitron-C 65-125 MG Oral Tablet (Iron-Vitamin [...] week. 2 mL 11 08/03/2023 4 Active Januvia 100 MG Oral Tablet (SITagliptin)Indicat ions:Type 2 diabetes mellitus with hemoglobin A1c goal of less than 7.0% ([facility]) TAKE 1 TABLET BY MOUTH EVERY MORNING 30 Tablet 5 08/06/2023 Active Emgality 120 MG/ML Subcutaneous Solution Auto-injector [...] TIMES DAILY 180 Tablet 0 08/30/2023 Active Atorvastatin Calcium 20 MG Oral Tablet (Lipitor)Indications :HTN, goal below 140/90,Dyslipidemia, goal LDL below 70 TAKE 1 TABLET BY MOUTH AT BEDTIME 90 Tablet 1 08/30/2023 Active acetaZOLAMIDE ER 500 MG Oral Capsule Extended Release 12 Hour (Diamox Sequels) 500 mg in a 500 mg pm x 7 days then 1000 mg am 500 mg pm 90 Capsule 2 08/30/2023 Active documented as of this encounter (statuses as of 08/30/2023) Active Problems Problem Noted Date Elevated carcinoembryonic [...] as of this encounter (statuses as of 08/30/2023) Resolved Problems Problem Noted Date Resolved Date Abdominal pain 03/29/2015 08/24/2017 Abnormal LFTs 03/29/2015 08/24/2017 Cough 01/11/2010 03/29/2015 Overweight (BMI 25.0-29.9) 08/13/200903/29 Esophageal reflux 08/13/2009 03/29/2015 Chest pain 08/13/2009 03/29/2015 Tobacco use disorder 08/13/2009 03/29/2015 Elevated blood pressure, situational 08/13/2009 03/29/2015 HYPERGLYCEMIA 08/13/2009 03/29/2015 Prediabetes 06/22/2016 Dyslipidemia, goal LDL below 130 12/04/2017 documented as of this encounter (statuses as of 08/30/2023) Immunizations Name Administration Dates Next Due COVID-19 [...] as of this encounter Progress Notes * Karina Hoffman PA-C - 08/30/2023 3:46 PM EDT HISTORY & PHYSICAL EXAMINATION - NEUROLOGY Name: Ameena Hernández Date: 08/30/2023 Time: 3:46 PM Referring Provider: Lucía Horner PA-C Chief Complaint: Chief Complaint Patient presents with Headache Pseudo tumor This is a 48 year old right handed woman returns today for follow up for pseudo tumor. HPI & Source of HPI The patient was the historian, and she is reliable. Patient location: HOME. I was in a hospital or clinic location. After connecting through [employer], patient was verified with two unique identifiers. Patient (or authorized legal sales representative advertising) wasthen informed that this was a Telemedicine visit and being conducted confidentially over secure lines. Methods to assure confidentiality were taken. Patient acknowledged consent and understanding of privacy and security of the Telemedicine visit. The patient agreed to participate. She has a long history of headaches and was seen in our clinic by Dr Murphy in 08/09/12 and was started on Amitriptyline. The headaches are the same but have gotten more frequent and are now daily headaches. She describes pressure, some swishing in ears, lying down does improve the headaches but doesnot eliminate them. She was on Topamax but she can't tolerate the side effects. She was also havingsome vertigo issues. She had an eye exam and they reported some optic disc issues in the left eye but her last vision test there was no optic nerve swelling. She is not experiencing any loss of vision or double vision. She is very light sensitive. She has been trial on amitriptyline and topamax akosua. She is back on the amitriptyline which does seem to take of the end. She is asking about the extended release diamox to see if it would decrease side effects. She is back to work She is a daily smoker of tobacco 2 pack x 30 years. No EtOH, minimal caffeine, no other drugs denies CP SOB abdominal pain. I have reviewed the patient's medications and allergies, past medical, surgical, social and family history, updating these as appropriate. See Histories section of the electronic medical record for adisplay of this information. Patient Active Problem List Diagnosis Code Migraine G43.909 Hypothyroidism E03.9 GERD (gastroesophageal reflux disease) K21.9 HTN, goal below 140/90 I10 Tobacco use disorder F17.200 Type 2 diabetes mellitus with hemoglobin A1c goal of less than 7.0% ([facility]) E11.9 Dyslipidemia, goal LDL below 70 E78.5 Encounter for long-term (current) use of medications Z79.899 Morbid obesity, BMI not known ([facility]) E66.01 Restless legs G25.[address] on [address] R91.8 Elevated carcinoembryonic antigen (CEA) R97.0 No family history on file. Medications: Are you taking your medications? yes Current Outpatient Medications Medication Sig Dispense Refill acetaZOLAMIDE ER 500 MG Oral Capsule Extended Release 12 Hour (Diamox Sequels) 500 mg in a 500 mg pm x 7 days then 1000 mg am 500 mg pm 90 Capsule 2 NEBULIZER COMPRESSOR MISC Use as directed 1 Each 1 Blood Glucose Monitoring Suppl (ONE TOUCH ULTRA SYSTEM KIT) W/DEVICE KIT Once daily or as needed 1 Kit 0 metronidazole (METROGEL) 0.75 % gel Apply topically to affected area 2 times a day. Apply to affected area 45 g 1 Continuous Blood Gluc Oil Burner Installer ([place] TU READER) TAZ Use as directed to check blood sugar 1Device 1 Albuterol Sulfate (ALBUTEROL HFA) 108 (90 BASE) MCG/ACT inhaler Inhale 2 Puffs by mouth 4 times a day. 18 g 5 Ipratropium [place] 0.02 % Inhalation Solution (Atrovent) Inhale via nebulizer 2.5 mL in the morning AND 2.5 mL at noon AND 2.5 mL in the evening AND 2.5 mL before bedtime. 75 mL 12 buPROPion HCl ER (XL) 150 MG Oral Tablet Extended Release 24 Hour (Wellbutrin XL) Take by mouth 1 Tablet in the morning. 90 Tablet 0 OneTouch UltraSoft Lancets USE TO TEST ONCE DAILY OR DIRECTED 100 Each 3 OneTouch Ultra In Vitro Strip (Glucose Blood) using once a day or as needed 100 Strip 3 Nicotine 21 MG/24HR Transdermal Patch 24 [...] 50 MCG/ACT Nasal Suspension (Flonase) Administer 1 [place] into nostril in themorning. 15.8 mL 3 LORazepam 0.5 MG Oral Tablet (Ativan) One tab 1 hour before mri, repeat 15 min prior and at start for total of 3 tabs (Patient not taking: Reported on 03/01/2023) 3 Tablet 0 Galcanezumab-gnlm 120 MG/ML Subcutaneous Solution Auto-injector (Emgality) Inject 2 mL (2 pens) under the skin for first month, then 1 mL (1 pen) every month thereafter. 2 mL 0 Losartan Potassium 100 MG Oral Tablet (Cozaar) TAKE 1 TABLET BY MOUTH ONCE DAILY 90 Tablet 1 Magnesium Oxide 400 (240 Mg) MG Oral Tablet (Mag-Ox) TAKE ONE TABLET BY MOUTH NIGHTLY AT BEDTIME 100 Tablet 1 hydroCHLOROthiazide 12.5 MG Oral Tablet (Hydrodiuril) TAKE 1 TABLET BY MOUTH ONCE DAILY 90 Tablet 1 busPIRone HCl 15 MG [...] breakfast and other medications 84 Tablet 1 D3 Super Strength 50 MCG (2000 UT) Oral Capsule (Cholecalciferol) TAKE ONE CAPSULE BY MOUTH EVERY MORNING 90 Capsule 0 Vitron-C 65-125 MG Oral Tablet (Iron-Vitamin C 65-125 mg per tab) TAKE ONE TABLET BY MOUTH EVERY MORNING 100 Tablet 1 Topiramate 25 MG Oral Tablet (topAMAX) TAKE 1 TABLET BY MOUTH IN THE MORNING AND 2 TABLETS AT BEDTIME FOR A WEEK. THEN INCREASE TO 2 TABLETS BY MOUTH TWICE A DAY THEREAFTER. 360 Tablet 0 Mounjaro 2.5 MG/0.5ML Subcutaneous Solution Pen-injector (Tirzepatide) Inject 2.5 mg under the skinonce a week. 2 mL 11 Januvia 100 MG Oral Tablet (SITagliptin) TAKE 1 TABLET BY MOUTH EVERY MORNING 30 Tablet 5 Emgality 120 MG/ML Subcutaneous Solution Auto-injector (Galcanezumab-gnlm) [...] MOUTH THREE TIMES DAILY 180 Tablet 0 Atorvastatin Calcium 20 MG Oral Tablet (Lipitor) TAKE 1 TABLET BY MOUTH AT BEDTIME 90 Tablet 1 No current facility-administered medications for this visit. Review of patient's allergies indicates: Allergen Reactions Metformin Raised creat Review of Systems: A total number of 10 systems were reviewed pertinent negative and positives not addressed in HPI are listed in the following review. Physical Exam: Constitutional: There were no vitals taken for this visit., appearance over nourished and healthy Ears, Nose, Mouth and Throat: mucous membranes moist, no injection and skin normal, eyes normal Respiratory: normal respiratory effort Musculoskeletal: no evidence of skeletal deformities Skin: normal and intact Eyes: extraocular muscles intact (EOMI) NEUROLOGIC EXAMINATION: Mental status: Alert and interactive Oriented to person Speech fluent with no evidence of aphasia Cranial Nerves Normal findings for Cranial Nerves II - XII Coordination: no abnormal or extraneous movements Gait/Stance: Posture normal. Gait normal: with steady with steps, base, and tandem gait. Motor: Negative for abnormal muscle bulk and abnormal muscle tone. Strength: Appear normal LABORATORY: Recent labs reviewed Review of prior Studies: No recent imaging available. 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 Her neurologic examination today reveals no new focal deficit. The history and examination are suggestive of diagnosis/problem list. Testing and Referrals ordered: none ICD-10-CM 1. 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 Vertigo R42 3. Chronic migraine without aura with status migrainosus, not intractable G43.701 Return in 6 months or sooner if needed Back on amitriptyline 20 mg hs may increase as needed watch for weight gain Switch diamox 500 mg (2 tab) TID to ER 500 mg (1 tab) twice daily x 7 days then increase to (2 tab)am and (1 tab) pm Continue to keep well hydrated Try biotin for hair loss Ok to increase Amitriptyline as needed- watch for weight gain Recommend smoking cessation Recommend one of the injectable migraine medications as migraine prevention instead of amitriptyline PCP for medical management Call with questions concerns. Medical Decision Making (determined by lowest of 2 of 3 elements): The medical decision making element of the number and complexity of problems addressed included at least 2 or more stable chronic illnesses (level 4). The medical decision making element of risk of complications, morbidity, and mortality of patient management is moderate (level 4) due to prescription drug management (moderate risk). The medical decision making element of the amount and complexity of data reviewed and analyzed included an independent interpretation of a test (level 4 at least). When 2 of 3 reach level 4, then this element is considered extensive (level 5). I personally spent a total of 30 minutes. This time was for a new office or established visit and was on the same calendar day. Education / Consultation - Topics covered as I spent 20 minutes, which is greater than 50% of this visit, counseling the patient on: Diagnostic Results Prognosis Importance of compliance with chosen treatment options Risk factor reductions Patient and family education Consulted with physician: Doug Berrios DO was available for direct supervision. Copy of note sent to PCP and Referring Provider. Total time of visit: 30 minutes. Karina Hoffman PA-C Neurology [address] [address] 08/30/2023 3:46 PM documented in this encounter Plan of Treatment Upcoming Encounters Date Type Specialty Care Team Description 11/02/2023 Telemedicine Family Medicine Lucía Horner PA-C [address] [place], [place] [id number] Scheduled Procedures Name Priority Associated Diagnoses Date/Ti me COLONOSCOPY FLEXIBLE PROXIMA L DIAGNOSTIC Elevated carcinoembryonic antigen (CEA) Health Maintenance Due Date Last Done Comments DISCUSS TOBACCO CESSATION (REFER TO SMARTSET #5877) 1975 Hepatitis B (1 of 3 - [...] this encounter Medical Devices Implanted Type Area Hand Tacker Device Identifier Shelf Expiration Date Model / Serial / Lot Clip Quick 2.8mm 230cm - [id number] Implanted:Qty: 1 on 03/01/2023 by Rasheed Niño MD at ENDOSCOPY [facility] [email or web address] [id number] 05/18/2025 [id number]-[email or web address] / / [id number] documented as of this encounter Visit Diagnoses Diagnosis Asymmetry of optic nerve, unspecified laterality- Primary Vertigo Dizziness and giddiness Chronic migraine without aura with status migrainosus, not intractable Chronic migraine without aura, without mention of intractable migraine with status migrainosus documented in this encounter Care Teams Electrical Engineering Designer Relationship Specialty Start Date End Date Lucía Horner PA-C [address] [place] [address] PCP - General Physician Water Service Dispatcher 07/19/22 documented as of this encounter
--- OUTSIDE RECORDS SUMMARY | 2024-02-25 20:00 | External Medical Summary | Summary of Care ---
Author Name Unknown Organization [facility] Address [address] [place] [address] Phone [phone] Care Team Providers Care Power Distribution Engineer Name Role Phone Lucía Horner PA-C Primary Care Provider [phone] Reason for Referral * Medication Prior Authorization - Closed Specialty Diagnoses / Procedures Referred By Grupo t Referred To Contact Diagnoses HTN, goal below 140/90 Dyslipidemia, goal LDL below 70 Africa Oliver, [facility] [address] [facility] [place] [address] Referral ID Status Reason Start Date Expiration Date Visits Re quested Visits Authorized [id number] Closed 999 999 Reason for Visit * Reason Comments eRx-Medication Refill Encounter Details Date Type Department Care Team Description 08/29/2023 Refill [facility] [address] [place] [address] Lucía Horner PA-C [address] [place] [address] GERD (gastroesophageal reflux disease); Encounter for long-term (current) use of medications; Low vitamin D level; HTN, goal below 140/90; Dyslipidemia, goal LDL below 70 Allergies Active Allergy Reactions Severity Noted Date Comments Metformin 01/11/2021 Raised creat documented as of this encounter (statuses as of 08/31/2023) Medications Medication Sig Dispensed Refills Start Date [...] g 1 8 Active Continuous Blood Gluc Fsr ([employer] TU READER) DEVIIndications:Typ e 2 diabetes mellitus with hemoglobin A1c goal of less than 7.0% (HCC) Use as directed to check blood sugar 1 Device 1 8 Active Albuterol Sulfate (ALBUTEROL HFA) 108 (90 BASE) MCG/ACT inhalerIndications: Pneumonia of right lower lobe due to infectious organism Inhale 2 Puffs by mouth 4 times a day. 18 g 5 0 Active Ipratropium [place] 0.02 % Inhalation Solution (Atrovent)Indicatio ns:Tobacco use disorder Inhale via nebulizer 2.5 mL in the morning AND 2.5 mL at noon AND 2.5 mL in the evening AND 2.5 mL before bedtime. 75 mL 12 2 Active buPROPion HCl ER (XL) 150 MG Oral Tablet Extended Release 24 Hour (Wellbutrin XL)Indications:Toba inside sales account manager use disorder Take by mouth 1 Tablet [...] MCG/ACT Nasal Suspension (Flonase)Indication s:Dizziness Administer 1 [place] into nostril in the morning. 15.8 mL [...] AT BEDTIME 100 Tablet 1 3 Active hydroCHLOROthiazide 12.5 MG Oral Tablet (Hydrodiuril) TAKE 1 TABLET BY MOUTH ONCE DAILY 90 Tablet 1 3 Active busPIRone HCl 15 [...] 2 mL 11 3 08/02/20 24 Active Januvia 100 MG Oral Tablet (SITagliptin)Indica tions:Type 2 diabetes mellitus with hemoglobin A1c goal of less than 7.0% (HCC) TAKE 1 TABLET BY MOUTH EVERY MORNING 30 Tablet 5 3 Active Emgality 120 MG/ML Subcutaneous Solution [...] AT BEDTIME 90 Tablet 1 3 Active Pantoprazole Sodium 40 MG Oral Tablet Delayed Release (Protonix)Indicatio ns:GERD (gastroesophageal reflux disease),Encounter for long-term (current) use of medications TAKE 1 TABLET BY MOUTH ONCE DAILY 90 Tablet 1 3 08/30/20 23 Discontinued Atorvastatin Calcium 20 MG Oral Tablet (Lipitor)Indication s:HTN, goal below 140/90,Dyslipidemia , goal LDL below 70 TAKE 1 TABLET BY MOUTH AT BEDTIME 90 Tablet 1 3 08/30/20 23 Discontinued D3 Super Strength 50 MCG (1999 UT) Oral Capsule (Cholecalciferol)In dications:Low vitamin D level TAKE ONE CAPSULE BY MOUTH EVERY MORNING 90 Capsule 0 3 08/31/20 23 Discontinued documented as of this encounter (statuses as of 08/31/2023) Active Problems Problem Noted Date Elevated carcinoembryonic [...] as of this encounter (statuses as of 08/31/2023) Resolved Problems Problem Noted Date Resolved Date Abdominal pain 03/29/2015 08/24/2017 Abnormal LFTs 03/29/2015 08/24/2017 Cough 01/11/2010 03/29/2015 Overweight (BMI 25.0-29.9) 08/13/200903/29 Esophageal reflux 08/13/2009 03/29/2015 Chest pain 08/13/2009 03/29/2015 Tobacco use disorder 08/13/2009 03/29/2015 Elevated blood pressure, situational 08/13/2009 03/29/2015 HYPERGLYCEMIA 08/13/2009 03/29/2015 Prediabetes 06/22/2016 Dyslipidemia, goal LDL below 130 12/04/2017 documented as of this encounter (statuses as of 08/31/2023) Immunizations Name Administration Dates Next Due COVID-19 [...] Encounter - Lucía Horner PA-C - 08/31/2023 7:56 AM EDTSigned Prescriptions: Disp Refills Pantoprazole Sodium 40 MG Oral Tablet Sheila*90 Tab*1 Sig: TAKE 1 TABLET BY MOUTH ONCE DAILY Authorizing Provider: LUCÍA HORNER Ordering User: AFRICA OLIVER D3 Super Strength 50 MCG (2000 UT) Oral Ca*90 Cap*1 Sig: TAKE 1 CAPSULE BY MOUTH EVERY MORNING Authorizing Provider: LUCÍA HORNER Atorvastatin Calcium 20 MG Oral Tablet (Li*90 Tab*1 Sig: TAKE 1 TABLET BY MOUTH AT BEDTIME Authorizing Provider: LUCÍA HORNER Ordering User: AFRICA OLIVER * Telephone Encounter - Africa Oliver RPh - 08/30/2023 11:26 AM EDTPending Prescriptions: Disp Refills D3 Super Strength 50 MCG (2000 UT) Oral Ca*90 Cap*1 Sig: TAKE 1 CAPSULE BY MOUTH EVERY MORNING Signed Prescriptions: Disp Refills Pantoprazole Sodium 40 MG Oral Tablet Sheila*90 Tab*1 Sig: TAKE 1 TABLET BY MOUTH ONCE DAILY Authorizing Provider: LUCÍA HORNER Ordering User: AFRICA OLIVER Atorvastatin Luke cium 20 MG Oral Tablet (Li*90 Tab*1 Sig: TAKE 1 TABLET BY MOUTH AT BEDTIME Authorizing Provider: LUCÍA HORNER Ordering User: AFRICA OLIVER * Telephone Encounter - Africa Oliver RPh - 08/30/2023 11:25 AM EDT [facility] is currently not authorized to approve refills for the pended medication(s) per refill protocol. Please approve if appropriate. Thank You, Africa Oliver [facility] Clinical Pharmacist Centralized Clinical Pharmacy Services (CCPS) (formerly Telepharmacy) [phone] 08/30/2023, 11:26 AM documented in this encounter Plan of Treatment Upcoming Encounters Date Type Specialty Care Team Description 11/02/2023 Telemedicine Family Medicine Lucía Horner PA-C [address] [place] [address] Scheduled Orders Name Type Priority Associated Diagnoses Orde r Schedule LIPID PANEL WITH DIRECT LDL IF TG IS HIGH Lab Routine Encounter for long-term (current) use of medications Expected: 08/30/2023 (Approximate), Expires: 08/30/2024 Scheduled Procedures Name Priority Associated Diagnoses Date/Ti me COLONOSCOPY FLEXIBLE PROXIMA L DIAGNOSTIC Elevated carcinoembryonic antigen (CEA) Health Maintenance Due Date Last Done Comments DISCUSS TOBACCO CESSATION (REFER TO SMARTSET #6031) 1975 Hepatitis B (1 of 3 - [...] 07/09/2023, 031 , 12/15/2022, Additional history exists DIABETES-EYE EXAM [...] this encounter Medical Devices Implanted Type Area Cleaning Laborer Device Identifier Shelf Expiration Date Model / Serial / Lot Clip Quick 2.8mm 230cm - [id number] Implanted:Qty: 1 on 03/01/2023 by Rasheed Niño MD at [facility]OSCOPY [facility] [place] [id number] 05/18/2025 [id number] / / [id number] documented as of this encounter Visit Diagnoses Diagnosis GERD (gastroesophageal reflux disease) Esophageal reflux Encounter for long-term (current) use of medications Encounter for long-term (current) use of other medications Low vitamin D level HTN, goal below 140/90 Unspecified essential hypertension Dyslipidemia, goal LDL below 70 Other and unspecified hyperlipidemia documented in this encounter Care Teams Power Distribution Engineer Relationship Specialty Start Date End Date Lucía Horner PA-C [address], [place] [id number] PCP - General Physician Hydraulic Spinner 07/19/22 documented as of this encounter
--- OUTSIDE RECORDS SUMMARY | 2024-02-25 20:00 | External Medical Summary | Summary of Care ---
Author Name Unknown Organization [facility] Address [address] [place] [address] Phone [phone] Care Team Providers Care Guard Dance Hall Name Role Phone Lucía Horner PA-C Primary Care Provider [phone] Reason for Visit * Reason Comments eRx-Medication Refill Encounter Details Date Type Department Care Team Description 08/29/2023 Refill Neurology [facility] [place] [address] [place] [address] Karina Schneider PA-C [address] [place] [address] Allergies Active Allergy Reactions Severity Noted Date [...] g 1 8 Active Continuous Blood Gluc Salvage Cutter (FREESTYLE TU READER) DEVIIndications:Typ e 2 diabetes [...] day. 18 g 5 0 Active Ipratropium [place] 0.02 % Inhalation Solution (Atrovent)Indicatio ns:Tobacco use disorder Inhale via nebulizer 2.5 mL in the morning AND 2.5 mL at noon AND 2.5 mL in the evening AND 2.5 mL before bedtime. 75 mL 12 2 Active buPROPion HCl ER (XL) 150 MG Oral Tablet Extended Release 24 Hour (Wellbutrin XL)Indications:Toba construction accountant use disorder Take by mouth 1 Tablet [...] MCG/ACT Nasal Suspension (Flonase)Indication s:Dizziness Administer 1 [place] into nostril in the morning. 15.8 mL [...] AT BEDTIME 100 Tablet 1 3 Active Pantoprazole Sodium 40 MG Oral Tablet Delayed Release (Protonix)Indicatio ns:GERD (gastroesophageal reflux disease),Encounter for long-term (current) use of medications TAKE 1 TABLET BY MOUTH ONCE DAILY 90 Tablet 1 3 Active hydroCHLOROthiazide 12.5 MG Oral Tablet (Hydrodiuril) TAKE 1 TABLET BY MOUTH ONCE DAILY 90 Tablet 1 3 Active Atorvastatin Calcium 20 MG Oral Tablet (Lipitor)Indication s:HTN, goal below 140/90,Dyslipidemia , goal LDL below 70 TAKE 1 TABLET BY MOUTH AT BEDTIME 90 Tablet 1 3 Active busPIRone HCl [...] other medications 84 Tablet 1 3 Active D3 Super Strength 50 MCG (2000 UT) Oral Capsule (Cholecalciferol)In dications:Low vitamin D level TAKE ONE CAPSULE BY MOUTH EVERY MORNING 90 Capsule 0 3 Active Vitron-C 65-125 MG Oral Tablet [...] at bedtime. 60 Tablet 5 3 Active acetaZOLAMIDE 250 MG Oral Tablet (Diamox) TAKE 2 TABLETS BY MOUTH THREE TIMES DAILY 180 Tablet 0 3 Active acetaZOLAMIDE 250 MG Oral Tablet (Diamox) TAKE 2 TABLETS BY MOUTH THREE TIMES DAILY 180 Tablet 0 3 08/30/20 23 Discontinued documented as of this encounter [...] encounter Miscellaneous Notes * Telephone Encounter - Karina Schneider PA-C - 08/30/2023 7:46 AM EDT Signed Prescriptions: Disp Refills acetaZOLAMIDE 250 MG Oral Tablet (Diamox) 180 Ta*0 Sig: TAKE 2 TABLETS BY MOUTH THREE TIMES DAILY Authorizing Provider: KARINA SCHNEIDER * Telephone Encounter - [facility] - 08/29/2023 3:41 PM EDT Pending Prescriptions: Disp Refills acetaZOLAMIDE 250 MG Oral Tablet [Pharmacy*180 Ta*0 Sig: TAKE 2 TABLETS BY MOUTH THREE TIMES DAILY * [facility] - 08/29/2023 3:31 PM EDTPending Prescriptions: Disp Refills acetaZOLAMIDE 250 MG Oral Tablet [Pharmacy*180 Ta*0 Sig: TAKE 2 TABLETS BY MOUTH THREE TIMES DAILY Electronically signed by [facility] at 08/29/2023 3:31 PM EDT * [facility] 08/29/[facility]23 3:28 PM EDT Did you pend patient's preferred pharmacy and medication before forwarding?yes Pharmacy: [id number] Pending Prescriptions: Disp Refills acetaZOLAMIDE 250 MG Oral Tablet (Diamox)*180 Ta*0 Sig: TAKE 2 TABLETS BY MOUTH THREE TIMES DAILY Last Visit: 01/17/2023 (in office), 05/01/2023 (telemedicine) Next Visit: 01/08/2024 If no future appointments scheduled, and last appointment is greater than a year ago, please schedule patient for a follow-up appointment Last date the medication was ordered: 07/02/2023 Is this request for a controlled substance?No [...] Encounters Date Type Specialty Care Team Description 08/30/2023 Telemedicine Neurology Karina Schneider PA-C [address] [place] [address] 11/02/2023 Telemedicine Family Medicine Lucía Horner PA-C [address] [place] [address] Scheduled Procedures Name Priority Associated Diagnoses Date/Ti me COLONOSCOPY FLEXIBLE PROXIMA L DIAGNOSTIC Elevated carcinoembryonic antigen (CEA) Health Maintenance Due Date Last Done Comments DISCUSS TOBACCO CESSATION (REFER TO SMARTSET #6637) 1975 Hepatitis B (1 of 3 - [...] this encounter Medical Devices Implanted Type Area Reporting Analyst Device Identifier Shelf Expiration Date Model / Serial / Lot Clip Quick 2.8mm 230cm - [id number] Implanted:Qty: 1 on 03/01/2023 by Rasheed Niño MD at [place]OSCOPY [facility] [place] [employer] [id number] 05/18/2025 [id number] / / [id number] documented as of this encounter Care Teams Guard Dance Hall Relationship Specialty Start Date End Date Lucía Horner PA-C [address] [facility] [place] [phone] PCP - General Physician School Age Program Teacher 07/19/22 documented as of this encounter
[2024-02-25] MEDS ORDERED: ACETAMINOPHEN 325 MG TAB PO PRN (20:33)
[2024-02-25] MEDS ORDERED: FLUTICASONE PROPIONATE NA SPR 16 GM BTL SCH (21:00)
[2024-02-25] MEDS ORDERED: ATORVASTATIN 20 MG TAB PO SCH (21:00)
[2024-02-25] MEDS ORDERED: NON-FORMULARY MEDICATION (Ferrous Sulfate [Ferosul] 325 mg (65 mg iron) tablet) PO SCH (21:00)
[2024-02-25] MEDS ORDERED: TOPIRAMATE 25 MG TAB PO SCH (21:00)
[2024-02-25] MEDS ORDERED: Nursing to Pharmacy Communication SCH (21:30)
[2024-02-25] MEDS: NORETHINDRONE 5 MG TAB PO SCH (21:31)
[2024-02-25] MEDS: LACTATED RINGER'S 1,000 ML IV SCH (21:35)
[2024-02-25] MEDS: PANTOprazole 40 MG TAB PO STA (21:56)
[2024-02-26 00:47] LABS: Hematocrit (blood only) 27.3 % (37.0-47.0); Hemoglobin 8.4 g/dl (12.0-16.0)
[2024-02-26] MEDS: NICOTINE 21 MG/24 HR TDSY TD SCH (03:09)
[2024-02-26] MEDS: LEVOTHYROXINE SODIUM 200 MCG TABLET PO SCH (05:54)
--- NOTE | 2024-02-26 06:03 | Electrocardiogram Report ---
Test Reason : Blood Pressure : / mmHG Vent. Rate : 100 BPM Atrial Rate : 100 BPM P-R Int : 138 ms QRS Dur : 084 ms QT Int : 346 ms P-R-T Axes : 011 -15 015 degrees QTc Int : 446 ms Normal sinus rhythm Poor R wave progression, consider anterior IN vs. lead placement vs. LVH When compared with ECG of 09-JAN-2023 19:51, No significant change was found Confirmed by Juan Craig ([id number]) on 02/26/2024 6:02:29 AM Referred By: REFERRED SELF Confirmed By:Juan Craig
[2024-02-26] MEDS ORDERED: LEVOTHYROXINE SODIUM 200 MCG TABLET PO SCH (06:30)
[2024-02-26 06:39] LABS: Basophils # (auto) 0.04 K/uL (0.00-0.20); Basophils % (auto) 0.4 %; Eosinophils % (auto) 1.9 %; Hematocrit (blood only) 25.1 % (37.0-47.0); Hemoglobin 8.1 g/dl (12.0-16.0); Immature Granulocytes # (auto) 0.03 K/uL (0.01-0.20); Immature Granulocytes % (auto) 0.3 %; Lymphocytes # (auto) 2.38 K/uL (1.20-3.40); Lymphocytes % (auto) 23.1 %; Mean Corpuscular Hgb Conc 32.3 g/dL (32.0-36.0); Mean Corpuscular Volume 83.7 fL (80.0-100.0); Mean Platelet Volume 10.4 fL (9.4-12.4); Monocytes # (auto) 0.71 K/uL (0.11-0.59); Monocytes % (auto) 6.9 %; Neutrophils # (auto) 6.95 K/uL (1.40-6.50); Neutrophils % (auto) 67.4 %; Platelet Count 282 K/uL (130-400); RDW Coefficient of Variation 21.9 % (11.5-14.5); RDW Standard Deviation 67.3 fL (36.4-46.3); White Blood Count 10.31 K/ul (4.8-10.8)
[2024-02-26 06:48] LABS: Albumin Globulin Ratio 1.3 (0.9-2); Albumin Level 2.8 gm/dl (3.4-5.0); BUN Creatinine Ratio 16.9 (10-20); Bilirubin,Total 0.3 mg/dl (0.2-1.0); Calcium 7.6 mg/dl (8.6-10.3); Creatinine Clr Calc Pharmacy 118.4 ml/min; Est GFR (Non-African American) 84.6 ml/min; Globulin 2.2 gm/dl (2.5-4.0); Potassium 3.9 mmol/L (3.5-5.1)
[2024-02-26 07:16] LABS: iSTAT Creatinine 1.1 mg/dl (0.6-1.3); iSTAT Hemoglobin 11.6 g/dl (12.0-16.0); iSTAT Ionized Calcium 1.11 mmol/l (1.12-1.32); iSTAT Potassium 3.9 mmol/L (3.3-5.0)
--- NOTE | 2024-02-26 07:35 | Gynecologic Progress Note ---
Date of Service February 26, 2024 Assessment & Plan (1) Dysfunctional uterine bleeding: Plan: Stable for d/c home today on p.o. Aygestin ER precautions reviewed Follow-up in clinic, nursing communication placed in epic (2) Symptomatic anemia: Plan: Status post 1 unit of packed red blood cells (3) Elevated CEA: Plan: F/u outpatient (4) Morbid obesity: Plan: Poor surgical candidate (5) Hypertension: (6) Diabetes: Admission and Anticipated Discharge Date Admission Date: February 25, 2024 Subjective Patient states she feels much better since having the unit of blood. Has been able to walk around. Has had a clear diet, but did eat [employer] and hoagie last night that her boyfriend brought to the hospital per nursing staff Still feeling weak, denies any chest pain or shortness of breath Physical Exam Constitutional: WD/WN, vitals as above Neck: trachea midline, no thyromegaly Respiratory: normal respiratory effort, lungs clear to auscultation Cardiovascular: RRR, no murmur, no edema Gastrointestinal (Abdomen): normal bowel sounds, soft, nontender, no hepatosplenomegaly Obese Skin: no rashes, warm and dry Results & Data Vital Signs (Past 12 Hours) Vital Signs Temp Pulse Pulse Resp BP BP Pulse Ox 02/26/24 03:10 36.8 C 99 H 18 109/59 L 98 02/26/24 03:10 02/25/24 23:00 02/25/24 23:00 36.7 C 104 H 18 116/62 98 02/25/24 21:41 36.7 C 87 18 121/63 96 02/25/24 20:52 02/25/24 20:52 36.7 C 102 H 18 94/56 L 97 02/25/24 20:52 36.7 C 102 H 18 94/56 L 97 02/25/24 20:00 105 H 7 L 117/73 98 02/25/24 19:52 117/73 02/25/24 19:49 106 H 3 L 101/65 99 Pulse Ox O2 Del Method O2 Del Method 02/26/24 03:10 Room Air 02/26/24 03:10 98 Room Air 02/25/24 23:00 98 Room Air 02/25/24 23:00 Room Air 02/25/24 21:41 02/25/24 20:52 97 Room Air 02/25/24 20:52 02/25/24 20:52 Room Air 02/25/24 20:00 02/25/24 19:52 02/25/24 19:49 Laboratory Results Laboratory Results WBC 10.31 K/ul (4.8-10.8) 02/26/24 05:49 RBC 3.00 M/uL (4.20-5.40) L 02/26/24 05:49 Hgb 8.1 g/dl (12.0-16.0) L 02/26/24 05:49 POC Hgb 11.6 g/dl (12.0-16.0) L 02/25/24 12:27 Hct 25.1 % (37.0-47.0) L 02/26/24 05:49 POC Hct 34 % (37-47) L 02/25/24 12:27 MCV 83.7 fL (80.0-100.0) 02/26/24 05:49 MCH 27.0 pg (25.0-34.0) 02/26/24 05:49 MCHC 32.3 g/dL (32.0-36.0) 02/26/24 05:49 RDW Std Deviation 67.3 fL (36.4-46.3) H 02/26/24 05:49 RDW Coeff of Jay 21.9 % (11.5-14.5) H 02/26/24 05:49 Plt Count 282 K/uL (130-400) 02/26/24 05:49 MPV 10.4 fL (9.4-12.4) 02/26/24 05:49 Immature Gran % (Auto) 0.3 % 02/26/24 05:49 Neut % (Auto) 67.4 % 02/26/24 05:49 Lymph % (Auto) 23.1 % 02/26/24 05:49 Wise % (Auto) 6.9 % 02/26/24 05:49 Eos % (Auto) 1.9 % 02/26/24 05:49 Baso % (Auto) 0.4 % 02/26/24 05:49 Neut # (Auto) 6.95 K/uL (1.40-6.50) H 02/26/24 05:49 Lymph # (Auto) 2.38 K/uL (1.20-3.40) 02/26/24 05:49 Wise # (Auto) 0.71 K/uL (0.11-0.59) H 02/26/24 05:49 Eos # (Auto) 0.20 K/uL (0.00-0.50) 02/26/24 05:49 Baso # (Auto) 0.04 K/uL (0.00-0.20) 02/26/24 05:49 Immature Gran # (Auto) 0.03 K/uL (0.01-0.20) 02/26/24 05:49 Anisocytosis Present 02/26/24 05:49 PT 10.9 Seconds (9.0-12.0) 02/25/24 12:10 INR 1.0 (0.9-1.1) 02/25/24 12:10 APTT 27 Seconds (21-31) 02/25/24 12:10 PTT Ratio 1.0 02/25/24 12:10 POC Sodium 140 mmol/L (135-144) 02/25/24 12:27 Sodium 140 mmol/L (136-145) 02/26/24 05:49 POC Potassium 3.9 mmol/L (3.3-5.0) 02/25/24 12:27 Potassium 3.9 mmol/L (3.5-5.1) 02/26/24 05:49 POC Chloride 106 mmol/L (101-112) 02/25/24 12:27 Chloride 112 mmol/L (98-107) H 02/26/24 05:49 Carbon Dioxide 25 mmol/L (21-32) 02/26/24 05:49 POC Total CO2 24 mmol/L (24-31) 02/25/24 12:27 Anion Gap 3 (3-11) 02/26/24 05:49 POC Anion Gap 15.0 mmol/L (16-25) L 02/25/24 12:27 POC BUN 16 mg/dl (7-18) 02/25/24 12:27 BUN 14 mg/dl (6-23) 02/26/24 05:49 Creatinine 0.83 mg/dl (0.6-1.2) 02/26/24 05:49 POC Creatinine 1.1 mg/dl (0.6-1.3) 02/25/24 12:27 Est Cr Clr Drug Dosing 118.4 ml/min 02/26/24 05:49 Est GFR ( Amer) 98.0 ml/min 02/26/24 05:49 Est GFR (Non-Af Amer) 84.6 ml/min 02/26/24 05:49 BUN/Creatinine Ratio 16.9 (10-20) 02/26/24 05:49 Glucose 119 mg/dl (70-99(Fasting)) H 02/26/24 05:49 POC Glucose (other) 187 mg/dl (70-99) H 02/25/24 12:27 Calcium 7.6 mg/dl (8.6-10.3) L 02/26/24 05:49 POC Ioniz Calcium Norberto 1.11 mmol/l (1.12-1.32) L 02/25/24 12:27 Total Bilirubin 0.3 mg/dl (0.2-1.0) 02/26/24 05:49 AST 11 U/L (13-39) L 02/26/24 05:49 ALT 9 U/L (7-52) 02/26/24 05:49 Alkaline Phosphatase 40 U/L (34-104) 02/26/24 05:49 Troponin I High Sens 12.9 pg/ml (0-14) 02/25/24 13:37 Total Protein 5.0 gm/dl (6.0-8.3) L D 02/26/24 05:49 Albumin 2.8 gm/dl (3.4-5.0) L 02/26/24 05:49 Globulin 2.2 gm/dl (2.5-4.0) L 02/26/24 05:49 Albumin/Globulin Ratio 1.3 (0.9-2) 02/26/24 05:49 HCG, Qual Negative (Negative) 02/25/24 12:10 Blood Type B Positive 02/25/24 12:15 Blood Type Recheck B Positive 02/25/24 12:20 Antibody Screen NEGATIVE 02/25/24 12:15 Crossmatch See Detail 02/25/24 12:15 Impressions Transvaginal US 02/25/24 13:05 US pelvic complete, US transvaginal HISTORY: 48 years-old Female increased bleeding acute vaginal bleeding COMPARISON: CT 04/02/2011 TECHNIQUE: Multiple real-time sonographic images of the deep pelvic structures were obtained transabdominally and transvaginally assessing grayscale appearance, color and spectral flow FINDINGS: TRANSABDOMINAL: Limited exam secondary to patient body habitus. Suboptimal position of the uterus which measures 12.5 x 8.9 x 9.1 cm. There is an additional hypoechoic focus along the right fundal aspect of the uterus measuring 3.8 x 3.6 x 3.3 cm. Endometrium measures approximately 1.5 cm in thickness. Ovaries are obscured by bowel gas. TRANSVAGINAL: Nabothian cysts of the cervix. Heterogeneous appearance of the uterus. Ovaries are not visualized. No adnexal mass lesions. IMPRESSION: 1. Limited exam secondary to patient body habitus. 2. Heterogeneous uterus with questioned adenomyosis and possible pedunculated fundal fibroid. 3. Nonvisualization of the ovaries. ACT 112: Negative or not required by law. The above report was generated using voice recognition software. It may contain grammatical, syntax or spelling errors. Electronically signed by: Jerry Singer M.D. 02/25/2024 2:49 PM Pelvis Ultrasound 02/25/24 13:06 US pelvic complete, US transvaginal HISTORY: 48 years-old Female increased bleeding acute vaginal bleeding COMPARISON: CT 04/02/2011 TECHNIQUE: Multiple real-time sonographic images of the deep pelvic structures were obtained transabdominally and transvaginally assessing grayscale ap pearance, color and spectral flow FINDINGS: TRANSABDOMINAL: Limited exam secondary to patient body habitus. Suboptimal position of the uterus which measures 12.5 x 8.9 x 9.1 cm. There is an additional hypoechoic focus along the right fundal aspect of the uterus measuring 3.8 x 3.6 x 3.3 cm. Endometrium measures approximately 1.5 cm in thickness. Ovaries are obscured by bowel gas. TRANSVAGINAL: Nabothian cysts of the cervix. Heterogeneous appearance of the uterus. Ovaries are not visualized. No adnexal mass lesions. IMPRESSION: 1. Limited exam secondary to patient body habitus. 2. Heterogeneous uterus with questioned adenomyosis and possible pedunculated fundal fibroid. 3. Nonvisualization of the ovaries. ACT 112: Negative or not required by law. The above report was generated using voice recognition software. It may contain grammatical, syntax or spelling errors. Electronically signed by: Jerry Singer M.D. 02/25/2024 2:49 PM Chest X-Ray 02/25/24 13:18 XR chest 1V portable CLINICAL HISTORY: sob TECHNIQUE: Single frontal radiograph of the chest was obtained. Comparison: Comparison is made to chest radiograph 01/22/2023 FINDINGS: No lines and tubes are seen. The cardiomediastinal silhouette is normal. The lungs are clear. No evidence of pleural effusion or pneumothorax. IMPRESSION: No acute chest disease. ACT 112: Negative or not required by law. Electronically signed by: Nelson Haynes M.D. 02/25/2024 1:43 PM (5) Hypertension Hypertension type: primary hypertension Qualified Code(s): I10 - Essential (primary) hypertension (6) Diabetes Diabetes mellitus complication status: without complication Diabetes mellitus oysterman insulin use: without mcfp use Diabetes mellitus type: type 2 Qualified Code(s): E11.9 - Type 2 diabetes mellitus without complications
[2024-02-26 07:37] LABS: Anisocytosis Present
[2024-02-26] MEDS: FERROUS SULFATE 325 MG TAB PO SCH (08:19)
[2024-02-26] MEDS: CHOLECALCIFEROL 125 MCG (5,000 UNITS) TAB PO SCH (08:19)
[2024-02-26] MEDS: ATORVASTATIN 20 MG TAB PO SCH (08:20)
[2024-02-26] MEDS: ASCORBIC ACID 500 MG TAB PO SCH (08:21)
[2024-02-26] MEDS: PANTOprazole 40 MG TAB PO SCH (08:21)
[2024-02-26] MEDS: hydroCHLOROthiazide 25 MG TAB PO SCH (08:22)
[2024-02-26] MEDS: FLUTICASONE PROPIONATE NA SPR 16 GM BTL SCH (08:23)
[2024-02-26] MEDS: ONDANSETRON INJ 2 MG/ML 2 ML VIAL IV PRN (08:27)
[2024-02-26] MEDS ORDERED: PANTOprazole 40 MG TAB PO SCH (09:00)
[2024-02-26] MEDS ORDERED: ATORVASTATIN 20 MG TAB PO SCH (09:00)
[2024-02-26] MEDS ORDERED: LOSARTAN POTASSIUM 50 MG TAB PO SCH (09:00)
[2024-02-26] MEDS ORDERED: Nursing to Pharmacy Communication SCH (09:45)
[2024-02-26] MEDS ORDERED: NORETHINDRONE 5 MG TAB PO SCH (09:45)
--- NOTE | 2024-02-28 09:05 | Discharge Summary ---
Date of Service February 28, 2024 Admission HPI Per Admitting Provider 48 F P0000 LMP Sunday of last week with continuing bleeding through today and got heavier as the day progressed and came to the ER. She has always had irregular menses with heavy bleeding and clots and this period was unusual that it was heavier and did not stop. She was short of breath earlier and did feel dizzy earlier int e day but not light headed. she was pale on admission to ER. She is sexually active and never been on control. She does smoke 1.5- 2.0 PPD. Denies any drug use. She has never had a Pap smear or been to a hse coordinator. Admission Exam (Per Admitting) Constitutional WD/WN, vitals as above Neck trachea midline, no thyromegaly Respiratory normal respiratory effort, lungs clear to auscultation Cardiovascular RRR, no murmur, no edema Gastrointestinal (Abdomen) normal bowel sounds, soft, nontender, no hepatosplenomegaly Skin no rashes, warm and dry Discharge Data Consultations 02/25/24 17:41 Consult Obstetrics Stat 02/25/24 18:35 ED Decision to Admit Stat Hospital Course (1) Dysfunctional uterine bleeding: Stable for d/c home today on p.o. Aygestin ER precautions reviewed Follow-up in clinic, nursing communication placed in epic (2) Symptomatic anemia: Status post 1 unit of packed red blood cells (3) Elevated CEA: F/u outpatient (4) Morbid obesity: Poor surgical candidate (5) Hypertension: (6) Diabetes:
== END 2024-02-26 10:26 | disposition home or self-care (01) ==
LOC: ED 11:54 → INTOOBSV 19:24 → 4E1 19:24
DX: Z68.43 Body mass index [BMI] 50.0-59.9, adult; I10 Essential (primary) hypertension; D50.9 Iron deficiency anemia, unspecified; E11.9 Type 2 diabetes mellitus without complications; Z79.890 Hormone replacement therapy; N93.8 Other specified abnormal uterine and vaginal bleeding; R42 Dizziness and giddiness; Z88.8 Allergy status to other drugs, medicaments and biological substances; Z79.899 Other long term (current) drug therapy; E66.01 Morbid (severe) obesity due to excess calories